=== PATIENT | male | born 1990 | race Caucasian/White ===

== ENCOUNTER 2018-02-19 10:08 | Emergency (ER) | payer MEDICAID, SELFPAY ==
[2018-02-19 10:09] VITALS: BP 112/75; PULSE 70; RESP 16; TEMP 36.6; O2SAT 97
--- NOTE | 2018-02-19 10:47 | W.ED.GENAD ---
Discharge Plan Discharge Details Chief Complaint: RespSymp Clinical Impression: Bronchitis, Wheezing Reason For Visit: cough Primary Care Provider: Felisa Howard ED Provider: Naseem Rosales Disposition Patient Disposition: HOME Condition: Stable Home Meds and New Rx's Prescriptions: New doxycycline hyclate 100 mg capsule 100 mg PO BID Qty: 14 RF: 0 prednisone 20 mg tablet 60 mg PO DAILY 4 Days Qty: 12 RF: 0 Discharge Instructions Instructions: Wheezing (ED) Additional Instructions: follow up with your primary care provider within a week you should discuss with your primary care provider having testing for asthma if you have worsening trouble breathing or severe weakness return to the emergency department Discharge Data Discharge Physician: Naseem Rosales Medical Decision Making MDM Narrative Medical decision making narrative: Patient here 2 days of cough and fevers at home, last 2 days ago per pt. He denies any recent travel, leg swelling or ivdu, does smoke and use marijuana. Has wheezing at the bases bilaterally and denies diagnosed asthma/copd but has used inhalers in the past. No murmurs or rashes on exam. I suspect the patient likely has RAD given his smoking hx and will treat with nebulizer and stzeroid and reassessz. Will likely start abx to cover for possible copd exacerbation given smoking hx. He has no fever here and appears well so dout pneumonia, do not feel chest imaing indicated pt feeling better after neb, remains stable. Will d/c and advised f/u with pcp, return precautions given. Differential Diagnosis copd, asthma, pneumonia, bronchitis HPI - General Adult General Mode of arrival: ambulatory. Date/Time Provider Initiated Documentation: 02/19/18 10:37. Limitations to Documentation: no limitations. Information obtained by: patient. History of Present Illness 28 year old M presents to the emergency department with the chief complaint of cough, described as moderate, with intensity rated at 3. Quality is described as aching, and is localized to the chest. Patient reports no radiation. Patient started experiencing this day(s) (3) and it has been constant. No relieving factors improve symptom(s), No exacerbating factors reported . Patient notes fever/chills. Patient did receive the following treatments prior to arrival, none Related Data Previous Rx's Medication Instructions Recorded doxycycline hyclate 100 mg PO BID #14 cap 02/19/18 prednisone 60 mg PO DAILY 4 Days #12 tab 02/19/18 Allergies Allergy/AdvReac Type Severity Reaction Status Date / Time amitriptyline Allergy rash/behavioral Unverified 02/19/18 10:13 changes clonazepam AdvReac Mild irritablity Unverified 02/19/18 10:14 /byrne General Stated Complaint: RespSymp DERRICK: 3 Review of Systems Review of Systems All systems reviewed & are unremarkable except as noted in HPI and below Constitutional Reports chills, Reports fever(s) and Denies weakness Eyes Patient Denies loss of vision ENT Denies change in voice Cardiovascular Denies chest pain Respiratory Reports cough Gastrointestinal Denies abdominal pain, Denies nausea and Denies vomiting Genitourinary Denies dysuria Musculoskeletal Denies joint swelling Integumentary/Breasts Denies rash Neurologic Denies loss of vision and Denies weakness Psychiatric Denies depression Endocrine Denies cold intolerance and Denies heat intolerance Allergic/Immunologic Reports urticaria PFSH Family History Other Essential hypertension Heart disease Medical History Alcohol abuse Erosive gastritis GERD (gastroesophageal reflux disease) History of drug use disorder History of melena Tobacco abuse Social History Smoking/Tobacco Use Status: Current every day Surgical History EGD - MAC (12/15/17) Exam Const General: no acute distress Orientation: alert HENMT Head: normal to inspection Ears: external ears normal General nose exam: external nose normal Mouth: moist mucous membranes Eyes General: appearance normal, both eyes and all related structures Neck Neck: normal visual inspection Resp Effort & Inspection: normal respiratory effort, able to speak in complete sentences and audible wheezes Cardio Rate: regular rate Skin General skin exam: no rashes or lesions noted Neuro General: alert and oriented x3 Extrem General: normal to inspection Psych Mental Status: mental status grossly normal Course Vital Signs Temperature 36.6 C 02/19/18 10:09 Pulse 70 02/19/18 10:09 Respiratory Rate 16 02/19/18 10:09 Blood Pressure 112/75 02/19/18 10:09 Pulse Oximetry 97 02/19/18 10:09 Temperature 36.6 C 02/19/18 10:09 Pulse 70 02/19/18 10:09 Respiratory Rate 16 02/19/18 10:09 Blood Pressure 112/75 02/19/18 10:09 Pulse Oximetry 97 02/19/18 10:09
--- NOTE | 2018-02-19 10:50 | ED.GENADUL_ITS ---
Discharge Plan Discharge Details Chief Complaint: RespSymp Clinical Impression: Bronchitis, Wheezing Reason For Visit: cough Primary Care Provider: Felisa Howard ED Provider: Naseem Rosales Disposition Patient Disposition: HOME Condition: Stable Home Meds and New Rx's Prescriptions: New doxycycline hyclate 100 mg capsule 100 mg PO BID Qty: 14 RF: 0 prednisone 20 mg tablet 60 mg PO DAILY 4 Days Qty: 12 RF: 0 Discharge Instructions Instructions: Wheezing (ED) Additional Instructions: follow up with your primary care provider within a week you should discuss with your primary care provider having testing for asthma if you have worsening trouble breathing or severe weakness return to the emergency department Discharge Data Discharge Physician: Naseem Rosales Medical Decision Making MDM Narrative Medical decision making narrative: Patient here 2 days of cough and fevers at home, last 2 days ago per pt. He denies any recent travel, leg swelling or ivdu , does smoke and use marijuana. Has wheezing at the bases bilaterally and denies diagnosed asthma/copd but has used inhalers in the past. No murmurs or rashes on exam. I suspect the patient likely has RAD given his smoking hx and will treat with nebulizer and stzeroid and reassessz. Will likely start abx to cover for possible copd exacerbation given smoking hx. He has no fever here and appears well so dout pneumonia, do not feel chest imaing indicated pt feeling better after neb, remains stable. Will d/c and advised f/u with pcp, return precautions given. Differential Diagnosis copd, asthma, pneumonia, bronchitis HPI - General Adult General Mode of arrival: ambulatory . Date/Time Provider Initiated Documentation: 02/19/18 10:37 . Limitations to Documentation: no limitations . Information obtained by: patient . History of Present Illness 28 year old M presents to the emergency department with the chief complaint of cough, described as moderate, with intensity rated at 3. Quality is described as aching, and is localized to the chest. Patient reports no radiation. Patient started experiencing this day(s) (3) and it has been constant. No relieving factors improve symptom(s), No exacerbating factors reported . Patient notes fever/chills. Patient did receive the following treatments prior to arrival, none Related Data Previous Rx's Medication Instructions Recorded doxycycline hyclate 100 mg PO BID #14 cap 02/19/18 prednisone 60 mg PO DAILY 4 Days #12 tab 02/19/18 Allergies Allergy/AdvReac Type Severity Reaction Status Date / Time amitriptyline Allergy rash/behavioral Unverified 02/19/18 10:13 changes clonazepam AdvReac Mild irritablity Unverified 02/19/18 10:14 /byrne General Stated Complaint: RespSymp DERRICK: 3 Review of Systems Review of Systems All systems reviewed & are unremarkable except as noted in HPI and below Constitutional Reports chills, Reports fever(s) and Denies weakness Eyes Patient Denies loss of vision ENT Denies change in voice Cardiovascular Denies chest pain Respiratory Reports cough Gastrointestinal Denies abdominal pain, Denies nausea and Denies vomiting Genitourinary Denies dysuria Musculoskeletal Denies joint swelling Integumentary/Breasts Denies rash Neurologic Denies loss of vision and Denies weakness Psychiatric Denies depression Endocrine Denies cold intolerance and Denies heat intolerance Allergic/Immunologic Reports urticaria PFSH Family History Other Essential hypertension Heart disease Medical History Alcohol abuse Erosive gastritis GERD (gastroesophageal reflux disease) History of drug use disorder History of melena Tobacco abuse Social History Smoking/Tobacco Use Status: Current every day Surgical History EGD - MAC (12/15/17) Exam Const General: no acute distress Orientation: alert HENMT Head: normal to inspection Ears: external ears normal General nose exam: external nose normal Mouth: moist mucous membranes Eyes General: appearance normal, both eyes and all related structures Neck Neck: normal visual inspection Resp Effort & Inspection: normal respiratory effort, able to speak in complete sentences and audible wheezes Cardio Rate: regular rate Skin General skin exam: no rashes or lesions noted Neuro General: alert and oriented x3 Extrem General: normal to inspection Psych Mental Status: mental status grossly normal Course Vital Signs Temperature 36.6 C 02/19/18 10:09 Pulse 70 02/19/18 10:09 Respiratory Rate 16 02/19/18 10:09 Blood Pressure 112/75 02/19/18 10:09 Pulse Oximetry 97 02/19/18 10:09 Temperature 36.6 C 02/19/18 10:09 Pulse 70 02/19/18 10:09 Respiratory Rate 16 02/19/18 10:09 Blood Pressure 112/75 02/19/18 10:09 Pulse Oximetry 97 02/19/18 10:09
[2018-02-19] MEDS: predniSONE 20 MG TAB 60 MG PO (11:08)
[2018-02-19] MEDS: Doxycycline Hyclate 100 MG CAP PO (11:09)
[2018-02-19 11:11] VITALS: PULSE 60; RESP 20; RESP 4; O2SAT 98
[2018-02-19] MEDS: Albuterol 2.5 MG/3 ML INH SOLN VIAL UPD (11:11)
[2018-02-19 11:41] VITALS: PULSE 65; RESP 1; RESP 20; O2SAT 96
[2018-02-19] MEDS: Albuterol HFA 8 GM 60 PUFF INH IH (12:01)
[2018-02-19] MEDS: Inhaler, Assist Device 1 EACH MC (12:05)
[2018-02-19 12:21] VITALS: BP 114/75; PULSE 65; RESP 20; TEMP 36.8; O2SAT 96
== END 2018-02-19 12:13 | disposition home or self-care (01) ==
PROVIDERS: Emergency Provider Emergency Medicine; PCP Nurse Practitioner Family
DX: J40 Bronchitis, not specified as acute or chronic (principal); R06.2 Wheezing
CPT/HCPCS: 94640; 99284; J7512; J7613

== ENCOUNTER 2018-04-11 06:45 | Emergency (ER) | payer MEDICAID, SELFPAY ==
[2018-04-11 06:49] VITALS: BP 122/77; PULSE 69; RESP 14; TEMP 36.6; O2SAT 98
--- NOTE | 2018-04-11 07:44 | DI.RAD_ITS ---
SYMPTOM/DIAGNOSIS: COUGH PA AND LATERAL CHEST: Comparison is made with 05/03/17. The heart is normal in size. The lungs are clear. The mediastinal structures and pleura appear intact. CONCLUSION: Normal chest.
--- NOTE | 2018-04-11 07:52 | ED.GENADUL_ITS ---
Discharge Plan Disposition Patient Disposition: HOME Condition: Good Discharge Details Chief Complaint: RespSymp Clinical Impression: Cough, Acid reflux Primary Care Provider: Felisa Howard ED Provider: Km Patten Home Meds and New Rx's Prescriptions: New azithromycin 250 mg tablet See Label Instructions .ROUTE .COMPLEX Qty: 6 RF: 0 dexamethasone [Decadron] 4 mg tablet 12 mg PO ONCE Qty: 3 RF: 0 Discharge Instructions Instructions: Gastroesophageal Reflux Disease (ED), Acute Cough (ED) Additional Instructions: Please avoid any spicy foods, please stop smoking, please take the medications as directed. Please take your home omeprazole as directed. If you notice any worsening of your symptoms, or any new symptoms such as vomiting, diarrhea, fever, chills, shortness of breath, chest pain, numbness, weakness, or fainting , please return immediately to the emergency department for reevaluation. Please follow up with your primary care provider as soon as possible for reassessment and reevaluation. As always, it was a pleasure participating in your medical care today. Referrals: Felisa Howard [Primary Care Provider] - Discharge Data Discharge Date/Time-TO BE ENTERED AT DEPARTURE: 04/11/18 09:45 <Km Patten DO - Last Filed: 04/11/18 09:34> The case is signed out to be my my colleague Dr. Herbie eD Leon. Initial presentation was concerning for mild bronchitis versus component of reflux. Physical exam upon discharge demonstrates nontender abdomen, benign appearing lung sounds. Vital signs are stable, no signs of toxemia, hypoxemia, or other significant abnormality. Laboratory workup is extremely benign with no significant abnormalities. Chest x-ray on my review shows no acute process however we are awaiting virtual radiology read. Patient states that he is unwilling to wait any longer for the formal radiology read. We did discuss risks and benefits of this. Patient would like to leave now. I do feel the patient would benefit from a dose of oral steroids, azithromycin, and omeprazole. He already has omeprazole at home but does not take this. I discussed with him the importance of continuing to take this regularly and as directed. We discussed the importance of avoidance of spicy foods which he states that he has not regular basis, as well as the importance of smoking cessation. I have extensively reviewed the treatment plan and discharge instructions with the patient and their family. I have addressed all patient concerns at this time. The patient and family was made aware of what symptoms to monitor for that would warrant a return to the emergency department. Discussed the plan with the patient and family, they demonstrate verbal understanding and agreement with our assessment and plan at this time. HPI <Herbie De Leon MD - Last Filed: 04/17/18 08:29> General Mode of arrival: ambulatory . Date/Time Provider Initiated Documentation: 04/11/18 07:44 . Limitations to Documentation: no limitations . Information obtained by: patient . HPI Narrative: 28-year-old male presents with chief complaint of general illness. Patient notes that for the past 1 month he has been sick. Symptoms moderate with no modifiers. He states he has had intermittent fever. Persistent cough. Nausea and intermittent vomiting. Some diffuse abdominal discomfort. Also with some aches. Related Data Home Medications Medication Instructions Recorded Confirmed azithromycin See Label Instructions .ROUTE 04/11/18 .COMPLEX #6 tab dexamethasone [Decadron] 12 mg PO ONCE #3 tab 04/11/18 Previous Rx's Medication Instructions Recorded azithromycin See Label Instructions .ROUTE 04/11/18 .COMPLEX #6 tab dexamethasone [Decadron] 12 mg PO ONCE #3 tab 04/11/18 Allergies Allergy/AdvReac Type Severity Reaction Status Date / Time amitriptyline Allergy rash/behavioral Unverified 04/11/18 06:53 changes clonazepam AdvReac Mild irritablity Unverified 04/11/18 06:53 /byrne General Stated Complaint: RespSymp DERRICK: 3 Review of Systems <Herbie De Leon MD - Last Filed: 04/17/18 08:29> Review of Systems All systems reviewed & are unremarkable except as noted in HPI and below Exam <Herbie De Leon MD - Last Filed: 04/17/18 08:29> Const General: cooperative and no acute distress HENMT Head: normocephalic and atraumatic Mouth: moist mucous membranes Eyes Conjunctivae: normal conjunctivae Sclera: normal sclerae EOM: EOM intact bilaterally Neck Neck: trachea midline and supple Resp Effort & Inspection: normal respiratory effort, able to speak in complete sentences and cough Auscultation: no rales, rhonchi and no wheezes Cardio Jugular venous pressure: no JVD Rate: regular rate and not tachycardic Rhythm: regular rhythm GI Palpation: soft, not firm, no guarding, no masses, not rigid and nontender Skin General skin exam: no rashes or lesions noted Neuro General: alert, awake, oriented x3 and tone normal Extrem General: no edema Psych Appearance: grossly normal Mental Status: mental status grossly normal Speech and Movement: speech and movement normal Course <Herbie De Leon MD - Last Filed: 04/17/18 08:29> Vital Signs Temperature 36.6 C 04/11/18 06:49 Pulse 69 04/11/18 06:49 Respiratory Rate 14 04/11/18 06:49 Blood Pressure 122/77 04/11/18 06:49 Pulse Oximetry 98 04/11/18 06:49 Temperature 36.6 C 04/11/18 06:49 Temperature Source Temporal Artery Scan 04/11/18 06:49 Pulse 69 04/11/18 06:49 Respiratory Rate 14 04/11/18 06:49 Respiratory Effort Non-Labored 04/11/18 06:54 Blood Pressure 122/77 04/11/18 06:49 Pulse Oximetry 98 04/11/18 06:49 Oxygen Delivery Method Room Air 04/11/18 06:49 Oxygen Flow Rate 0 04/11/18 06:49 Pain Level 6 04/11/18 06:49 Sign Out <Herbie De Leon MD - Last Filed: 04/17/18 08:29> Sign Out Data: Sign Out Comment: care signed out to Dr. Patten: please follow-up on cxr and labs. Reassess patient after zofran and IVF. Consider abx coverage vs bronchitis vs PNA. Last updated by Herbie De Leon MD at 04/11/18 08:27
[2018-04-11] MEDS: Lactated Ringers 1,000 ML 1000 ML IV (08:13)
[2018-04-11] MEDS: Ondansetron 4 MG/2 ML VIAL IVP (08:13)
[2018-04-11 08:21] LABS: Abs Immature Grans 0.01 k/cumm (0.0-0.09); Absolute Basophil Count 0.01 k/cumm (0.0-0.2); Absolute Eosinophil Count 0.07 k/cumm (0.0-0.7); Absolute Lymphocyte Count 2.49 k/cumm (1.2-3.4); Absolute Monocyte Count 0.59 k/cumm (0.11-0.7); Absolute Neutrophil Count 2.11 k/cumm (1.2-6.7); Basophils % 0.2; Eosinophils % 1.3; HGB 16.2 g/dL (13.5-17.5); Immature Grans % 0.2; Lymphocytes % 47.2; Mean Corp. HGB Concentration 35.2 g/dL (32.0-36.0); Mean Corpuscular Hemoglobin 31.2 pg (27.0-33.0); Mean Corpuscular Volume 88.5 fL (80-95); Mean Platelet Volume 9.8 fL (8.0-11.0); Monocytes % 11.2; Neutrophils % 39.9; Platelet Count 196 x1000/uL (130-400); RBC Distribution Width 13.3 % (11.8-14.1); White Blood Cell Count 5.28 k/cumm (4.4-10.8)
[2018-04-11 08:28] LABS: ALT 23 U/L (12-78); AST 19 U/L (15-37); Albumin 4.5 g/dL (3.4-5.0); Alkaline Phosphatase 86 U/L (46-116); BUN 20 mg/dL (7-18); Bilirubin, Total 0.6 mg/dL (0.2-1.0); Calcium 9.6 mg/dL (8.5-10.1); Chloride 102 mmol/L (98-107); Glucose 84 mg/dL (70-100); Potassium 4.3 mmol/L (3.5-5.1); Sodium 140 mmol/L (136-145); Total Protein 8.3 g/dL (6.4-8.2)
--- NOTE | 2018-04-11 09:37 | DI.VRAD_ITS ---
EXAM: XR Chest, 2 Views EXAM DATE/TIME: 04/11/2018 7:48 AM CLINICAL HISTORY: 28 years old, male; Signs and symptoms; Other: Cough 1 month TECHNIQUE: XR of the chest, 2 views. COMPARISON: CR CHEST 2 VIEWS PA,LAT 05/03/2017 9:01 AM FINDINGS: Lungs: Unremarkable. No consolidation. Pleural space: Unremarkable. No pleural effusion. No pneumothorax. Heart/Mediastinum: Unremarkable. No cardiomegaly. Bones/joints: Unremarkable. IMPRESSION: No acute findings. Dictated and Authenticated by: Etta Kennedy MD. Ordering:CAIO INMAN MD
== END 2018-04-11 09:45 | disposition home or self-care (01) ==
LOC: ER 09:39
PROVIDERS: Student in an Organized Health Care Education/Training Program; Emergency Provider Student in an Organized Health Care Education/Training Program; PCP Nurse Practitioner Family
DX: R05 Cough (principal); K21.9 Gastro-esophageal reflux disease without esophagitis; F17.210 Nicotine dependence, cigarettes, uncomplicated
CPT/HCPCS: 36415; 80053; 96361; 96374; 99284; 71046; 85025; 99285; J2405

== ENCOUNTER 2018-04-14 17:57 | Emergency (ER) | payer MEDICAID, SELFPAY ==
[2018-04-14 18:04] VITALS: BP 120/68; PULSE 77; RESP 16; TEMP 36.6; O2SAT 98
--- NOTE | 2018-04-14 18:44 | W.ED.GENAD ---
Discharge Plan Disposition Patient Disposition: HOME Condition: Stable Discharge Details Chief Complaint: Orthopedic Clinical Impression: Complication of intravenous catheter site Primary Care Provider: Felisa Howard ED Provider: Vinay Gannon Home Meds and New Rx's Prescriptions: No Action azithromycin 250 mg tablet See Label Instructions .ROUTE .COMPLEX Qty: 6 RF: 0 dexamethasone [Decadron] 4 mg tablet 12 mg PO ONCE Qty: 3 RF: 0 Discharge Instructions Instructions: Hematoma (ED) Additional Instructions: He may apply ice to help with swelling and bruising otherwise take [id number] pain medication as needed for discomfort. Watch for any signs of infection such as redness, warmth, fever or chills return immediately if these occur. Referrals: Felisa Howard [Primary Care Provider] - (As needed for reassessment ) Medical Decision Making Patient presenting to the emergency department for chief complaint of left arm pain from an IV that he received in the emergency department 3 days ago. Patient states bruising that is occurred. Patient denies any redness, fever chills, or other systemic symptoms. Physical exam was performed and does show bruising to the left antecubital fossa with some tenderness but otherwise is unremarkable. During examination patient and states that he is concerned because his father had a blood clot. I highly doubt any thrombosis formation in this area but bedside ultrasound was utilized to visualize the veins starting at the mid forearm all the way up through the upper arm and no abnormalities of compressibility were noted of any of the veins and good arterial pulses were noted. I feel the patient is suffering from simple ecchymosis and bruising after IV removal. Patient was encouraged to apply ice and take [id number] pain medication as needed otherwise to watch for signs of infection and return immediately if these occur but as of right now no signs of infection are present. After discussion of diagnosis and plan of care patient has no further needs, questions, or concerns and states clear understanding to return to the emergency department for any worsening symptoms. HPI General Mode of arrival: ambulatory. Date/Time Provider Initiated Documentation: 04/14/18 18:09. Limitations to Documentation: no limitations. Information obtained by: patient. History of Present Illness described as severe, with intensity rated at 10. Quality is described as dull and constant, and is localized to the left and lower extremity. Patient started experiencing this day(s) (3) and it has been constant. No relieving factors improve symptom(s), No exacerbating factors reported . Patient notes no other symptoms.. Patient did receive the following treatments prior to arrival, none Related Data Home Medications Medication Instructions Recorded Confirmed azithromycin See Label Instructions .ROUTE 04/11/18 .COMPLEX #6 tab dexamethasone [Decadron] 12 mg PO ONCE #3 tab 04/11/18 Previous Rx's Medication Instructions Recorded azithromycin See Label Instructions .ROUTE 04/11/18 .COMPLEX #6 tab dexamethasone [Decadron] 12 mg PO ONCE #3 tab 04/11/18 Allergies Allergy/AdvReac Type Severity Reaction Status Date / Time amitriptyline Allergy rash/behavioral Unverified 04/11/18 06:53 changes clonazepam AdvReac Mild irritablity Unverified 04/11/18 06:53 /byrne General Stated Complaint: Orthopedic DERRICK: 4 Review of Systems Constitutional Denies chills and Denies fever(s) Cardiovascular Denies chest pain and Denies dyspnea Respiratory Denies cough and Denies dyspnea Integumentary/Breasts Denies erythema, Denies rash and Reports unusual bruising (From IV catheter) Neurologic Denies confusion and Denies sensory deficit Psychiatric Denies confusion PFSH Family History Other Essential hypertension Heart disease Medical History Alcohol abuse Erosive gastritis GERD (gastroesophageal reflux disease) History of drug use disorder History of melena Tobacco abuse Social History Smoking/Tobacco Use Status: Current every day Surgical History EGD - MAC (12/15/17) Exam Const General: cooperative, healthy appearing, comfortable, no acute distress and anxious Nutritional Appearance: average body habitus Orientation: alert, awake and oriented x3 Resp Effort & Inspection: normal respiratory effort and able to speak in complete sentences Cardio Rate: regular rate Rhythm: regular rhythm Extrem General: normal exam except as noted Left upper extremity: elbow/forearm Details: tenderness Location: of the antercubital fossa, normal ROM and ecchymosis (To antecubital fossa) Course Vital Signs Temperature 36.6 C 04/14/18 18:04 Pulse 77 04/14/18 18:04 Respiratory Rate 16 04/14/18 18:04 Blood Pressure 120/68 04/14/18 18:04 Pulse Oximetry 98 04/14/18 18:04 Temperature 36.6 C 04/14/18 18:04 Temperature Source Skin 04/14/18 18:04 Pulse 77 04/14/18 18:04 Respiratory Rate 16 04/14/18 18:04 Respiratory Effort 04/14/18 18:14 Blood Pressure 120/68 04/14/18 18:04 Blood Pressure Position Sitting 04/14/18 18:04 Pulse Oximetry 98 04/14/18 18:04 Oxygen Delivery Method Room Air 04/14/18 18:04 Oxygen Flow Rate 0 04/14/18 18:04 Pain Level 10 04/14/18 18:04
[2018-04-14 18:48] VITALS: BP 120/68; PULSE 77; RESP 16; TEMP 36.6; O2SAT 98
--- NOTE | 2018-04-14 23:19 | ED.GENADUL_ITS ---
Discharge Plan Disposition Patient Disposition: HOME Condition: Stable Discharge Details Chief Complaint: Orthopedic Clinical Impression: Complication of intravenous catheter site Primary Care Provider: Felisa Howard ED Provider: Vinay Gannon Home Meds and New Rx's Prescriptions: No Action azithromycin 250 mg tablet See Label Instructions .ROUTE .COMPLEX Qty: 6 RF: 0 dexamethasone [Decadron] 4 mg tablet 12 mg PO ONCE Qty: 3 RF: 0 Discharge Instructions Instructions: Hematoma (ED) Additional Instructions: He may apply ice to help with swelling and bruising otherwise take over-the- counter pain medication as needed for discomfort. Watch for any signs of infection such as redness, warmth, fever or chills return immediately if these occur. Referrals: Felisa Howard [Primary Care Provider] - (As needed for reassessment ) Medical Decision Making Patient presenting to the emergency department for chief complaint of left arm pain from an IV that he received in the emergency department 3 days ago. Patient states bruising that is occurred. Patient denies any redness, fever chills, or other systemic symptoms. Physical exam was performed and does show bruising to the left antecubital fossa with some tenderness but otherwise is unremarkable. During examination patient and states that he is concerned because his father had a blood clot. I highly doubt any thrombosis formation in this area but bedside ultrasound was utilized to visualize the veins starting at the mid forearm all the way up through the upper arm and no abnormalities of compressibility were noted of any of the veins and good arterial pulses were noted. I feel the patient is suffering from simple ecchymosis and bruising after IV removal. Patient was encouraged to apply ice and take [id number] pain medication as needed otherwise to watch for signs of infection and return immediately if these occur but as of right now no signs of infection are present. After discussion of diagnosis and plan of care patient has no further needs, questions, or concerns and states clear understanding to return to the emergency department for any worsening symptoms. HPI General Mode of arrival: ambulatory . Date/Time Provider Initiated Documentation: 04/14/18 18:09 . Limitations to Documentation: no limitations . Information obtained by: patient . History of Present Illness described as severe, with intensity rated at 10. Quality is described as dull and constant, and is localized to the left and lower extremity. Patient started experiencing this day(s) (3) and it has been constant. No relieving factors improve symptom(s), No exacerbating factors reported . Patient notes no other symptoms.. Patient did receive the following treatments prior to arrival, none Related Data Home Medications Medication Instructions Recorded Confirmed azithromycin See Label Instructions .ROUTE 04/11/18 .COMPLEX #6 tab dexamethasone [Decadron] 12 mg PO ONCE #3 tab 04/11/18 Previous Rx's Medication Instructions Recorded azithromycin See Label Instructions .ROUTE 04/11/18 .COMPLEX #6 tab dexamethasone [Decadron] 12 mg PO ONCE #3 tab 04/11/18 Allergies Allergy/AdvReac Type Severity Reaction Status Date / Time amitriptyline Allergy rash/behavioral Unverified 04/11/18 06:53 changes clonazepam AdvReac Mild irritablity Unverified 04/11/18 06:53 /byrne General Stated Complaint: Orthopedic DERRICK: 4 Review of Systems Constitutional Denies chills and Denies fever(s) Cardiovascular Denies chest pain and Denies dyspnea Respiratory Denies cough and Denies dyspnea Integumentary/Breasts Denies erythema, Denies rash and Reports unusual bruising (From IV catheter) Neurologic Denies confusion and Denies sensory deficit Psychiatric Denies confusion PFSH Family History Other Essential hypertension Heart disease Medical History Alcohol abuse Erosive gastritis GERD (gastroesophageal reflux disease) History of drug use disorder History of melena Tobacco abuse Social History Smoking/Tobacco Use Status: Current every day Surgical History EGD - MAC (12/15/17) Exam Const General: cooperative, healthy appearing, comfortable, no acute distress and anxious Nutritional Appearance: average body habitus Orientation: alert, awake and oriented x3 Resp Effort & Inspection: normal respiratory effort and able to speak in complete sentences Cardio Rate: regular rate Rhythm: regular rhythm Extrem General: normal exam except as noted Left upper extremity: elbow/forearm Details: tenderness Location: of the antercubital fossa, normal ROM and ecchymosis (To antecubital fossa) Course Vital Signs Temperature 36.6 C 04/14/18 18:04 Pulse 77 04/14/18 18:04 Respiratory Rate 16 04/14/18 18:04 Blood Pressure 120/68 04/14/18 18:04 Pulse Oximetry 98 04/14/18 18:04 Temperature 36.6 C 04/14/18 18:04 Temperature Source Skin 04/14/18 18:04 Pulse 77 04/14/18 18:04 Respiratory Rate 16 04/14/18 18:04 Respiratory Effort 04/14/18 18:14 Blood Pressure 120/68 04/14/18 18:04 Blood Pressure Position Sitting 04/14/18 18:04 Pulse Oximetry 98 04/14/18 18:04 Oxygen Delivery Method Room Air 04/14/18 18:04 Oxygen Flow Rate 0 04/14/18 18:04 Pain Level 10 04/14/18 18:04
== END 2018-04-14 18:48 | disposition home or self-care (01) ==
PROVIDERS: Emergency Provider Nurse Practitioner Family; PCP Nurse Practitioner Family
DX: T82.848A Pain due to vascular prosthetic devices, implants and grafts, initial encounter (principal); Y84.8 Other medical procedures as the cause of abnormal reaction of the patient, or of later complication, without mention of misadventure at the time of the procedure
CPT/HCPCS: 99282

== ENCOUNTER 2018-04-21 12:45 | Outpatient (REF) | payer MEDICAID, SELFPAY ==
[2018-04-21 13:20] LABS: HCT 46.2 % (40.0-50.0); HGB 15.7 g/dL (13.5-17.5); Mean Corpuscular Hemoglobin 30.6 pg (27.0-33.0); Mean Corpuscular Volume 90.1 fL (80-95); Mean Platelet Volume 10.3 fL (8.0-11.0); Platelet Count 225 x1000/uL (130-400); RBC 5.13 m/cumm (4.50-6.00); White Blood Cell Count 6.63 k/cumm (4.4-10.8)
[2018-04-21 13:28] LABS: ALT 26 U/L (12-78); AST 16 U/L (15-37); Albumin 4.4 g/dL (3.4-5.0); Alkaline Phosphatase 86 U/L (46-116); Bilirubin, Direct 0.13 mg/dL (0.00-0.20); Bilirubin, Total 0.5 mg/dL (0.2-1.0); Total Protein 7.6 g/dL (6.4-8.2)
[2018-04-21 14:54] LABS: PTT Activated 26.5 sec (21.0-31.4)
== END 2018-04-21 13:05 ==
LOC: NCHCN 12:45
PROVIDERS: PCP Nurse Practitioner Family; Visit Provider Nurse Practitioner Family
DX: R05 Cough (principal); R51 Headache; F10.10 Alcohol abuse, uncomplicated; F19.10 Other psychoactive substance abuse, uncomplicated
CPT/HCPCS: 80076; 85027; 85610; 85730

== ENCOUNTER 2018-04-24 01:27 | Outpatient (CLI) | payer MEDICAID, SELFPAY ==
--- NOTE | 2018-04-24 13:47 | DI.CT_ITS ---
SYMPTOMS/DIAGNOSIS: HEADACHES, R51, COUGH, R05 CRANIAL CT (WITHOUT CONTRAST): A noncontrast cranial CT was performed. There are no priors for comparison. The ventricular system is normal in appearance. There is no evidence of an intracranial mass lesion. There is no evidence of a subdural or epidural hematoma. No focal areas of decreased attenuation are seen. CONCLUSION: Normal noncontrast Cranial CT.
== END 2018-04-24 01:47 ==
PROVIDERS: PCP Nurse Practitioner Family; Visit Provider Nurse Practitioner Family
DX: R51 Headache (principal); R05 Cough
CPT/HCPCS: 70450

== ENCOUNTER 2018-06-06 21:32 | Emergency (ER) | payer MEDICAID, SELFPAY ==
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
[2018-06-06 21:37] VITALS: BP 110/71; PULSE 69; RESP 20; TEMP 36.3; O2SAT 100
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
[2018-06-06] MEDS: Acetaminophen 500 MG TAB PO (21:49)
[2018-06-06] MEDS: Gabapentin 300 MG CAP PO (22:17)
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
[2018-06-06] MEDS: oxyCODONE 5 MG TAB 20 MG PO (22:19)
== END 2018-06-06 22:24 | disposition home or self-care (01) ==
PROVIDERS: Emergency Provider Emergency Medicine; PCP Nurse Practitioner Family
DX: S62.336A Displaced fracture of neck of fifth metacarpal bone, right hand, initial encounter for closed fracture (principal); W22.8XXA Striking against or struck by other objects, initial encounter
CPT/HCPCS: 26600; 73130; L3809

== ENCOUNTER 2018-06-10 09:07 | Emergency (ER) | payer MEDICAID, SELFPAY ==
[2018-06-10] VITALS (15 sets, daily range): BP systolic 111–129; BP diastolic 68–84; PULSE 68–91; RESP 14–22; TEMP 37.2; O2SAT 94–98
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
[2018-06-10] MEDS: Lactated Ringers 1,000 ML 150 ML IV (10:03)
[2018-06-10] MEDS: HYDROmorphone 2 MG/ML VIAL 1 MG IVP (10:03)
--- NOTE | 2018-06-10 10:10 | NUR.NOTE ---
Pt. is alert, talking to PD currently.
[2018-06-10 10:20] LABS: Abs Immature Grans 0.02 k/cumm (0.0-0.09); Absolute Basophil Count 0.01 k/cumm (0.0-0.2); Absolute Eosinophil Count 0.01 k/cumm (0.0-0.7); Absolute Lymphocyte Count 2.64 k/cumm (1.2-3.4); Absolute Neutrophil Count 7.63 k/cumm (1.2-6.7); Basophils % 0.1; Eosinophils % 0.1; HCT 41.9 % (40.0-50.0); Immature Grans % 0.2; Lymphocytes % 23.8; Mean Corp. HGB Concentration 35.8 g/dL (32.0-36.0); Mean Corpuscular Hemoglobin 31.4 pg (27.0-33.0); Mean Corpuscular Volume 87.8 fL (80-95); Mean Platelet Volume 9.9 fL (8.0-11.0); Monocytes % 6.9; Neutrophils % 68.9; Platelet Count 218 x1000/uL (130-400); RBC 4.77 m/cumm (4.50-6.00); RBC Distribution Width 12.9 % (11.8-14.1); White Blood Cell Count 11.08 k/cumm (4.4-10.8)
[2018-06-10 10:21] LABS: Absolute Monocyte Count 0.76 k/cumm (0.11-0.7)
[2018-06-10 10:36] LABS: ALT 26 U/L (12-78); AST 28 U/L (15-37); Albumin 4.4 g/dL (3.4-5.0); Alkaline Phosphatase 86 U/L (46-116); Anion Gap 11.5 mmol/L (3-11); BUN 16 mg/dL (7-18); Bilirubin, Total 0.4 mg/dL (0.2-1.0); CO2 27.5 mmol/L (21.0-32.0); CREATININE 0.89 mg/dL (0.70-1.30); Calcium 9.2 mg/dL (8.5-10.1); Chloride 103 mmol/L (98-107); Glucose 79 mg/dL (70-100); Potassium 4.4 mmol/L (3.5-5.1); Sodium 142 mmol/L (136-145); Total Protein 7.7 g/dL (6.4-8.2)
[2018-06-10] MEDS: Omnipaque 350 MG/ML 100 ML BTL IJ (11:13)
== END 2018-06-10 11:50 | disposition home or self-care (01) ==
PROVIDERS: Emergency Provider Emergency Medicine; PCP Nurse Practitioner Family
DX: S42.034A Nondisplaced fracture of lateral end of right clavicle, initial encounter for closed fracture (principal); S60.812A Abrasion of left wrist, initial encounter; M25.531 Pain in right wrist; M25.532 Pain in left wrist; Y04.8XXA Assault by other bodily force, initial encounter
CPT/HCPCS: 36415; 74177; 80053; 96361; 96374; 96375; 99284; 70450; 71260; 72125; 73100; 85025; 99283; J3490; L3650

== ENCOUNTER 2018-06-18 10:54 | Outpatient (CLI) | payer MEDICAID, SELFPAY ==
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
== END 2018-06-18 11:14 ==
PROVIDERS: PCP Nurse Practitioner Family; Visit Provider Physician Assistant Surgical
DX: S42.034D Nondisplaced fracture of lateral end of right clavicle, subsequent encounter for fracture with routine healing (principal)
CPT/HCPCS: 73000

== ENCOUNTER 2018-07-16 11:28 | Outpatient (CLI) | payer MEDICAID, SELFPAY ==
--- NOTE | 2018-07-16 11:23 | DI.RAD_ITS ---
SYMPTOM/DIAGNOSIS: F/U FX RIGHT CLAVICLE: Comparison is made with 06/18/18. There is again noted to be elevation of the distal clavicle and deformity of the distal clavicle consistent with a healing fracture. No new abnormalities are seen.
== END 2018-07-16 11:48 ==
PROVIDERS: PCP Nurse Practitioner Family; Visit Provider Orthopaedic Surgery
DX: S42.034D Nondisplaced fracture of lateral end of right clavicle, subsequent encounter for fracture with routine healing (principal)
CPT/HCPCS: 73000

== ENCOUNTER 2018-08-17 08:23 | Emergency (ER) | payer MEDICAID, SELFPAY ==
[2018-08-17 08:26] VITALS: BP 115/84; PULSE 83; RESP 15; TEMP 36.8; O2SAT 98
--- NOTE | 2018-08-17 08:38 | W.ED.GENAD ---
Discharge Plan Disposition Patient Disposition: HOME Condition: Improving Discharge Details Chief Complaint: Nausea/Vomit/Diar Clinical Impression: Gastroenteritis Primary Care Provider: Prabha Gordon ED Provider: Jb Navarro Home Meds and New Rx's Prescriptions: New ondansetron HCl [Zofran] 4 mg tablet 4 mg PO QID PRN (Reason: Nausea And Vomiting) Qty: 10 RF: 0 Continued celecoxib [Celebrex] 100 mg capsule 100 mg PO BID RF: 0 gabapentin 300 mg capsule 300 mg PO TID Qty: 90 RF: 2 omeprazole 40 mg Capsule,Delayed Release(Dr/Ec) 40 mg PO DAILY RF: 0 fluoxetine 20 mg capsule 40 mg PO DAILY RF: 0 Discharge Instructions Instructions: Gastroenteritis (ED) Additional Instructions: Home to rest today. Small, frequent fluids to maintain hydration. Return for any acute concerns. Stand Alone Forms: Work Release Medical Decision Making 28-year-old male with a history of GERD, gastritis, as well as mild mood disorder presents with 5-7 days of nausea, vomiting, diarrhea this been exacerbated by eating. He is well-appearing, afebrile with normal vital signs. He does have increased bowel sounds on exam. Differential diagnosis includes dehydration, gastroenteritis, electrolyte abnormality. IV was placed, labs obtained patient given fluid bolus, antiemetic, PPI. CBC and chemistries are unremarkable. Patient is improving. He will be offered antiemetic for home. Of note, he did have mild left ear congestion without evidence of otitis media. Will trial Benadryl at bedtime. He is stable and appropriate for discharge. Lab Data Laboratory Results - last 24 hr 08/17/18 08/17/18 08:50 08:50 WBC 7.09 RBC 5.12 Hgb 15.7 Hct 45.2 MCV 88.3 MCH 30.7 MCHC 34.7 RDW 12.8 Plt Count 219 MPV 9.3 Immature Gran % 0.3 Neutrophils % 77.8 Lymphocytes % 13.5 Monocytes % 7.6 Eosinophils % 0.7 Basophils % 0.1 Absolute Neutrophils 5.51 Absolute Lymphocytes 0.96 L Absolute Monocytes 0.54 Absolute Eosinophils 0.05 Absolute Basophils 0.01 Sodium 140 Potassium 3.9 Chloride 103 Carbon Dioxide 29.2 Anion Gap 7.8 BUN 18 Creatinine 0.90 Estimated GFR/1.73 m2 >= 60.00 Glucose 95 Calcium 9.3 Total Bilirubin 0.7 AST 20 ALT 21 Alkaline Phosphatase 98 Total Protein 7.8 Albumin 4.2 HPI General Mode of arrival: ambulatory. Date/Time Provider Initiated Documentation: 08/17/18 08:33. Limitations to Documentation: no limitations. Information obtained by: patient. History of Present Illness 28 year old M presents to the emergency department with the chief complaint of Nausea, vomiting, diarrhea 4 days time. No blood, described as moderate, Quality is described as dull, and is localized to the abdomen. Patient reports no radiation. Patient started experiencing this day(s) Eating improves symptom(s), Rest worsens symptoms . Patient notes loss of appetite; denies headaches. Patient did receive the following treatments prior to arrival, none Related Data Home Medications Medication Instructions Recorded Confirmed omeprazole 40 mg PO DAILY 06/06/18 08/17/18 celecoxib 100 mg capsule 100 mg PO BID 08/07/18 08/17/18 fluoxetine 20 mg capsule 40 mg PO DAILY cap 08/07/18 08/17/18 gabapentin 300 mg capsule 300 mg PO TID #90 cap 08/07/18 08/17/18 ondansetron HCl [Zofran] 4 mg PO QID PRN #10 tab 08/17/18 Previous Rx's Medication Instructions Recorded gabapentin 300 mg capsule 300 mg PO TID #90 cap 08/07/18 ondansetron HCl [Zofran] 4 mg PO QID PRN #10 tab 08/17/18 Allergies Allergy/AdvReac Type Severity Reaction Status Date / Time amitriptyline Allergy rash/behavioral Verified 08/17/18 08:33 changes codeine Allergy Hives Verified 08/17/18 08:33 clonazepam AdvReac Mild irritablity Verified 08/17/18 08:33 /byrne General Stated Complaint: Nausea/Vomit/Diar DERRICK: 3 Review of Systems Review of Systems 8 systems reviewed and otherwise - [facility] Medical History Alcohol abuse Erosive gastritis GERD (gastroesophageal reflux disease) History of drug use disorder History of melena Tobacco abuse Surgical History S/P hernia repair (Resolved) EGD - MAC (12/15/17) Social History Smoking and Tabacco status: Current every day Exam Narrative Exam Narrative: GEN: awake, alert, oriented 3. Pleasant, well groomed, interactive. HEAD: Normocephalic, atraumatic ENT: Mucous membranes dry, oropharynx unremarkable, External ear exam unremarkable. L TM with clear fluid behind, no erythema EYES: PERRL, EOMI NECK: Full ROM, no NELL, no menigismus CHEST/RESP: Nontender, clear to auscultation bilateral, no wheeze/rhonchi/rales CARDIOVASCULAR: RRR, no murmur, rub randell. 2+ Rad pulse bilateral ABDOMEN: Soft, nontender, no mass. + Increased bowel sounds EXT: Full ROM, no edema, no rash Neuro: Grossly normal neurologic exam, conversant, interactive. Psych: Speech fluent, thoughts congruent, affect anxious Course Vital Signs Temperature 36.8 C 08/17/18 08:26 Pulse 83 08/17/18 08:26 Respiratory Rate 15 08/17/18 08:26 Blood Pressure 115/84 08/17/18 08:26 Pulse Oximetry 98 08/17/18 08:26 Temperature 36.8 C 08/17/18 08:26 Temperature Source Oral 08/17/18 08:26 Pulse 83 08/17/18 08:26 Respiratory Rate 15 08/17/18 08:26 Respiratory Effort Non-Labored 08/17/18 08:32 Blood Pressure 115/84 08/17/18 08:26 Blood Pressure Position Sitting 08/17/18 08:26 Pulse Oximetry 98 08/17/18 08:26 Oxygen Delivery Method Room Air 08/17/18 08:26 Oxygen Flow Rate 0 08/17/18 08:26 Pain Level 7 08/17/18 08:26
--- NOTE | 2018-08-17 08:41 | ED.GENADUL_ITS ---
Discharge Plan Disposition Patient Disposition: HOME Condition: Improving Discharge Details Chief Complaint: Nausea/Vomit/Diar Clinical Impression: Gastroenteritis Primary Care Provider: Prabha Gordon ED Provider: Jb Navarro Home Meds and New Rx's Prescriptions: New ondansetron HCl [Zofran] 4 mg tablet 4 mg PO QID PRN (Reason: Nausea And Vomiting) Qty: 10 RF: 0 Continued celecoxib [Celebrex] 100 mg capsule 100 mg PO BID RF: 0 gabapentin 300 mg capsule 300 mg PO TID Qty: 90 RF: 2 omeprazole 40 mg Capsule,Delayed Release(Dr/Ec) 40 mg PO DAILY RF: 0 fluoxetine 20 mg capsule 40 mg PO DAILY RF: 0 Discharge Instructions Instructions: Gastroenteritis (ED) Additional Instructions: Home to rest today. Small, frequent fluids to maintain hydration. Return for any acute concerns. Stand Alone Forms: Work Release Medical Decision Making 28-year-old male with a history of GERD, gastritis, as well as mild mood disorder presents with 5-7 days of nausea, vomiting, diarrhea this been exacerbated by eating. He is well-appearing, afebrile with normal vital signs. He does have increased bowel sounds on exam. Differential diagnosis includes dehydration, gastroenteritis, electrolyte abnormality. IV was placed, labs obtained patient given fluid bolus, antiemetic, PPI. CBC and chemistries are unremarkable. Patient is improving. He will be offered antiemetic for home. Of note, he did have mild left ear congestion without evidence of otitis media. Will trial Benadryl at bedtime. He is stable and appropriate for discharge. Lab Data Laboratory Results - last 24 hr 08/17/18 08/17/18 08:50 08:50 WBC 7.09 RBC 5.12 Hgb 15.7 Hct 45.2 MCV 88.3 MCH 30.7 MCHC 34.7 RDW 12.8 Plt Count 219 MPV 9.3 Immature Gran % 0.3 Neutrophils % 77.8 Lymphocytes % 13.5 Monocytes % 7.6 Eosinophils % 0.7 Basophils % 0.1 Absolute Neutrophils 5.51 Absolute Lymphocytes 0.96 L Absolute Monocytes 0.54 Absolute Eosinophils 0.05 Absolute Basophils 0.01 Sodium 140 Potassium 3.9 Chloride 103 Carbon Dioxide 29.2 Anion Gap 7.8 BUN 18 Creatinine 0.90 Estimated GFR/1.73 m2 >= 60.00 Glucose 95 Calcium 9.3 Total Bilirubin 0.7 AST 20 ALT 21 Alkaline Phosphatase 98 Total Protein 7.8 Albumin 4.2 HPI General Mode of arrival: ambulatory . Date/Time Provider Initiated Documentation: 08/17/18 08:33 . Limitations to Documentation: no limitations . Information obtained by: patient . History of Present Illness 28 year old M presents to the emergency department with the chief complaint of Nausea, vomiting, diarrhea 4 days time. No blood, described as moderate, Quality is described as dull, and is localized to the abdomen. Patient reports no radiation. Patient started experiencing this day(s) Eating improves symptom(s), Rest worsens symptoms . Patient notes loss of appetite; denies headaches. Patient did receive the following treatments prior to arrival, none Related Data Home Medications Medication Instructions Recorded Confirmed omeprazole 40 mg PO DAILY 06/06/18 08/17/18 celecoxib 100 mg capsule 100 mg PO BID 08/07/18 08/17/18 fluoxetine 20 mg capsule 40 mg PO DAILY cap 08/07/18 08/17/18 gabapentin 300 mg capsule 300 mg PO TID #90 cap 08/07/18 08/17/18 ondansetron HCl [Zofran] 4 mg PO QID PRN #10 tab 08/17/18 Previous Rx's Medication Instructions Recorded gabapentin 300 mg capsule 300 mg PO TID #90 cap 08/07/18 ondansetron HCl [Zofran] 4 mg PO QID PRN #10 tab 08/17/18 Allergies Allergy/AdvReac Type Severity Reaction Status Date / Time amitriptyline Allergy rash/behavioral Verified 08/17/18 08:33 changes codeine Allergy Hives Verified 08/17/18 08:33 clonazepam AdvReac Mild irritablity Verified 08/17/18 08:33 /byrne General Stated Complaint: Nausea/Vomit/Diar DERRICK: 3 Review of Systems Review of Systems 8 systems reviewed and otherwise - [facility] Medical History Alcohol abuse Erosive gastritis GERD (gastroesophageal reflux disease) History of drug use disorder History of melena Tobacco abuse Surgical History S/P hernia repair (Resolved) EGD - MAC (12/15/17) Social History Smoking and Tabacco status: Current every day Exam Narrative Exam Narrative: GEN: awake, alert, oriented 3. Pleasant, well groomed, interactive. HEAD: Normocephalic, atraumatic ENT: Mucous membranes dry, oropharynx unremarkable, External ear exam unremarkable. L TM with clear fluid behind, no erythema EYES: PERRL, EOMI NECK: Full ROM, no NELL, no menigismus CHEST/RESP: Nontender, clear to auscultation bilateral, no wheeze/rhonchi/rales CARDIOVASCULAR: RRR, no murmur, rub randell. 2+ Rad pulse bilateral ABDOMEN: Soft, nontender, no mass. + Increased bowel sounds EXT: Full ROM, no edema, no rash Neuro: Grossly normal neurologic exam, conversant, interactive. Psych: Speech fluent, thoughts congruent, affect anxious Course Vital Signs Temperature 36.8 C 08/17/18 08:26 Pulse 83 08/17/18 08:26 Respiratory Rate 15 08/17/18 08:26 Blood Pressure 115/84 08/17/18 08:26 Pulse Oximetry 98 08/17/18 08:26 Temperature 36.8 C 08/17/18 08:26 Temperature Source Oral 08/17/18 08:26 Pulse 83 08/17/18 08:26 Respiratory Rate 15 08/17/18 08:26 Respiratory Effort Non-Labored 08/17/18 08:32 Blood Pressure 115/84 08/17/18 08:26 Blood Pressure Position Sitting 08/17/18 08:26 Pulse Oximetry 98 08/17/18 08:26 Oxygen Delivery Method Room Air 08/17/18 08:26 Oxygen Flow Rate 0 08/17/18 08:26 Pain Level 7 08/17/18 08:26
[2018-08-17] MEDS: Normal Saline 1,000 ML 1000 ML IV ×2 (08:50→09:19)
[2018-08-17] MEDS: Ondansetron 4 MG/2 ML VIAL IVP (08:53)
[2018-08-17] MEDS: Pantoprazole 40 MG VIAL IVP (08:55)
[2018-08-17 08:56] LABS: Abs Immature Grans 0.02 k/cumm (0.0-0.09); Absolute Basophil Count 0.01 k/cumm (0.0-0.2); Absolute Eosinophil Count 0.05 k/cumm (0.0-0.7); Absolute Lymphocyte Count 0.96 k/cumm (1.2-3.4); Absolute Monocyte Count 0.54 k/cumm (0.11-0.7); Absolute Neutrophil Count 5.51 k/cumm (1.2-6.7); Basophils % 0.1; Eosinophils % 0.7; HCT 45.2 % (40.0-50.0); HGB 15.7 g/dL (13.5-17.5); Immature Grans % 0.3; Lymphocytes % 13.5; Mean Corp. HGB Concentration 34.7 g/dL (32.0-36.0); Mean Corpuscular Hemoglobin 30.7 pg (27.0-33.0); Mean Corpuscular Volume 88.3 fL (80-95); Mean Platelet Volume 9.3 fL (8.0-11.0); Monocytes % 7.6; Neutrophils % 77.8; Platelet Count 219 x1000/uL (130-400); RBC 5.12 m/cumm (4.50-6.00); RBC Distribution Width 12.8 % (11.8-14.1); White Blood Cell Count 7.09 k/cumm (4.4-10.8)
[2018-08-17] MEDS: Normal Saline Flush 10 ML SYR IVP (08:56)
[2018-08-17 09:09] LABS: ALT 21 U/L (12-78); AST 20 U/L (15-37); Albumin 4.2 g/dL (3.4-5.0); Alkaline Phosphatase 98 U/L (46-116); Anion Gap 7.8 mmol/L (3-11); BUN 18 mg/dL (7-18); Bilirubin, Total 0.7 mg/dL (0.2-1.0); CO2 29.2 mmol/L (21.0-32.0); Calcium 9.3 mg/dL (8.5-10.1); Chloride 103 mmol/L (98-107); Glucose 95 mg/dL (70-100); Potassium 3.9 mmol/L (3.5-5.1); Sodium 140 mmol/L (136-145); Total Protein 7.8 g/dL (6.4-8.2)
[2018-08-17 10:25] VITALS: BP 109/67; PULSE 72; RESP 15; TEMP 36.9; O2SAT 99
[2018-08-17 10:30] VITALS: BP 109/67; PULSE 72; RESP 15; TEMP 36.9; O2SAT 99
== END 2018-08-17 10:34 | disposition home or self-care (01) ==
PROVIDERS: Emergency Provider Emergency Medicine; PCP Nurse Practitioner Family
DX: K52.9 Noninfective gastroenteritis and colitis, unspecified (principal)
CPT/HCPCS: 36415; 80053; 96361; 96374; 96375; 99284; 85025; J2405

== ENCOUNTER 2018-08-25 17:04 | Emergency (ER) | payer MEDICAID, SELFPAY ==
[2018-08-25 17:06] VITALS: BP 118/81; PULSE 61; RESP 16; TEMP 36.7; O2SAT 99
--- NOTE | 2018-08-25 17:14 | ED.GENADUL_ITS ---
Discharge Plan Disposition Patient Disposition: HOME Condition: Stable Discharge Details Chief Complaint: GenMedical Clinical Impression: Chronic vomiting, Chronic diarrhea, Chronic abdominal pain, Depression Primary Care Provider: Prabha Gordon ED Provider: Naseem Rosales Home Meds and New Rx's Prescriptions: New ondansetron HCl [Zofran] 4 mg tablet 4 mg PO TID PRN (Reason: nausea and vomiting) Qty: 6 RF: 0 famotidine [Pepcid] 20 mg tablet 20 mg PO BID 14 Days Qty: 28 RF: 0 Continued gabapentin 300 mg capsule 300 mg PO TID Qty: 90 RF: 2 ondansetron HCl [Zofran] 4 mg tablet 4 mg PO QID PRN (Reason: Nausea And Vomiting) Qty: 10 RF: 0 omeprazole 40 mg Capsule,Delayed Release(Dr/Ec) 40 mg PO DAILY RF: 0 fluoxetine 20 mg capsule 40 mg PO DAILY RF: 0 Discharge Instructions Instructions: Depression (ED), Acute Nausea and Vomiting (ED), Chronic Diarrhea (ED), Abdominal Pain (ED) Additional Instructions: Drink plenty of fluids and get plenty of rest. Take the zofran and pepcid as directed. Follow up with your primary care doctor and surgery in 1 week for re-evaluation and with surgery for evaluation for possible endoscopy. Return immediately to the emergency department with any worsening or new concerning symptoms. Follow up with [facility] as directed. Referrals: Joselin Almonte MD [ [facility] STAFF PHYSICIAN] - Discharge Data Discharge Physician: Nalini Rosa Medical Decision Making <Nalini Rosa DO - Last Filed: 08/25/18 20:06> 28-year-old male with a history of former alcohol abuse, drug abuse, GERD and gastritis who presents for vomiting and diarrhea for 2 months, and an episode of dizziness today upon standing. Mom also concerned about patient's depression and thoughts of suicide recently. She is also concerned with his excessive fatigue, decreased appetite, low energy, generalized body pain, unexplained bruising to legs, intermittent fevers, occasional delusions and hallucinations for the past couple months. Pt denies any suicidal ideation at present. Vitals within normal limits. Patient ambulated back to room but appears generally drowsy. He is tearful when talking about his problems. His young daughter has been living with his mom for the past 2 years. Normal ENT exam. Lungs clear to auscultation. Diffuse mild abdominal tenderness. No focal deficits. Discussed with mom in room that many of his symptoms could possibly be linked to depression, but in the emergency department, we will attempt to rule out an acute process with lab work, EKG, CT head and CT abdomen. Will give patient a bolus of fluids, Toradol and Zofran. Discussed that he has chronic vomiting which can also be due to cyclic vomiting due to his marijuana use. If and once medically cleared, will have mental health come to evaluate. 1930 --labs and imaging reviewed and unremarkable. Normal white blood cell count, coagulation studies, electrolytes, troponin and lipase. Urinalysis unremarkable. CT head and CT abdomen negative for acute findings. Patient was complaining of abdominal pain and given a GI cocktail with relief. Will plan for mental health to come and evaluate pt for depression. As he is not actively suicidal, I anticipate he can be discharged to home with plans for f/u with [facility] as outpatient for counseling and medication management for depression. D/w pt and mom that he also needs to f/u with surgery and pcp for re-evaluation of his chronic vomiting and diarrhea which could possibly be due to his chronic meds or marijuana or associated with his h/o ulcers and may need an endoscopy. Medical Records Medical records reviewed: Yes I reviewed the patient's medical records. Imaging Data Radiologic Study: Radiologist's impression: CT Head Without Contrast EXAM DATE/TIME: 08/25/2018 5:41 PM FINDINGS: Brain: Ventricles and the cortical sulci are within normal limits. There is no evidence of acute hemorrhage, mass or shift. There is no evidence of an acute cortical or major vascular territory infarct. No abnormal extra-axial collections are identified. Ventricles: No significant ventricular enlargement Bones/joints: No acute bony abnormality Sinuses: There is sinus mucoperiosteal disease greater on the left than the right. This involves the left maxillary antrum, left ethmoid air cells and sphenoid sinus on the left. There is no other significant sinus opacification or fluid level. Mastoid air cells: No significant mastoid opacification Soft tissues: Subcutaneous soft tissues are unremarkable IMPRESSION: Mild sinus mucoperiosteal disease. No acute intracranial findings. CT Abdomen and Pelvis With Contrast EXAM DATE/TIME: 08/25/2018 5:54 PM FINDINGS: Lower thorax: Lung bases are clear. Pleural effusion is not seen. ABDOMEN: Liver: The liver is mildly enlarged. Superior to inferior extent of the right lobe of the liver is over 19 cm. The left hepatic lobe is long and stretches into the left upper quadrant. There is a tiny punctate subcentimeter focus of low attenuation lateral segment left lobe of the liver best seen on coronal reformatted image 35. It is too small to characterize but likely represents an incidental benign finding. There is no suspicious intrahepatic mass identified. Gallbladder and bile ducts: The gallbladder is contracted. There are no calcified gallstones. There is no evidence of biliary ductal dilatation. Pancreas: Pancreas is unremarkable. No pancreatic duct dilatation. Spleen: The spleen is nonenlarged. Adrenals: Adrenals are unremarkable. Kidneys and ureters: Precontrast images were not obtained limiting evaluation for urinary tract calculi. Contrast is seen in the renal collecting systems bilaterally. No hydronephrosis is identified. There is no evidence of a discrete renal cortical mass. Stomach and bowel: Evaluation of the bowel is limited as it was obtained without oral contrast. There is however no evidence of obstruction, mass or pneumatosis. Enteritis is not excluded on the basis of this examination. Appendix: The appendix is not well visualized but there are no inflammatory changes within the right lower quadrant to suggest acute appendicitis. PELVIS: Bladder: Bladder is unremarkable Reproductive: Seminal vesicles, prostate bladder unremarkable ABDOMEN and PELVIS: Intraperitoneal space: No free fluid or focal collections or free intraperitoneal air is identified. Bones/joints: There is no acute bony abnormality. Soft tissues: Subcutaneous soft tissues are unremarkable Vasculature: Aorta is nonaneurysmal. Lymph nodes: No significant adenopathy is identified. IMPRESSION: 1. Evaluation of the bowel is limited in the absence of oral contrast. There is no evidence of obstruction, mass or pneumatosis. Enteritis is not excluded. 2. No free fluid or focal collections or free intraperitoneal air. 3. The liver is mildly enlarged. No discrete intrahepatic mass is identified. Lab Data Lab results reviewed: Yes I reviewed the patient's lab results. Laboratory Tests Range/Units 08/25/18 08/25/18 08/25/18 17:12 17:12 17:12 WBC (4.4-10.8) k/cumm 9.84 RBC (4.50-6.00) m/cumm 4.97 Hgb (13.5-17.5) g/dL 15.4 Hct (40.0-50.0) % 44.6 MCV (80-95) fL 89.7 MCH (27.0-33.0) pg 31.0 MCHC (32.0-36.0) g/dL 34.5 RDW (11.8-14.1) % 12.8 Plt Count (130-400) x1000/uL 291 MPV (8.0-11.0) fL 9.6 Immature Gran % 0.1 Neutrophils % 48.1 Lymphocytes % 42.8 Monocytes % 7.9 Eosinophils % 0.9 Basophils % 0.2 Absolute Neutrophils (1.2-6.7) k/cumm 4.73 Absolute Lymphocytes (1.2-3.4) k/cumm 4.21 H Absolute Monocytes (0.11-0.7) k/cumm 0.78 H Absolute Eosinophils (0.0-0.7) k/cumm 0.09 Absolute Basophils (0.0-0.2) k/cumm 0.02 PT (9.3-11.0) sec 10.1 INR (0.9-1.1) 1.0 APTT (21.0-31.4) sec 24.3 Sodium (136-145) mmol/L 142 Potassium (3.5-5.1) mmol/L 4.1 Chloride (98-107) mmol/L 103 Carbon Dioxide (21.0-32.0) mmol/L 29.2 Anion Gap (3-11) mmol/L 9.8 BUN (7-18) mg/dL 24 H Creatinine (0.70-1.30) mg/dL 0.93 Estimated GFR/1.73 m2 (mL/min/1.73m2) >= 60.00 Glucose (70-100) mg/dL 114 H Calcium (8.5-10.1) mg/dL 9.4 Magnesium (1.8-2.4) mg/dL 1.9 Total Bilirubin (0.2-1.0) mg/dL 0.3 AST (15-37) U/L 41 H ALT (12-78) U/L 44 Alkaline Phosphatase (46-116) U/L 93 Troponin I (0.00-0.06) ng/mL < 0.02 Total Protein (6.4-8.2) g/dL 7.8 Albumin (3.4-5.0) g/dL 4.0 Lipase (73-393) U/L 182 Urine Color (Yellow) Urine Clarity Urine pH (5-8) Ur Specific [place] (1.005-1.025) Urine Protein (Negative) mg/dL Urine Ketones (Negative) mg/dL Urine Blood (Negative) Urine Nitrite (Negative) Urine Bilirubin (Negative) Urine Urobilinogen (Up TO 0.2) EU/dL Ur Leukocyte Esterase (Negative) Urine Glucose (Negative) mg/dL Range/Units 08/25/18 18:28 WBC (4.4-10.8) k/cumm RBC (4.50-6.00) m/cumm Hgb (13.5-17.5) g/dL Hct (40.0-50.0) % MCV (80-95) fL MCH (27.0-33.0) pg MCHC (32.0-36.0) g/dL RDW (11.8-14.1) % Plt Count (130-400) x1000/uL MPV (8.0-11.0) fL Immature Gran % Neutrophils % Lymphocytes % Monocytes % Eosinophils % Basophils % Absolute Neutrophils (1.2-6.7) k/cumm Absolute Lymphocytes (1.2-3.4) k/cumm Absolute Monocytes (0.11-0.7) k/cumm Absolute Eosinophils (0.0-0.7) k/cumm Absolute Basophils (0.0-0.2) k/cumm PT (9.3-11.0) sec INR (0.9-1.1) APTT (21.0-31.4) sec Sodium (136-145) mmol/L Potassium (3.5-5.1) mmol/L Chloride (98-107) mmol/L Carbon Dioxide (21.0-32.0) mmol/L Anion Gap (3-11) mmol/L BUN (7-18) mg/dL Creatinine (0.70-1.30) mg/dL Estimated GFR/1.73 m2 (mL/min/1.73m2) Glucose (70-100) mg/dL Calcium (8.5-10.1) mg/dL Magnesium (1.8-2.4) mg/dL Total Bilirubin (0.2-1.0) mg/dL AST (15-37) U/L ALT (12-78) U/L Alkaline Phosphatase (46-116) U/L Troponin I (0.00-0.06) ng/mL Total Protein (6.4-8.2) g/dL Albumin (3.4-5.0) g/dL Lipase (73-393) U/L Urine Color (Yellow) Yellow Urine Clarity Clear Urine pH (5-8) 7.5 Ur Specific [place] (1.005-1.025) 1.015 Urine Protein (Negative) mg/dL Trace H Urine Ketones (Negative) mg/dL Negative Urine Blood (Negative) Negative Urine Nitrite (Negative) Negative Urine Bilirubin (Negative) Negative Urine Urobilinogen (Up TO 0.2) EU/dL 1.0 H Ur Leukocyte Esterase (Negative) Negative Urine Glucose (Negative) mg/dL Negative ECG Data Attestation: I personally reviewed and interpreted this ECG (s) as follows: Interpretation: rate of 50, sinus, t wave inversion in V2, QTc 401, QRS 88. HPI <Nalini Rosa DO - Last Filed: 08/25/18 20:06> General Mode of arrival: ambulatory . Date/Time Provider Initiated Documentation: 08/25/18 17:05 . Limitations to Documentation: no limitations . Information obtained by: patient . HPI Narrative: Pt is a 28yo M w/ a previous h/o alcohol abuse, drug abuse, GERD, gastritis and daily marijuana use who presents to the ED w/ a c/o chronic daily vomiting and diarrhea for several months, and generally feeling worse today with an episode of dizziness upon standing. He states he has been unable to keep much food and fluids down due to his chronic vomiting. Mom brought patient in because she is concerned about his symptoms and also his excessive fatigue, stating that he has been sleeping up to 16 hours a day. She states patient has an appointment with [facility] tomorrow for his depression. She states they made the appointment for concerns for his depression and occasional thoughts of suicidal ideation. He had been taking Prozac for several months and stopped taking it 1 week ago and restarted it today. She states he has also had occasional delusions, hallucinations and she noted that he is occasionally twitching when sleeping. She states he does have history of seizures when he becomes very tired but states he has not had a known seizure for a while and has never taken a seizure medication. Patient denies any suicidal ideation at present. He does admit to intermittent fevers for months. He admits to diffuse body pain as well as unexplained bruising to his legs recently. Related Data Home Medications Medication Instructions Recorded Confirmed omeprazole 40 mg PO DAILY 06/06/18 08/25/18 fluoxetine 20 mg capsule 40 mg PO DAILY cap 08/07/18 08/25/18 gabapentin 300 mg capsule 300 mg PO TID #90 cap 08/07/18 08/25/18 ondansetron HCl [Zofran] 4 mg PO QID PRN #10 tab 08/17/18 08/25/18 famotidine [Pepcid] 20 mg PO BID 14 Days #28 tab 08/25/18 ondansetron HCl [Zofran] 4 mg PO TID PRN #6 tab 08/25/18 Previous Rx's Medication Instructions Recorded gabapentin 300 mg capsule 300 mg PO TID #90 cap 08/07/18 ondansetron HCl [Zofran] 4 mg PO QID PRN #10 tab 08/17/18 famotidine [Pepcid] 20 mg PO BID 14 Days #28 tab 08/25/18 ondansetron HCl [Zofran] 4 mg PO TID PRN #6 tab 08/25/18 Allergies Allergy/AdvReac Type Severity Reaction Status Date / Time amitriptyline Allergy rash/behavioral Verified 08/25/18 17:10 changes codeine Allergy Hives Verified 08/25/18 17:10 clonazepam AdvReac Mild irritablity Verified 08/25/18 17:10 /byrne General Stated Complaint: GenMedical DERRICK: 3 Review of Systems <Nalini Rosa DO - Last Filed: 08/25/18 20:06> Review of Systems All systems reviewed & are unremarkable except as noted in HPI and below Constitutional Reports as per HPI, Denies chills, Reports fatigue, Denies fever(s), Reports headache(s) and Reports malaise Eyes Denies blurry vision ENT Denies dizziness, Reports headache(s), Denies sore throat and Denies throat swelling Cardiovascular Denies chest pain and Denies dyspnea Respiratory Denies cough and Denies dyspnea Gastrointestinal Denies abdominal pain, Denies diarrhea and Reports vomiting Genitourinary Denies hematuria and Denies dysuria Musculoskeletal Denies back pain and Denies numbness Integumentary/Breasts Denies lesions and Denies rash Neurologic Denies dizziness, Reports headache(s), Denies focal weakness and Denies numbness Endocrine Reports fatigue Allergic/Immunologic Denies throat swelling PFSH <Nalini Rosa DO - Last Filed: 08/25/18 20:06> Medical History Alcohol abuse Erosive gastritis GERD (gastroesophageal reflux disease) History of drug use disorder History of melena Tobacco abuse Surgical History S/P hernia repair (Resolved) EGD - MAC (12/15/17) Family History Other Essential hypertension Heart disease Social History Smoking and Tabacco status: Current every day alcohol intake: current alcohol intake frequency: a few times a month substance use type: marijuana Exam <Nalini Rosa DO - Last Filed: 08/25/18 20:06> Const General: cooperative, no acute distress and other (drowsy, tearful) Nutritional Appearance: thin HENMT Head: normal to inspection Face and sinus: normal facial exam Eyes General: appearance normal, both eyes and all related structures Pupils: PERRL EOM: EOM intact bilaterally Neck Neck: normal visual inspection and No submandibular swelling Lymphatic: no lymphadenopathy noted Chest Chest: normal inspection of the chest and no tenderness Resp Effort & Inspection: normal respiratory effort and able to speak in complete sentences Auscultation: clear to auscultation bilaterally Cardio Rate: regular rate Rhythm: regular rhythm GI Inspection: normal to inspection Palpation: soft, not firm, not rigid and tender (diffusely mildly tender) Auscultation: normal bowel sounds Male General Exam: Yes normal external exam Scrotum: scrotum normal Testes: normal, no testicular swelling and no testicular tenderness Back/Spine/Pelvis Back: No no CVA tenderness Thoracic/Lumbar Spine: thoracic and lumbar spine normal to inspection Skin Other: scattered bruises with yellow ecchymoses noted to L thigh and leg. No active bleeding. Neuro General: alert, awake and oriented x3 Cognition: normal cognition Speech: speech normal Motor: muscle tone normal throughout Sensory Exam: no sensory deficits noted Extrem General: normal to inspection, full ROM, normal capillary refill, no calf tenderness bilaterally and no edema Psych Appearance: grossly normal Mental Status: mental status grossly normal Speech and Movement: speech and movement normal Affect: normal affect Course <Nalini Rosa DO - Last Filed: 08/25/18 20:06> Vital Signs Temperature 98.1 F 08/25/18 17:06 Pulse 61 08/25/18 17:06 Respiratory Rate 16 08/25/18 17:06 Blood Pressure 118/81 08/25/18 17:06 Pulse Oximetry 99 08/25/18 17:06 Temperature 98.1 F 08/25/18 17:06 Temperature Source Temporal Artery Scan 08/25/18 17:06 Pulse 61 08/25/18 17:06 Respiratory Rate 16 08/25/18 17:06 Respiratory Effort Non-Labored 08/25/18 17:08 Blood Pressure 118/81 08/25/18 17:06 Blood Pressure Position Sitting 08/25/18 17:06 Pulse Oximetry 99 08/25/18 17:06 Oxygen Delivery Method Room Air 08/25/18 17:06 Oxygen Flow Rate 0 08/25/18 17:06 Pain Level 0 08/25/18 17:06 Sign Out <Nalini Rosa DO - Last Filed: 08/25/18 20:06> Sign Out Data: Sign Out Comment: f/u with mental health plan and final disposition Last updated by Nalini Rosa DO at 08/25/18 19:49 Post-Handoff Eval: pt seen by mental health and feel he is safe for d/c home and will f/u as outpatient. Pt is comfortable with this plan will contact nes if he worsens or return to the ED. He was addvised to f/u with pcp regarding possible endocscopy for further w/u of his abdominal complaints
[2018-08-25] MEDS: Normal Saline 1,000 ML 1000 ML IV (17:30)
--- NOTE | 2018-08-25 17:39 | DI.CT_ITS ---
SYMPTOM/DIAGNOSIS: HEADACHE, FEVER, DIZZINESS, DIFFUSE ABD PAIN, VOMITING, DIARRHEA NONCONTRAST HEAD CT: The exam was performed according to the usual protocol. There is no evidence of an intra/extra-axial hemorrhage, mass or fluid collection. There is no evidence of a territorial infarct. The ventricles are intact. The del real white matter differentiation is maintained throughout. There is no skull fracture. Mucoperiosteal thickening is noted in the left maxillary sinus with minimal changes in the right maxillary sinus. Also there is inflammatory change involving the ethmoid sinuses and left sphenoid air cell with relatively mild abnormalities involving the right ethmoid sinus. There is no evidence of a mastoid effusion. IMPRESSION: Findings consistent with sinus disease. There is no acute intracranial abnormality. ABDOMEN AND PELVIC CT: The study was carried out with an intravenous administration of 100 cc's of Omnipaque 350. The lung bases are unremarkable. The liver is mildly enlarged. There is a small tiny region of low attenuation in the lateral segment of the left lobe of the liver which is too small to fully characterize. The gallbladder is contracted. There are no gallstones. There is no evidence of ductal dilatation. The pancreas is normal. No splenic abnormality is seen. The adrenals are normal. The kidneys are intact on the contrast enhanced images. There is no evidence of hydronephrosis, a mass or cyst. There is no evidence of ureterectasis, ureterolithiasis or a bladder abnormality. There is no evidence of bowel obstruction. No localized bowel mass is identified. There is nothing to suggest an acute appendix. The reproductive organs as visualized are unremarkable. There is no evidence of free air or fluid in the intraperitoneal space. There is no acute bony abnormality. The soft tissues are unremarkable. There is no aortic aneurysm. There is no evidence of an intra-abdominal or pelvic mass or adenopathy. IMPRESSION: There is no evidence of bowel obstruction or localized bowel wall abnormality. There is no evidence of perforation or a localized fluid collection. Hepatomegaly is identified.
[2018-08-25 17:56] LABS: Abs Immature Grans 0.01 k/cumm (0.0-0.09); Absolute Basophil Count 0.02 k/cumm (0.0-0.2); Absolute Eosinophil Count 0.09 k/cumm (0.0-0.7); Absolute Lymphocyte Count 4.21 k/cumm (1.2-3.4); Absolute Monocyte Count 0.78 k/cumm (0.11-0.7); Absolute Neutrophil Count 4.73 k/cumm (1.2-6.7); Basophils % 0.2; Eosinophils % 0.9; HCT 44.6 % (40.0-50.0); HGB 15.4 g/dL (13.5-17.5); Immature Grans % 0.1; Lymphocytes % 42.8; Mean Corp. HGB Concentration 34.5 g/dL (32.0-36.0); Mean Corpuscular Volume 89.7 fL (80-95); Mean Platelet Volume 9.6 fL (8.0-11.0); Monocytes % 7.9; Neutrophils % 48.1; Platelet Count 291 x1000/uL (130-400); RBC 4.97 m/cumm (4.50-6.00); RBC Distribution Width 12.8 % (11.8-14.1); White Blood Cell Count 9.84 k/cumm (4.4-10.8)
[2018-08-25] MEDS: Ondansetron 4 MG/2 ML VIAL IVP (18:01)
[2018-08-25] MEDS: Ketorolac 30 MG/ML VIAL IVP (18:02)
[2018-08-25 18:04] LABS: PTT Activated 24.3 sec (21.0-31.4); Prothrombin Time 10.1 sec (9.3-11.0)
[2018-08-25 18:08] LABS: ALT 44 U/L (12-78); AST 41 U/L (15-37); Alkaline Phosphatase 93 U/L (46-116); Anion Gap 9.8 mmol/L (3-11); BUN 24 mg/dL (7-18); Bilirubin, Total 0.3 mg/dL (0.2-1.0); CO2 29.2 mmol/L (21.0-32.0); CREATININE 0.93 mg/dL (0.70-1.30); Calcium 9.4 mg/dL (8.5-10.1); Chloride 103 mmol/L (98-107); Glucose 114 mg/dL (70-100); Lipase 182 U/L (73-393); Magnesium 1.9 mg/dL (1.8-2.4); Potassium 4.1 mmol/L (3.5-5.1); Sodium 142 mmol/L (136-145); Total Protein 7.8 g/dL (6.4-8.2); Troponin I < 0.02 ng/mL (0.00-0.06)
[2018-08-25] MEDS: Omnipaque 350 MG/ML 100 ML BTL IV (18:09)
--- NOTE | 2018-08-25 18:16 | DI.VRAD_ITS ---
EXAM: CT Head Without Contrast EXAM DATE/TIME: 08/25/2018 5:41 PM CLINICAL HISTORY: 28 years old, male; Signs and symptoms; Other: Headache, fever, dizziness, R/O acute disease TECHNIQUE: Axial computed tomography images of the head/brain without contrast. All CT scans at this facility use at least one of these dose optimization techniques: automated exposure control; mA and/or kV adjustment per patient size (includes targeted exams where dose is matched to clinical indication); or iterative reconstruction. Coronal and sagittal reformatted images were created and reviewed. COMPARISON: CT Head^HEAD FACE CSPINE (Adult) 06/10/2018 10:54 AM FINDINGS: Brain: Ventricles and the cortical sulci are within normal limits. There is no evidence of acute hemorrhage, mass or shift. There is no evidence of an acute cortical or major vascular territory infarct. No abnormal extra-axial collections are identified. Ventricles: No significant ventricular enlargement Bones/joints: No acute bony abnormality Sinuses: There is sinus mucoperiosteal disease greater on the left than the right. This involves the left maxillary antrum, left ethmoid air cells and sphenoid sinus on the left. There is no other significant sinus opacification or fluid level. Mastoid air cells: No significant mastoid opacification Soft tissues: Subcutaneous soft tissues are unremarkable IMPRESSION: Mild sinus mucoperiosteal disease. No acute intracranial findings. Dictated and Authenticated by: Aneta Mason MD. Ordering:ROSA Gayle MD
[2018-08-25 18:33] LABS: Bilirubin Negative (Negative); Blood Negative (Negative); Clarity Clear; Glucose Negative (Negative); Ketones Negative (Negative); Leukocyte Esterase Negative (Negative); Nitrite Negative (Negative); Specific Gravity 1.015 (1.005-1.025); pH 7.5 (5-8)
[2018-08-25 18:36] VITALS: RESP 12
[2018-08-25 18:42] LABS: Bacteria Rare HPF (Negative); Epithelial Cells Rare HPF (Negative); RBC 0-2 (0-2); WBC 0-2 HPF (0-5)
[2018-08-25 18:43] LABS: C & S Indicated? No; Casts Negative LPF (Negative); Crystals Few Amorphous HPF (Negative); Mucus Trace (Negative)
--- NOTE | 2018-08-25 18:54 | DI.VRAD_ITS ---
EXAM: CT Abdomen and Pelvis With Contrast EXAM DATE/TIME: 08/25/2018 5:54 PM CLINICAL HISTORY: 28 years old, male; Signs and symptoms; Other: Diffuse abdominal pain, vomiting, diarrhea; Prior surgery; Surgery date: 6+ months; Surgery type: Hernia repair per PT; Additional info: Diffuse abdominal pain, vomiting, diarrhea , R/O acute process TECHNIQUE: Axial computed tomography images of the abdomen and pelvis with intravenous contrast. All CT scans at this facility use at least one of these dose optimization techniques: automated exposure control; mA and/or kV adjustment per patient size (includes targeted exams where dose is matched to clinical indication); or iterative reconstruction. Coronal and sagittal reformatted images were created and reviewed. CONTRAST: Contrast Material: 100 ml of omnipaque 350; Contrast Route: iv COMPARISON: CT Abdomen^CAP WITH (Adult) 06/10/2018 11:02 AM FINDINGS: Lower thorax: Lung bases are clear. Pleural effusion is not seen. ABDOMEN: Liver: The liver is mildly enlarged. Superior to inferior extent of the right lobe of the liver is over 19 cm. The left hepatic lobe is long and stretches into the left upper quadrant. There is a tiny punctate subcentimeter focus of low attenuation lateral segment left lobe of the liver best seen on coronal reformatted image 35. It is too small to characterize but likely represents an incidental benign finding. There is no suspicious intrahepatic mass identified. Gallbladder and bile ducts: The gallbladder is contracted. There are no calcified gallstones. There is no evidence of biliary ductal dilatation. Pancreas: Pancreas is unremarkable. No pancreatic duct dilatation. Spleen: The spleen is nonenlarged. Adrenals: Adrenals are unremarkable. Kidneys and ureters: Precontrast images were not obtained limiting evaluation for urinary tract calculi. Contrast is seen in the renal collecting systems bilaterally. No hydronephrosis is identified. There is no evidence of a discrete renal cortical mass. Stomach and bowel: Evaluation of the bowel is limited as it was obtained without oral contrast. There is however no evidence of obstruction, mass or pneumatosis. Enteritis is not excluded on the basis of this examination. Appendix: The appendix is not well visualized but there are no inflammatory changes within the right lower quadrant to suggest acute appendicitis. PELVIS: Bladder: Bladder is unremarkable Reproductive: Seminal vesicles, prostate bladder unremarkable ABDOMEN and PELVIS: Intraperitoneal space: No free fluid or focal collections or free intraperitoneal air is identified. Bones/joints: There is no acute bony abnormality. Soft tissues: Subcutaneous soft tissues are unremarkable Vasculature: Aorta is nonaneurysmal. Lymph nodes: No significant adenopathy is identified. IMPRESSION: 1. Evaluation of the bowel is limited in the absence of oral contrast. There is no evidence of obstruction, mass or pneumatosis. Enteritis is not excluded. 2. No free fluid or focal collections or free intraperitoneal air. 3. The liver is mildly enlarged. No discrete intrahepatic mass is identified. Dictated and Authenticated by: Aneta Mason MD. Ordering:ROSA Gayle MD
[2018-08-25] MEDS: Mylanta Suspension 30 ML CUP (19:13)
[2018-08-25] MEDS: Lidocaine 2% Viscous 15 ML CUP (19:13)
--- NOTE | 2018-08-25 21:22 | PDOC.MHCN ---
Date of service: 08/25/18 Time of Service: 21:23 Mental Health Crisis Note Presenting Issue How did you arrive at the ED and why did you come: José Miguel came to the emergency room with his mother due to concerns of severe depression and suicidal ideation. Precipitating Factors José Miguel reports he has felt increasingly depressed for the last two months. He had been addressing issues from his past and has felt depressed since he stopped those services. From this, he discussed service options and the benefits of counseling and medication management for depressive disorder. He did not identify a plan for suicide or past attempts. His intention seemed low at this time as he identified having good relationships with supports. Disposition BEHAVIOR: slightly digressive EYE CONTACT: fair MOOD: depressed AFFECT: flat APPETITE: poor SLEEP(trouble falling/staying asleep: sleeping a lot/all through night and frequent naps Plan José Miguel will return home with his fiance. He will follow up with his doctor to discuss whether or not current medication needs adjusting or changing. He signed paperwork to be an open client of [facility]. He will call emergency services if he has increased or on-going symptoms of depression. This commercial loan underwriter will also refer him to an BRANCH OFFICE ADMINISTRATOR and a clinician to help him access some other services for depression and recovery.
--- NOTE | 2018-08-25 21:28 | PDOC.MHCN_ITS ---
Date of service: 08/25/18 Time of Service: 21:23 Mental Health Crisis Note Presenting Issue How did you arrive at the ED and why did you come: José Miguel came to the emergency room with his mother due to concerns of severe depression and suicidal ideation. Precipitating Factors José Miguel reports he has felt increasingly depressed for the last two months. He had been addressing issues from his past and has felt depressed since he stopped those services. From this, he discussed service options and the benefits of counseling and medication management for depressive disorder. He did not identify a plan for suicide or past attempts. His intention seemed low at this time as he identified having good relationships with supports. Disposition BEHAVIOR: slightly digressive EYE CONTACT: fair MOOD: depressed AFFECT: flat APPETITE: poor SLEEP(trouble falling/staying asleep: sleeping a lot/all through night and frequent naps Plan José Miguel will return home with his fiance. He will follow up with his doctor to discuss whether or not current medication needs adjusting or changing. He signed paperwork to be an open client of [facility]. He will call emergency services if he has increased or on-going symptoms of depression. This investigative writer will also refer him to an ENVIRONMENTAL EPIDEMIOLOGIST and a clinician to help him access some other services for depression and recovery.
== END 2018-08-25 20:27 | disposition home or self-care (01) ==
PROVIDERS: Physician Assistant; Emergency Provider Emergency Medicine; PCP Nurse Practitioner Family
DX: R11.10 Vomiting, unspecified (principal); K52.9 Noninfective gastroenteritis and colitis, unspecified; G89.29 Other chronic pain; R10.9 Unspecified abdominal pain; F32.9 Major depressive disorder, single episode, unspecified
CPT/HCPCS: 36415; 80053; 83690; 93005; 96361; 96374; 96375; 99285; 70450; 74177; 81003; 81015; 83735; 84484; 85025; 85610; 85730; 93010; 99284; J1885; J2405; J3490

== ENCOUNTER 2018-11-02 08:00 | Outpatient (CLI) | payer MEDICAID, SELFPAY ==
[2018-11-02 08:43] LABS: HCT 38.4 % (40.0-50.0); Mean Corp. HGB Concentration 33.9 g/dL (32.0-36.0); Mean Corpuscular Volume 88.5 fL (80-95); Mean Platelet Volume 9.5 fL (8.0-11.0); Platelet Count 286 x1000/uL (130-400); RBC 4.34 m/cumm (4.50-6.00); RBC Distribution Width 12.5 % (11.8-14.1); White Blood Cell Count 7.97 k/cumm (4.4-10.8)
[2018-11-02 09:55] LABS: ALT 30 U/L (12-78); AST 15 U/L (15-37); Albumin 3.5 g/dL (3.4-5.0); Alkaline Phosphatase 78 U/L (46-116); Anion Gap 9.3 mmol/L (3-11); BUN 18 mg/dL (7-18); Bilirubin, Total 0.2 mg/dL (0.2-1.0); CO2 25.7 mmol/L (21.0-32.0); CREATININE 0.93 mg/dL (0.70-1.30); Calcium 8.7 mg/dL (8.5-10.1); Chloride 107 mmol/L (98-107); Glucose 109 mg/dL (70-100); Potassium 4.1 mmol/L (3.5-5.1); Sodium 142 mmol/L (136-145); Total Protein 6.4 g/dL (6.4-8.2)
[2018-11-03 10:21] LABS: FSH 28.2 mIU/ml (1.4-18.1); LH 12.4 mIU/ml (2-9)
[2018-11-04 14:49] LABS: Testosterone, Free 2.78 ng/dL (5.05-19.8); Testosterone, Total 214 ng/dL (240-950)
== END 2018-11-02 08:20 ==
PROVIDERS: Visit Provider Internal Medicine
DX: E29.1 Testicular hypofunction (principal)
CPT/HCPCS: 36415; 80053; 84402; 84403; 85027; 83001; 83002

== ENCOUNTER 2019-04-20 23:22 | Emergency (ER) | payer MEDICAID, SELFPAY ==
[2019-04-20 23:31] VITALS: BP 117/81; PULSE 96; RESP 18; TEMP 36.7; O2SAT 98
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
[2019-04-21 00:27] LABS: Bilirubin Negative (Negative); Blood Negative (Negative); Clarity Clear (Clear); Glucose Negative (Negative); Ketones Negative (Negative); Leukocyte Esterase Negative (Negative); Nitrite Negative (Negative); Urobilinogen 0.2 EU/dL (Up TO 0.2)
[2019-04-21 00:42] VITALS: BP 118/78; PULSE 93; RESP 18; TEMP 37.2; O2SAT 97
== END 2019-04-21 00:40 | disposition home or self-care (01) ==
PROVIDERS: Emergency Provider Student in an Organized Health Care Education/Training Program
DX: R60.0 Localized edema (principal); I86.1 Scrotal varices; N50.811 Right testicular pain
CPT/HCPCS: 99282; 81003

== ENCOUNTER 2019-06-08 00:03 | Emergency (ER) | payer MEDICAID, SELFPAY ==
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
== END 2019-06-08 00:04 | disposition left before discharge ==
LOC: ER 11:42
DX: Z53.21 Procedure and treatment not carried out due to patient leaving prior to being seen by health care provider (principal)

== ENCOUNTER 2019-06-08 01:48 | Emergency (ER) | payer MEDICAID, SELFPAY ==
[2019-06-08 02:02] VITALS: BP 158/97; PULSE 94; RESP 20; TEMP 36.6; O2SAT 97
[2019-06-08 02:15] VITALS: RESP 14
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
[2019-06-08 03:23] VITALS: PULSE 86; RESP 14; TEMP 36.6; O2SAT 97
== END 2019-06-08 03:20 | disposition home or self-care (01) ==
PROVIDERS: Emergency Provider Emergency Medicine
DX: T40.1X1A Poisoning by heroin, accidental (unintentional), initial encounter (principal); F11.10 Opioid abuse, uncomplicated; F32.9 Major depressive disorder, single episode, unspecified
CPT/HCPCS: 99283

== ENCOUNTER 2019-07-20 22:32 | Emergency (ER) | payer MEDICAID, SELFPAY ==
[2019-07-20 22:38] VITALS: BP 113/70; PULSE 71; RESP 15; TEMP 37.1; O2SAT 98
--- NOTE | 2019-07-20 22:46 | ED.GENADUL_ITS ---
Discharge Plan Disposition Patient Disposition: HOME Condition: Stable Discharge Details Chief Complaint: Orthopedic Clinical Impression: Puncture wound of foot, right Primary Care Provider: None,None ED Provider: Jb Navarro Home Meds and New Rx's Prescriptions: New cephalexin 500 mg capsule 500 mg PO TID 3 Days Qty: 9 RF: 0 Continued omeprazole 40 mg capsule,delayed release(DR/EC) 40 mg PO DAILY RF: 0 acetaminophen 650 mg tablet extended release 650 mg PO Q4H PRN PRNRF: 0 gabapentin 600 mg tablet 600 mg PO TID 30 Days Qty: 90 RF: 11 Testone CIK 200 mg/mL Kit 200 mg IM Q2W RF: 0 Discharge Instructions Instructions: Puncture Wound (ED) Additional Instructions: Please take antibiotics as prescribed. Change dressing in 36 hours time. Return to develop a fever, redness that streaks up the leg, or any other acute concerns. Medical Decision Making 21-year-old male who stepped on a toy at home, suffering a puncture wound to the plantar surface of his right foot. States that his tetanus status is up-to-date. Wound was irrigated, examined in a bloodless field without evidence of foreign body. No deep structures involved. Referred for x-ray which is without acute findings. Wound dressed and patient instructed on home care. We will place him on few days of Keflex to prevent infection. He is stable for discharge to home. HPI General Mode of arrival: ambulatory . Date/Time Provider Initiated Documentation: 07/20/19 22:32 . Limitations to Documentation: no limitations . Information obtained by: patient . History of Present Illness 29 year old M presents to the emergency department with the chief complaint of Right foot injury after stepping on toy at home, described as moderate, Quality is described as dull, and is localized to the right and lower extremity. Patient reports no radiation. Patient started experiencing this minute(s) and it has been constant. Rest improves symptom(s), Movement worsens symptoms . Patient notes no other symptoms. and other (No other injury. States that his tetanus status is up-to-date.). Patient did receive the following treatments prior to arrival, none Related Data Home Medications Medication Instructions Recorded Confirmed acetaminophen 650 mg 650 mg PO Q4H PRN PRN tab 10/14/18 06/08/19 tablet,extended release omeprazole 40 mg capsule,delayed 40 mg PO DAILY 10/14/18 06/08/19 release gabapentin 600 mg tablet 600 mg PO TID 30 Days #90 tab 01/20/19 06/08/19 Testone CIK 200 mg IM Q2W 04/20/19 06/08/19 cephalexin 500 mg PO TID 3 Days #9 cap 07/20/19 Previous Rx's Medication Instructions Recorded gabapentin 600 mg tablet 600 mg PO TID 30 Days #90 tab 01/20/19 cephalexin 500 mg PO TID 3 Days #9 cap 07/20/19 Allergies Allergy/AdvReac Type Severity Reaction Status Date / Time amitriptyline Allergy rash/behavioral Verified 06/08/19 02:05 changes codeine Allergy Hives Verified 06/08/19 02:05 clonazepam AdvReac Mild irritablity Verified 06/08/19 02:05 /byrne General Stated Complaint: Orthopedic DERRICK: 4 Review of Systems Narrative: Tetanus up-to-date. No other injury. States that he has otherwise been well. [facility] Medical History ADHD (Chronic) Anger (Acute) Anxiety with depression (Chronic) Bilateral varicoceles (Chronic 07/16/16) Development disorder, language (Chronic) Erosive gastritis Esophagitis (Acute) Frequent headaches (Acute) Genetic disorder (Chronic) GERD (gastroesophageal reflux disease) History of drug use disorder history of opiate dependence Insomnia (Acute) Low back pain (Acute) Polysubstance abuse (Acute) Testicular atrophy (Chronic) Surgical History EGD - MAC (12/15/17) S/P hernia repair (Resolved) Social History Smoking/Tobacco Use Status: Current every day Alcohol Intake: former Year quit: 2017 Details: pt stopped due to ulcers in February. Substance use type: marijuana, crack/cocaine and heroin Details: I'm trying to get on the [facility] clinic but it's taking a long time Household members: significant other Housing: apartment Number of Children: 1 current occupation: Disabled What is your relationship status?: living with partner Panel score (0-1 are the most socially isolated patients): 1 What type of physical activity do you participate in: walking Frequency: 3-4 times per week Do you feel safe at home: Yes Do you feel safe in your relationship?: Yes Exam Narrative Exam Narrative: GEN: awake, alert, oriented 3. Pleasant, well groomed, interactive. HEAD: Normocephalic, atraumatic ENT: Mucous membranes moist, external ear exam unremarkable. EXT: Full ROM, no edema, no rash. Right foot with plantar surface puncture wound with pain on palpation. Range of motion is intact. Sensation is within normal limits. Neuro: Grossly normal neurologic exam, conversant, interactive. Psych: Speech fluent, thoughts congruent, affect normal Course Vital Signs Vital signs: Vital Signs Temperature 37.1 C 07/20/19 22:38 Pulse 71 07/20/19 22:38 Respiratory Rate 15 07/20/19 22:38 Blood Pressure 113/70 07/20/19 22:38 Pulse Oximetry 98 07/20/19 22:38 Temperature 37.1 C 07/20/19 22:38 Temperature Source Tympanic 07/20/19 22:38 Pulse 71 07/20/19 22:38 Respiratory Rate 15 07/20/19 22:38 Respiratory Effort Non-Labored 07/20/19 22:41 Blood Pressure 113/70 07/20/19 22:38 Blood Pressure Position Supine 07/20/19 22:38 Pulse Oximetry 98 07/20/19 22:38 Oxygen Delivery Method Room Air 07/20/19 22:38 Oxygen Flow Rate 0 07/20/19 22:38 Pain Level 6 07/20/19 22:41
--- NOTE | 2019-07-20 22:55 | DI.RAD_ITS ---
EXAM: XR FOOT RT COMPLETE CLINICAL HISTORY: plantar pain, puncture wound. TECHNIQUE: 2D digital imaging was performed. COMPARISON: No exams were available for comparison FINDINGS: BONES: No acute fracture is present. No bony destructive lesion is seen. JOINTS: No dislocation present. SOFT TISSUE: Normal. No radiopaque foreign body. IMPRESSION: Unremarkable radiographs of the right foot.
--- NOTE | 2019-07-20 23:10 | DI.VRAD_ITS ---
PROCEDURE INFORMATION: Exam: XR Right Foot Complete Exam date and time: 07/20/2019 10:55 PM Age: 29 years old Clinical indication: Injury or trauma; Initial encounter; Puncture; Foot; Right; Foreign body involvement not specified; Injury date: 07/20/19 TECHNIQUE: Imaging protocol: XR Right foot. Views: 3 or more views. COMPARISON: CR RIGHT ANKLE COMPLETE 02/08/2016 9:13 PM FINDINGS: Bones/joints: Normal. Soft tissues: Normal. IMPRESSION: No acute findings. Dictated and Authenticated by: Lawrence Sainz MD. Ordering:ASHKAN Muhammad MD
[2019-07-20] MEDS: Acetaminophen 500 MG TAB 1000 MG PO (23:16)
== END 2019-07-20 23:15 | disposition home or self-care (01) ==
PROVIDERS: Emergency Provider Emergency Medicine
DX: S91.331A Puncture wound without foreign body, right foot, initial encounter (principal); W26.8XXA Contact with other sharp object(s), not elsewhere classified, initial encounter
CPT/HCPCS: 99283; 73630

== ENCOUNTER 2019-08-07 16:44 | Emergency (ER) | payer MEDICAID, SELFPAY ==
[2019-08-07 16:47] VITALS: BP 115/61; PULSE 59; RESP 15; TEMP 36.7; O2SAT 99
[2019-08-07 17:25] LABS: Absolute Basophil Count 0.02 k/cumm (0.0-0.2); Absolute Eosinophil Count 0.11 k/cumm (0.0-0.7); Absolute Lymphocyte Count 3.83 k/cumm (1.2-3.4); Absolute Monocyte Count 0.58 k/cumm (0.11-0.7); Absolute Neutrophil Count 1.74 k/cumm (1.2-6.7); Basophils % 0.3; Eosinophils % 1.8; HCT 36.7 % (40.0-50.0); Mean Corp. HGB Concentration 35.4 g/dL (32.0-36.0); Mean Corpuscular Hemoglobin 30.5 pg (27.0-33.0); Mean Corpuscular Volume 86.2 fL (80-95); Mean Platelet Volume 9.8 fL (8.0-11.0); Monocytes % 9.2; Neutrophils % 27.7; Platelet Count 225 x1000/uL (130-400); RBC 4.26 m/cumm (4.50-6.00); RBC Distribution Width 12.8 % (11.8-14.1); White Blood Cell Count 6.28 k/cumm (4.4-10.8)
[2019-08-07 17:40] LABS: ALT 20 U/L (16-63); AST 20 U/L (15-37); Alkaline Phosphatase 82 U/L (46-116); Anion Gap 8.1 mmol/L (3-11); BUN 20 mg/dL (7-18); Bilirubin, Total 0.4 mg/dL (0.2-1.0); CO2 28.9 mmol/L (21.0-32.0); CREATININE 0.96 mg/dL (0.70-1.30); Calcium 9.2 mg/dL (8.5-10.1); Chloride 105 mmol/L (98-107); Glucose 84 mg/dL (74-106); Potassium 4.1 mmol/L (3.5-5.1); Sodium 142 mmol/L (136-145)
--- NOTE | 2019-08-07 17:55 | W.ED.GENAD ---
Discharge Plan Disposition Patient Disposition: HOME Condition: Stable Discharge Details Chief Complaint: Nausea/Vomit/Diar Clinical Impression: Acute viral syndrome, Diarrhea Primary Care Provider: None,None ED Provider: Carroll Arguelles Home Meds and New Rx's Prescriptions: Continued acetaminophen 650 mg tablet extended release 650 mg PO Q4H PRN PRNRF: 0 gabapentin 600 mg tablet 600 mg PO TID 30 Days Qty: 90 RF: 11 buprenorphine-naloxone [Suboxone] 8-2 mg Film 2 film BUCCAL DAILY RF: 0 testosterone 5.5 mg/0.122 gram/actuation Gel In Metered-Dose Pump 1 pump INTRANASAL TID RF: 0 Discharge Instructions Instructions: Acute Diarrhea (ED), Viral Syndrome (ED) Additional Instructions: Laboratory values here in the ER today were unremarkable. Rest, plenty of fluids to avoid dehydration. [id number] medications such as Pepto-Bismol, Imodium, etc. as directed for symptomatic control. Please watch for new or worsening symptoms and return to the ER for any concerns. As we discussed, the ANETA diet may be beneficial, bananas, rice, applesauce, tea, toast. I do recommend reaching out to your primary care provider on Friday for prompt outpatient reevaluation Medical Decision Making 29-year-old gentleman who reports 1 week history of feeling hot and cold, nausea but no vomiting and intermittent diarrhea. Intermittent abdominal pain which is chronic, no worse or different over the past week. Denies recent sick contacts or travel. Patient appears well, nontoxic. Patient is afebrile. Abdomen is soft, nontender, certainly nonsurgical. Discussed options with patient and family. Will obtain routine laboratory values and give IV fluid. Patient denies any nausea at this time, no indication for antiemetics. Upon reevaluation patient is resting comfortably. No change from initial presentation. Discussed benign laboratory values. Discussed the aneta diet, [id number] Imodium, fluids to avoid dehydration. Patient and family comfortable with discharge at this time and have no additional questions or concerns. Medical Records Medical records reviewed: Yes I reviewed the patient's medical records. Lab Data Lab results reviewed: Yes I reviewed the patient's lab results. Lab results narrative: Laboratory Tests Range/Units 08/07/19 08/07/19 16:56 16:56 WBC (4.4-10.8) k/cumm 6.28 RBC (4.50-6.00) m/cumm 4.26 L Hgb (13.5-17.5) g/dL 13.0 L Hct (40.0-50.0) % 36.7 L MCV (80-95) fL 86.2 MCH (27.0-33.0) pg 30.5 MCHC (32.0-36.0) g/dL 35.4 RDW (11.8-14.1) % 12.8 Plt Count (130-400) x1000/uL 225 MPV (8.0-11.0) fL 9.8 Immature Gran % % 0.0 Neutrophils % 27.7 Lymphocytes % 61.0 Monocytes % 9.2 Eosinophils % 1.8 Basophils % 0.3 Absolute Neutrophils (1.2-6.7) k/cumm 1.74 Absolute Lymphocytes (1.2-3.4) k/cumm 3.83 H Absolute Monocytes (0.11-0.7) k/cumm 0.58 Absolute Eosinophils (0.0-0.7) k/cumm 0.11 Absolute Basophils (0.0-0.2) k/cumm 0.02 Sodium (136-145) mmol/L 142 Potassium (3.5-5.1) mmol/L 4.1 Chloride (98-107) mmol/L 105 Carbon Dioxide (21.0-32.0) mmol/L 28.9 Anion Gap (3-11) mmol/L 8.1 BUN (7-18) mg/dL 20 H Creatinine (0.70-1.30) mg/dL 0.96 Estimated GFR/1.73 m2 (mL/min/1.73m2) >= 60.00 Glucose (74-106) mg/dL 84 Calcium (8.5-10.1) mg/dL 9.2 Total Bilirubin (0.2-1.0) mg/dL 0.4 AST (15-37) U/L 20 ALT (16-63) U/L 20 Alkaline Phosphatase (46-116) U/L 82 Total Protein (6.4-8.2) g/dL 7.0 Albumin (3.4-5.0) g/dL 4.0 HPI General Mode of arrival: ambulatory. Date/Time Provider Initiated Documentation: 08/07/19 17:02. Limitations to Documentation: no limitations. Information obtained by: patient. HPI Narrative: 29-year-old gentleman with extensive past medical history including anxiety and depression, ADHD, erosive gastritis, esophagitis, frequent headaches, history of drug disorder, low back pain, developmental disorder, presents to the ER today with family complaining of a one-week history of subjectively feeling hot and cold but never having a documented fever, nausea, intermittent diarrhea. Patient was seen at his clinic yesterday and they recommended [id number] Pepto-Bismol and using probiotics. Mother reports that he is more tired than usual. No blood work was done yesterday and they are coming to the ER now for further evaluation as he is not doing any better since yesterday. Denies headache, sore throat, ear pain, cough, constipation, dysuria, urinary frequency, numbness, tingling, weakness. Related Data Home Medications Medication Instructions Recorded Confirmed acetaminophen 650 mg 650 mg PO Q4H PRN PRN tab 10/14/18 08/07/19 tablet,extended release gabapentin 600 mg tablet 600 mg PO TID 30 Days #90 tab 01/20/19 08/07/19 buprenorphine-naloxone [Suboxone] 2 film BUCCAL DAILY 08/07/19 08/07/19 testosterone 1 pump INTRANASAL TID 08/07/19 08/07/19 Previous Rx's Medication Instructions Recorded gabapentin 600 mg tablet 600 mg PO TID 30 Days #90 tab 01/20/19 Allergies Allergy/AdvReac Type Severity Reaction Status Date / Time amitriptyline Allergy rash/behavioral Verified 08/07/19 16:52 changes codeine Allergy Hives Verified 08/07/19 16:52 clonazepam AdvReac Mild irritablity Verified 08/07/19 16:52 /byrne General Stated Complaint: Nausea/Vomit/Diar DERRICK: 3 Review of Systems Constitutional Constitutional: Reports chills, Reports fatigue, Denies fever(s) and Denies headache(s) Eyes Eyes: Denies eye discharge ENT Ears, Nose, Mouth, and Throat: Denies otalgia, Denies headache(s) and Denies sore throat Cardiovascular Cardiovascular: Denies chest pain and Denies dyspnea Respiratory Respiratory: Denies cough and Denies dyspnea Gastrointestinal Gastrointestinal: Reports abdominal pain (Intermittent, chronic), Reports nausea and Denies vomiting Genitourinary Genitourinary: Denies dysuria Musculoskeletal Musculoskeletal: Denies myalgias Integumentary/Breasts Skin/Breast: Denies rash Neurologic Neurologic: Denies headache(s) Endocrine Endocrine: Reports fatigue [facility] Medical History ADHD (Chronic) Anger (Acute) Anxiety with depression (Chronic) Bilateral varicoceles (Chronic 07/16/16) Development disorder, language (Chronic) Erosive gastritis Esophagitis (Acute) Frequent headaches (Acute) Genetic disorder (Chronic) GERD (gastroesophageal reflux disease) History of drug use disorder history of opiate dependence Insomnia (Acute) Low back pain (Acute) Polysubstance abuse (Acute) Testicular atrophy (Chronic) Surgical History EGD - MAC (12/15/17) S/P hernia repair (Resolved) Family History Other Essential hypertension Heart disease Social History Smoking/Tobacco Use Status: Current every day Alcohol Intake: current Alcohol Intake frequency: holidays/special occasions only Details: pt stopped due to ulcers in February. Substance use type: marijuana, crack/cocaine and heroin Details: On Suboxone Household members: significant other Housing: apartment Number of Children: 1 current occupation: Disabled What is your relationship status?: living with partner Panel score (0-1 are the most socially isolated patients): 1 What type of physical activity do you participate in: walking Frequency: 3-4 times per week Do you feel safe at home: Yes Do you feel safe in your relationship?: Yes Exam Const General: cooperative, healthy appearing, comfortable and no acute distress Orientation: alert and awake HENMT Head: normal to inspection, normocephalic and atraumatic Ears: external ears normal, TM's normal bilaterally and EAC's normal Mouth: moist mucous membranes Throat: posterior oropharynx normal Eyes Eyelids: eyelids normal Conjunctivae: conjunctivae normal Sclera: sclerae normal Neck Neck: normal visual inspection, full ROM, no lymphadenopathy, no meningeal signs, trachea midline and supple Resp Effort & Inspection: normal respiratory effort and able to speak in complete sentences Auscultation: clear to auscultation bilaterally Cardio Rate: regular rate Rhythm: regular rhythm GI Palpation: soft, not firm, no guarding, not rigid and nontender Auscultation: normal bowel sounds Back/Spine/Pelvis Back: No back tenderness Skin General skin exam: no rashes or lesions noted Neuro General: alert, awake, moves all extremities and no focal motor deficits Sensory Exam: no sensory deficits noted Extrem General: normal to inspection Psych Appearance: grossly normal Mental Status: mental status grossly normal Course Vital Signs Vital signs: Vital Signs Temperature 36.7 C 08/07/19 16:47 Pulse 59 L 08/07/19 16:47 Respiratory Rate 15 08/07/19 16:47 Blood Pressure 115/61 08/07/19 16:47 Pulse Oximetry 99 08/07/19 16:47 Temperature 36.7 C 08/07/19 16:47 Temperature Source Temporal Artery Scan 08/07/19 16:47 Pulse 59 L 08/07/19 16:47 Respiratory Rate 15 08/07/19 16:47 Respiratory Effort Non-Labored 08/07/19 16:49 Blood Pressure 115/61 08/07/19 16:47 Blood Pressure Position Sitting 08/07/19 16:47 Pulse Oximetry 99 08/07/19 16:47 Oxygen Delivery Method Room Air 08/07/19 16:47 Oxygen Flow Rate 0 08/07/19 16:47 Pain Level 4 08/07/19 16:47 Lab/Test Results Lab/Test Results: Laboratory Tests Range/Units 08/07/19 08/07/19 16:56 16:56 WBC (4.4-10.8) k/cumm 6.28 RBC (4.50-6.00) m/cumm 4.26 L Hgb (13.5-17.5) g/dL 13.0 L Hct (40.0-50.0) % 36.7 L MCV (80-95) fL 86.2 MCH (27.0-33.0) pg 30.5 MCHC (32.0-36.0) g/dL 35.4 RDW (11.8-14.1) % 12.8 Plt Count (130-400) x1000/uL 225 MPV (8.0-11.0) fL 9.8 Immature Gran % % 0.0 Neutrophils % 27.7 Lymphocytes % 61.0 Monocytes % 9.2 Eosinophils % 1.8 Basophils % 0.3 Absolute Neutrophils (1.2-6.7) k/cumm 1.74 Absolute Lymphocytes (1.2-3.4) k/cumm 3.83 H Absolute Monocytes (0.11-0.7) k/cumm 0.58 Absolute Eosinophils (0.0-0.7) k/cumm 0.11 Absolute Basophils (0.0-0.2) k/cumm 0.02 Sodium (136-145) mmol/L 142 Potassium (3.5-5.1) mmol/L 4.1 Chloride (98-107) mmol/L 105 Carbon Dioxide (21.0-32.0) mmol/L 28.9 Anion Gap (3-11) mmol/L 8.1 BUN (7-18) mg/dL 20 H Creatinine (0.70-1.30) mg/dL 0.96 Estimated GFR/1.73 m2 (mL/min/1.73m2) >= 60.00 Glucose (74-106) mg/dL 84 Calcium (8.5-10.1) mg/dL 9.2 Total Bilirubin (0.2-1.0) mg/dL 0.4 AST (15-37) U/L 20 ALT (16-63) U/L 20 Alkaline Phosphatase (46-116) U/L 82 Total Protein (6.4-8.2) g/dL 7.0 Albumin (3.4-5.0) g/dL 4.0
[2019-08-07 18:05] VITALS: BP 106/65; PULSE 52; RESP 16; TEMP 36.7; O2SAT 99
[2019-08-07] MEDS: Normal Saline 1,000 ML 1000 ML IV (18:15)
== END 2019-08-07 18:15 | disposition home or self-care (01) ==
PROVIDERS: Emergency Provider Physician Assistant
DX: R19.7 Diarrhea, unspecified (principal); R50.9 Fever, unspecified; R53.83 Other fatigue; R11.0 Nausea; B34.9 Viral infection, unspecified
CPT/HCPCS: 36415; 80053; 96360; 96361; 99284; 85025

== ENCOUNTER 2019-11-29 00:32 | Emergency (ER) | payer MEDICAID, SELFPAY ==
[2019-11-29 00:39] VITALS: BP 119/93; PULSE 87; RESP 12; TEMP 36.3; O2SAT 97
--- NOTE | 2019-11-29 00:43 | ED.GENADUL_ITS ---
Discharge Plan Disposition Patient Disposition: HOME Condition: Stable Discharge Details Chief Complaint: OD/Poison Clinical Impression: Heroin overdose Primary Care Provider: None,None ED Provider: Km Patten Home Meds and New Rx's Prescriptions: Continued acetaminophen 650 mg tablet extended release 650 mg PO Q4H PRN PRNRF: 0 gabapentin 600 mg tablet 600 mg PO TID 30 Days Qty: 90 RF: 11 buprenorphine-naloxone [Suboxone] 8-2 mg Film 2 film BUCCAL DAILY RF: 0 testosterone 5.5 mg/0.122 gram/actuation Gel In Metered-Dose Pump 1 pump INTRANASAL TID RF: 0 Discharge Instructions Additional Instructions: As we both know illicit drugs are a threat to your health life and wellbeing. It is our recommendation that you stop this behavior as it will cause grave consequences. Please use the resources of your recovery coaches. Is not her recommendation to leave without further evaluation however it is within your rights to refuse this understanding the potential consequences. If you notice any worsening of your symptoms, or any new symptoms such as vomiting, diarrhea, fever, chills, shortness of breath, chest pain, numbness, weakness, or fainting , please return immediately to the emergency department for reevaluation. Please follow up with your primary care provider as soon as possible for reassessment and reevaluation. As always, it was a pleasure participating in your medical care today. Medical Decision Making 29-year-old male with a past medical history of multiple drug overdoses in the past. He presents today for evaluation of drug overdose. Per EMS and bystanders he has used the new batch of black power/fist we overdosed unintentionally, did require bystander CPR as he was not breathing. When EMS arrived his oxygenation and heart rate was both in the 20s to 30s. Milligrams of intranasal Narcan were given to no effect, 6 mg of intramuscular Narcan were given, shortly after which the patient had a notably violent return of spontaneous breathing and mentation, which point there was notable confrontation between police EMS and the patient. He was eventually brought via [facility] to the ER for assessment. Patient denies any suicidal or homicidal ideations. He denies any intention to end his life with overdose. He does admit to taking a small amount of alcohol as well. No other complaints at this time. Physical exam demonstrates no neurologic deficits, patient is ANO x4, shows no signs of confusion or altered mental status or residual symptoms of overdose. Patient is notably dissatisfied with his current situation/placement here in the emergency department. He has no homicidal or suicidal ideations currently. Patient is notably clinically sober. The patient is able to speak clearly. There is no demonstration of any slurring of speech. There is evidence of clear decision making capacity. Patient is able to ambulate well without any difficulty. There are no signs of ataxia or stumbling motions. Patient was given the option and recommendation for further observation here in the ED and notably chose to leave as an alternative against our recommendations. Patient is of a appropriate age to make decisions. The patient is of sound mind, appears clinically sober, and has capacity to make decisions by my clinical exam. We have provided options for treatment and discussed the risks and benefits of these options and refusing these options, including and disability specific to the patient's pathology. Patient is able to discuss the risks and benefits and alternatives of treatment and refusing treatment. We have tried to involve the patient's family or support group that was present here or by contacting them on the phone. The patient chooses to leave before evaluation and treatment is complete AGAINST MEDICAL ADVICE. HPI General Date/Time Provider Initiated Documentation: 11/29/19 00:42 . HPI Narrative: 29-year-old male with a past medical history of multiple drug overdoses in the past. He presents today for evaluation of drug overdose. Per EMS and bystanders he has used the new batch of black power/fist we overdosed unintentionally, did require bystander CPR as he was not breathing. When EMS arrived his oxygenation and heart rate was both in the 20s to 30s. Milligrams of intranasal Narcan were given to no effect, 6 mg of intramuscular Narcan were given, shortly after which the patient had a notably violent return of spontaneous breathing and mentation, which point there was notable confrontation between police EMS and the patient. He was eventually brought via [facility] to the ER for assessment. Patient denies any suicidal or homicidal ideations. He denies any intention to end his life with overdose. He does admit to taking a small amount of alcohol as well. No other complaints at this time. Related Data Home Medications Medication Instructions Recorded Confirmed acetaminophen 650 mg 650 mg PO Q4H PRN PRN tab 10/14/18 08/07/19 tablet,extended release gabapentin 600 mg tablet 600 mg PO TID 30 Days #90 tab 01/20/19 08/07/19 buprenorphine-naloxone [Suboxone] 2 film BUCCAL DAILY 08/07/19 08/07/19 testosterone 1 pump INTRANASAL TID 08/07/19 08/07/19 Previous Rx's Medication Instructions Recorded gabapentin 600 mg tablet 600 mg PO TID 30 Days #90 tab 01/20/19 Allergies Allergy/AdvReac Type Severity Reaction Status Date / Time amitriptyline Allergy rash/behavioral Verified 08/07/19 16:52 changes codeine Allergy Hives Verified 08/07/19 16:52 clonazepam AdvReac Mild irritablity Verified 08/07/19 16:52 /byrne General DERRICK: 3 Review of Systems All systems reviewed & are unremarkable except as noted in HPI and below PFSH Medical History ADHD (Chronic) Anger (Acute) Anxiety with depression (Chronic) Bilateral varicoceles (Chronic 07/16/16) Development disorder, language (Chronic) Erosive gastritis Esophagitis (Acute) Frequent headaches (Acute) Genetic disorder (Chronic) GERD (gastroesophageal reflux disease) History of drug use disorder history of opiate dependence Insomnia (Acute) Low back pain (Acute) Polysubstance abuse (Acute) Testicular atrophy (Chronic) Surgical History EGD - MAC (12/15/17) S/P hernia repair (Resolved) Family History Other Essential hypertension Heart disease Social History Smoking/Tobacco Use Status: Current every day Alcohol Intake: current Alcohol Intake frequency: holidays/special occasions only Details: pt stopped due to ulcers in February. Substance use type: marijuana, crack/cocaine and heroin Details: On Suboxone- states it got stolen this week, using street drugs until can refill rx. Reports drinking 30 beers today as well. Household members: significant other Housing: apartment Number of Children: 1 current occupation: Disabled What is your relationship status?: living with partner Panel score (0-1 are the most socially isolated patients): 1 What type of physical activity do you participate in: walking Frequency: 3-4 times per week Do you feel safe at home: Yes Do you feel safe in your relationship?: Yes Exam Narrative Exam Narrative: 1.Const: Well-nourished, Well-developed, appearing stated age 2.Eyes: PERRL, no conjunctival injection, and symmetrical lids. 3.ENT: Atraumatic external nose and ears. Moist MM. Neck: Symmetric, trachea midline, No thyromegaly. 4.CVS: +S1/S2, No murmurs or gallops. Peripheral pulses 2+ and equal in all extremities. Brisk capillary refill in all extremities. 5.RESP: Unlabored respiratory effort. Clear to auscultation bilaterally. No wheezes rales or rhonchi 6.GI: Soft, Nontender/Nondistended, No hepatosplenomegaly. No guarding or rebound. 7.MSK: Normocephalic/Atraumatic, Extremities w/o deformity or ttp No cyanosis or clubbing, Normal movement of all extremities 8.Skin: Warm, Dry. No rashes or lesions. 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 Sensation grossly intact, no focal neurologic deficits. 10.Psych: (AAO) x3. Appropriate mood and affect
[2019-11-29 00:53] VITALS: BP 119/93; PULSE 87; RESP 12; TEMP 36.3; O2SAT 97
== END 2019-11-29 00:55 | disposition home or self-care (01) ==
LOC: ER 00:56
PROVIDERS: Emergency Provider Student in an Organized Health Care Education/Training Program
DX: T40.1X1A Poisoning by heroin, accidental (unintentional), initial encounter (principal); T42.71XA Poisoning by unspecified antiepileptic and sedative-hypnotic drugs, accidental (unintentional), initial encounter
CPT/HCPCS: 96372; 99284

== ENCOUNTER 2020-01-21 09:29 | Outpatient (REF) | payer MEDICAID, SELFPAY | END 2020-01-21 09:49 | LOC: LBN 09:29 | PROVIDERS: Visit Provider Urology | DX: N50.819 Testicular pain, unspecified (principal) | CPT/HCPCS: 87086 ==

== ENCOUNTER 2021-03-17 17:05 | Emergency (ER) | payer MEDICAID, SELFPAY ==
[2021-03-17 17:15] VITALS: BP 109/71; PULSE 74; RESP 16; TEMP 36.5; O2SAT 90
--- NOTE | 2021-03-17 17:15 | DI.CT_ITS ---
Exam(s) CT CHEST PE CTA EXAM: CT CHEST PE CTA CLINICAL HISTORY: shortness of breath. TECHNIQUE: Imaging Protocol: Axial CT angiography was performed with multi-slice acquisition and mu lti-planar and/or 3D reconstructions. CONTRAST MATERIAL: Intravenous: Omnipaque 350 Contrast volume:[address] ABDOMEN PELVIS W from 08/25/2018 FINDINGS: Tracheobronchial tree: Patent where visualized. Pulmonary parenchyma: There are micro nodular clusters in the lower lobes, left greater than right wi th a tree-in-bud appearance. There are some paraseptal blebs in the lung apices. Pulmonary Arteries: No evidence of filling defect to suggest pulmonary emboli. Mediastinum and Alla: No dominant adenopathy or fluid collection. Visualized thyroid gland: Unremarkable. Pleura: No effusion or pneumothorax. Heart: The heart is not dilated. No coronary artery calcifications are seen. No pericardial effusion. Aorta: Thoracic aorta non-dilated. No evidence of dissection. Upper abdomen: Unremarkable. Soft tissues: Bilateral gynecomastia. Bones: Within normal limits for the patient's age. IMPRESSION: 1. No evidence of pulmonary embolism, thoracic aortic dissection or aneurysm. 2. Micro nodules in the lower lobes, left greater than right with a tree-in-bud configuration. An at ypical infectious process should be considered. Follow-up is recommended to document resolution. RADIATION DOSE DELIVERED: 323.46mGy.cm Total DLP DATA REPOSITORY: All CT scans at this facility are submitted to the National Radiology Data Registry (NRDR) Dose Index Registry (DIR) with the [employer] (ACR). RADIATION OPTIMIZATION: All CT scans at this facility use at least one of these dose optimization te chniques: automated exposure control; mA and/or kV adjustment per patient size (includes targeted exa ms where dose is matched to clinical indication); or iterative reconstruction.
[2021-03-17] MEDS: Normal Saline 1,000 ML 1000 ML IV (17:25)
--- NOTE | 2021-03-17 17:27 | ED.GENADUL_ITS ---
Discharge Plan Disposition Patient Disposition: HOME Condition: Stable Discharge Details Clinical Impression: Shortness of breath, Pneumonia Primary Care Provider: None,None ED Provider: Naseem Rosales Home Meds and New Rx's Prescriptions: New amoxicillin-pot clavulanate [Augmentin] 875-125 mg tablet 1 tab PO BID Qty: 14 RF: 0 prednisone 20 mg tablet 60 mg PO DAILY 4 Days Qty: 12 RF: 0 azithromycin 250 mg tablet 250 mg PO DAILY 4 Days Qty: 4 RF: 0 Continued acetaminophen 650 mg tablet extended release 650 mg PO Q4H PRN PRNRF: 0 Discharge Instructions Instructions: Pneumonia (ED) Additional Instructions: your cat scan showed a small pneumonia and your blood work was unremarkable use the albuterol inhaler every 4 hours as needed if you feel more ill, have worsening symptoms or difficulty breathing return to the emergency department follow up with your primary care provider within 1 week especially if symptoms continue Medical Decision Making 31 yo male with hx of prior opiate abuse who hasn't used in about a year per patient, who comes in with chief complaint of 1 week of dry cough, subjective fevers, chills, headache and n/v. He states he has not had any known sick contacts. He states he gets frequent headaches and this feels similar to prior headaches he has had and is not the worst of his life and was not severe suddenly, descrbies it as an ache at the front of his head. He has no meningismus, no abdominal tenderness, no murmurs or rashes/lesions. He has diffuse wheezing in both lungs on exam though is speaking in full sentences, he is noted to be 92% on room air on arrival. Concern for viral illness vs covid vs pneumonia vs PE, will obtain labs and ct for pe. Will treat with duoneb and solumedrol. His exam is not consistent with meningitis and pain is mild so do not feel he requires head ct. No murmurs or skin findings to suggest endocarditis and denies IVDU. patient's labs unremarkable, covid test pending and ct shows findings on the left consistent with atypical infection and will treat with antibiotics. He remains stable and feels better after neb and o2 is now 95% on room air only has mild apical wheezing bilaterally now speaking in full sentences. Will start prednisone and oral antibiotics and advised to f/u with pcp, return precautions given Differential Diagnosis Differential Diagnosis: viral illness, covid, pe, pneumonia Medical Records Medical records reviewed: Yes I reviewed the patient's medical records. 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 If there is a discrepancy between the preliminary and final interpretation, please notify [facility] via [email or web address]. If you do not have access to our QA portal, call our QA team at [phone] CONFIDENTIALITY STATEMENT This report is intended only for the use of the referring physician, and only in accordance with law, If you received this in error, call [phone] Page 2 of 2 1. Innumerable micro nodules in the left lower lobe including a moderate-sized cluster with tree-in-bud configuration. This may represent an atypical infection. Recommend follow-up. 2. No evidence for pulmonary embolism. Lab Data Lab results reviewed: Yes I reviewed the patient's lab results. HPI General Mode of arrival: ambulatory . Date/Time Provider Initiated Documentation: 03/17/21 17:06 . Limitations to Documentation: no limitations . Information obtained by: patient . History of Present Illness 31 year old M presents to the emergency department with the chief complaint of cough, described as moderate, Patient started experiencing this week(s) (1) and it has been constant. No relieving factors improve symptom(s), No exacerbating factors reported . Patient notes fever/chills, headaches and nausea/vomiting. Patient did receive the following treatments prior to arrival, none Related Data Home Medications Medication Instructions Recorded Confirmed acetaminophen 650 mg 650 mg PO Q4H PRN PRN tab 10/14/18 03/17/21 tablet,extended release amoxicillin-pot clavulanate 1 tab PO BID #14 tab 03/17/21 [Augmentin] azithromycin 250 mg PO DAILY 4 Days #4 tab 03/17/21 prednisone 60 mg PO DAILY 4 Days #12 tab 03/17/21 Previous Rx's Medication Instructions Recorded amoxicillin-pot clavulanate 1 tab PO BID #14 tab 03/17/21 [Augmentin] azithromycin 250 mg PO DAILY 4 Days #4 tab 03/17/21 prednisone 60 mg PO DAILY 4 Days #12 tab 03/17/21 Allergies Allergy/AdvReac Type Severity Reaction Status Date / Time amitriptyline Allergy rash/behavioral Verified 03/17/21 17:18 changes codeine Allergy Hives Verified 03/17/21 17:18 clonazepam AdvReac Mild irritablity Verified 03/17/21 17:18 /byrne General Stated Complaint: Fever DERRICK: 3 Review of Systems All systems reviewed & are unremarkable except as noted in HPI and below Constitutional Constitutional: Denies weakness Cardiovascular Cardiovascular: Denies chest pain Gastrointestinal Gastrointestinal: Denies abdominal pain and Denies vomiting Musculoskeletal Musculoskeletal: Denies joint swelling Neurologic Neurologic: Denies weakness Psychiatric Psychiatric: Denies depression [facility] Medical History (Updated 03/17/21 @ 18:45 by Naseem Rosales MD) ADHD Anger Anxiety with depression Bilateral varicoceles (07/16/16) Development disorder, language Erosive gastritis Esophagitis Frequent headaches Genetic disorder GERD (gastroesophageal reflux disease) History of drug use disorder history of opiate dependence Insomnia Low back pain Polysubstance abuse Testicular atrophy Surgical History EGD - MAC (12/15/17) S/P hernia repair Family History Other Essential hypertension Heart disease Social History Smoking/Tobacco Use Status: Current every day Smoking risk assessment performed?: Yes Alcohol Intake: current Alcohol Intake frequency: holidays/special occasions only Details: pt stopped due to ulcers in February. Substance use type: marijuana, crack/cocaine and heroin Details: Denied IV drug use. Household members: significant other Housing: apartment Number of Children: 1 current occupation: Disabled What is your relationship status?: living with partner Panel score (0-1 are the most socially isolated patients): 1 What type of physical activity do you participate in: walking Frequency: 3-4 times per week Do you feel safe at home: Yes Do you feel safe in your relationship?: Yes Exam Const General: no acute distress Orientation: alert HENMT Head: normal to inspection Ears: external ears normal General nose exam: external nose normal Mouth: moist mucous membranes Eyes General: appearance normal, both eyes and all related structures Neck Neck: normal visual inspection Resp Effort & Inspection: normal respiratory effort and able to speak in complete sentences Cardio Rate: regular rate GI Palpation: soft and nontender Skin General skin exam: no rashes or lesions noted Neuro General: patient alert and patient oriented x3 Extrem General: normal to inspection Psych Mental Status: mental status grossly normal Course Vital Signs Vital signs: Vital Signs Temperature 36.5 C 03/17/21 17:15 Pulse 74 03/17/21 17:15 Respiratory Rate 16 03/17/21 17:15 Blood Pressure 109/71 03/17/21 17:15 Pulse Oximetry 90 L 03/17/21 17:15 Temperature 36.5 C 03/17/21 17:15 Temperature Source Tympanic 03/17/21 17:15 Pulse 74 03/17/21 17:15 Respiratory Rate 16 03/17/21 17:15 Respiratory Effort Non-Labored 03/17/21 17:21 Blood Pressure 109/71 03/17/21 17:15 Blood Pressure Position Sitting 03/17/21 17:15 Pulse Oximetry 90 L 03/17/21 17:15 Oxygen Delivery Method Room Air 03/17/21 17:15 Oxygen Flow Rate 0 03/17/21 17:15 Pain Level 0 03/17/21 17:15 Lab/Test Results Lab/Test Results: 03/17/21 17:19 Blood Blood Culture - Pending 03/17/21 17:19 Blood Blood Culture - Pending PAWSS Have you Been Recently Intoxicated or Drunk Within the Last 30 days?: No Have you Ever Experienced Previous Episodes of Alcohol Withdrawal?: No Have you ever Experienced Withdrawal Seizures?: No Have you ever Experienced Delirium Tremens(DT)s?: No Have you ever undergone Alcohol Rehabilitation Treatment (i.e, inpt ot outpatient treatment programs)?: No Have you ever Experienced Blackouts?: No Have you ever Combined Alcohol with other Downers within the last 90 days?: No Have you ever Combined Alcohol with any other Substance of Abuse during the last 90 days?: No Positive Blood Alcohol level on Presentation? [PCS.BAL]: No Evidence of Increased Autonomic Activity (i.e. HR>120, tremor, sweating, agitation, nausea)?: No Result: 0
[2021-03-17 17:48] LABS: Source Nasal/Nares
[2021-03-17 17:53] LABS: Abs Immature Grans 0.03 10^3/uL (0.0-0.06); Absolute Basophil Count 0.03 10^3/uL (0.0-0.2); Absolute Eosinophil Count 0.13 10^3/uL (0.0-0.7); Absolute Lymphocyte Count 2.05 10^3/uL (1.2-3.4); BE (Venous) 5 mmol/L (-2-3); Basophils % 0.3; Eosinophils % 1.1; HCO3 (Venous) 29 mmol/L (23-28); HCT 39.1 % (40.0-50.0); HGB 13.2 g/dL (13.5-17.5); Immature Grans % 0.3; MCHC 33.8 % (32.0-36.0); MCV 85.9 fL (80-95); MPV 9.6 fL (8.0-11.0); Monocytes % 8.8; Neutrophils % 71.5; Nucleated RBC 0 %; O2 Sat (Venous) 92 %; Platelet Count 250 10^3/uL (130-400); RBC 4.55 10^6/uL (4.36-5.78); RDW 12.9 % (11.8-14.1); RDW-SD 40.1 fL; TCO2 (Venous) 27 mmol/L (24-29); WBC 11.41 10^3/uL (4.4-10.8); pCO2 (Venous) 48 mmHg (41-51); pO2 (Venous) 58 mmHg
[2021-03-17 17:54] LABS: Absolute Neutrophil Count 8.16 10^3/uL (1.2-6.7)
[2021-03-17] MEDS: methylPREDNISolone SUCC 125 MG VIAL IVP (18:01)
[2021-03-17] MEDS: Ketorolac 15 MG/ML VIAL IVP (18:04)
[2021-03-17] MEDS: Normal Saline - Diluent 50 ML VIAL IV (18:12)
[2021-03-17] MEDS: Normal Saline Flush 10 ML SYR IVP (18:12)
[2021-03-17] MEDS: Omnipaque 350 MG/ML 100 ML BTL IJ (18:17)
[2021-03-17 18:18] LABS: ALT 20 U/L (16-63); AST 14 U/L (15-37); Albumin 3.6 g/dL (3.4-5.0); Alkaline Phosphatase 72 U/L (46-116); Anion Gap 4.7 mmol/L (3-11); BUN 14 mg/dL (7-18); Bilirubin, Total 0.5 mg/dL (0.2-1.0); CO2 31.3 mmol/L (21.0-32.0); CREATININE 1.1 mg/dL (0.70-1.30); Calcium 9.1 mg/dL (8.5-10.1); Chloride 104 mmol/L (98-107); Glucose 114 mg/dL (74-106); Magnesium 1.9 mg/dL (1.8-2.4); Potassium 3.8 mmol/L (3.5-5.1); Sodium 140 mmol/L (136-145); TSH (W/Ref FT4) 1.02 uIU/mL (0.36-3.74)
[2021-03-17 18:31] LABS: Procalcitonin < 0.1 ng/mL
--- NOTE | 2021-03-17 18:39 | DI.VRAD_ITS ---
PROCEDURE INFORMATION: Exam: CTA Chest With Contrast Exam date and time: 03/17/2021 5:21 PM Age: 31 years old Clinical indication: Shortness of breath TECHNIQUE: Imaging protocol: Computed tomographic angiography of the chest with contrast. 3D rendering (Not supervised by radiologist): MIP and/or 3D reconstructed images were created by the technologist. Radiation optimization: All CT scans at this facility use at least one of these dose optimization techniques: automated exposure control; mA and/or kV adjustment per patient size (includes targeted exams where dose is matched to clinical indication); or iterative reconstruction. Contrast material: [id number]; Contrast volume: 70 ml; Contrast route: INTRAVENOUS (IV); COMPARISON: CT Abdomen^CAP WITH (Adult) 06/10/2018 11:02 AM FINDINGS: Pulmonary arteries: Unremarkable. No pulmonary emboli. Aorta: Unremarkable. No aortic aneurysm. No aortic dissection. Lungs: There are innumerable micro nodules in the left lower lobe including a moderate-sized cluster with tree-in-bud configuration. There are emphysematous changes of paraseptal bullae. Pleural spaces: Unremarkable. No pneumothorax. No pleural effusion. Heart: Unremarkable. No cardiomegaly. No pericardial effusion. Lymph nodes: Unremarkable. No enlarged lymph nodes. Bones/joints: Unremarkable. No acute fracture. Soft tissues: Unremarkable. IMPRESSION: 1. Innumerable micro nodules in the left lower lobe including a moderate-sized cluster with tree-in-bud configuration. This may represent an atypical infection. Recommend follow-up. 2. No evidence for pulmonary embolism. Dictated and Authenticated by: Baltazar Prasad MD. Ordering:SERENITY Gusman MD
[2021-03-17] MEDS: Azithromycin 250 MG TAB 500 MG PO (18:42)
[2021-03-17] MEDS: Amoxicillin 875/Clav. 125 TAB PO (18:42)
[2021-03-17 18:45] VITALS: RESP 16; RESP 4; O2SAT 94
[2021-03-17] MEDS: Albuterol/Ipratropium 3 ML UPD VIAL UPD (18:45)
[2021-03-17 18:50] LABS: COVID-19 PCR Negative (Negative)
[2021-03-17 19:00] VITALS: PULSE 90; RESP 1; RESP 15
[2021-03-17] MEDS: Albuterol HFA 8 GM 60 PUFF INH IH (19:00)
[2021-03-17 19:16] VITALS: BP 117/74; PULSE 91; RESP 15; TEMP 36.2; O2SAT 98
== END 2021-03-17 19:25 | disposition home or self-care (01) ==
PROVIDERS: Emergency Provider Emergency Medicine
DX: R06.02 Shortness of breath (principal); J18.9 Pneumonia, unspecified organism
CPT/HCPCS: 36415; 71275; 80053; 82805; 84145; 87040; 87635; 94640; 96361; 96374; 96375; 99285; 83605; 83735; 84443; 85025; 99284; J1885; J2930; J3490; J7620

== ENCOUNTER 2021-05-08 01:44 | Outpatient (CLI) | payer MEDICAID, SELFPAY ==
--- NOTE | 2021-05-08 08:30 | RT.EKG_ITS ---
APPROVED REPORT Exam: Resting ECG Reason for Exam: high risk med Patient Location: O HR:83 bpm ECG Measurements Heart Rate 83 AXIS [place] 155 P 50 QRSd 91 QRS 85 QT 365 T 30 QTc 429 Conclusion Sinus rhythm...normal P axis, V-rate 60- 99 LVH voltage
== END 2021-05-08 01:45 | disposition home or self-care (01) ==
LOC: RT 01:45
PROVIDERS: Visit Provider Family Medicine
DX: Z79.899 Other long term (current) drug therapy (principal)
CPT/HCPCS: 93005; 93010

== ENCOUNTER 2021-08-13 12:34 | Observation (INO) | payer MEDICAID, SELFPAY ==
[2021-08-13 12:47] VITALS: BP 119/91; PULSE 68; RESP 15; TEMP 36.9; O2SAT 100
--- NOTE | 2021-08-13 13:00 | DI.CT_ITS ---
Exam(s) CT ABDOMEN PELVIS W EXAM: CT ABDOMEN PELVIS W CLINICAL HISTORY: Jaundiced, Abdominal pain, N/V. TECHNIQUE: Imaging Protocol: Axial computed tomography images with coronal and sagittal reformatted images were created and reviewed CONTRAST MATERIAL: Intravenous: Omnipaque 350 Contrast volume:100 ml Oral: no COMPARISON: CT CT ABDOMEN PELVIS W from 08/25/[address] CHEST PE CTA from 03/17/2021 FINDINGS: ABDOMEN: Lung Bases: Normal where visualized. Liver: Normal density. No measurable mass. Elongated left lobe which partially wraps anterior to th e spleen. Gallbladder and biliary tract: The gallbladder is not abnormally distended. No radiodense calculus. Enhancing gallbladder wall and pericholecystic fluid. Small amount of fluid in the gallbladder tyler a. Common duct mildly dilated with when compared with the previous exam. Pancreas: Normal density, no abnormal calcifications or inflammatory process. Spleen: Normal. Kidneys: Normal size, contour and axis. No radiodense stones or obstructive uropathy. No masses seen. Adrenal glands: No masses seen. Abdominal Aorta: Abdominal portion non-dilated. PELVIS: Bladder: No gross wall thickening. No calculi.No focal mass. Bowel: No obstruction or bowel wall thickening. Appendix normal.Large quantity of stool greatest in r ectum and sigmoid. Peritoneal cavity: No ascites, collection or mesenteric inflammatory response. Bones: Within normal limits for age. Reproductive organs: Within normal limits. Lymph nodes: Unremarkable. Impression: Enhancing gallbladder wall and mild and mild amount of pericholecystic fluid. Mild dilatation of the common bile duct. No evidence of obstructing stone. RADIATION DOSE DELIVERED: 697.45mGy.cm Total DLP DATA REPOSITORY: All CT scans at this facility are submitted to the National Radiology Data Registry (NRDR) Dose Index Registry (DIR) with the [employer] (ACR). RADIATION OPTIMIZATION: All CT scans at this facility use at least one of these dose optimization te chniques: automated exposure control; mA and/or kV adjustment per patient size (includes targeted exa ms where dose is matched to clinical indication); or iterative reconstruction.
--- NOTE | 2021-08-13 13:05 | ED.GENADUL_ITS ---
Discharge Plan Disposition Condition: Stable Discharge Details Chief Complaint: GenMedical Clinical Impression: Intractable vomiting, Jaundice, Abnormal transaminases Admit Date/Time: 08/13/21 18:18 Admit Provider: Neil Krueger Attending Provider: Neil Krueger Primary Care Provider: None,None ED Provider: Nancy Bui Discharge Instructions Activity:: Activity as Tolerated Equipment/Supplies:: No Equipment Needed Diet:: As Tolerated Discharge Orders Discharge Orders: Discharge Order (Routine); Ordered 08/14/21 Ordered By: Radha Wynn Discharge Data Discharge Date/Time-TO BE ENTERED AT DEPARTURE: 08/13/21 19:36 Medical Decision Making <Nichole Frazier - Last Filed: 08/14/21 17:14> 31-year-old male with a past medical history of IV drug use presents to the ER with nausea vomiting and abdominal pain for the last week. His mother reports that she noticed his eyes becoming yellow yesterday. He does appear jaundiced upon initial exam his torso also appears jaundiced. He does have generalized tenderness all quadrants to the abdomen on palpation. He reports blood in his urine denies any blood in his stool. He does endorse [employer] 6 pack of beer a month but no frequent use of alcohol. His last IV drug use was 2 weeks ago. He also takes methadone on a daily basis. Past medical history includes ADHD, anxiety, erosive gastritis, esophagitis, GERD and polysubstance abuse disorder. He is a current daily smoker. CBC shows no leukocytosis, CMP shows glucose 126, bilirubin 4.5, AST 1283, ALT 1471, alk phos 306 total protein 8.8, lipase is low at 51. Urinalysis is still pending at this time. Urine drug screen is pending. Hepatitis panel is also pending. CT CT CHEST PE CTA from 03/17/2021 FINDINGS: ABDOMEN: Lung Bases: Normal where visualized. Liver: Normal density. No measurable mass. Elongated left lobe which partially wraps anterior to the spleen. Gallbladder and biliary tract: The gallbladder is not abnormally distended. No radiodense calculus. Enhancing gallbladder wall and pericholecystic fluid. Small amount of fluid in the gallbladder fossa. Common duct mildly dilated with when compared with the previous exam. Pancreas: Normal density, no abnormal calcifications or inflammatory process. Spleen: Normal. Kidneys: Normal size, contour and axis. No radiodense stones or obstructive uropathy. No masses seen. Adrenal glands: No masses seen. Abdominal Aorta: Abdominal portion non-dilated. PELVIS: Bladder: No gross wall thickening. No calculi.No focal mass. Bowel: No obstruction or bowel wall thickening. Appendix normal.Large quantity of stool greatest in rectum and sigmoid. Peritoneal cavity: No ascites, collection or mesenteric inflammatory response. Bones: Within normal limits for age. Reproductive organs: Within normal limits. Lymph nodes: Unremarkable. Impression: Enhancing gallbladder wall and mild and mild amount of pericholecystic fluid. Mild dilatation of the common bile duct. No evidence of obstructing stone. Discussed CT results with radiologist. 1413: Hospitalist daniel. Differential diagnosis includes but not limited to hepatitis, liver failure, cirrhosis, cholecystitis, choledocholithiasis. 1414: Spoke with Dr. Degroot he does recommend MRCP and surgical consultation. Will page General surgery Dr. Almonte. 1435: Spoke with Dr. Almonte who recommends an MRCP or a dedicated gallbladder ultrasound to further differentiate, she does not feel that this patient surgical at this time and is leaning more towards hepatitis. They also do recommend consultation with [facility]. Discussed update with CT results and labs with patient and family verbalized understanding. I did recommend admission and possible transfer which they are in agreement with 1506: Spoke with [facility] [place] [facility] they report that they do not have any [facility] or [facility] beds at this time and reports that they will get me a GI consult however transfer is not available for today. 1538: Spoke with Dr. Kruger with [facility] who recommends MRCP, supportive care, and trending PT/INR, Bilirubin, considering Antibiotics, he recommends follow up with GI unless acute deterioration. Patient is in MRI, will discuss with hospitalist after MRI. Care transition to myself from eTnisha Saldana NP. Please see her initial note regarding history, presentation and exam. In brief, patient is a pleasant 31-year-old male. History of IVDU. He is presenting today with chief complaint of jaundice. Have significant transaminitis. Ms. Frazier had been in touch with [facility] who is primarily concerned for likely hepatitis. However, MR Brian was being obtained primary to presumed admission here as there is no beds available at [facility]. At the time I assumed care, MRCP pending as well as ultimate disposition of the patient. Care is to be handed off to oncoming provider MEENA Hawkins pending MRI results and most likely admission. Discussed patient case with her in details. MRCP reviewed by radiologist: FINDINGS: Exam is mildly limited by patient motion. Liver: Unremarkable. Homogeneous signal. Pancreas: Unremarkable. Gallbladder and Bile Ducts: Small amount of fluid around the gallbladder.? No abnormal gallbladder distention no evidence of common duct stone.? Common bile duct within normal limits.? Adrenals: Unremarkable. Kidneys: Unremarkable. Spleen: Unremarkable.? Aorta: Unremarkable. Soft Tissues: Unremarkable. Bone: Unremarkable. Lymph Nodes: Unremarkable. Lung bases: Clear. IMPRESSION: Small amount of fluid surrounding the gallbladder.? No gallstones or common duct stone.? No biliary dilatation..? Will consult with hospitalist regarding admission for presumed hepatitis, hepatitis panel is pending. Consulted with hospitalist who agrees to admission, coming down to evaluate the patient.. Patient in stable condition, eating. Admitted to med surg floor. <MEENA Rayo - Last Filed: 08/13/21 19:04> 31-year-old male with a past medical history of IV drug use presents to the ER with nausea vomiting and abdominal pain for the last week. His mother reports that she noticed his eyes becoming yellow yesterday. He does appear jaundiced upon initial exam his torso also appears jaundiced. He does have generalized tenderness all quadrants to the abdomen on palpation. He reports blood in his urine denies any blood in his stool. He does endorse [employer] 6 pack of beer a month but no frequent use of alcohol. His last IV drug use was 2 weeks ago. He also takes methadone on a daily basis. Past medical history includes ADHD, anxiety, erosive gastritis, esophagitis, GERD and polysubstance abuse disorder. He is a current daily smoker. CBC shows no leukocytosis, CMP shows glucose 126, bilirubin 4.5, AST 1283, ALT 1471, alk phos 306 total protein 8.8, lipase is low at 51. Urinalysis is still pending at this time. Urine drug screen is pending. Hepatitis panel is also pending. CT CT CHEST PE CTA from 03/17/2021 FINDINGS: ABDOMEN: Lung Bases: Normal where visualized. Liver: Normal density. No measurable mass. Elongated left lobe which partially wraps anterior to the spleen. Gallbladder and biliary tract: The gallbladder is not abnormally distended. No radiodense calculus. Enhancing gallbladder wall and pericholecystic fluid. Small amount of fluid in the gallbladder fossa. Common duct mildly dilated with when compared with the previous exam. Pancreas: Normal density, no abnormal calcifications or inflammatory process. Spleen: Normal. Kidneys: Normal size, contour and axis. No radiodense stones or obstructive uropathy. No masses seen. Adrenal glands: No masses seen. Abdominal Aorta: Abdominal portion non-dilated. PELVIS: Bladder: No gross wall thickening. No calculi.No focal mass. Bowel: No obstruction or bowel wall thickening. Appendix normal.Large quantity of stool greatest in rectum and sigmoid. Peritoneal cavity: No ascites, collection or mesenteric inflammatory response. Bones: Within normal limits for age. Reproductive organs: Within normal limits. Lymph nodes: Unremarkable. Impression: Enhancing gallbladder wall and mild and mild amount of pericholecystic fluid. Mild dilatation of the common bile duct. No evidence of obstructing stone. Discussed CT results with radiologist. 1413: Hospitalist pagebrandi. Differential diagnosis includes but not limited to hepatitis, liver failure, cirrhosis, cholecystitis, choledocholithiasis. 1414: Spoke with Dr. Degroot he does recommend MRCP and surgical consultation. Will page General surgery Dr. Almonte. 1435: Spoke with Dr. Almonte who recommends an MRCP or a dedicated gallbladder ultrasound to further differentiate, she does not feel that this patient surgical at this time and is leaning more towards hepatitis. They also do recommend consultation with [facility]. Discussed update with CT results and labs with patient and family verbalized understanding. I did recommend admission and possible transfer which they are in agreement with 1506: Spoke with [facility] [place] they report that they do not have any stepdown or MedSurg beds at this time and reports that they will get me a GI consult however transfer is not available for today. 1538: Spoke with Dr. Kruger with [facility] who recommends MRCP, supportive care, and trending PT/INR, Bilirubin, considering Antibiotics, he recommends follow up with GI unless acute deterioration. Patient is in MRI, will discuss with hospitalist after MRI. Care transition to myself from Tenisha Saldana NP. Please see her initial note regarding history, presentation and exam. In brief, patient is a pleasant 31-year-old male. History of IVDU. He is presenting today with chief complaint of jaundice. Have significant transaminitis. Ms. Frazier had been in touch with [facility] who is primarily concerned for likely hepatitis. However, MR Torres was being obtained primary to presumed admission here as there is no beds available at [facility]. At the time I assumed care, MRCP pending as well as ultimate disposition of the patient. MRCP reviewed by radiologist: FINDINGS: Exam is mildly limited by patient motion. Liver: Unremarkable. Homogeneous signal. Pancreas: Unremarkable. Gallbladder and Bile Ducts: Small amount of fluid around the gallbladder.? No abnormal gallbladder distention no evidence of common duct stone.? Common bile duct within normal limits.? Adrenals: Unremarkable. Kidneys: Unremarkable. Spleen: Unremarkable.? Aorta: Unremarkable. Soft Tissues: Unremarkable. Bone: Unremarkable. Lymph Nodes: Unremarkable. Lung bases: Clear. IMPRESSION: Small amount of fluid surrounding the gallbladder.? No gallstones or common duct stone.? No biliary dilatation..? Will consult with hospitalist regarding admission for presumed hepatitis, hepatitis panel is pending. Consulted with hospitalist who agrees to admission, coming down to evaluate the patient.. Patient in stable condition, eating. Admitted to med surg floor. HPI <Nichole Frazier - Last Filed: 08/14/21 17:14> General Mode of arrival: ambulatory . Date/Time Provider Initiated Documentation: 08/13/21 12:37 . Limitations to Documentation: no limitations . Information obtained by: patient, family, RN notes reviewed and old records reviewed . HPI Narrative: 31-year-old male with a past medical history of IV drug use presents to the ER with nausea vomiting and abdominal pain for the last week. His mother reports that she noticed his eyes becoming yellow yesterday. He does appear jaundiced upon initial exam his torso also appears jaundiced. He does have generalized tenderness all quadrants to the abdomen on palpation. He reports blood in his urine denies any blood in his stool. He does endorse [employer] 6 pack of beer a month but no frequent use of alcohol. His last IV drug use was 2 weeks ago. He also takes methadone on a daily basis. Past medical history includes ADHD, anxiety, erosive gastritis, esophagitis, GERD and polysubstance abuse disorder. He is a current daily smoker. Related Data Home Medications Medication Instructions Recorded Confirmed methadone 10 mg/mL oral concentrate 115 mg PO DAILY 08/13/21 08/13/21 Allergies Allergy/AdvReac Type Severity Reaction Status Date / Time amitriptyline Allergy rash/behavioral Verified 08/13/21 12:56 changes codeine Allergy Hives Verified 08/13/21 12:56 clonazepam AdvReac Mild irritablity Verified 08/13/21 12:56 /byrne General Stated Complaint: GenMedical DERRICK: 2 Review of Systems <Nicholeluc Sueton - Last Filed: 08/14/21 17:14> All systems reviewed & are unremarkable except as noted in HPI and below Constitutional Constitutional: Reports fever(s) (Per Mother after vomiting) Gastrointestinal Gastrointestinal: Reports abdominal pain, Reports diarrhea, Reports nausea and Reports vomiting Genitourinary Genitourinary: Reports hematuria Integumentary/Breasts Skin/Breast: Reports change in pigmentation PFS <Nicholeluc Sueton - Last Filed: 08/14/21 17:14> All Active Problems (Updated 08/13/21 @ 18:49 by Neil Krueger MD) Hepatitis (Acute) Puncture wound of foot, right (Acute) Acute viral syndrome (Acute) Diarrhea (Acute) Shortness of breath (Acute) Pneumonia (Acute) Intractable vomiting (Acute) Jaundice (Acute) Abnormal transaminases (Acute) Testicular atrophy (Chronic) Bilateral varicoceles (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 With respect to his distal clavicle fracture he will use a sling for pain control and to warn others of his injury and discontinue its use over the next several weeks as his pain level improves he will be left with a bump but will have a well-functioning shoulder and will follow back to the office in 1 month's time. Right testicular pain (Acute 07/16/16) Medical History (Updated 08/13/21 @ 18:49 by Neil Krueger MD) ADHD Anger Anxiety with depression Development disorder, language Erosive gastritis Esophagitis Frequent headaches Genetic disorder GERD (gastroesophageal reflux disease) History of drug use disorder history of opiate dependence Insomnia Low back pain Polysubstance abuse Surgical History EGD - MAC (12/15/17) S/P hernia repair Family History Other Essential hypertension Heart disease Social History Smoking/Tobacco Use Status: Current every day Tobacco Type: cigarettes Smoking packs per day: 1 Smoking cigarettes per day: 20.0 Smoking risk assessment performed?: Yes Alcohol Intake: current Alcohol Intake frequency: holidays/special occasions only Details: pt stopped due to ulcers in February. Drug use: Daily Substance use type: marijuana Details: fentanyl---last use 2 weeks ago Household members: significant other Housing: apartment Number of Children: 1 current occupation: Disabled What is your relationship status?: living with partner Panel score (0-1 are the most socially isolated patients): 1 What type of physical activity do you participate in: walking Frequency: 3-4 times per week Do you feel safe at home: Yes Do you feel safe in your relationship?: Yes Exam <Nichole Frazier - Last Filed: 08/14/21 17:14> Narrative Exam Narrative: Constitutional: Alert and oriented x3. Appears stated age. Normal body habitus. Head: Normocephalic, no trauma. Eyes: Scleral icterus and jaundice Claritin noted, pupils PERRL, Red reflex noted, EOM's intact. Eyelids symmetrical without lesions, discharge, or swelling. ENT: Bilateral TM's WNL, External ear normal to inspection, no mastoid TTP, swelling, or erythema, Nasal turbinates WNL, no nasal discharge. Normal dentition, Posterior pharynx WNL, no exudate. Chest: RRR, Normal S1, S2, distal pulses intact. Torso and abdomen. Jaundice. Resp: Lungs clear to auscultation bilaterally, no wheezes, rales, or rhonchi. Abdomen: Soft, non-distended, Normoactive bowel sounds all 4 quads. Generalized tenderness all 4 quadrants with palpation. Right CVA tenderness. Musculoskeletal: Normal gait, 5/5 strength to all four extremities. Skin: No suspicious rashes or lesions. Capillary refill less than 2 sec. Jaundiced. Neurologic: Cranial nerves II-XII intact. Alert and oriented x 3. Motor: No deficits noted. Sensory: Intact bilaterally all 4 extremities. Reflexes: DTR's intact bilaterally.. Hematologic/Lymphatic: No ecchymosis, no lymphadenopathy. Course <Nichole Frazier - Last Filed: 08/14/21 17:14> Vital Signs Vital signs: Vital Signs Temperature 36.9 C 08/13/21 12:47 Pulse 68 08/13/21 12:47 Respiratory Rate 15 08/13/21 12:47 Blood Pressure 119/91 H 08/13/21 12:47 Pulse Oximetry 100 08/13/21 12:47 Temperature 36.9 C 08/13/21 12:47 Temperature Source Temporal Artery Scan 08/13/21 12:47 Pulse 68 08/13/21 12:47 Respiratory Rate 15 08/13/21 12:47 Respiratory Effort Non-Labored 08/13/21 12:54 Blood Pressure 119/91 H 08/13/21 12:47 Blood Pressure Position Sitting 08/13/21 12:47 Pulse Oximetry 100 08/13/21 12:47 Oxygen Delivery Method Room Air 08/13/21 12:47 Oxygen Flow Rate 0 08/13/21 12:47 Pain Level 6 08/13/21 12:47 Sign Out <Nichole Frazier - Last Filed: 08/14/21 17:14> Sign Out Data: Sign Out Comment: Needs admission, Jaundiced, N/V/D x 1 week, Awaiting MRI result to rule out cholangitis, Consulted [place] [facility] [place] available at this time. Last updated by Nichole Frazier at 08/13/21 15:56
[2021-08-13 13:07] LABS: Abs Immature Grans 0.03 10^3/uL (0.0-0.06); Absolute Basophil Count 0.02 10^3/uL (0.0-0.2); Absolute Eosinophil Count 0.13 10^3/uL (0.0-0.7); Absolute Lymphocyte Count 2.11 10^3/uL (1.2-3.4); Absolute Monocyte Count 0.55 10^3/uL (0.1-0.8); Absolute Neutrophil Count 4.59 10^3/uL (1.2-6.7); Basophils % 0.3; Eosinophils % 1.7; HCT 46.9 % (40.0-50.0); HGB 15.2 g/dL (13.5-17.5); Immature Grans % 0.4; Lymphocytes % 28.4; MCH 27.9 pg (27.0-33.0); MCHC 32.4 % (32.0-36.0); MCV 86.2 fL (80-95); MPV 9.8 fL (8.0-11.0); Monocytes % 7.4; Neutrophils % 61.8; Nucleated RBC 0 %; Platelet Count 318 10^3/uL (130-400); RBC 5.44 10^6/uL (4.36-5.78); WBC 7.43 10^3/uL (4.4-10.8)
[2021-08-13 13:33] LABS: Albumin 3.9 g/dL (3.4-5.0); Alkaline Phosphatase 306 U/L (46-116); Anion Gap 8.6 mmol/L (3-11); BUN 14 mg/dL (7-18); Bilirubin, Total 4.5 mg/dL (0.2-1.0); CO2 28.4 mmol/L (21.0-32.0); CREATININE 0.9 mg/dL (0.70-1.30); Calcium 9.7 mg/dL (8.5-10.1); Chloride 104 mmol/L (98-107); Glucose 126 mg/dL (74-106); Lipase 51 U/L (73-393); Potassium 3.8 mmol/L (3.5-5.1); Sodium 141 mmol/L (136-145); Total Protein 8.8 g/dL (6.4-8.2)
[2021-08-13] MEDS: Omnipaque 350 MG/ML 100 ML BTL IJ (13:47)
[2021-08-13 13:58] LABS: ALT 1471 U/L (16-63); AST 1783 U/L (15-37)
[2021-08-13 14:03] VITALS: BP 121/70; PULSE 61; RESP 16; O2SAT 98
[2021-08-13 14:21] LABS: Bilirubin Moderate (Negative); Blood Negative (Negative); Clarity Clear (Clear); Glucose Negative (Negative); Ketones Negative (Negative); Leukocyte Esterase Negative (Negative); Nitrite Negative (Negative); Specific Gravity 1.025 (1.005-1.025)
--- NOTE | 2021-08-13 14:30 | DI.MRI_ITS ---
Exam(s) MR ABDOMEN WO EXAM: MR ABDOMEN WO CLINICAL HISTORY: Trish-cholecystic fluid, R/O Obstructed CBD TECHNIQUE: Multiplanar multisequence MRI of the Abdomen was performed. MRCP sequences also perform ed. COMPARISON: CT CT ABDOMEN PELVIS W from 08/13/2021 FINDINGS: Exam is mildly limited by patient motion. Liver: Unremarkable. Homogeneous signal. Pancreas: Unremarkable. Gallbladder and Bile Ducts: Small amount of fluid around the gallbladder. No abnormal gallbladder di stention no evidence of common duct stone. Common bile duct within normal limits. Adrenals: Unremarkable. Kidneys: Unremarkable. Spleen: Unremarkable. Aorta: Unremarkable. Soft Tissues: Unremarkable. Bone: Unremarkable. Lymph Nodes: Unremarkable. Lung bases: Clear. IMPRESSION: Small amount of fluid surrounding the gallbladder. No gallstones or common duct stone. No biliary d ilatation.. DATA REPOSITORY:
[2021-08-13 14:31] LABS: *AMPHETAMINES SCREEN URINE Negative (Negative); *BARBITURATES SCREEN URINE Negative (Negative); *BENZODIAZEPINES SCREEN URINE Negative (Negative); Cannabinoids THC Positive (Negative); Cocaine Screen,Urine Negative (Negative); METHADONE URINE SCREEN Positive (Negative); OPIATES URINE SCREEN Negative (Negative)
[2021-08-13 14:32] LABS: Tricyclic Antidepressants Negative (Negative)
[2021-08-13] MEDS: Normal Saline 1,000 ML 1000 ML IV (15:20)
[2021-08-13 15:21] LABS: Source Nasal/Nares
[2021-08-13 15:30] LABS: Bilirubin, Direct 3.1 mg/dL (0.0-0.2)
[2021-08-13 17:16] LABS: Ammonia 32 umol/L (11-32)
[2021-08-13 17:21] LABS: INR 1.2 (0.9-1.1); PTT Activated 29.9 sec (21.0-27.5); Prothrombin Time 11.9 sec (9.3-11.0)
[2021-08-13 17:54] LABS: Acetaminophen < 2 ug/mL (10-30); Salicylate < 2.8 mg/dL (<2.8)
--- NOTE | 2021-08-13 18:33 | HPE_ITS ---
Assessment and Plan Assessment and plan (1) Hepatitis: Status: Acute Assessment and plan: Viral hepatitis studies are pending. I have added a mono spot onto his labs as well as iron studies. We will treated with supportive care at the present time while we await further lab results to come back. We will recheck labs tomorrow. I did advise him that he should get the Covid vaccination as it is shown to be very safe and reduces the risk of serious illness and and those who received it. He said he will consider this. (2) Polysubstance abuse: Assessment and plan: He says that he is now in recovery for his drug abuse. He did not admit to using methadone although there is methadone in the urine. History of Present Illness History of Present Illness Chief Complaint: Nausea vomiting abdominal pain.Jaundiced eyes Narrative: This 31-year-old male is here with his mother. He has been sick for about a week with fever up to 103 ?F, nausea vomiting abdominal pain and most recently yellow eyes were noticed yesterday. He has noted some dark urine and thought there was blood in his urine. He has not noted any change to his bowel movements. He has been using intravenous drugs and most recently used fentanyl either 1 week ago which is the last time the ED staff told me that he had used but he told me 3 weeks ago. He has had a history of sharing intravenous drug use needles and did share needles with someone who later came down with hepatit is about a month ago. He does not know the type of hepatitis. He has been quite fatigued. The nausea and vomiting and then worse in the mornings. He lives at home with his mother, father and siblings and none of them have been sick. He has not received the coronavirus vaccine or flu shot. He says he was not convinced that Covid shot worked. He does use marijuana and smokes about 1 pack of cigarettes per day. He says he completed the 11th grade as the highest level of schooling. He does not use alcohol. He has used other drugs in the past such as cocaine. 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 His mother says that he has had a history of depression, attention deficit, learning disability and Klinefelter's syndrome. He came to the emergency department today and had a evaluation that showed what appears to be acute hepatitis. Abdominal CT showed hepatomegaly and some fluid around the gallbladder however MRCP did not show any evidence of gallbladder disease. [facility] was consulted by phone and recommended admission for supportive therapy and evaluation into the cause of his hepatitis. He was stated that no beds to take him in transfer. His mother is not certain he received hepatitis B vaccine at however he is in the proper age prescription to have received these vaccines as an infant and toddler. Review of Systems Constitutional Constitutional: Reports chills, Reports daytime sleepiness, Reports fatigue, Reports fever(s), Reports lethargy and Reports malaise Eyes Eyes: Reports other (yellow eyes since yesterday) Cardiovascular Cardiovascular: Denies chest pain, Denies rapid heart rate, Denies palpitations and Denies dyspnea Respiratory Respiratory: Denies cough, Denies dyspnea and Denies wheezing Gastrointestinal Gastrointestinal: Reports cramping, Denies diarrhea, Reports nausea, Reports vomiting and Denies hematemesis Genitourinary Genitourinary: Reports hematuria, Denies difficulty urinating and Denies dysuria Musculoskeletal Musculoskeletal: Reports back pain and Reports other (chronic shoulder pain, chronic back pain) Endocrine Endocrine: Reports fatigue and Denies palpitations Allergic/Immunologic Allergic/Immunologic: Denies wheezing PFSH All Active Problems (Updated 08/13/21 @ 18:49 by Neil Krueger MD) Hepatitis (Acute) Puncture wound of foot, right (Acute) Acute viral syndrome (Acute) Diarrhea (Acute) Shortness of breath (Acute) Pneumonia (Acute) Intractable vomiting (Acute) Jaundice (Acute) Abnormal transaminases (Acute) Testicular atrophy (Chronic) Bilateral varicoceles (Chronic 07/16/16) Clavicle fracture (Acute) The patient is instructed that he can discontinue his Troutman splint at this time as he is 12 days out from injury with no chance of this displacing unless he was to injure it again. With respect to his distal clavicle fracture he will use a sling for pain control and to warn others of his injury and discontinue its use over the next several weeks as his pain level improves he will be left with a bump but will have a well-functioning should er and will follow back to the office in 1 month's time. Right testicular pain (Acute 07/16/16) Medical History (Updated 08/13/21 @ 18:49 by Neil Krueger MD) ADHD Anger Anxiety with depression Development disorder, language Erosive gastritis Esophagitis Frequent headaches Genetic disorder GERD (gastroesophageal reflux disease) History of drug use disorder history of opiate dependence Insomnia Low back pain Polysubstance abuse Surgical History EGD - MAC (12/15/17) S/P hernia repair Family History Other Essential hypertension Heart disease Social History Smoking/Tobacco Use Status: Current every day Tobacco Type: cigarettes Smoking packs per day: 1 Smoking cigarettes per day: 20.0 Smoking risk assessment performed?: Yes Alcohol Intake: current Alcohol Intake frequency: holidays/special occasions only Details: pt stopped due to ulcers in February. Drug use: Daily Substance use type: marijuana Details: fentanyl---last use 2 weeks ago Household members: significant other Housing: apartment Number of Children: 1 current occupation: Disabled What is your relationship status?: living with partner Panel score (0-1 are the most socially isolated patients): 1 What type of physical activity do you participate in: walking Frequency: 3-4 times per week Do you feel safe at home: Yes Do you feel safe in your relationship?: Yes Meds Allergies and Home Medications Allergies Allergy/AdvReac Type Severity Reaction Status Date / Time amitriptyline Allergy rash/behavioral Verified 08/13/21 12:56 changes codeine Allergy Hives Verified 08/13/21 12:56 clonazepam AdvReac Mild irritablity Verified 08/13/21 12:56 /byrne Home Medications Medication Instructions Recorded Confirmed Type methadone 10 mg/mL oral concentrate 115 mg PO DAILY 08/13/21 08/13/21 History Exam Const General: cooperative, comfortable, ill appearing, not lethargic and well hydrated Nutritional Appearance: thin Orientation: alert and awake HENMT Head: normal to inspection and normocephalic Mouth: oral mucosae normal and tongue normal Eyes Sclera: scleral abnormality (mild jaundice) EOM: EOM intact bilaterally Neck Neck: normal visual inspection and no lymphadenopathy Thyroid: thyroid normal Resp Auscultation: clear to auscultation bilaterally, no rales and no wheezes Cardio Rate: regular rate Rhythm: regular rhythm Heart Sounds: S1 normal, S2 normal, no gallops and no murmurs GI Inspection: normal to inspection and non-distended Palpation: soft, not firm, hepatomegaly, no masses, no splenomegaly and tender Other: slight RUQ tenderness. liver edge is 2 FB below right costal margin Skin General skin exam: no rashes or lesions noted Neuro General: patient alert, patient awake and patient oriented x3 Speech: speech normal Results Labs Result diagrams: 08/13/21 12:55 08/13/21 12:55 Labs: Laboratory Results - last 24 hr 08/13/21 08/13/21 08/13/21 12:55 12:55 13:25 WBC 7.43 RBC 5.44 Hgb 15.2 Hct 46.9 MCV 86.2 MCH 27.9 MCHC 32.4 RDW 16.0 H Plt Count 318 MPV 9.8 Immature Gran % 0.4 Neutrophils % 61.8 Lymphocytes % 28.4 Monocytes % 7.4 Eosinophils % 1.7 Basophils % 0.3 Nucleated RBC % 0 Absolute Neutrophils 4.59 Absolute Lymphocytes 2.11 Absolute Monocytes 0.55 Absolute Eosinophils 0.13 Absolute Basophils 0.02 PT INR APTT Sodium 141 Potassium 3.8 Chloride 104 Carbon Dioxide 28.4 Anion Gap 8.6 BUN 14 Creatinine 0.9 Estimated GFR/1.73 m2 >= 60.00 Glucose 126 H Calcium 9.7 Magnesium 2.0 Total Bilirubin 4.5 H Conjugated Bilirubin 3.1 H AST 1783 H ALT 1471 H Alkaline Phosphatase 306 H Ammonia Total Protein 8.8 H Albumin 3.9 Lipase 51 Urine Color Urine Clarity Urine pH Ur Specific [place] Urine Protein Urine Ketones Urine Blood Urine Nitrite Urine Bilirubin Urine Urobilinogen Ur Leukocyte Esterase Urine Glucose Salicylates Urine Opiates Screen Urine Methadone Screen Acetaminophen Ur Barbiturates Screen Ur Tricyclics Screen Ur Amphetamines Screen U Benzodiazepines Scrn Urine Cocaine Screen Ur THC Screen COVID-19 Source 08/13/21 08/13/21 08/13/21 13:55 13:55 15:15 WBC RBC Hgb Hct MCV MCH MCHC RDW Plt Count MPV Immature Gran % Neutrophils % Lymphocytes % Monocytes % Eosinophils % Basophils % Nucleated RBC % Absolute Neutrophils Absolute Lymphocytes Absolute Monocytes Absolute Eosinophils Absolute Basophils PT INR APTT Sodium Potassium Chloride Carbon Dioxide Anion Gap BUN Creatinine Estimated GFR/1.73 m2 Glucose Calcium Magnesium Total Bilirubin Conjugated Bilirubin AST ALT Alkaline Phosphatase Ammonia Total Protein Albumin Lipase Urine Color Dark Yellow Urine Clarity Clear Urine pH 6.0 Ur Specific [place] 1.025 Urine Protein Negative Urine Ketones Negative Urine Blood Negative Urine Nitrite Negative Urine Bilirubin Moderate H Urine Urobilinogen 4.0 H Ur Leukocyte Esterase Negative Urine Glucose Negative Salicylates Urine Opiates Screen Negative Urine Methadone Screen Positive A Acetaminophen Ur Barbiturates Screen Negative Ur Tricyclics Screen Negative Ur Amphetamines Screen Negative U Benzodiazepines Scrn Negative Urine Cocaine Screen Negative Ur THC Screen Positive A COVID-19 Source Nasal/Nares 08/13/21 08/13/21 08/13/21 16:57 16:57 16:57 WBC RBC Hgb Hct MCV MCH MCHC RDW Plt Count MPV Immature Gran % Neutrophils % Lymphocytes % Monocytes % Eosinophils % Basophils % Nucleated RBC % Absolute Neutrophils Absolute Lymphocytes Absolute Monocytes Absolute Eosinophils Absolute Basophils PT 11.9 H INR 1.2 H APTT 29.9 H Sodium Potassium Chloride Carbon Dioxide Anion Gap BUN Creatinine Estimated GFR/1.73 m2 Glucose Calcium Magnesium Total Bilirubin Conjugated Bilirubin AST ALT Alkaline Phosphatase Ammonia 32 Total Protein Albumin Lipase Urine Color Urine Clarity Urine pH Ur Specific [place] Urine Protein Urine Ketones Urine Blood Urine Nitrite Urine Bilirubin Urine Urobilinogen Ur Leukocyte Esterase Urine Glucose Salicylates < 2.8 Urine Opiates Screen Urine Methadone Screen Acetaminophen < 2 Ur Barbiturates Screen Ur Tricyclics Screen Ur Amphetamines Screen U Benzodiazepines Scrn Urine Cocaine Screen Ur THC Screen COVID-19 Source Last Vital Signs Temp 36.9 C 08/13/21 12:47 Pulse 61 08/13/21 14:03 Resp 16 08/13/21 14:03 BP 121/70 08/13/21 14:03 Pulse Ox 98 08/13/21 14:03
[2021-08-13 19:18] LABS: COVID-19 PCR Negative (Negative)
[2021-08-13 19:48] VITALS: BP 133/89; PULSE 60; RESP 16; TEMP 36.6; O2SAT 100
[2021-08-13 19:50] VITALS: BP 133/89; PULSE 60; RESP 16; TEMP 36.6; O2SAT 100
[2021-08-13 20:10] LABS: Iron 121 ug/dL (65-175); Total Iron Binding Capacity 371 ug/dL (250-450); Transferrin Sat 33 % (20-55)
[2021-08-13] MEDS: Lactated Ringers 1,000 ML 100 ML IV (20:12)
[2021-08-14 00:30] VITALS: BP 123/76; PULSE 58; RESP 16; TEMP 36.6; O2SAT 98
[2021-08-14] MEDS: Lactated Ringers 1,000 ML 100 ML IV (05:52)
[2021-08-14] MEDS: Ketorolac 15 MG/ML VIAL IVP (06:19)
[2021-08-14 06:43] VITALS: BP 125/77; PULSE 52; RESP 16; TEMP 36.1; O2SAT 97
[2021-08-14 07:00] LABS: Abs Immature Grans 0.02 10^3/uL (0.0-0.06); Absolute Basophil Count 0.04 10^3/uL (0.0-0.2); Absolute Eosinophil Count 0.26 10^3/uL (0.0-0.7); Absolute Lymphocyte Count 2.62 10^3/uL (1.2-3.4); Absolute Neutrophil Count 2.42 10^3/uL (1.2-6.7); Basophils % 0.7; Eosinophils % 4.3; HCT 40.3 % (40.0-50.0); Immature Grans % 0.3; Lymphocytes % 43.2; MCH 27.6 pg (27.0-33.0); MCHC 32.3 % (32.0-36.0); MCV 85.6 fL (80-95); MPV 9.8 fL (8.0-11.0); Monocytes % 11.6; Neutrophils % 39.9; Nucleated RBC 0 %; Platelet Count 241 10^3/uL (130-400); RBC 4.71 10^6/uL (4.36-5.78); RDW 16.3 % (11.8-14.1); RDW-SD 51.4 fL; WBC 6.06 10^3/uL (4.4-10.8)
[2021-08-14 07:23] LABS: Alkaline Phosphatase 235 U/L (46-116); Anion Gap 8.3 mmol/L (3-11); BUN 10 mg/dL (7-18); Bilirubin, Total 4.4 mg/dL (0.2-1.0); CO2 25.7 mmol/L (21.0-32.0); CREATININE 0.8 mg/dL (0.70-1.30); Calcium 8.9 mg/dL (8.5-10.1); Chloride 107 mmol/L (98-107); Glucose 108 mg/dL (74-106); Potassium 3.6 mmol/L (3.5-5.1); Sodium 141 mmol/L (136-145); Total Protein 6.7 g/dL (6.4-8.2)
[2021-08-14 07:32] LABS: AST 1303 U/L (15-37)
[2021-08-14 07:47] LABS: ALT 1121 U/L (16-63)
--- NOTE | 2021-08-14 11:22 | DSE_ITS ---
Date of service: 08/14/21 Time of Service: :22 DS: Diagnosis Discharge Diagnosis (1) Hepatitis: Status: Acute (2) Polysubstance abuse: Discharge Plan Disposition Patient Disposition: HOME Condition: Stable Discharge Details Reason For Visit: Hepatitis Admit Date/Time: 08/13/21 18:18 Admit Provider: Neil Krueger Attending Provider: Neil Krueger Primary Care Provider: None,None Hospital Course Hospital Course: This is a 31 year patient with substance abuse history who presented to the ED with c/o nausea vomiting and jaundice. He has never had a similar history. He admits to IV drug use with a known person with hepatitis B or C. He was given IV fluids and antiemetics and referred to observation. He improved with resolution of nausea and was tolerating a regular diet. His liver function was trending downward. He is stable for discharge to home. Hepatitis panel pending at time of discharge. He will follow up outpatient with pcp and GI for [facility] for further evaluation and management. His dose of methadone was confirmed and he was provided his dose for today. He was given a last dose letter at discharge. discharge discussed with DR Degroot. Home Meds and New Rx's Prescriptions: Continued methadone 10 mg/mL Concentrate 115 mg PO DAILY 0RF Discharge Instructions Instructions: Acute Liver Failure (DC) Stand Alone Forms: Nursing Discharge Form Referrals: GASTROENTEROLOGY,[facility] [OTHER] - ([facility] will call you with an appointment date and time. ) Lawrence Wood DO [OSTEOPATHIC DOCTOR] - 08/21/21 9:45 am Activity:: Activity as Tolerated Equipment/Supplies:: No Equipment Needed Diet:: As Tolerated Discharge Orders Discharge Orders: Discharge Order (Routine); Ordered 08/14/21 Ordered By: Radha Wynn Discharge Data Discharge Date/Time-TO BE ENTERED AT DEPARTURE: 08/14/21 13:32 DS: Summary Time Spent with Patient providing and/or coordinating discharge services: Less than 30 minutes Status at Discharge Functional status at discharge: independent ambulation Overall status at discharge: patient is back to baseline Mental Status: mental status grossly normal Speech and Movement: speech and movement normal Mood: congruent mood Affect: normal affect Exam Const General: cooperative, comfortable, ill appearing, not lethargic and well hydrated Nutritional Appearance: thin Orientation: alert and awake HENAR Head: normal to inspection and normocephalic Mouth: oral mucosae normal and tongue normal Eyes Sclera: scleral abnormality (mild jaundice) EOM: EOM intact bilaterally Neck Neck: normal visual inspection Resp Auscultation: clear to auscultation bilaterally Cardio Rate: regular rate Rhythm: regular rhythm GI Inspection: normal to inspection and non-distended Palpation: soft, hepatomegaly, no masses and tender Skin General skin exam: no rashes or lesions noted Neuro General: patient alert, patient awake and patient oriented x3 Speech: speech normal Psych Mental Status: mental status grossly normal Speech and Movement: speech and movement normal Mood: congruent mood Affect: normal affect DS: Data Vitals/I&O Vitals and I&O: Vital Signs Temperature 36.1 C L 08/14/21 06:43 Temperature Source Tympanic 08/14/21 06:43 Pulse 52 L 08/14/21 06:43 Pulse Rhythm Regular 08/14/21 04:51 Respiratory Rate 16 08/14/21 06:43 Respiratory Effort Non-Labored 08/14/21 04:51 Respiratory Depth Normal 08/14/21 04:51 Respiratory Pattern Normal 08/14/21 04:51 Blood Pressure 125/77 08/14/21 06:43 Blood Pressure Position Sitting 08/13/21 12:47 Pulse Oximetry 97 08/14/21 06:43 Oxygen Delivery Method Room Air 08/14/21 06:43 Oxygen Flow Rate 0 08/14/21 06:43 Pain Level 7 08/14/21 06:19 Intake & Output 08/13/21 08/13/21 08/14/21 11:59 23:59 11:59 Intake Total 1000 / 1000 1506.667 / 1506.667 Output Total 750 / 750 Balance 1000 / 1000 756.667 / 756.667 Weight 62.596 kg Intake: IV 1000 / 1000 966.667 / 966.667 Oral 540 / 540 Output: Urine 750 / 750 Other: Urine Color [place] Urine Appearance Clear Clear Voiding Methods Toilet Data Completed and Pending Labs on day of discharge: Labs from last 24 hours 08/14/21 08/14/21 08/13/21 06:43 06:43 19:11 WBC 6.06 RBC 4.71 Hgb 13.0 L D Hct 40.3 MCV 85.6 MCH 27.6 MCHC 32.3 RDW 16.3 H Plt Count 241 MPV 9.8 Immature Gran % 0.3 Neutrophils % 39.9 Lymphocytes % 43.2 Monocytes % 11.6 Eosinophils % 4.3 Basophils % 0.7 Nucleated RBC % 0 Absolute Neutrophils 2.42 Absolute Lymphocytes 2.62 Absolute Monocytes 0.70 Absolute Eosinophils 0.26 Absolute Basophils 0.04 PT INR APTT Sodium 141 Potassium 3.6 Chloride 107 Carbon Dioxide 25.7 Anion Gap 8.3 BUN 10 Creatinine 0.8 Estimated GFR/1.73 m2 >= 60.00 Glucose 108 H Calcium 8.9 Magnesium Iron TIBC Transferrin % Sat Ferritin Pending Total Bilirubin 4.4 H Conjugated Bilirubin AST 1303 H ALT 1121 H Alkaline Phosphatase 235 H Ammonia Total Protein 6.7 Total Protein (PEP) Albumin 3.0 L Albumin % (PEP) Numqn-3-Kdtpmlaht (%) Czbuh-3-Mcjzxcuma (%) Beta Globulins (%) Gamma Globulins (%) M-Chris % PEP Comment Lipase Urine Color Urine Clarity Urine pH Ur Specific [place] Urine Protein Urine Ketones Urine Blood Urine Nitrite Urine Bilirubin Urine Urobilinogen Ur Leukocyte Esterase Urine Glucose Salicylates Urine Opiates Screen Urine Methadone Screen Acetaminophen Ur Barbiturates Screen Ur Tricyclics Screen Ur Amphetamines Screen U Benzodiazepines Scrn Urine Cocaine Screen Ur THC Screen COVID-19 Source SARS-CoV-2 (PCR) Hepatitis A IgM Ab Hep Bs Antigen Hep B Core Total Ab Hepatitis C Antibody Monotest HIV 1&2 Ag/Ab, 4th Gen 08/13/21 08/13/21 08/13/21 19:11 19:11 19:11 WBC RBC Hgb Hct MCV MCH MCHC RDW Plt Count MPV Immature Gran % Neutrophils % Lymphocytes % Monocytes % Eosinophils % Basophils % Nucleated RBC % Absolute Neutrophils Absolute Lymphocytes Absolute Monocytes Absolute Eosinophils Absolute Basophils PT INR APTT Sodium Potassium Chloride Carbon Dioxide Anion Gap BUN Creatinine Estimated GFR/1.73 m2 Glucose Calcium Magnesium Iron TIBC Transferrin % Sat Ferritin Total Bilirubin Conjugated Bilirubin AST ALT Alkaline Phosphatase Ammonia Total Protein Total Protein (PEP) Albumin Albumin % (PEP) Lmdss-5-Trzxsjucr (%) Nbpiz-9-Jzymuvdlo (%) Beta Globulins (%) Gamma Globulins (%) M-Chris % PEP Comment Lipase Urine Color Urine Clarity Urine pH Ur Specific [place] Urine Protein Urine Ketones Urine Blood Urine Nitrite Urine Bilirubin Urine Urobilinogen Ur Leukocyte Esterase Urine Glucose Salicylates Urine Opiates Screen Urine Methadone Screen Acetaminophen Ur Barbiturates Screen Ur Tricyclics Screen Ur Amphetamines Screen U Benzodiazepines Scrn Urine Cocaine Screen Ur THC Screen COVID-19 Source SARS-CoV-2 (PCR) Hepatitis A IgM Ab Hep Bs Antigen Hep B Core Total Ab Hepatitis C Antibody Pending Monotest Pending HIV 1&2 Ag/Ab, 4th Gen Pending 08/13/21 08/13/21 08/13/21 19:11 18:25 16:57 WBC RBC Hgb Hct MCV MCH MCHC RDW Plt Count MPV Immature Gran % Neutrophils % Lymphocytes % Monocytes % Eosinophils % Basophils % Nucleated RBC % Absolute Neutrophils Absolute Lymphocytes Absolute Monocytes Absolute Eosinophils Absolute Basophils PT INR APTT Sodium Potassium Chloride Carbon Dioxide Anion Gap BUN Creatinine Estimated GFR/1.73 m2 Glucose Calcium Magnesium Iron 121 TIBC 371 Transferrin % Sat 33 Ferritin Cancelled Total Bilirubin Conjugated Bilirubin AST ALT Alkaline Phosphatase Ammonia 32 Total Protein Total Protein (PEP) Albumin Albumin % (PEP) Cduwl-3-Yfvnpnqmg (%) Upwyp-4-Klreypofj (%) Beta Globulins (%) Gamma Globulins (%) M-Chris % PEP Comment Lipase Urine Color Urine Clarity Urine pH Ur Specific [place] Urine Protein Urine Ketones Urine Blood Urine Nitrite Urine Bilirubin Urine Urobilinogen Ur Leukocyte Esterase Urine Glucose Salicylates Urine Opiates Screen Urine Methadone Screen Acetaminophen Ur Barbiturates Screen Ur Tricyclics Screen Ur Amphetamines Screen U Benzodiazepines Scrn Urine Cocaine Screen Ur THC Screen COVID-19 Source SARS-CoV-2 (PCR) Hepatitis A IgM Ab Hep Bs Antigen Hep B Core Total Ab Hepatitis C Antibody Monotest HIV 1&2 Ag/Ab, 4th Gen 08/13/21 08/13/21 08/13/21 16:57 16:57 15:15 WBC RBC Hgb Hct MCV MCH MCHC RDW Plt Count MPV Immature Gran % Neutrophils % Lymphocytes % Monocytes % Eosinophils % Basophils % Nucleated RBC % Absolute Neutrophils Absolute Lymphocytes Absolute Monocytes Absolute Eosinophils Absolute Basophils PT 11.9 H INR 1.2 H APTT 29.9 H Sodium Potassium Chloride Carbon Dioxide Anion Gap BUN Creatinine Estimated GFR/1.73 m2 Glucose Calcium Magnesium Iron TIBC Transferrin % Sat Ferritin Total Bilirubin Conjugated Bilirubin AST ALT Alkaline Phosphatase Ammonia Total Protein Total Protein (PEP) Albumin Albumin % (PEP) Mkhiq-5-Xsbvttyoq (%) Ibbed-3-Yqbjuoxwf (%) Beta Globulins (%) Gamma Globulins (%) M-Chris % PEP Comment Lipase Urine Color Urine Clarity Urine pH Ur Specific [place] Urine Protein Urine Ketones Urine Blood Urine Nitrite Urine Bilirubin Urine Urobilinogen Ur Leukocyte Esterase Urine Glucose Salicylates < 2.8 Urine Opiates Screen Urine Methadone Screen Acetaminophen < 2 Ur Barbiturates Screen Ur Tricyclics Screen Ur Amphetamines Screen U Benzodiazepines Scrn Urine Cocaine Screen Ur THC Screen COVID-19 Source Nasal/Nares SARS-CoV-2 (PCR) Negative Hepatitis A IgM Ab Hep Bs Antigen Hep B Core Total Ab Hepatitis C Antibody Monotest HIV 1&2 Ag/Ab, 4th Gen 08/13/21 08/13/21 08/13/21 13:55 13:55 13:25 WBC RBC Hgb Hct MCV MCH MCHC RDW Plt Count MPV Immature Gran % Neutrophils % Lymphocytes % Monocytes % Eosinophils % Basophils % Nucleated RBC % Absolute Neutrophils Absolute Lymphocytes Absolute Monocytes Absolute Eosinophils Absolute Basophils PT INR APTT Sodium Potassium Chloride Carbon Dioxide Anion Gap BUN Creatinine Estimated GFR/1.73 m2 Glucose Calcium Magnesium Iron TIBC Transferrin % Sat Ferritin Total Bilirubin Conjugated Bilirubin 3.1 H AST ALT Alkaline Phosphatase Ammonia Total Protein Total Protein (PEP) Albumin Albumin % (PEP) Gitaf-2-Xnbwlwcnf (%) Temhg-7-Nhrwncxsl (%) Beta Globulins (%) Gamma Globulins (%) M-Chris % PEP Comment Lipase Urine Color Dark Yellow Urine Clarity Clear Urine pH 6.0 Ur Specific [place] 1.025 Urine Protein Negative Urine Ketones Negative Urine Blood Negative Urine Nitrite Negative Urine Bilirubin Moderate H Urine Urobilinogen 4.0 H Ur Leukocyte Esterase Negative Urine Glucose Negative Salicylates Urine Opiates Screen Negative Urine Methadone Screen Positive A Acetaminophen Ur Barbiturates Screen Negative Ur Tricyclics Screen Negative Ur Amphetamines Screen Negative U Benzodiazepines Scrn Negative Urine Cocaine Screen Negative Ur THC Screen Positive A COVID-19 Source SARS-CoV-2 (PCR) Hepatitis A IgM Ab Hep Bs Antigen Hep B Core Total Ab Hepatitis C Antibody Monotest HIV 1&2 Ag/Ab, 4th Gen 08/13/21 08/13/21 08/13/21 13:25 12:55 12:55 WBC 7.43 RBC 5.44 Hgb 15.2 Hct 46.9 MCV 86.2 MCH 27.9 MCHC 32.4 RDW 16.0 H Plt Count 318 MPV 9.8 Immature Gran % 0.4 Neutrophils % 61.8 Lymphocytes % 28.4 Monocytes % 7.4 Eosinophils % 1.7 Basophils % 0.3 Nucleated RBC % 0 Absolute Neutrophils 4.59 Absolute Lymphocytes 2.11 Absolute Monocytes 0.55 Absolute Eosinophils 0.13 Absolute Basophils 0.02 PT INR APTT Sodium 141 Potassium 3.8 Chloride 104 Carbon Dioxide 28.4 Anion Gap 8.6 BUN 14 Creatinine 0.9 Estimated GFR/1.73 m2 >= 60.00 Glucose 126 H Calcium 9.7 Magnesium 2.0 Iron TIBC Transferrin % Sat Ferritin Total Bilirubin 4.5 H Conjugated Bilirubin AST 1783 H ALT 1471 H Alkaline Phosphatase 306 H Ammonia Total Protein 8.8 H Total Protein (PEP) Albumin 3.9 Albumin % (PEP) Ggvso-9-Abwgjzfwv (%) Rgwmv-1-Penvpqwnk (%) Beta Globulins (%) Gamma Globulins (%) M-Chris % PEP Comment Lipase 51 Urine Color Urine Clarity Urine pH Ur Specific [place] Urine Protein Urine Ketones Urine Blood Urine Nitrite Urine Bilirubin Urine Urobilinogen Ur Leukocyte Esterase Urine Glucose Salicylates Urine Opiates Screen Urine Methadone Screen Acetaminophen Ur Barbiturates Screen Ur Tricyclics Screen Ur Amphetamines Screen U Benzodiazepines Scrn Urine Cocaine Screen Ur THC Screen COVID-19 Source SARS-CoV-2 (PCR) Hepatitis A IgM Ab Pending Hep Bs Antigen Pending Hep B Core Total Ab Pending Hepatitis C Antibody Pending Monotest HIV 1&2 Ag/Ab, 4th Gen 08/13/21 06:43 WBC RBC Hgb Hct MCV MCH MCHC RDW Plt Count MPV Immature Gran % Neutrophils % Lymphocytes % Monocytes % Eosinophils % Basophils % Nucleated RBC % Absolute Neutrophils Absolute Lymphocytes Absolute Monocytes Absolute Eosinophils Absolute Basophils PT INR APTT Sodium Potassium Chloride Carbon Dioxide Anion Gap BUN Creatinine Estimated GFR/1.73 m2 Glucose Calcium Magnesium Iron TIBC Transferrin % Sat Ferritin Total Bilirubin Conjugated Bilirubin AST ALT Alkaline Phosphatase Ammonia Total Protein Total Protein (PEP) Pending Albumin Albumin % (PEP) Pending [place]-9-Lzlslqhnp (%) Pending Fwtdu-5-Avlllnrad (%) Pending Beta Globulins (%) Pending Gamma Globulins (%) Pending M-Chris % Pending PEP Comment Pending Lipase Urine Color Urine Clarity Urine pH Ur Specific [place] Urine Protein Urine Ketones Urine Blood Urine Nitrite Urine Bilirubin Urine Urobilinogen Ur Leukocyte Esterase Urine Glucose Salicylates Urine Opiates Screen Urine Methadone Screen Acetaminophen Ur Barbiturates Screen Ur Tricyclics Screen Ur Amphetamines Screen U Benzodiazepines Scrn Urine Cocaine Screen Ur THC Screen COVID-19 Source SARS-CoV-2 (PCR) Hepatitis A IgM Ab Hep Bs Antigen Hep B Core Total Ab Hepatitis C Antibody Monotest HIV 1&2 Ag/Ab, 4th Gen PFSH All Active Problems (Updated 08/13/21 @ 18:49 by Neil Krueger MD) Hepatitis (Acute) Puncture wound of foot, right (Acute) Acute viral syndrome (Acute) Diarrhea (Acute) Shortness of breath (Acute) Pneumonia (Acute) Intractable vomiting (Acute) Jaundice (Acute) Abnormal transaminases (Acute) Testicular atrophy (Chronic) Bilateral varicoceles (Chronic 07/16/16) Clavicle fracture (Acute) The patient is instructed that he can discontinue his [place] splint at this time as he is 12 days out from injury with no chance of this displacing unless he was to injure it again. With respect to his distal clavicle fracture he will use a sling for pain control and to warn others of his injury and discontinue its use over the next several weeks as his pain level improves he will be left with a bump but will have a well-functioning shoulder and will follow back to the office in 1 month's time. Right testicular pain (Acute 07/16/16) Medical History (Updated 08/13/21 @ 18:49 by Neil Krueger MD) ADHD Anger Anxiety with depression Development disorder, language Erosive gastritis Esophagitis Frequent headaches Genetic disorder GERD (gastroesophageal reflux disease) History of drug use disorder history of opiate dependence Insomnia Low back pain Polysubstance abuse Surgical History EGD - MAC (12/15/17) S/P hernia repair Family History Other Essential hypertension Heart disease Social History Smoking/Tobacco Use Status: Current every day Tobacco Type: cigarettes Smoking packs per day: 1 Smoking cigarettes per day: 20.0 Smoking risk assessment performed?: Yes Alcohol Intake: current Alcohol Intake frequency: holidays/special occasions only Details: pt stopped due to ulcers in February. Drug use: Daily Substance use type: marijuana Details: fentanyl---last use 2 weeks ago Household members: significant other Housing: apartment Number of Children: 1 current occupation: Disabled What is your relationship status?: living with partner Panel score (0-1 are the most socially isolated patients): 1 What type of physical activity do you participate in: walking Frequency: 3-4 times per week Do you feel safe at home: Yes Do you feel safe in your relationship?: Yes
[2021-08-14] MEDS: Methadone Liquid 10 MG/ML 115 MG PO (11:26)
[2021-08-14 12:38] LABS: Hepatitis A Antibody IgM Negative (Negative); Hepatitis B Core Antibody Negative (Negative); Hepatitis B surface Ag Negative (Negative); Hepatitis C Ab w Rflx HCV PCR Reactive (Negative)
--- NOTE | 2021-08-14 16:07 | PDOC.CMDIS ---
- If Service Date Differs Date of service: 08/14/21 Time of Service: 16:07 LACE Index Scoring Tool - Questions: Length of Stay (in days): 1 Acuity (Admit via E.D.?): Yes Comorbidities: Liver or Renal Disease E.D. Visits: 2 - Answers: Total Score: 11 Risk of Readmission: High Risk Care Management Discharge Reason for Hospitalization: Acute Hepatitis, Polysubstance Abuse Discharge Plan: Discharge home with no new [facility] services via private vehicle with family. Patient will follow discharge plan of care as prescribed and resume activity and diet as tolerated. José Miguel will follow up with [facility] and Dr. Wood. José Miguel was also encouraged to establish care with a PCP of choice using the contact infomation provided to patient. Patient was provided with last dose letter to give to YAO. Patient/Family Education Needs: Review discharge instructions, limitations and plan to follow up with community providers. ask me three.
[2021-08-14 18:00] LABS: Ferritin 517 ng/mL (22-322)
[2021-08-15 10:46] LABS: HIV-1/2 Ag & Ab Screen Negative (Negative)
[2021-08-15 11:22] LABS: Hepatitis C Ab w Rflx HCV PCR Reactive (Negative)
[2021-08-15 11:42] LABS: HCV RNA Detection Quantitative 3350000 IU/mL (Undetected); HCV RNA Qualitative Detected (Undetected)
[2021-08-15 12:57] LABS: Albumin 53.4 % (55.8-66.1); Total Protein 6.4 g/dL (6.3-8.2)
== END 2021-08-14 13:32 | disposition home or self-care (01) ==
LOC: ER 18:25 → MS 19:41
PROVIDERS: Family Medicine; Registered Nurse Emergency; Admitting Provider Family Medicine; Emergency Provider Physician Assistant; Visit Provider Family Medicine
DX: B17.10 Acute hepatitis C without hepatic coma (principal); R11.2 Nausea with vomiting, unspecified; Z20.822 Contact with and (suspected) exposure to COVID-19; F11.20 Opioid dependence, uncomplicated; F19.10 Other psychoactive substance abuse, uncomplicated; F12.90 Cannabis use, unspecified, uncomplicated; F17.210 Nicotine dependence, cigarettes, uncomplicated; F98.8 Other specified behavioral and emotional disorders with onset usually occurring in childhood and adolescence; F81.9 Developmental disorder of scholastic skills, unspecified; Q98.1 Klinefelter syndrome, male with more than two X chromosomes; F32.9 Major depressive disorder, single episode, unspecified
CPT/HCPCS: 80053; 80307; 83690; 86704; 86709; 86803; 87340; 87389; 87522; 87635; 96360; 99285; 74177; 74181; 80329; 81003; 82140; 82248; 82728; 83540; 83550; 83735; 84165; 85025; 85610; 85730; 99217; 99220; G0378; J1885; J3490

== ENCOUNTER 2022-01-16 08:03 | Emergency (ER) | payer MEDICAID, SELFPAY ==
[2022-01-16 08:06] VITALS: BP 102/66; PULSE 89; RESP 16; TEMP 37.8; O2SAT 95
--- NOTE | 2022-01-16 08:15 | DI.MRI_ITS ---
Exam(s) MR LUMBAR SPINE WO/W EXAM: MR LUMBAR SPINE WO/W CLINICAL HISTORY: back pain, hx of polysubstance abuse, fever TECHNIQUE: Multiplanar multisequence MRI of the Lumbar Spine was performed. CONTRAST MATERIAL: IV Contrast: 15 mL of Dotarem contrast administered. COMPARISON: CR,XR XR FOOT RT COMPLETE from 07/20/2019 FINDINGS: Exam is somewhat limited by patient motion. The vertebral bodies are well maintained in height. There is normal marrow signal. There are mild d egenerative disc changes at L5-S1. Remaining discs show normal height and hydration. The conus medu llaris appears normal. There are no abnormal enhancing lesions in the spine, discs or surrounding so ft tissues. No evidence of epidural abscess. The visualized portions of the abdominal contents are unremarkable. IMPRESSION: No acute abnormality.. Mild degenerative disc changes at L5-S1.. DATA REPOSITORY:
--- NOTE | 2022-01-16 08:15 | DI.MRI_ITS ---
Exam(s) MR THORACIC SPINE WO/W EXAM: MR THORACIC SPINE WO/W CLINICAL HISTORY: back pain, hx of polysubstance abuse, fever. TECHNIQUE: Multiplanar multisequence MRI of the Thoracic spine was performed. CONTRAST MATERIAL: IV Contrast: 15 mL of Dotarem contrast administered. COMPARISON: No exams were available for comparison FINDINGS: The exam is somewhat limited by patient motion Bones: The vertebral body heights are well maintained. Alignment is satisfactory. The signal characte ristics are unremarkable. Cord: The thoracic cord is normal size and signal intensity. No intrinsic cord lesion is present. Discs: No disc herniation or bulge is present. Soft tissues: Normal. There is no evidence of suspicious enhancement. IMPRESSION: Normal MRI examination of the thoracic spine. DATA REPOSITORY:
--- OUTSIDE RECORDS SUMMARY | 2022-01-16 08:22 | XMS_ITS | Encounter Summary ---
:1990 Author Organization [facility] Address [address] [place] [address] Care Team Providers Name Role Phone Unknown, Provider Primary Care Provider Encounter Details Date Type Department Care Team Description 08/14/2021 Lab Requisition [facility] Outr Resulting Lab, Pathology & Laboratory Provider [facility] [address], [place] [id number] Social History Tobacco Use Types Packs/Day Years Used Date Current Every Day Smoker Cigarettes 1 Alcohol Use Standard Drinks/Week Comments No 0 (1 standard drink = 0.6 oz pure alcoho l) Sex Assigned at Date Recorded Not on file documented as of this encounter Plan of Treatment Not on filedocumented as of this encounter Procedures Procedure Name Priority Date/Time Associated Comments Diagnosis SPEP, INCLUDES Today 08/13/2021 6:43 Results fo r this QUANTITATION OF EST procedure ar e in MONOCLONAL SPIKE the results PERFORMABLE section. SPEP, INCLUDES Routine 08/13/2021 6:43 Results fo r this QUANTITATION OF EST procedure ar e in MONOCLONAL SPIKE the results section. PROTEIN, TOTAL Today 08/13/2021 6:43 EST documented in this encounter Results (ABNORMAL) SPEP, INCLUDES QUANTITATION OF MONOCLONAL SPIKE PERFORMABLE (08/13/2021 6:43 EST) Albumin % 53.4 (L) 55.8 - 66.1 % [facility] Alpha-1 % 4.7 2.9 - 4.9 % [facility] Alpha-2 % 8.3 7.1 - 11.8 % [facility] Beta % 11.0 8.4 - 13.1 % [facility] Gamma % 22.6 (H) 11.1 - 18.8 % [facility] SPEP Comment No apparent [facility] monoclonal protein [facility] seen on serum electrophoresisComm ent: See scanned/supplementa ry report. Total Protein 6.4 6.3 - 8.2 g/dL [facility] Specimen Blood - Venous blood (substance) Narrative This result has an attachment that is no t available. Performing Organization Address City/State/ZIP Code Phon e Number [facility] [address] [place] [address] SERVICES PROTEIN, TOTAL (08/13/2021 6:43 EST) Specimen Blood - Venous blood (substance) Performing Organization Address City/State/ZIP Code Phon e Number [facility] [address] [place] [address] SERVICES documented in this encounter Visit Diagnoses Not on filedocumented in this encounter Care Teams [employer] Relationship Specialty Start Date End Date Unknown, Provider, PCP - General 06/29/21 documented as of this encounter
--- OUTSIDE RECORDS SUMMARY | 2022-01-16 08:22 | XMS_ITS | Encounter Summary ---
:1990 Author Organization [facility] Address [address] [place] [address] Care Team Providers Name Role Phone Unknown, Provider Primary Care Provider Encounter Details Date Type Department Care Team Description 08/14/2021 Lab Requisition [facility] Outr Resulting Lab, Pathology & Laboratory Provider [facility] [address] [place] [address] Social History Tobacco Use Types Packs/Day Years Used Date Current Every Day Smoker Cigarettes 1 Alcohol Use Standard Drinks/Week Comments No 0 (1 standard drink = 0.6 oz pure alcoho l) Sex Assigned at Date Recorded Not on file documented as of this encounter Plan of Treatment Not on filedocumented as of this encounter Procedures Procedure Name Priority Date/Time Associated Diagnosis Comme nts FERRITIN Routine 08/13/2021 19:11 EST Results for this procedure are i n the results section . documented in this encounter Results (ABNORMAL) FERRITIN (08/13/2021 19:11 EST) Pathologist Sig nature Ferritin 517 (H) 22 - 322 ng/mL [facility] Specimen Blood - Venous blood (substance) Performing Organization Address City/State/ZIP Code Phon e Number [facility] [address] [place] [address] SERVICES documented in this encounter Visit Diagnoses Not on filedocumented in this encounter Care Teams [employer] Super[employer] Relationship Specialty Start Date End Date Unknown, Provider, PCP - General 06/29/21 documented as of this encounter
--- OUTSIDE RECORDS SUMMARY | 2022-01-16 08:22 | XMS_ITS | Encounter Summary ---
:1990 Author Organization [facility] Address [address] [place] [address] Care Team Providers Name Role Phone Unknown, Provider Primary Care Provider Encounter Details Date Type Department Care Team Description 08/14/[address] [facility] Outr Resulting Lab, Pathology & Laboratory Provider [facility] [address] [place] [address] Social History Tobacco Use Types Packs/Day Years Used Date Current Every Day Smoker Cigarettes 1 Alcohol Use Standard Drinks/Week Comments No 0 (1 standard drink = 0.6 oz pure alcoho l) Sex Assigned at Date Recorded Not on file documented as of this encounter Plan of Treatment Not on filedocumented as of this encounter Procedures Procedure Name Priority Date/Time Associated Comments Diagnosis HIV 1/2 ANTIGEN AND Routine 08/13/2021 19:11 Resu lts for this ANTIBODY, 4TH EST procedure are in GENERATION the results section. documented in this encounter Results HIV 1/2 ANTIGEN AND ANTIBODY, 4TH GENERATION (08/13/2021 19:11 EST) HIV 1 and 2 NegativeComment: If Negative [facility] Antibody/p24 acute HIV-1 LABORATORY Antigen, 4th infection is SERVICES Generation suspected in a high risk patient, submit plasma specimen for HIV-1 RNA quantitation test. Specimen Blood - Venous blood (substance) Narrative [facility] LABORATORY SERVICES - 08/15/2021 10:41 EST Fourth Generation assay performed on the Siemens Centaur XPT. 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
--- OUTSIDE RECORDS SUMMARY | 2022-01-16 08:22 | XMS_ITS | Encounter Summary ---
:1990 Author Organization [facility] Address [address] [place] [address] Care Team Providers Name Role Phone Unknown, Provider Primary Care Provider Encounter Details Date Type Department Care Team Description 08/13/[address] [facility] Outr Resulting Lab, Pathology & Laboratory Provider [facility] [address] [place] [address] Social History Tobacco Use Types [...] Name Priority Date/Time Associated Diagnosis Comme nts HCV RNA DETECT Today 08/13/2021 13:25 Results f or this QUANT EST procedure are i n the results section. ACUTE HEPATITIS Routine 08/13/2021 13:25 Results for this PROFILE EST procedure are i n the results section. documented in this encounter Results (ABNORMAL) HCV RNA DETECT QUANT (08/13/2021 13:25 EST) HCV RNA Qualitative Detected (A) Undetected [facility] LABORATORY SERVICES HCV RNA 3,350,000 (H) Undetected IU/mL [facility] LABORATORY SERVICES Specimen Blood - Venous blood (substance) Narrative [facility]OR[facility] SERVICES - 08/15/2021 11:38 EST New platform in use 01/08/2021 The quantification range of this assay i s 15 IU/mL to 100,000,000 IU/mL. Testing was performed using the Oj HCV test ([employer] with the oj 6800 System. Performing Organization Address City/State/ZIP Code Phon e Number [facility] [address] [place] [address] SERVICES (ABNORMAL) ACUTE HEPATITIS PROFILE (08/13/2021 13:25 EST) Hep B Surface Ag Negative Negative [facility] LABOR[facility]ORY SERVICES Hep C Antibody Reactive (A) Negative [facility] Comment: LABORATORY Supplemental testing for HCV RNA is ordered to r ule out active HCV infection. SERVICES Hepatitis A NegativeComment: The Negative [facility] Antibody, IgM results of this LABORATORY assay can be falsely SERVICES lowered due to the consumption of Biotin. Hepatitis B Core Negative Negative [facility] Ab, Total LABORATORY SERVICES Specimen Blood - Venous blood (substance) Performing Organization Address City/[facility] Code Phon e Number [facility] [address] [place] [address] SERVICES documented in this encounter Visit Diagnoses Not on filedocumented in this encounter Care Teams Guard Sergeant Relationship Specialty Start Date End Date Unknown, Provider, PCP - General 06/29/21 documented as of this encounter
--- OUTSIDE RECORDS SUMMARY | 2022-01-16 08:22 | XMS_ITS | Encounter Summary ---
:[address] [facility] Address [address] [place] [address] Care Team Providers Name Role Phone Unknown, Provider Primary Care Provider Encounter Details Date Type Department Care Team Description 06/29/2021 Emergency [facility] Nik Desouza PA-C Polysubstance abuse Emergency Department [address] [place] [address] ([facility] ([facility]) - [facility] (Primary Dx) [address] [place] [address] [address] [place] [id number] (Wo rk) Social History Tobacco Use Types Packs/Day Years Used Date Current Every Day Smoker Cigarettes 1 Alcohol Use Standard Drinks/Week Comments No 0 (1 standard drink = 0.6 oz pure alcoho l) Sex Assigned at Date Recorded Not on file documented as of this encounter Discharge Instructions InstructionsDeNik alcantara PA-C - 06/29/2021 Medically cleared for act 1 documented in this encounter Medications at Time of Discharge Medication Sig Dispensed Refills Start Date End Date oxyCODONE-acetaminophen Take 1-2 Tabs by 15 Tab 0 2015 (PERCOCET) 5-325 mg per mouth every 4 hours tablet as needed for Pain. Daily Max: 12 Tabs documented as of this encounter Discharge Disposition Disposition Code Departure Means Destination Comments Home or Self [place] [facility]helps with Nik Desouza documented in this encounter ED Notes Nik Desouza PA-C - 06/29/2021 1218 EST This patient received an evaluation and medical screening exam for emergent medical conditions via Telemedicine by the [facility] on 06/29/2021 Today's visit was provided through telemedicine video conferencing: The location of the patient : [facility] The location of the provider:emergency department The following staff and their role did participate in today's encounter visit: Nik Desouza PA-C The concept of ???Telemedicine?? has been described to the patient. Patient has been informed of the anticipated benefits and possible risks. Patient understands the information provided regarding telemedicine, has had the opportunity to ask questions about this information, and all questions have been answered to patient???s satisfaction. Patient consents for the use of telemedicine in his/her medical care and authorizes the transmission of any relevant medical information to providers and their staff involved in patient???s medical or mental health care. Patients name and date of confirmed at beginning of visit. Chief Complaint Alcohol Abuse HPI José Miguel Bae is a 31 y.o. male with PMH including who presents to the ED for medical clearance [facility]. Allergies confirmed: Current substance use (which substances, amount) : History of polysubstance abuse with fentanyl crack Percocet Vicodin morphine states uses all of IV Last use: 10 days prior Last period of sobriety: Any current withdrawal symptoms: None History of alcohol withdrawal seizures or other complications: None Tolerating PO: yes Any other physical complaints: ROS A 10 point review of systems has been performed and is otherwise negative except as noted in the HPI. Physical Exam vital signs were reviewed. HR: 77 BP113/64 Temp:97.4 Constitutional: Well appearing in no acute distress Mouth: Moist oral mucosa Neck: Full ROM Lungs: Normal work of breathing, No Respiratory distress, able to speak in full sentences Skin: No overt rashes on exposed skin Extremities: Moving spontaneously Neuro: Grossly neurologically intact with normal speech, alert Psych: No agitation or overt thought disorder ED Course/Medical Decision Making A medical screening was performed. Patient has been 10 days without using opiates is currently on morphine which she obtains through clinic in [facility]. Patient states that he should be at 160 mg and is currently taking 105. Discussing case with act 1 clinician is felt that the patient should not be receiving any other medications through the emergency department and that any adjustment doseswill be made through the [facility] Chief complaint for this visit was: Alcohol Abuse This patient was evaluated using telemedicine and the Patient verbally consented to evaluation via telemedicine. Live, Interactive audiovisual equipment was used with Zoom. The patient was located at the [facility] and the ED provider was located at the Emergency Department. The [facility] staff member was present for portions of the visit. The visitlasted approximately 15 minutes. I reviewed the patients allergies, vital signs, and past medical history. testing for females of child bearing age was reviewed. Clinical Impression Final diagnoses: None Disposition The patient's pain was managed to an adequate level weighing risk vs. benefit of further medications. Any further pain treatment will be at the discretion of the provider following up with the patient based on their clinical assessment. documented in this encounter Plan of Treatment Not on filedocumented as of this encounter Visit Diagnoses Diagnosis Polysubstance abuse ([facility]) ([facility]) - Pr imary Other, mixed, or unspecified nondependen t drug abuse, unspecified documented in this encounter Care Teams Finance Manager Relationship Specialty Start Date End Date Unknown, Provider, PCP - General 06/29/21 documented as of this encounter
--- OUTSIDE RECORDS SUMMARY | 2022-01-16 08:22 | XMS_ITS | Encounter Summary ---
:1990 Author Organization [facility] Address [address] [place] [address] Care Team Providers Name Role Phone Unknown, Provider Primary Care Provider Encounter Details Date Type Department Care Team Description 08/14/2021 Lab Requisition [facility] Outr Resulting Lab, Pathology & Laboratory Provider [facility] [address] [place] [address] Social History Tobacco Use Types [...] Comme nts HCV RNA DETECT Today 08/13/2021 19:11 Results f or this QUANT EST procedure are i n the results section. HEPATITIS C AB W Routine 08/13/2021 19:11 Results for this REFLEX TO HCV RNA EST procedure are in BY PCR the results section. documented in this encounter Results (ABNORMAL) HCV RNA DETECT QUANT (08/13/2021 19:11 EST) HCV RNA Qualitative Detected (A) Undetected [facility]ORY SERVICES HCV RNA 2,730,000 (H) Undetected IU/mL [facility] LABORATORY SERVICES Specimen Blood - Venous blood (substance) Narrative [facility]OR[facility] SERVICES - 08/16/2021 11:49 EST New platform in use 01/08/2021 The quantification range of this assay i s 15 IU/mL to 100,000,000 IU/mL. Testing was performed using the Oj HCV test ([employer] with the oj 6800 System. Performing Organization Address City/State/ZIP Code Phon e Number [facility] [address] [place] [address] SERVICES (ABNORMAL) HEPATITIS C AB W REFLEX TO HCV RNA BY PCR (08/13/2021 19:11 EST) Hep C Antibody Reactive (A) Negative [facility] Comment: LABORATORY SERVICES Supplemental testing for HCV RNA is ordered to r ule out active HCV infection. Specimen Blood - Venous blood (substance) Performing Organization Address City/State/ZIP Code Phon e Number [facility] [address] [place] [address] SERVICES documented in this encounter Visit Diagnoses Not on filedocumented in this encounter Care Teams Doctor Of Medicine Relationship Specialty Start Date End Date Unknown, Provider, PCP - General 06/29/21 documented as of this encounter
--- OUTSIDE RECORDS SUMMARY | 2022-01-16 08:22 | XMS_ITS | Clinical Summary ---
:[address] [facility] Address [address] [place] [address] Care Team Providers Name Role Phone Unknown, Provider Primary Care Provider Allergies No known active allergies Medications Medication Sig Dispensed Refills Start Date End Date Status oxyCODONE-acetaminophe Take 1-2 Tabs by 15 Tab 0 06/10/2016 Active n (PERCOCET) 5-325 mg mouth every 4 per tablet hours as needed for Pain. Daily Max: 12 Tabs Social History Tobacco Use Types Packs/Day Years Used Date Current Every Day Smoker Cigarettes 1 Alcohol Use Standard Drinks/Week Comments No 0 (1 standard drink = 0.6 oz pure alcoho l) Sex Assigned at Date Recorded Not on file Last Filed Vital Signs Vital Sign Reading Time Taken Comments Blood Pressure 137/88 06/10/2016 1606 EST Pulse 91 06/10/2016 1329 EST Temperature 38.1 ??C (100.6 ??F) 06/10/2016 1329 EST Respiratory Rate 14 06/10/2016 1606 EST Oxygen Saturation 99% 06/10/2016 1606 EST Inhaled Oxygen Concentration - - Weight - - Height - - Body Mass Index - - Plan of Treatment Health Maintenance Due Date Last Done Comments COVID-19 Vaccine (1) 01/26/1996 Hepatitis C Screen Completed 08/13/2021, 08/13/2021, 08/13 Insurance Payer Benefit Plan / Subscriber ID Effective Phone Address T ype Group Dates [id number] 2021-Pres [address] [place] [id number] José Miguel Bae Personal/Family Self 1990 [address] [place] [address] José Miguel Bae Personal/Family Self 1990 [address]) [place] [address] Care Teams Processing Inspector Relationship Specialty Start Date End Date Unknown, Provider, PCP - General 06/29/21
--- OUTSIDE RECORDS SUMMARY | 2022-01-16 08:23 | XMS_ITS | Encounter Summary ---
:1990 Author Organization [facility] [place] [address] Care Team Providers Name Role Phone Unavailable Primary Care Provider Unavailable Reason for Visit Consultation (Routine) - Specialty Diagnoses / Procedures Referred By Contact Refer red To Contact Endocrinology Diagnoses Atrophy of testis Wei Diallo MD [facility] [place] [facility] 3b Procedures CONSULT AND TREAT [address] [place] [id number] Referral ID Status Reason Start Date Expiration Date Visits V isits Requested Authorized [id number] 08/07/2018 08/07/2019 1 1 Encounter Details Date Type Department Care Team Description 10/30/2018 Office Visit Endocrinology at [facility] Noe Schuster Hypogonadism in male; [facility] MD Tramaine Bilateral [place] [address] [phone] [place], [place] [address] Social History Tobacco Use Types Packs/Day Years Used Date Current Every Day Smoker 1 Smokeless Tobacco: Never Used Chew Sex Assigned at Date Recorded Not on file documented as of this encounter Last Filed Vital Signs Vital Sign Reading Time Taken Comments Blood Pressure 112/82 10/30/2018 9:10 AM EDT Pulse 76 10/30/2018 9:10 AM EDT Temperature - - Respiratory Rate - - Oxygen Saturation - - Inhaled Oxygen Concentration - - Weight 64.5 kg (142 lb 3.2 oz) 10/30/2018 9:10 AM EDT Height 190.5 cm (6' 3) 10/30/2018 9:10 AM EDT Body Mass Index 17.77 10/30/2018 9:10 AM EDT documented in this encounter Progress Notes Noe Asif MD - 10/30/2018 9:00 AM EDT Images from the original note were not included. Mr. José Miguel Bae is an 28 y.o. 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 He presents at the request of his urologist to assess for hypogonadism. For the past 2 years patienthas had significant bilateral testicular pain and has been following with Dr Diallo for this. Prior to this, he tells me that as a child he had bilateral undescended testicles. He required 7 inguinal surgeries on right side to keep the testicle in the scrotum per the patient, including mesh placement. His testicles have always been small but then starting around 2 years ago he began to experience intense pain. Ultrasound revealed bilateral significant testicular atrophy and bilateral hydroceles. CT A/P showed no obvious abnormality to explain testicular findings. There was a right testicular cyst, that per patient ruptured spontaneously recently and filled with blood. There was also two nonspecific abnormalities of the left testicle. He was a full term baby and developmentally reached all milestones normally, however he has sufferedfrom some reading and writing disabilities throughout his life. When younger, he did not go through puberty normally. He has a difficult time growing a mustache, it takes him about two months. He has limited pubic hair and no chest hair. He has mild bilateral breast pain/tenderness but no enlargement.His voice is the same as when he was a child per his mother. He has been trying to conceive with his partner for 4 years. Workup for infertility showed low spermcount (Dr Diallo performed this workup). They were able to conceive and his partner is 6 months currently. His libido is intact and he is able to easily maintain erections, but has significant scrotal pain that limits his ability to have intercourse. His sense of smell is reportedly normal. He is much taller than other family members. Father 5'7 Mother 5'6 Personally not history of blood clot PMH: DJD of back, testicular atrophy Family history: Grandfather had prostate cancer No history of breast cancer Mother: underactive thyroid Review of Systems: +chronic skin peeling on hands Remainder as per HPI, otherwise it is negative No current outpatient medications on file. No known allergies Social history: 1ppd smoker, longtime smoker. 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 No EtOH Former cocaine but not currently HIV/hepatitis screening normal per patient Physical Exam: Patient Vitals for the past 24 hrs: Pulse BP 10/30/18 0910 76 112/82 General: no acute distress, appears younger than stated age Face: not round or red Eyes: no lid lag; normal eye movements Nose/mouth: Nose not enlarged, mucous membranes moist Neck: no supraclavicular fat pads; no thyroid enlargement Lymphatic: no palpable cervical lymph nodes Respiratory: symmetrical chest expansion, clear to auscultation bilaterally Cardiovascular: normal S1, S2, no murmur, regular rhythm Musculoskeletal: normal gait; normal male musculature Skin: normal temperature/texture, absent body hair on chest and fine hairs on upper lip Chest: no visible breast enlargement, no pectus excavatum, +palpable 1cm tender breast tissue beneath nipple bilaterally : 2-5cc volume testes bilaterally that are very tender, palpable variocele on right side, ely Stage V penis, nearly absent pubic hair Neurological: no tremors, normal gait Psychological: alert/oriented to person, place, time; normal affect; memory intact; normal judgement/insight Radiology Studies: 06/10/18 CT A/P 07/11/16 Testicular US Laboratory Data: Assessment/plan 1) Testicular atrophy/hypogonadal features - has has numerous clinical features of hypogonadism including lack of secondary sex characteristics, breast pain/tenderness - 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 It is a possibility that he has cryptorchidism and primary hypogonadism unrelated to Kleinfelters. I think secondary (central) hypogonadism is less likely - check FSH/LH and 8am testosterone now. Check HCT in case testosterone therapy initiation is necessary. Assess for kidney/liver disease with CMP - consider additional workup based upon result of initial labs I reminded patient that because he has a history of undescended testes, he should be closely followed by his urologist to periodically assess for testicular cancer A note will be sent to the referring provider Return to clinic in 3-4 months Orders Placed This Encounter Procedures ??? Follicle Stimulating Hormone Standing Status: Future Standing Expiration Date: 05/08/2019 ??? Luteinizing Hormone Standing Status: Future Standing Expiration Date: 05/08/2019 ??? Testosterone, total and free Standing Status: Future Standing Expiration Date: 05/08/2019 ??? Hemogram Standing Status: Future Standing Expiration Date: 05/08/2019 ??? Comprehensive metabolic panel (non-fasting) Standing Status: Future Standing Expiration Date: 05/01/2019 It was a pleasure to be involved in the care of José Miguel Bae. If you have any questions about the management and treatment plan as outlined above, or if I can be of further assistance, please do not hesitate to contact me. Sincerely, Noe Asif MD Jeep Mechanicphysician practice market manager Endocrinology Section [facility] documented in this encounter Plan of Treatment Not on filedocumented as of this encounter Results Comprehensive metabolic panel (non-fasting) (12/24/2018 8:03 AM EDT) P athologist Signature Glucose Lvl 94 65 - 199 [facility] mg/dL [facility] Comment: Diabetes: >=200 mg/dL plus symp toms BUN 15 10 - 20 mg/dL [facility] Creatinine 0.85 0.80 - 1.50 mg/dL [facility] Sodium 142 135 - 145 mmol/L [facility] Potassium 4.3 3.5 - 5.0 mmol/L [facility] Comment: Please note: ??Patients with WBC >100,00 0 may have falsely elevated Potassium levels. ??For accurate Potassium quantif ication in these patients send serum separator tube (gold top) for subsequent determinations. ??Contact the Clinical Chemistry Laboratory if there are any qu estions. Chloride 103 98 - 107 mmol/L [facility] CO2 28 22 - 31 mmol/L [facility] Anion Gap 11 5 - 15 mmol/L [facility] Calcium 10.0 8.5 - 10.5 mg/dL [facility] Total Protein 7.3 6.1 - 8.0 gm/dL [facility] Albumin 4.7 3.2 - 5.2 gm/dL [facility] AST 31 0 - 39 unit/L [facility] ALT 30 0 - 55 unit/L [facility] Alk Phos 79 40 - 120 unit/L [facility] Total Bilirubin 0.4 0.2 - 1.3 mg/dL [facility] Estimated GFR 119 >=60 mL/min/1.73 m?? [facility] Comment: The eGFR was calculated using the CKD-EP I equation. As with all creatinine based estimates of kidney function, eGFR values calculated with the CKD-EPI equation are not accurate in patients wi th acute kidney failure, extremes of body mass or the acutely ill. http://DosYogures/[facility]QU[facility]nkf eGFR 138 >=60 mL/min/1.73 m?? [facility] Comment: The eGFR was calculated using the CKD-EP I equation. As with all creatinine based estimates of kidney function, eGFR values calculated with the CKD-EPI equation are not accurate in patients wi th acute kidney failure, extremes of body mass or the acutely ill. http://DosYogures/DHnkf Specimen Anatomical Collection Method Collection Time Receive d Time (Source) Location / / Volume Laterality Blood specimen 12/24/2018 8:03 AM 019 8:10 (specimen) EDT AM EDT Resulting Agency Comment Spec In Lab Noe Asif MD CHEMISTRY ORDERABLES Performing Organization Address City/State/ZIP Code Phon e Number [facility] [place] [place] [address] Hemogram (12/24/2018 8:03 AM EDT) athologist Signature WBC 5.9 4.0 - 9.5 [facility] x10(3)/[facility] LABORATORY RBC 4.60 4.58 - [facility] 5.54 [facility] x10(6)/[facility] LABORATORY Hemoglobin 13.9 13.7 - [facility] 16.5 gm/dL [facility] Hematocrit 41.1 40.5 - [facility] 48.5 % [facility] MCV 89.3 82.9 - [facility] 93.1 [facility]ORATORY MCH 30.2 27.5 - [facility] [place] 32.1 pg [facility] MCHC 33.8 32.0 - [facility] 35.7 gm/dL [facility] Platelets 242 145 - 357 [facility] x10(3)/[facility] LABORATORY RDWSD 41.7 36.0 - [facility] 45.0 [facility] LABORATORY RDWCV 12.7 11.4 - [facility] [place] 13.8 % [facility] MPV 9.2 7.6 - 12.9 [facility] nRBC % Auto 0.0 % [facility] nRBC Abs Auto 0.000 0.000 - [facility] JOANN 0.000 [facility] x10(3)/[facility] LABORATORY Specimen Anatomical Collection Method Collection Time Receive d Time (Source) Location / / Volume Laterality Blood specimen 12/24/2018 8:03 AM 019 8:10 (specimen) EDT AM EDT Resulting Agency Comment Spec In Lab Noe Asif MD HEMATOLOGY ORDERABLES Performing Organization Address City/State/[place] [address] (ABNORMAL) Testosterone, total and free (12/24/2018 8:03 AM EDT) athologist Signature Testo Total 170 (L) 250 - 1100 [facility] ng/dL [facility] Comment: For additional information, please refer to http://education.NewsPin.com/fa q/ [email or web address] (This link is being provided for informa tional/ educational purposes only.) This test was developed and its analytic al performance characteristics have been determined by [employer] [place], [place]. It has not been cleared or approved by the U.S. Food and Drug Administration. This assay has been elisabet dated pursuant to the CLIA regulations and is used for clinical purposes. Testo Free 12.8 (L) 35.0 - 155.0 pg/mL [facility] Comment: This test was developed and its analytic al performance characteristics have been determined by [employer] [place], [place]. It has not been cleared or approved by the U.S. Food and Drug Administration. This assay has been elisabet dated pursuant to the CLIA regulations and is used for clinical purposes. Test Performed by [facility], [employer] [facility], [address] [place] [address] 2014 06 Michel Simpson M.D., Ph.D., Director [facility] [employer] , CLIA [id number] Specimen Anatomical Collection Method Collection Time Receive d Time (Source) Location / / Volume Laterality Blood specimen 12/24/2018 8:03 AM 019 3:36 (specimen) EDT PM EDT Resulting Agency Comment Spec In Lab Noe Asif MD CHEMISTRY ORDERABLES Performing Organization Address City/State/ZIP Code Phon e Number [place] [id number] (ABNORMAL) Luteinizing Hormone (12/24/2018 8:03 AM EDT) P athologist Signature LH 20.9 (H) 1.7 - 8.6 [facility] mlU/ML [facility] Comment: Reference ranges: ?? Females ?? Follicular: ? 2.4-12.6 mIU /mL ?? Ovulation: ?14.0-95.6 m IU/mL ?? Luteal: ? 1.0-11.4 m IU/mL ?? Postmenopausal: ? 7.7-58.5 mIU/m L Specimen Anatomical Collection Method Collection Time Receive d Time (Source) Location / / Volume Laterality Blood specimen 12/24/2018 8:03 AM 019 8:10 (specimen) EDT AM EDT Resulting Agency Comment Spec In Lab Noe Asif MD CHEMISTRY ORDERABLES Performing Organization Address City/[facility] [place] [address] (ABNORMAL) Follicle Stimulating Hormone (12/24/2018 8:03 AM EDT) P athologist Signature FSH 32.4 (H) 1.5 - 12.4 [facility] ml[facility]/ML [facility] Comment: Reference Ranges: Females: Follicular: ? 3.5-12.5 mIU/mL Ovulation: ?4.7-21.5 mIU/mL Luteal: ? 1.7-7.7 mIU/mL Postmenopausal: 25.8-134.8 mIU/mL Specimen Anatomical Collection Method Collection Time Receive d Time (Source) Location / / Volume Laterality Blood specimen 12/24/2018 8:03 AM 019 8:10 (specimen) EDT AM EDT Resulting Agency Comment Spec In Lab Noe Asif MD CHEMISTRY ORDERABLES Performing Organization Address City/[facility] [place] [address] documented in this encounter Visit Diagnoses Diagnosis Hypogonadism in male Bilateral testicular atrophy Atrophy of testis documented in this encounter
--- OUTSIDE RECORDS SUMMARY | 2022-01-16 08:23 | XMS_ITS | Encounter Summary ---
:1990 Author Organization [facility] [place] [address] Care Team Providers Name Role Phone None Primary Care Provider Unavailable Reason for Referral Consultation (Routine) - Closed Specialty Diagnoses / Procedures Referred By Contact Refer red To Contact Urology Diagnoses Testicular pain Noe Asif MD [facility] [place] [address] [place] [address] Fax: Referral ID Status Reason Start Date Expiration Date Visits V isits Requested Authorized [id number] Closed Consult, 12/23/2018 12/23/2019 1 1 Test & Treat Encounter Details Date Type Department Care Team Description 12/23/2018 Telephone Endocrinology at [facility] [place] [phone] Social History Tobacco Use Types Packs/Day Years Used Date Current Every Day Smoker 1 Smokeless Tobacco: Never Used Chew Sex Assigned at Date Recorded Not on file documented as of this encounter Miscellaneous Notes Telephone Encounter - Noe Asif MD - 12/23/2018 12:01 PM EDT Called patient back to discuss. He is having ongoing severe testicular pain. We discussed that he should not take excessive amounts of acetaminophen. He was seen recently in ER for bright red vomiting, found to be an upper GI ulcer. Being managed conservatively with PPI He has been in contact with Dr Diallo (local urologist) but is frustrated in that there is no clear plan to help alleviate his pain. I told him that I think it best a urologist help evaluate and treat his testicular pain, and I offered to refer him to [facility] for second opinion and he requested this He is due to have blood drawn soon for karyotype to confirm Klinefelter's syndrome, we will be in touch with result and consider starting testosterone replacement. Telephone Encounter - Valerie Quiroz, RN - 12/23/2018 9:59 AM EDT Pt calling in through the secretaries, reports my nuts keep disappearing and every time they disappear I go into this agonizing pain and can barely walk. I think I'm overdosing myself on Tylenol trying to manage the pain. I can barely even function most of the days now because it hurts so much. I'm not able to go to work it hurts so much. Pt reports he is taking 1800 mg APAP at a time, two to three times/day. Advised pt to take no more than two times/day. Pt requesting call back from Dr Asif. Can be reached at [phone]. documented in this encounter Plan of Treatment Scheduled Referrals Name Type Priority Associated Diagnoses Order S kylah Referral to Outpatient Referral Routine Testicular pain Order ed: Urology 12/23/2018 documented as of this encounter Visit Diagnoses Diagnosis Testicular pain Unspecified disorder of male genital org ans documented in this encounter Care Teams Textile Designer Relationship Specialty Start Date End Date None PCP - General 11/17/18 10/10/21 None documented as of this encounter
--- OUTSIDE RECORDS SUMMARY | 2022-01-16 08:23 | XMS_ITS | Encounter Summary ---
:1990 Author Organization [facility] Address [facility] [place] [address] Care Team Providers Name Role Phone None Primary Care Provider Unavailable Encounter Details Date Type Department Care Team Description 01/11/2019 Clinical Support Endocrinology at [facility] C Nurse, Hypogonadism in male [facility] [place] [address] Social History Tobacco Use Types Packs/Day Years Used Date Current Every Day Smoker 1 Smokeless Tobacco: Never Used Chew Sex Assigned at Date Recorded Not on file documented as of this encounter Progress Notes Hope Yi LPN - 01/11/2019 8:15 AM EDT Depotestosterone 200 mg administered IM in left outer gluteal per order. Site negative before, and after injection. , and patient taught proper storage, preparation, and administration of Depo-T. Good knowledge demonstrated upon return - states she will be assisting with injections. Patient provided medication for appointment. documented in this encounter Plan of Treatment Not on filedocumented as of this encounter Visit Diagnoses Diagnosis Hypogonadism in male documented in this encounter Administered Medications Inactive Administered Medications - up to 3 most recent administrations Medication Order MAR Action Action Date Dose Rate Site testosterone cypionate Given 01/11/2019 8:30 AM 200 mg Left Gluteal (DepoTESTOSTERONE CYPIONATE) EDT injection 200 mg 200 mg, Intramuscular, ONCE, 1 dose, On Fri01/11/19 at 0830, Routine documented in this encounter Care Teams Communications Professor Relationship Specialty Start Date End Date None PCP - General 11/17/18 10/10/21 None documented as of this encounter
--- OUTSIDE RECORDS SUMMARY | 2022-01-16 08:23 | XMS_ITS | Encounter Summary ---
:1990 [place] [address] Care Team Providers Name Role Phone None Primary Care Provider Unavailable Encounter Details Date Type Department Care Team Description 06/02/2019 Hospital Encounter Ultrasound at [facility] Aguilar Bustos Epididymal cyst [facility], [place] [address] [place] [address] [phone] Social History Tobacco Use Types Packs/Day Years Used Date Current Every Day Smoker 1 Smokeless Tobacco: Never Used Chew Sex Assigned at Date Recorded Not on file documented as of this encounter Medications at Time of Discharge Medication Sig Dispensed Refills Start Date End Date oxyCODONE-acetaminophe Take 1-2 tablets by 0 05/17 n (Percocet) 5-325 mg mouth Every 4 hours as Tablet needed. gabapentin (NEURONTIN) TAKE ONE CAPSULE BY 2 07/1810/24/2021 300 mg Capsule MOUTH TWICE A DAY FOR 1 WEEK THEN TAKE THREE TIMES A DAY BD LUER-KAREN SYRINGE 1 USE SYRINGE EVERY FOR 3 10/24/2021 mL 20 gauge x 1 14 DAYS TO ADMINISTER Syringe TESTOSTERONE testosterone cypionate Inject 2 mLs into the 10 mL 1 08/06/2019 (DEPO-TESTOSTERONE) muscle every 14 days. 100 mg/mL Oil Syringe, Disposable, 1 Use one syringe every 12 Syringe 3 10/24/2021 mL Syringe 14 days to administer testosterone. Must be Luer-Karen. Needle, Disp, 21 G 21 Use 1 needle every 14 13 each 1 08/06/2019 gauge x 1 Needle days to DRAW UP testosterone. Needle, Disp, 25 G 25 Use one needle every 13 each 12/1408/06/2019 gauge x 5/8 Needle 14 days to INJECT testosterone as instructed. venlafaxine TAKE ONE CAPSULE BY 1 10/15/2018 08/0 12/2019 (EFFEXOR-XR) 75 mg MOUTH EVERY DAY Capsule, Sust. Release 24 hr traMADol (ULTRAM) 50 Take 50 mg by mouth 0 01/21/2020 mg Tablet every 6 hours as needed for Pain. mirtazapine (REMERON) Take 15 mg by mouth 0 10/24/2021 15 mg Tablet nightly. documented as of this encounter Plan of Treatment Not on filedocumented as of this encounter Procedures Procedure Name Priority Date/Time Associated Diagnosis Comme nts US SCROTUM Routine 06/02/2019 2:50 PM Epididymal cyst Result s for this EST procedure are i n the results section . documented in this encounter Results US Scrotum (06/02/2019 2:50 PM EST) Anatomical Region Laterality Modality Pelvis Ultrasound Specimen (Source) Anatomical Collection Method Collection Time Re ceived Time Location / / Volume Laterality 06/02/2019 2:50 PM EST Impressions 06/02/2019 3:31 PM EST 1. ??The bilateral testicles are small and contain multiple punctate calcifications throughout, similar to a ppearance on ultrasound 07/11/2016. No intratesticular lesions identified. Spe cifically the previously seen sub-5 mm hypoechoic areas in the left testicle a re not present on today's exam. 2. ??Avascular 1.3 cm epididymal head c omplex cyst containing echogenic debris. 3. ??Bilateral varicoceles, similar to comparison. I have personally reviewed the image(s) and the resident's interpretation and agree with the findings, Laron Reyez at 06/02/2019 3:24 PM Thank you for letting us participate in the care of this patient. For questions regarding this report, please contact t he number below. Electronically signed by: Laron chand [facility] ([phone]), at 3:24 PM ?Laron Reyez, Staff Physician Electronically Signed Final Report ?? 03:31 pm Narrative 06/02/2019 3:31 PM EST Scrotal ? (Signed Final 06/02/2019 03:31 pm) PATIENT INFO: ID #: ? [id number] ?: ??[birth year] (29 yrs) Name: ? DAJUAN BAE ? Visit Date: 06/02/2019 02:50 pm PERFORMED BY: Performed By: ? Seema Almanza RDMS Attending: ?Dereje ROMAN, Hyun Peterson Resident: ? Evelina ROMAN, William Carpio Referred By: ?AGUILAR BUSTOS III Location: ? [place] SERVICE(S) PROVIDED: ??[facility] - Scrotum and Contents [place] ? [id number], [id number] ??Vascular evaluation - [id number] INDICATIONS: ??epididymal cyst COMPARISON: US scrotum, 07/11/2016 RIGHT TESTICLE: Measurement(cm ?L: ??2.3 ? AP: ??1.0 ? TV: ??1.7 ) Vol (ml): ?2.1 Vascularity: ?Normal color Doppler vascularity Comment ? Heterogeneous. ??Multiple microcalcifications. : RIGHT EPIDIDYMIS: Head: ?Normal Body: ?Normal Tail: ?Normal Vascularity: ?? Normal Comment ? Epi Head complex cyst darby suring 1.2 x .86 x 1.0 : ? cm. RIGHT OTHER: Hydrocele: ? No hydrocele seen Varicocele: ?Mild LEFT TESTICLE: Measurement(cm ?L: ??2.7 ? AP: ??1.3 ? TV: ??1.3 ) Vol (ml): ?2.4 Vascularity: ?Normal color Doppler vascularity Comment ? Heterogeneous. ??Multple microcalcifications. : LEFT EPIDIDYMIS: Head: ?Normal Body: ?Normal Tail: ?Normal Vascularity: ?? Normal LEFT OTHER: Hydrocele: ? No hydrocele seen Varicocele: ?Mild Procedure Note Laron Reyez MD - 06/02/2019Format ting of this note might be different from the original. Scrotal (Signed Final 06/02/2019 03:31 pm) PATIENT INFO: ID #: [id number] : [birth year] (29 y rs) Name: DAJUAN BAE Visit Date: 2018 02:50 pm PERFORMED BY: Performed By: Seema Almanza RDMS Attending: Laron Reyez MD Resident: Laron Hoyt MD Referred By: AGUILAR BUSTOS III Location: [facility] SERVICE(S) PROVIDED: [facility] - Scrotum and Contents with Limited [id number], [id number] Vascular evaluation - [id number] INDICATIONS: epididymal cyst COMPARISON: US scrotum, 07/11/2016 RIGHT TESTICLE: Measurement(cm L: 2.3 AP: 1.0 TV: 1.7 ) Vol (ml): 2.1 Vascularity: Normal color Doppler vascu larity Comment Heterogeneous. Multiple microca lcifications. : RIGHT EPIDIDYMIS: Head: Normal Body: Normal Tail: Normal Vascularity: Normal Comment Epi Head complex cyst measuring 1.2 x .86 x 1.0 : cm. RIGHT OTHER: Hydrocele: No hydrocele seen Varicocele: Mild LEFT TESTICLE: Measurement(cm L: 2.7 AP: 1.3 TV: 1.3 ) Vol (ml): 2.4 Vascularity: Normal color Doppler vascu larity Comment Heterogeneous. Multple microcal cifications. : LEFT EPIDIDYMIS: Head: Normal Body: Normal Tail: Normal Vascularity: Normal LEFT OTHER: Hydrocele: No hydrocele seen Varicocele: Mild IMPRESSION 1. The bilateral testicles are small an d contain multiple punctate calcifications throughout, similar to a ppearance on ultrasound 07/11/2016. No intratesticular lesions identified. Spe cifically the previously seen sub-5 mm hypoechoic areas in the left testicle a re not present on today's exam. 2. Avascular 1.3 cm epididymal head com plex cyst containing echogenic debris. 3. Bilateral varicoceles, similar to co mparison. I have personally reviewed the image(s) and the resident's interpretation and agree with the findings, Laron Reyez at 06/02/2019 3:24 PM Thank you for letting us participate in the care of this patient. For questions regarding this report, please contact t he number below. Electronically signed by: Laron chand [facility] ([phone]), at 3:24 PM Laron Reyez, Staff Physician Electronically Signed Final Report 06/02 03:31 pm MD ERICA Griffin III GEN ORDERABLES documented in this encounter Visit Diagnoses Diagnosis Epididymal cyst Other specified disorder of male genital organs documented in this encounter Care Teams Digital Marketing Consultant Relationship Specialty Start Date End Date None PCP - General 11/17/18 10/10/21 None documented as of this encounter
--- OUTSIDE RECORDS SUMMARY | 2022-01-16 08:23 | XMS_ITS | Encounter Summary ---
:1990 Author Organization [facility] [place] [address] Care Team Providers Name Role Phone Lawrence Wood Primary Care Provider Encounter Details Date Type Department Care Team Description 12/05/2021 TH Visit Endocrinology at [facility] Noe Schuster Hypogonadism in male (TeleHealth) [facility] [place] [address] [place] [address] [place] [address] Social History Tobacco Use Types Packs/Day Years Used Date Current Every Day Smoker 1 Smokeless Tobacco: Never Used Chew Sex Assigned at Date Recorded Not on file documented as of this encounter Last Filed Vital Signs Vital Sign Reading Time Taken Comments Blood Pressure 118/81 12/05/2021 9:30 AM EDT Pulse 98 12/05/2021 9:30 AM EDT Temperature 36.3 ??C (97.3 ??F) 12/05/2021 9:30 AM EDT Respiratory Rate - - Oxygen Saturation - - Inhaled Oxygen Concentration - - Weight 60.1 kg (132 lb 9.6 oz) 12/05/2021 9:30 AM EDT Height 190.5 cm (6' 3) 12/05/2021 9:30 AM EDT Body Mass Index 16.57 12/05/2021 9:30 AM EDT documented in this encounter Patient Instructions Patient InstructionsCrNoe jean MD - 12/05/2021 9:24 AM EDT Start transdermal testosterone gel: 2 pump actuations daily Get labs drawn at [facility] about 8-10 weeks later documented in this encounter Progress Notes Noe Asif MD - 12/05/2021 9:00 AM EDT Mr. José Miguel Bae is an 31 y.o. 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 Hematuria ??? Testicular pain ??? Klinefelter's syndrome Overview Note: Confirmed XXY based on karyotype analysis in December 2018, started on testosterone cypionate at that time given primary hypogonadism ??? Bilateral testicular atrophy Unfortunately, he has been intolerant to multiple attempts at IM testosterone given severe swelling. He has a young child at home and so he wishes to avoid Androgel. I prescribed him intranasal testosterone at last visit, but copay would have been $900+ and this wastoo expensive After last visit I prescribed transdermal androderm patch Interval history: In October he saw Dr Moss in hepatology for evaluation/treatment of hepatitis C. His fibroscan showed nosignificant fibrosis. He was told that he did not require active treatment for Hep C Virus given that his viral titer was not high and was declining Stuck by a nail in the right knee recently and has had a pustule on the skin in that area that has been draining. He notably has had surgery and has hardware in the right knee. He is up to date on his tetanus shot and is seeing his PCP later today for evaluation He has been under greater general stress recently because his partner left him, and he is caring fortheir 2 year old son. He has a 7 year old daughter as well. He tells me he was not able to obtain the transdermal testosterone patch after the visit because hispharmacy did not carry it and he could not find it at any area pharmacies. He is interested in trying the pump bottle/gel Current Outpatient Medications: ??? methadone (Dolophine) 10 mg/mL Concentrate, Takes 135 mg daily, Disp: , Rfl: ??? oxyCODONE-acetaminophen (Percocet) 5-325 mg Tablet, Take 1-2 tablets by mouth Every 4 hours as needed., Disp: , Rfl: ??? omeprazole (PriLOSEC) 20 mg Capsule, Delayed Release(E.C.), Take 20 mg by mouth daily., Disp: , Rfl: ??? ondansetron (Zofran) 4 mg Tablet, TAKE ONE TABLET BY MOUTH EVERY 8 HOURS NEEDED FOR NAUSEA AND VOMITING, Disp: , Rfl: ??? testosterone (AndroGeL) 20.25 mg/1.25 gram (1.62 %) Gel in Metered-dose Pump, Apply two pump actuations (40.5 mg) transdermal daily, Disp: 225 g, Rfl: 1 has a past medical history of Bilateral testicular atrophy, DJD (degenerative joint disease), and Klinefelter syndrome. Physical Exam: Patient Vitals for the past 24 hrs: Temp Pulse BP 12/05/21 0930 36.3 ??C (97.3 ??F) 98 118/81 Wt & BMI By Encounter Date Flowsheet Row Office Visit from 10/24/2021 in [place] [place] [facility] Ad[place] (Discharged) from 01/24/2020 in Same Day Program at [facility] Weight 65.3 kg (144 lb) 1 10/24/2021 1344 63.5 kg (140 lb) 1 01/24/2020 0900 BMI -- 17.5 1 01/24/2020 0900 General: pleasant, sitting comfortably, no distress Eyes: EOMI, no proptosis, no periorbital edema Head/mouth: normocephalic/atraumatic, wearing mask Neck: no supraclavicular fat pads, trachea midline Resp: breathing comfortably on room air, no audible stridor, normal respiratory effort MSK: no visible kyphosis Neuro: no tremor Skin: no visible acanthosis, no jaundice or pallor, +red pustule covered with scab on right knee with erythema surrounding, the knee joint itself is not warm/painful Psych: normal affect, alert and oriented to person/place/time Extremities: moving all 4 normally, no clubbing/cyanosis Radiology Studies: Laboratory Data: Component Latest Ref Rng & Units 10/24/2021 Glucose Lvl 65 - 199 mg/dL 109 BUN 10 - 20 mg/dL 16 Creatinine 0.80 - 1.50 mg/dL 1.01 Sodium 135 - 145 mmol/L 137 Potassium 3.5 - 5.0 mmol/L 4.5 Chloride 98 - 107 mmol/L 101 CO2 22 - 31 mmol/L 26 Anion Gap 5 - 15 mmol/L 10 Calcium 8.5 - 10.5 mg/dL 9.6 Total Protein 6.1 - 8.0 g/dL 7.5 Albumin 3.2 - 5.2 g/dL 4.5 AST 0 - 39 unit/L 30 ALT 0 - 55 unit/L 24 Alk Phos 40 - 130 unit/L 88 Total Bilirubin 0.2 - 1.3 mg/dL 0.3 Estimated GFR >=60 mL/min/1.73 m?? 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 He prefers to try to gel formulation. Discussed importance of washing his hands well and avoiding having any treated skin contact with his children. Reviewed risks of VTE/VT and prostate enlargement/cancer Discussed that he may also have recurrent edema with this formulation, we will have to monitor this closely Recheck testosterone, HCT locally 8-10 weeks after starting the medication. Time statement: I spent 35 total minutes on this visit today. The time was spent face to face with the patient, on chart review and documentation, ordering labs/studies and coordination of care Orders Placed This Encounter Procedures ??? Testosterone, total ??? Hemoglobin and Hematocrit, blood Noe Asif MD Regulatory Specialistdrafter geophysical Endocrinology Section [facility] documented in this encounter Plan of Treatment Scheduled Orders Name Type Priority Associated Diagnoses Order S chedule Testosterone, total Lab Routine Hypogonadism in male Expected: 02/04/2022 (Approximate), Expires: 08/06/2022 Hemoglobin and Hematocrit, Lab Routine Hypogonadism i n male Expected: 02/04/2022 blood (Approximate), Expires: 08/06/2022 documented as of this encounter Visit Diagnoses Diagnosis Hypogonadism in male documented in this encounter Care Teams Paper Baling Machine Operator Relationship Specialty Start Date End Date Lawrence Wood DO PCP - General Family Medicine 10/11/[address] [place] [address] documented as of this encounter
--- OUTSIDE RECORDS SUMMARY | 2022-01-16 08:23 | XMS_ITS | Encounter Summary ---
:1990 Author Organization [facility] [place] [address] Care Team Providers Name Role Phone Lawrence Wood DO Primary Care Provider Reason for Visit Consultation (Routine) - Authorized Specialty Diagnoses / Procedures Referred By Contact Refer red To Contact Gastroenterology Diagnoses Hepatitis C virus infection without hepatic coma, unspecified chronicity Lawrence Wood DO [facility] [address] [id number] [place] [phone] Phone: Fax: Referral ID Status Reason Start Expiration Visits Visits Date Date Requested Authorized [id number] Authorized Consult, 10/11/2021 10/11/2022 6 6 Test & Treat PCP Updated and/or Approved Encounter Details Date Type Department Care Team Description 10/24/2021 Office Visit Gastroenterology at [facility] Barbara Moss MD Chronic hepatitis C [facility] Melania leyva [facility] [place] [address] CENTER [phone] [place] [address] Social History Tobacco Use Types Packs/Day Years Used Date Current Every Day Smoker 1 Smokeless Tobacco: Never Used Chew Sex Assigned at Date Recorded Not on file documented as of this encounter Last Filed Vital Signs Vital Sign Reading Time Taken Comments Blood Pressure 129/82 10/24/2021 1:44 PM EDT Pulse 79 10/24/2021 1:44 PM EDT Temperature - - Respiratory Rate - - Oxygen Saturation - - Inhaled Oxygen Concentration - - Weight 65.3 kg (144 lb) 10/24/2021 1:44 PM EDT Height - - Body Mass Index 18 01/24/2020 9:00 AM EDT documented in this encounter Progress Notes Barbara Moss MD - 10/24/2021 1:30 PM EDT HEPATOLOGY CONSULTATION José Miguel Bae 1990 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 year old male being seen at the request of Dr. Wood for evaluation andtreatment of hepatitis C. 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 He has shared needles on occasion but over the last several years was not sharing them. In July of this year he presented with jaundice and liver tests in the . Total bilirubin was 4. At that time hepatitis C antibody was positive and hepatitis C viral RNA was over 2 million. I do not have follow-up liver tests after that. Soon after that illness he entered a detox program in [facility]. He has not used intravenous drugs since then. 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 He feels his current living situation is keeping him from relapsing into drugs. He is living with his 2 children ages 2 and 6. His mother is helping to care for them. His father runs a pig farm business and is also part of the team. ROS: Constitutional: no weight loss- gained weight HEENT: no visual changes, no URI symptoms Cardio: no chest pain Resp: no cough, no SOB, no RANGEL or orthopnea Hem/Lymph: no new lumps or bumps on body GI: see HPI : no dysuria Integumentary: no new rashes Musculoskeletal: no new joint pains Neuro: no new numbness, weakness in extremities PAST MEDICAL/SURGICAL HISTORY Chronic back pain MEDICATIONS Outpatient Medications Marked as Taking for the 10/24/21 encounter (Office Visit) with Barbara Moss MD Medication Sig Dispense Refill ??? BD LUER-LUIS SYRINGE 1 mL 20 gauge x 1 Syringe USE SYRINGE EVERY FOR 14 DAYS TO ADMINISTER TESTOSTERONE 3 Methadone ALLERGIES Allergies Allergen Reactions ??? Amitriptyline Pt states he snaps. ??? Clonazepam Pt states he snaps. ??? Testosterone Cypionate Severe lower extremity pain/swelling SOCIAL HISTORY Went thru 11th grade Smokes 1 ppd, started age 11 Marijuana starting age 14 Started using IV drugs cocaine, crack, meth around age 17 Methadone started age 29 Stopped IV drugs early August 2021 after detox program No alcohol currently, never very heavy Living with his two children and parents FAMILY HISTORY Grandfather had liver issues Grandmother lung cancer Mother COPD Father- generally healthy, chronic back issues Vitals: 10/24/21 1344 BP: 129/82 Pulse: 79 Weight: 65.3 kg (144 lb) PHYSICAL EXAM HEENT: Sclerae anicteric, pupils equal, round, react to light. Pharynx unremarkable. Neck is supple,no adenopathy, no thyromegaly. Chest is clear. Heart: Regular rate and rhythm. Normal S1, S2, no murmurs. Abdomen: Normal bowel sounds; soft. No obvious hepatosplenomegaly. Extremities: No edema. Fibroscan Results: Median kPa: 6.0 Mean IQR: 13% (goal is <30 %) Number of valid measurements: 10 (at least 10 required) Number of invalid measurements: 0 Predicted fibrosis stage: F0 CAP (dB/m): 221 Estimated steatosis grade:0 /3 ASSESSMENT/PLAN 31-year-old male with hepatitis C. He has potential exposure to hepatitis C over the last 10 to 15 years but only recently was found to be positive. It is unclear if he had acute hepatitis C in July or this hepatitis was something else and he has had hepatitis C chronically. FibroScan is reassuring for no significant fibrosis. I recommend treatment for hepatitis C to prevent progression to liver fibrosis and to prevent transmission of hepatitis C. Plan: -Labs today: HCV viral load, genotype, CBC, CMP, HIV screen, HAV Ab total, HBsAg, HBsAb, HBcAb total -When results return, we will submit prior authorization for direct acting antiviral therapy. Given that he is na??ve to treatment and low fibrosis we will likely use an 8-week course of Mavyret. -We will use a proposed simplified treatment algorithm by joint IDSA/AASLD recommendations. Plan to check blood work (CMP, HCV RNA) 3 months post treatment. -Hepatology follow-up TBD based on treatment course. He likely will not need additional hepatology follow-up if sustained virologic response (SVR) is achieved 12 weeks posttreatment For Prior Authorization: ??? HCV viral load (please make sure this lab is within 6 months of PA submission) 2.7 million IU/ml07/2021 ??? Treatment Na??ve ??? Genotype pending ??? Fibrosis Score F0 ??? HIV screen pending ??? HBV serologies pending Time spent with patient: 45 min Time spent reviewing records, documentin min Barbara Moss MD Hepatology and Gastroenterology [facility] GRACIELA Phan V: [phone] Copy: Lawrence Wood DO [address] / [facility] [id number] documented in this encounter Procedure Notes Barbara Moss MD - 10/24/2021 1:30 PM EDTAssociated Order(s): FIBROSCAN Procedure(s): FIBROSCAN Pre-Procedure Diagnose(s): Chronic hepatitis C without hepatic coma [facility] Liver Fibrosis Assessment Report Indication: Chronic hep C Performed by: Barbara Moss MD Procedure: Vibration Controlled Transient Elastography (VCTE) or Fibroscan Richardson Protocol: Patient's identity, procedure and site were verified, confirmatory pause performed. Discussed procedure including risks and potential complications. Questions answered. Patient verbalizes understanding and wishes to proceed with Fibroscan assessment. Patient was placed in the supine position with right arm in maximum abduction to allow optimal exposure of right lateral abdomen. Patient was briefly assessed. Testing was performed in the mid-axillarylocation. 50Hz Shear Wave pulses were applied and the resulting Shear Wave and Propagation Speed wasdetected with a 3.5MHz ultrasonic signal, using the Fibroscan probe. Skin to liver capsule distance and liver parenchyma were accessed during the entire examination with the Fibroscan probe. Patient was instructed to breathe normally and abstain from sudden movements during the procedure. At least tenSheer Waves were produced; individual measurements of each Shear Wave were calculated. Patient tolerated the procedure well with no complications. Fibroscan Results: Median kPa: 6.0 Mean IQR: 13% (goal is <30 %) Number of valid measurements: 10 (at least 10 required) Number of invalid measurements: 0 Predicted fibrosis stage: F0 CAP (dB/m): 221 Estimated steatosis grade:0 /3 CAP (dB/m): Estimated steatosis grade: /3 % hepatocytes affected: > % Interpretation: Based on this Fibroscan result, history, clinical examination and review of laboratory and radiological data, this patient likely has stage 0 liver fibrosis. documented in this encounter Miscellaneous Notes Addendum Note - Naseem Lee - 10/24/2021 1:30 PM EDT Addended by: NASEEM LEE on: 10/24/2021 02:50 PM Modules accepted: Orders documented in this encounter Plan of Treatment Not on filedocumented as of this encounter Procedures Procedure Name Priority Date/Time Associated Comments Diagnosis HEMOGRAM Routine 10/24/2021 3:01 PM Chronic hepatitis Resu lts for this EDT C without hepatic procedure are in coma the results section. DIFFERENTIAL, AUTOMATED Routine 10/24/2021 3:01 PM Chronic hep atitis Results for this EDT C without hepatic procedure are in coma the results section. HC HEPATITIS A, TOTAL Routine 10/24/2021 3:01 PM Chronic hepat itis Results for this EDT C without hepatic procedure are in coma the results section. HC HEPATITIS B CORE AB Routine 10/24/2021 3:01 PM Chronic hepa titis Results for this EDT C without hepatic procedure are in coma the results section. HC HCV QUANTIFICATION Routine 10/24/2021 3:01 PM Chronic hepat itis Results for this EDT C without hepatic procedure are in coma the results section. HC HIV SCREEN, 4TH Routine 10/24/2021 3:01 PM Chronic hepatiti s Results for this GENERATION EDT C without hepatic procedure are in coma the results section. HC HEPATITIS B SURFACE Routine 10/24/2021 3:01 PM Chronic hepa titis Results for this AB EDT C without hepatic procedure are in coma the results section. HC HEPATITIS B SURFACE Routine 10/24/2021 3:01 PM Chronic hepa titis Results for this AG EDT C without hepatic procedure are in coma the results section. HC CBC,PLT & AUTO DIFF Routine 10/24/2021 3:01 PM Chronic hepa titis EDT C without hepatic coma COMPREHENSIVE METABOLIC Routine 10/24/2021 3:01 PM Chronic hep atitis Results for this PANEL (NON-FASTING) EDT C without hepatic pro cedure are in coma the results section. [id number] Routine 10/24/2021 1:30 PM Chronic hepatitis Resu lts for this EDT C without hepatic procedure are in coma the results section. documented in this encounter Results (ABNORMAL) Differential, Automated (10/24/2021 3:01 PM EDT) [facility] Method Time Signature Neutrophils % 35.9 % [facility] LAB[facility] Neutr Abs (ANC) 2.60 1.70 - [facility] 6.10 [facility] x10(3)/[facility] LABORATORY Lymphocytes % 54.5 % [facility] Lymphocytes Abs 3.9 (H) 0.9 - 3.2 [facility] x10(3)/[facility] LABORATORY Monocytes % 7.5 % [facility] Monocyte Abs 0.5 0.3 - 0.9 [facility] x10(3)/[facility] LABORATORY Eosinophils % 1.4 % [facility] Eosinophils Abs 0.1 0.0 - 0.4 [facility] x10(3)/[facility] LABORATORY Basophils % 0.4 % [facility] Basophils Abs 0.0 0.0 - 0.1 [facility] x10(3)/[facility] LABORATORY Immature Gran % 0.30 % [facility] Comment: Immature granulocytes(IG's)percentage an d absolute count will include metamyelocytes, myelocytes, and promyelo cytes. Blood smears from CBCs yielding IG's will be scanned manually for concor dance. If this scan disagrees with the automated IG or if promyelocytes are not ed, a manual differential will be performed. Ambar Gran Abs 0.02 0.00 - 0.04 x10(3)/[facility] LABORATORY Specimen Anatomical Collection Method Collection Time Receive d Time (Source) Location / / Volume Laterality Blood 10/24/2021 3:01 PM 2 3:10 EDT PM EDT Resulting Agency Comment Spec In Lab Barbara Moss MD HEMATOLOGY ORDERABLES Performing Organization Address City/State/[place] [address] (ABNORMAL) Hemogram (10/24/2021 3:01 PM EDT) Analysis Performed At Patho logist Time Signature WBC 7.2 4.0 - 9.5 [facility] x10(3)/[facility] LABORATORY RBC 4.90 4.58 - [facility] 5.54 [facility] x10(6)/[facility] LABORATORY Hemoglobin 14.1 13.7 - [facility] 16.5 g/dL [facility] LABORATORY Hematocrit 41.6 40.5 - [facility] 48.5 % [facility] LABORATORY MCV 84.9 82.9 - [facility] 93.1 [facility] LABORATORY MCH 28.8 27.5 - [facility] 32.1 pg [facility] LABORATORY MCHC 33.9 32.0 - [facility] 35.7 g/dL [facility] Platelets 236 145 - 357 [facility] LABORATORY RDWSD 43.8 36.0 - [facility] 45.0 [facility] LABORATORY RDWCV 14.0 (H) 11.4 - [facility] 13.8 % [facility] LABORATORY MPV 9.1 7.6 - 12.9 [facility] nRBC % Auto 0.0 % [facility] LABORATORY nRBC Abs Auto 0.000 0.000 - [facility] 0.000 [facility] x10(3)/[facility] LABORATORY Specimen Anatomical Collection Method Collection Time Receive d Time (Source) Location / / Volume Laterality Blood 10/24/2021 3:01 PM 2 3:10 EDT PM EDT Resulting Agency Comment Spec In Lab Barbara Moss MD HEMATOLOGY ORDERABLES Performing Organization Address City/State/[place] [address] (ABNORMAL) Hepatitis A Antibody, Total (10/24/2021 3:01 PM EDT) Patholo gist Method Time Signature Hepatitis A Positive (A) Negative [facility] Total [facility] LABORATORY Specimen Anatomical Collection Method Collection Time Receive d Time (Source) Location / / Volume Laterality Blood 10/24/2021 3:01 PM 2 3:10 EDT PM EDT Resulting Agency Comment Spec In Lab Barbara Moss MD IMMUNOLOGY ORDERABLES Performing Organization Address City/[facility]/[place] [address] Hepatitis B Surface Antibody (10/24/2021 3:01 PM EDT) P athologist Signature HepB Surface 153.0 IU/L [facility] Quant [facility] Comment: HepB Surface Ab Quant: Unvaccinated: < 8.5 IU/L Vaccinated: > 11.5 IU/L HepB Surface Ab Positive [facility] LAB[facility] Comment: Patient is considered to be immune to HB V infection. Expected Results: Vaccinated: Positive Unvaccinated: Negative Specimen Anatomical Collection Method Collection Time Receive d Time (Source) Location / / Volume Laterality Blood 10/24/2021 3:01 PM 2 3:10 EDT PM EDT Resulting Agency Comment Spec In Lab Barbara Moss MD IMMUNOLOGY ORDERABLES Performing Organization Address City/[facility]/ZIP Code Phon e Number [address] HIV Screen, 4th Generation ([facility]/CGP/APD/NLH) (10/24/2021 3:01 PM EDT) Analysis Performed At Patho logist Time Signature HIV-1/2 Ab and Negative Negative [facility] LABORATORY Comment: This 4th Generation HIV test screens for the presence of the HIV-1 p24 antigen as well as antibodies reactive against H IV-1 and HIV-2. A negative screen does not rule out an acute HIV infection. If acute HIV infection is suspected, testing should be repeated in 2 - 3 week s or HIV nucleic acid testing performed. HIV Comment Low Risk of HIV Infection [facility] LABORATORY Specimen Anatomical Collection Method Collection Time Receive d Time (Source) Location / / Volume Laterality Blood 10/24/2021 3:01 PM 2 3:10 EDT PM EDT Resulting Agency Comment Spec In Lab Barbara Moss MD IMMUNOLOGY ORDERABLES Performing Organization Address City/[facility]/ZIP Code Phon e Number [address] Hepatitis B Core Antibody, Total (10/24/2021 3:01 PM EDT) Analysis Performed At Patho logist Time Signature Hep B Core Ab Negative Negative [facility] LABOR[facility]ORY Specimen Anatomical Collection Method Collection Time Receive d Time (Source) Location / / Volume Laterality Blood 10/24/2021 3:01 PM 2 3:10 EDT PM EDT Resulting Agency Comment Spec In Lab Barbara Moss MD CHEMISTRY ORDERABLES Performing Organization Address City/[facility]/ZIP [place] [address] Hepatitis B Surface Antigen (10/24/2021 3:01 PM EDT) Analysis Performed At Patho logist Time Signature HepB Surface Negative Negative [facility] LABORATORY Specimen Anatomical Collection Method Collection Time Receive d Time (Source) Location / / Volume Laterality Blood 10/24/2021 3:01 PM 2 3:10 EDT PM EDT Resulting Agency Comment Spec In Lab Barbara Moss MD CHEMISTRY ORDERABLES Performing Organization Address City/[facility] [address] Comprehensive metabolic panel (non-fasting) (10/24/2021 3:01 PM EDT) P athologist Signature Glucose Lvl 109 65 - 199 [facility] mg/dL [facility] LABORATORY Comment: Diabetes: >=200 mg/dL plus symp toms BUN 16 10 - 20 mg/dL [facility] LABOR[facility]ORY Creatinine 1.01 0.80 - 1.50 mg/dL [facility] LABORATORY Sodium 137 135 - 145 mmol/L [facility] LABOR[facility]ORY Potassium 4.5 3.5 - 5.0 mmol/L [facility] Comment: Please note: ??Patients with WBC >100,00 0 may have falsely elevated Potassium levels. ??For accurate Potassium quantif ication in these patients send serum separator tube (gold top) for subsequent determinations. ??Contact the Clinical Chemistry Laboratory if there are any qu estions. Chloride 101 98 - 107 mmol/L [facility] CO2 26 22 - 31 mmol/L [facility] Anion Gap 10 5 - 15 mmol/L [facility] Calcium 9.6 8.5 - 10.5 mg/dL [facility] Total Protein 7.5 6.1 - 8.0 g/dL [facility] Albumin 4.5 3.2 - 5.2 g/dL [facility] AST 30 0 - 39 unit/L [facility] ALT 24 0 - 55 unit/L [facility] Alk Phos 88 40 - 130 unit/L [facility] Total Bilirubin 0.3 0.2 - 1.3 mg/dL [facility] LAB[facility] Estimated GFR 99 >=60 mL/min/1.73 m?? [facility] Comment: This patient? s estimated glomerular filtration rate (eGFR) is between 99 mL/min/1.73 m2 (patients with less muscl e mass per kg body weight) and 115 mL/min/1.73 m2 (patients with more muscl e mass per kg body weight) as determined by the CKD-EPI equation. Asse ssment of eGFR is not appropriate when creatinine concentrations are rapidly ch anging. For clinical decisions where creatinine clearance will affect therapy , a 24-hour urine creatinine clearance may be advised. Assignment of CKD stage 1 - 5 for patien ts with an eGFR near the transition point between stages may be based on cli nical assessment of muscle mass and symptoms in addition to eGFR. Specimen Anatomical Collection Method Collection Time Receive d Time (Source) Location / / Volume Laterality Blood 10/24/2021 3:01 PM 2 3:10 EDT PM EDT Resulting Agency Comment Spec In Lab Barbara Moss MD CHEMISTRY ORDERABLES Performing Organization Address City/State/ZIP Code Phon e Number [address] Hepatitis C RNA, quantitative, PCR (10/24/2021 3:01 PM EDT) Component Value Ref Test Analysis Performed At [facility] Range Method Time Signature HCV Viral <12 IU/mL [facility] LABORATORY HCV Viral Result: <12 IU/mL (But Detected) [facility] Indication for Study: Hepatitis C Infection [facility] Analysis: The [employer] m HCV assay is an i n vitro reverse transcriptase LABORATORY polymerase chain reaction (RT-PCR)for the quanti fication of hepatitis C viral (HCV) RNA in human serum or plasma (EDTA) from HCV-infected indivi duals. Sample: plasma/serum Method: [employer] m HCV Assay Linear Range: 12 IU/mL - 100,000,000IU/mL Note: The [employer] HCV Assay has b een approved by the U.S. Food and Drug Administration. Comment: [VERIFIED DATE]10.26.21 Verified By:Belle [place]ix (Electronic Signature) Specimen Anatomical Collection Method Collection Time Receive d Time (Source) Location / / Volume Laterality Blood 10/24/2021 3:01 PM 9:13 EDT AM EDT Resulting Agency Comment Spec In Lab Barbara Moss MD IMMUNOLOGY ORDERABLES Performing Organization Address City/[facility]/Z[place] [address] [id number] (10/24/2021 1:30 PM EDT) Narrative Barbara Moss MD - 10/24/2021 1:30 PM EDT Barbara Moss MD ? 10/24/2021 ??2:42 PM [facility] Liver Fibrosis Asses sment Report Indication: ??Chronic hep C Performed by: ??Barbara Moss MD Procedure: Vibration Controlled Transien t Elastography (VCTE) or Fibroscan Richardson Protocol: Patient's identity, procedure and site were verified, confirmatory pause performed. Discussed procedure including risks and potential complicati ons. Questions answered. Patient verbalizes understanding and wis hes to proceed with Fibroscan assessment. Patient was placed in the supine positio n with right arm in maximum abduction to allow optimal expos ure of right lateral abdomen. Patient was briefly assessed. T esting was performed in the mid-axillary location. 50Hz Shear Wa ve pulses were applied and the resulting Shear Wave and Propaga tion Speed was detected with a 3.5MHz ultrasonic signal, using t he Fibroscan probe. Skin to liver capsule distance and liver pare nchyma were accessed during the entire examination with the F ibroscan probe. Patient was instructed to breathe normally and a bstain from sudden movements during the procedure. At least ten Sheer Waves were produced; individual measurements of eac h Shear Wave were calculated. Patient tolerated the proced ure well with no complications. Fibroscan Results: Median kPa: 6.0 Mean IQR: 13% (goal is <30 %) Number of valid measurements: 10 ??(at l east 10 required) Number of invalid measurements: 0 Predicted fibrosis stage: F0 CAP (dB/m): 221 Estimated steatosis grade:0 /3 CAP (dB/m): Estimated steatosis grade: /3 % hepatocytes affected: > ??% Interpretation: Based on this Fibroscan result, history, clinical examination and review of laboratory and radiological da ta, this patient likely has stage 0 liver fibrosis. Barbara Moss MD PROCEDURE/MINOR SURGICAL ORD ERABLES documented in this encounter Visit Diagnoses Diagnosis Chronic hepatitis C without hepatic coma documented in this encounter Care Teams Mill Washer Relationship Specialty Start Date End Date Lawrence Wood DO PCP - General Family Medicine 10/11/[address] [place] [address] documented as of this encounter
--- OUTSIDE RECORDS SUMMARY | 2022-01-16 08:23 | XMS_ITS | Encounter Summary ---
:1990 Author Organization [facility] Address [address] [place] [address] Care Team Providers Name Role Phone Indu Stacy MD Primary Care Provider Unavailable Encounter Details Date Type Department Care Team Description 12/15/2017 Hospital Encounter [facility] Unknown, Provider, [facility] [address] [phone] [place] [address] (Work) [phone] Social History Tobacco Use Types Packs/Day Years [...] Discharge Disposition Disposition Code Departure Means Destination Home or Self Custodial documented in this encounter Plan of Treatment Not on filedocumented as of this encounter Visit Diagnoses Not on filedocumented in this encounter Care Teams Critical Care Cns Relationship Specialty Start Date End Date Indu Stacy MD PCP - General 04/20/15 06/28/21 [id number] [place] [address] documented as of this encounter
--- OUTSIDE RECORDS SUMMARY | 2022-01-16 08:23 | XMS_ITS | Encounter Summary ---
:1990 Author Organization [facility] [place] [address] Care Team Providers Name Role Phone None Primary Care Provider Unavailable Encounter Details Date Type Department Care Team Description 10/29/2019 TH Visit Endocrinology at [facility] Noe Schuster Hypogonadism in male (TeleHealth) [facility] [place] [address] [address] [phone] [place] [address] Social History Tobacco Use Types Packs/Day Years Used Date Current Every Day Smoker 1 Smokeless Tobacco: Never Used Chew Sex Assigned at Date Recorded Not on file documented as of this encounter Progress Notes Noe Asif MD - 10/29/2019 2:30 PM EDT Mr. José Miguel Bae is an 29 y.o. male who presents for ongoing care [...] given primary hypogonadism ??? Bilateral testicular atrophy Interval history: I last saw the patient in Jul 2019. Unfortunately, he has been intolerant to multiple attempts at IMtestosterone given severe swelling. He has a young baby at home and so he wishes to avoid Androgel. I prescribed him intranasal testosterone at last visit, but copay would have been $900+ and this wastoo expensive He is interested in the transdermal patch which should not pose a hazard to his child. 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 testosterone (Androderm) 4 mg/24 hr Patch 24 hr, Change 1 patch on the skin daily., Disp: 90 patch, Rfl: 1 ??? gabapentin (NEURONTIN) 300 mg Capsule, TAKE ONE CAPSULE BY MOUTH TWICE A DAY FOR 1 WEEK THEN TAKE THREE TIMES A DAY, Disp: , Rfl: 2 ??? BD LUER-KAREN SYRINGE 1 mL 20 gauge x 1 Syringe, USE SYRINGE EVERY FOR 14 DAYS TO ADMINISTER TESTOSTERONE, Disp: , Rfl: 3 ??? Syringe, Disposable, 1 mL Syringe, Use one syringe every 14 days to administer testosterone. Must be Luer-Karen., Disp: 12 Syringe, Rfl: 3 ??? venlafaxine (EFFEXOR-XR) 75 mg Capsule, Sust. Release 24 hr, TAKE ONE CAPSULE BY MOUTH EVERY DAY, Disp: , Rfl: 1 ??? traMADol (ULTRAM) 50 mg Tablet, Take 50 mg by mouth every 6 hours as needed for Pain., Disp: , Rfl: ??? mirtazapine (REMERON) 15 mg Tablet, Take 15 mg by mouth nightly., Disp: , Rfl: has a past medical history of Bilateral testicular atrophy, DJD (degenerative joint disease), and Klinefelter syndrome. Physical Exam: No data found. 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 Advised him to review website for specific info about where to place it. Plan will be to get testosterone and Hct level checked 8 weeks after starting. I faxed labs to [facility] lab Time statement: I spent 11 minutes on the phone with the patient discussing the issues above plus anadditional 5 minutes on chart review and documentation for a total of 16 minutes associated with this visit Followup 6 months. Patient prefers in person visit Noe Asif MD Dealer Relationship Managertobacco feeder catcher Endocrinology Section [facility] documented in this encounter Plan of Treatment Not on filedocumented as of this encounter Visit Diagnoses Diagnosis Hypogonadism in male documented in this encounter Care Teams Stroke Belt Sander Operator Relationship Specialty Start Date End Date None PCP - General 11/17/18 10/10/21 None documented as of this encounter
--- OUTSIDE RECORDS SUMMARY | 2022-01-16 08:23 | XMS_ITS | Encounter Summary ---
:1990 Author Organization [facility] Address [address] [place] [address] Care Team Providers Name Role Phone None Primary Care Provider Unavailable Encounter Details Date Type Department Care Team Description 01/10/2020 Orders Only Urology at [facility] Veena Logan Pain in testicle, [facility], [place] [address] Social History Tobacco Use Types Packs/Day Years Used Date Current Every Day Smoker 1 Smokeless Tobacco: Never Used Chew Sex Assigned at Date Recorded Not on file documented as of this encounter Plan of Treatment Not on filedocumented as of this encounter Visit Diagnoses Diagnosis Pain in testicle, unspecified laterality documented in this encounter Care Teams Controller Operations And Hr Manager Relationship Specialty Start Date End Date None PCP - General 11/17/18 10/10/21 None documented as of this encounter
--- OUTSIDE RECORDS SUMMARY | 2022-01-16 08:23 | XMS_ITS | Encounter Summary ---
:1990 Author Organization [facility] [place] [address] Care Team Providers Name Role Phone None Primary Care Provider Unavailable Encounter Details Date Type Department Care Team Description 11/17/2018 Laboratory Appointment Lab [facility] [place] [id number] Social History Tobacco Use Types Packs/Day Years Used Date Current Every Day Smoker 1 Smokeless Tobacco: Never Used Chew Sex Assigned at Date Recorded Not on file documented as of this encounter Plan of Treatment Not on filedocumented as of this encounter Procedures Procedure Name Priority Date/Time Associated Diagnosis Comme nts TESTOSTERONE, TOTAL Routine 11/17/2018 8:04 AM Klinefeer syn drome Results for this EDT procedure are i n the results section. documented in this encounter Results (ABNORMAL) Testosterone, total (11/17/2018 8:04 AM EDT) athologist Signature Testo Total 1.82 (L) 2.49 - CUCO CASH 8.36 ng/mL [facility] Comment: Pediatric Reference Ranges: ? Males (7 - 18 years) ?Females (8 - 18 years) Cesar Stage ?ng/m l ? ng/ml ? 1 ? <0.0 3 ? <0.03 to 0.06 ? 2 ? <0.0 3 to 4.32 ? <0.03 to 0.10 ? 3 ?0. 65 to 7.78 ? <0.03 to 0.24 ? 4 ?1. 80 to 7.63 ? <0.03 to 0.27 ? 5 ?1. 88 to 8.82 ?0.05 to 0.38 Stated reference ranges derived from rev iew of Scott Pollo Testosterone II 02/2016, v6.0 Specimen Anatomical Collection Method Collection Time Receive d Time (Source) Location / / Volume Laterality Blood specimen 11/17/2018 8:04 AM 019 8:16 (specimen) EDT AM EDT Resulting Agency Comment Spec In Lab Noe Asif MD CHEMISTRY ORDERABLES Performing Organization Address City/State/[place] [address] documented in this encounter Visit Diagnoses Diagnosis Klinefelter syndrome Klinefelter's syndrome documented in this encounter Care Teams Tubing Oiler Relationship Specialty Start Date End Date None PCP - General 11/17/18 10/10/21 None documented as of this encounter
--- OUTSIDE RECORDS SUMMARY | 2022-01-16 08:23 | XMS_ITS | Encounter Summary ---
:1990 [place] [address] Care Team Providers Name Role Phone None Primary Care Provider Unavailable Reason for Visit Auth/Cert Specialty Diagnoses / Procedures Referred By Contact Refer red To Contact Diagnoses Orchalgia Procedures PRO REMOVAL TESTIS, SIMPLE ORCHIECTOMY, SIMPLE, W\WO PROSTHESIS; SIMPLE (WRVU 5.3) Referral ID Status Reason Start Date Expiration Date Visits Requ ested Visits Authorized [id number] 1 1 Encounter Details Date Type Department Care Team Description 01/24/2020 Surgery Main Operating Room Aguilar Bustos III, ORCHIECTOMY, SIMPLE, Kathy Lin MD W\WO PROSTHESIS; [facility] [place] [address] [place] [address] [phone] Social History Tobacco Use Types Packs/Day Years Used Date Current Every Day Smoker 1 Smokeless Tobacco: Never Used Chew Sex Assigned at Date Recorded Not on file documented as of this encounter Last Filed Vital Signs Vital Sign Reading Time Taken Comments Blood Pressure 115/80 01/24/2020 11:45 AM EDT Pulse 70 01/24/2020 10:44 AM EDT Temperature 36 ??C (96.8 ??F) 01/24/2020 10:44 AM EDT Respiratory Rate 18 01/24/2020 11:45 AM EDT Oxygen Saturation 99% 01/24/2020 11:45 AM EDT Inhaled Oxygen Concentration - - Weight 63.5 kg (140 lb) 01/24/2020 9:00 AM EDT Height 190.5 cm (6' 3) 01/24/2020 9:00 AM EDT Body Mass Index 17.5 01/24/2020 9:00 AM EDT documented in this encounter Discharge Instructions Discharge InstructionsTim Lucas RN - 01/24/2020 12:15 PM EDT POST ANESTHESIA INSTRUCTIONS Go home, rest, use caution on stairs. Change positions slowly. Do not smoke if you are alone. Diet light to regular as tolerated today. If nausea occurs start with clear liquids and progress slowly. No driving, operating machinery, alcoholic beverages and no important decisions for 24 hours. Monitor IV site for signs and symptoms of infection: increasing redness, swelling, foul drainage, ifoccurs contact M.D. Patients who have had endotrachial tubes (this tube, used by anesthesia department, is passed down your throat after you are asleep, to ensure safe air passage during your operation). A sore throat is normal due to the tube. Cold liquids or soothing lozenges will help ease the discomfort. The generalized muscle aches are due to the medication given to you just before the tube is inserted. As the medication wears off, you may develop muscle soreness, which usually goes away in 12-24 hours. Patient InstructionsHung Marcelo MD - 01/24/2020 10:52 AM EDT DISCHARGE INSTRUCTIONS CALL YOUR PHYSICIAN IF: ?? You have a fever greater than 101 degrees F within one month of your surgery. ?? You have diarrhea or vomiting for more than 24 hours, or stop having bowel movements or passing gas. ?? You have worsening pain, not controlled with your pain medication. ?? You develop redness, swelling, or new drainage from your wound. ?? You have difficulty passing your urine or starting a stream. ?? You have any other acute change in your health status. MEDICATIONS Please use tylenol 1000mg every 6 hr and ibuprofen (Advil) 600mg every 6 hr for pain control. DRIVING RESTRICTIONS Do not operate a vehicle if you are too sore from surgery to enter or exit your vehicle comfortably,or if you are too sore to easily check your blind spot. No driving while using prescription pain medications. ACTIVITIES No heavy lifting. You may lift what is comfortable to lift with one arm. Nothing greater than 10 pounds (e.g., a full gallon jug) until re-evaluated by your physician. Discuss return to work or school with your physician. Take several slow, short walks each day for the first two weeks, and gradually increase your distance. Exercise will assist in your recovery. DIET Eat a well-balanced diet. Fresh fruits, vegetables and fiber-containing foods are recommended. This will assist in wound healing. WOUND CARE You may cover the wounds with sterile gauze as needed to prevent drainage or contact with the incision. Wear tight-fitting underwear for at least two weeks. You may apply cold compresses (ice pack or sac of frozen vegetables) to your scrotum for 48 hours to reduce the swelling. You should expect that your scrotum will swell initially and then get smaller over the next 2-4 weeks. This is normal. You can shower as usual and wash the incision area gently. Pat the incision dry with a clean, dry towel. Do not soak the wound (avoid spas, pools, and bathtubs) until it is fully healed. Do not use creams, oils, or ointments on the wound. Keep the wound open to air if it is not draining. Do not removesutures. These will dissolve. COMFORT Some incision soreness can be expected. Take your pain medication as needed and prescribed. Slowly decrease your use of pain medication as pain lessens. If your scrotum is swollen, you may wear a scrotal support. When resting, you may elevate your scrotum on a towel roll. CONTACT INFORMATION To contact your provider or change your appointment, please call the Urology clinic at during business hours or during off-hours. FOLLOW-UP APPOINTMENT You will have a follow-up appointment in approximately 4 weeks; the date and time will be confirmed with you. If you do not receive this confirmation in 5-7 days, please call the clinic to confirm. documented in this encounter Medications at Time of Discharge Medication Sig Dispensed Refills Start Date End Date oxyCODONE-acetaminophe Take 1-2 tablets by 0 05/17 n (Percocet) 5-325 mg mouth Every 4 hours as Tablet needed. testosterone Change 1 patch on the 90 patch 1 10/26/2019 0 10/24/2021 (Androderm) 4 mg/24 hr skin daily. Patch 24 hr gabapentin (NEURONTIN) TAKE ONE CAPSULE BY 2 07/1810/24/2021 300 mg Capsule MOUTH TWICE A DAY FOR 1 WEEK THEN TAKE THREE TIMES A DAY BD LUER-KAREN SYRINGE 1 USE SYRINGE EVERY FOR 3 10/24/2021 mL 20 gauge x 1 14 DAYS TO ADMINISTER Syringe TESTOSTERONE Syringe, Disposable, 1 Use one syringe every 12 Syringe 3 10/24/2021 mL Syringe 14 days to administer testosterone. Must be Luer-Karen. mirtazapine (REMERON) Take 15 mg by mouth 0 10/24/2021 15 mg Tablet nightly. documented as of this encounter H&P Notes Hung Marcelo MD - 01/24/2020 9:24 AM EDT Urology H&P ID: José Miguel Bae is a 29 y.o. male with a history of klinefelter syndrome, bilateral testis atrophy, chronic right testicular pain who is here for RIGHT orchiectomy. No changes in health since his last clinic visit. Today no recent fever, chills, nausea, vomit, chest pain, SOB, dysuria Anticoagulation:none Past Medical History: Diagnosis Date ??? Bilateral testicular atrophy ??? DJD (degenerative joint disease) ??? Klinefelter syndrome Past Surgical History: Procedure Laterality Date ??? INGUINAL HERNIA REPAIR Patient Vitals for the past 24 hrs: BP Temp Temp src Pulse Resp SpO2 Height Weight 01/24/20 0900 104/64 36.9 ??C (98.4 ??F) Temporal 62 16 100 % 190.5 cm (6' 3) 63.5 kg (140 lb) NAD, A&O Regular rate, normal S1, S2, no murmurs, rubs, gallops Unlabored, clear to auscultation bilateral Soft, NTND Well perfused extremities A/P: José Miguel Bae is a 29 y.o. male who presents for the reasons listed above. Procedure and risks have been explained to the patient and all questions were answered. Informed consent has been obtained. Pt is ready for the OR. Ancef building consultant to OR Hung Marcelo MD documented in this encounter Miscellaneous Notes Op Note - Aguilar Bustos III, MD - 01/24/2020 11:20 AM EDT Operative Note Patient Name: José Miguel Bae : [id number] MR#: [id number] Case Date: 01/24/2020 Surgeon: Surgeon(s) and Role: * Aguilar Bustos III, MD - Primary * Hung Marcelo MD - Resident Preoperative diagnosis: Orchalgia Postoperative diagnosis: Orchalgia Procedure(s): ORCHIECTOMY, SIMPLE, W\WO PROSTHESIS; SIMPLE (WRVU 5.3) Anesthesia: General Findings: Right testis atrophic with associated epididymal cyst. Right simple orchiectomy completed through scrotal incision completed with high ligation of cord structures at right external ring. Complications: None Estimated Blood Loss: 1ml Specimens removed during surgery: Order Name Source Comment Collection Info Order Time SPECIMEN TO PATHOLOGY right testicle Orchalgia right testicle biopsy No 01/24/2020 10:13 AM Time specimen removed from patient: 10:12 AM Number of tissue samples (in container) 1 Biospecimen to store? No Fluids: Intraprocedure Crystalloid Total Intake lactated ringers infusion 1000.00 mL Total Intake 1000 mL Fluids: ANES IntraOp Crystalloid (Filter: (AN Fluids) Medications Shown) Medication Calculated Total No medications were administered. Blood: none Urine Output: (no urine output recorded) Drains: none Disposition: awakened from anesthesia, extubated and taken to the recovery room in a stable condition, having suffered no apparent untoward event. Condition: doing well without problems (Please see the Surgical Encounter Summary for any Implant and Specimen details pertinent to this patient.) Infection Bundle used? No Indication: history of klinefelter syndrome, bilateral testis atrophy, chronic right testicular painwho is here for RIGHT orchiectomy Procedure: The patient was identified in the pre-operative holding area. Consent was verified. The patient was taken to the operating room and placed supine on the operating table. Anesthesia was induced. The patient was prepped and draped in the usual sterile fashion. A timeout was performed involving all members of the OR team confirming the patient's identity and planned procedure. Preoperative antibiotics were administered. A solution of bupivacaine 0.50% was injected subcutaneously along the midline raphe of the scrotum. A midline incision was made using the scalpel. The incision was continued through the Dartos fascia and tunica vaginalis over the right testicle using the Bovie. The testicle was introduced into the wound. The testis appeared to be atrophic with associated right epididymal cysts. Cremasteric attachments were taken down to mobilize the cord toward the external inguinal ring. Two right-angle clamps wereplaced across the cord that had been into 2 packets, and the cord was amputated. Each cordstump packet was ligated with a 2-0 silk suture was wrapped and tied at the proximal cord, and an additional 2-0 silk tie was placed. The testis and attached cord were passed off as a specimen. Attention was then turned to the contralateral side. The procedure was repeated as above. The cord was identified, isolated, and mobilized. The cord was clamped and divided with scissors. The cord stumps were ligated using 2-0 silk suture, and a second transfixion suture was placed. The atrophic testis was passed off as a specimen. The scrotal wound was inspected for bleeding. A few spot areas were fulgurated with the bovie to achieve hemostasis. The wound was then irrigated copiously with normal saline. The Dartos fascia was reapproximated with a 3-0 vicryl suture in a running fashion. The skin was then closed with a 4-0 Monocryl running, vertical mattress suture. Dermabond glue was used on the skin and allowed to dry. Fluff gauze and mesh underwear was applied. The patient tolerated the procedure well and was awakened from anesthesia with no adverse events. A sponge and instrument count was performed and the counts were correct. The patient was taken to the recovery area in stable condition. Dr. Bustos, the attending surgeon, was present for the entire procedure. ANES IntraOp Crystalloid (Filter: (AN Fluids) Medications Shown) Medication Calculated Total No medications were administered. I was the attending physician supervising the resident in the above care and was present and scrubbed for the entire surgical procedure. Brief Op Note - Aguilar Bustos III, MD - 01/24/2020 10:48 AM EDT Brief Operative Note Patient Name: José Miguel Bae : [id number] MR#: [id number] Case Date: 01/24/2020 Surgeon: Surgeon(s) and Role: * Aguilar Bustos III, MD - Primary * Hung Marcelo MD - Resident Preoperative diagnosis: Orchalgia Postoperative diagnosis: Orchalgia Procedure(s): ORCHIECTOMY, SIMPLE, W\WO PROSTHESIS; SIMPLE (WRVU 5.3) Anesthesia: General Findings: Right testis atrophic with associated epididymal cyst. Right simple orchiectomy completed through scrotal incision completed with high ligation of cord structures at right external ring. Complications: None Estimated Blood Loss: 1ml Specimens removed during surgery: Order Name Source Comment Collection Info Order Time SPECIMEN TO PATHOLOGY right testicle Orchalgia right testicle biopsy No 01/24/2020 10:13 AM Time specimen removed from patient: 10:12 AM Number of tissue samples (in container) 1 Biospecimen to store? No Fluids: Intraprocedure Crystalloid Total None Fluids: ANES IntraOp Crystalloid (Filter: (AN Fluids) Medications Shown) Medication Calculated Total No medications were administered. Blood: none Urine Output: (no urine output recorded) Drains: none Disposition: awakened from anesthesia, extubated and taken to the recovery room in a stable condition, having suffered no apparent untoward event. Condition: doing well without problems (Please see the Surgical Encounter Summary for any Implant and Specimen details pertinent to this patient.) Infection Bundle used? No ANES IntraOp Crystalloid (Filter: (AN Fluids) Medications Shown) Medication Calculated Total No medications were administered. I was present and scrubbed for the entire surgical procedure. documented in this encounter Plan of Treatment Not on filedocumented as of this encounter Procedures Procedure Name Priority Date/Time Associated Diagnosis Comme nts SPECIMEN TO Routine 01/24/2020 10:13 AM Results for this PATHOLOGY EDT procedure are i n the results section. SURGICAL PATHOLOGY Routine 01/24/2020 10:12 AM Re sults for this REPORT EDT procedure are i n the results section. ORCHIECTOMY, Yes 01/24/2020 9:30 AM Pain in right SIMPLE, W\WO EDT testicle PROSTHESIS; SIMPLE (WRVU 5.3) documented in this encounter Results Specimen to Pathology (01/24/2020 10:13 AM EDT) Specimen Anatomical Collection Method Collection Time Receive d Time (Source) Location / / Volume Laterality AP Specimen 01/24/2020 10:13 01/24/2020 AM EDT 10:13 AM EDT Narrative [facility] - 01/24/2020 10:13 AM EDT Specimen requisition ordered. ??Separate Pathology report to follow Aguilar Bustos III, MD PATHOLOGY/CYTOLOGY ORDERABLE S Performing Organization Address City/State/[place] [address] [facility] [address] Surgical Pathology Report (01/24/2020 10:12 AM EDT) Component Value Ref Test Analysis Performed At [facility] gist Range Method Time Signature Surgical [id number] ? Location: [facility]; [facility]; A [facility] Report The signing pathologist has (i) examined the relevant preparation(s) for the [facility] specimen(s) and (ii) rendered or confirmed the diagnosis(es) . HOSPITAL LABOR[facility]ORY . 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 Spermatocele cyst. Unremarkable spermatic cord margin. Electronically signed by: ??Belle Sandoval MD Verified: ??01/30/2020 ?Pathologist Performed at: ??-[facility] Dept. of Pathology, [place], [place] SPECIMEN(S) SUBMITTED A - right testicle, resection(1) CLINICAL INFORMATION Orchalgia SPECIMEN PROCESSING A - Labeled/Fixative: Right testicle, fresh. Quantity/Size/Weight: Single, 7.5 right 4.6 x 1 cm, 13 g. Tissue Description: Intact right, simple orchiectomy. Cord: 7 x 0.6 x 0.4 cm. Tunica Albuginea: Intact, smooth. Tunica Vaginalis: Intact. Epididymis: One assessment wall cyst measuring 1 x 0.7 x 0.4 cm, translucent. Parenchyma: Unremarkable. OTHER Sections/Processing: Contracts Paralegal sections in 4 cassettes as follows: ?A1: ??Contracts Paralegal of the spermatic cord margin ?A2: ??Entire epididymis cyst wall ?A3: ??Contracts Paralegal of the epididymis ?A4: ??Contracts Paralegal of the testis ??AJ Specimen (Source) Anatomical Collection Method Collection Time Re ceived Time Location / / Volume Laterality 01/24/2020 10:12 AM EDT Aguilar Bustos III, MD PATHOLOGY/CYTOLOGY ORDERABLE S Performing Organization Address City/State/[place] [address] documented in this encounter Visit Diagnoses Diagnosis Pain in right testicle Unspecified disorder of male genital org ans documented in this encounter Administered Medications Inactive Administered Medications - up to 3 most recent administrations Medication Order MAR Action Action Date Dose Rate Site acetaminophen (Tylenol) tablet Given 01/24/2020 9:10 AM EDT 1,00 0 mg 1,000 mg 1,000 mg, Oral, ONCE, 1 dose, On Fri01/24/20 at 0930, Administer with SIP of H2O only., Day of Surgery (Day of Procedure), Routine BUpivacaine (PF) (MARCAINE) Given 01/24/2020 10:02 AM 3.5 mLs 19- Surgical Site 0.5 % (5 mg/mL) injection EDT ONCE PRN, Starting on Fri01/24/20 at 1002, Until Fri01/24/20 at 1444, Intra-Operative (Intra-Procedure), Routine fentaNYL 50 mcg/mL multi-dose injection 25-50 mcg, Intravenous, EVERY 5 MIN PRN, Starting on Fri01/24/20 at 1009, Until Fri01/24/20 at 1444, Pain, Give 25 mcg every 5 minutes PRN for mild to moderate pain (1-5) Give 50 mcg every 5 minutes PRN fo r moderate to severe pain (6-10). Hold for respiratory rate less than 10 per minute . Maximum dose 250 mcg over one hour. If ordered with hydromorphone or morphine, give hydromorphone or morphine first and use fentanyl for breakthrough pain., Routine HYDROmorphone (DILAUDID) injection 0.2-0.4 Given 01/24/2020 11:17 AM EDT 0.4 mg mg 0.2-0.4 mg, Intravenous, EVERY 5 MIN PRN, Starting on Fri01/24/20 at 1045, Until Fri01/24/20 at 1214, Pain, Give 0.2 mg every 5 minutes PRN for mild to moderate pain (1-5) Give 0.4 mg every 5 minutes PRN for moderate to severe pain (6-10). Hold for respiratory rate less than 10 per minute. Maximum dose 4 mg over one hour. If multiple pain medications are ordered, start with hydromorphone or morphine and use fentanyl for breakthrough pain., PACU Recovery, Routine lactated ringers infusion New Bag 01/24/2020 9:31 AM EDT 1,000 mL, at 100 mL/hr, Intravenous, CONTINUOUS, Starting on Fri01/24/20 at 0930, Until Fri01/24/20 at 1214, Day of Surgery (Day of Procedure) New Bag 01/24/2020 9:20 AM EDT 1,000 mLs 100 mL/hr lidocaine (XYLOCAINE) 10 Given 01/24/2020 10:02 AM EDT 3.5 mLs 19- Surgical Site mg/mL (1 %) injection 3 mg 3 mg (0.3 mL), Subcutaneous, ONCE PRN, 1 dose, Starting on Fri01/24/20 at 0905, Until Fri01/24/20 at 1002, for discomfort with PIV insertion, Day of Surgery (Day of Procedure), Routine documented in this encounter Active and Recently Administered Medications Times are shown in EDT. Scheduled Medication Order 01/22/2020 01/23/2020 01/24/2020 acetaminophen (Tylenol) tablet 1,000 mg (COMPLETED) 909 (Given - Provider: Josefa Ingram RN) 1,000 mg, Oral, ONCE, 1 dose, Mon 0 at 0930, Administer with SIP of H2O only., Day of Surgery (Day of Procedure), Routine ceFAZolin (Ancef) 2 g in dextrose 5% 100 mL infusion (COMPLETED) 09 (Given - Provider: Michel Saldana CRNA) 2 g, Intravenous, GLASS ROLLING MACHINE OPERATOR TO O.R., 1 dos e, Fri01/24/20 at 0930, Administer over 30 Minutes, Indication for (Active or Suspected): Prophylaxis Continuous Medication Order 01/22/2020 01/23/2020 01/24/2020 lactated ringers infusion (CANCELED) 09 (New Bag - Provider: Josefa Ingram RN)0931 (New Bag - Provider: Michel Saldana CRNA)1032 (Stopped - Provider: Michel Saldana CRNA) 1,000 mL, at 100 mL/hr, Intravenous, CON TINUOUS, Starting Fri01/24/20 at 0930, Until Fri01/24/20 at 1214, Day of Surgery (Day of Procedure) PRN Medication Order 01/22/2020 01/23/2020 01/24/2020 BUpivacaine (PF) (MARCAINE) 0.5 % (5 mg/mL) injection (CANCELED) 1002 (Given - Provider: Hung Marcelo MD) ONCE PRN, Starting Fri01/24/20 at 1002, Until Fri01/24/20 at 1444, Intra- Operative (Intra-Procedure), Routine fentaNYL 50 mcg/mL multi-dose injection 25-50 mcg, Intravenous, EVERY 5 MIN PRN, Starting Fri01/24/20 at 1009, Until Fri01/24/20 at 1444, Pain, Give 25 mcg every 5 minutes PRN for mild to moderate pain (1-5) Give 50 mcg every 5 minutes PRN fo r moderate to severe pain (6-10). Hold f or respiratory rate less than 10 per minute. Maximum dose 250 mcg over one hour. If ordered with hydromorphone or morphine, give hydromorphone or morphine first and use fentanyl for breakthrough pain., Routine HYDROmorphone (DILAUDID) injection 0.2-0.4 mg (CANCELED) 1117 (Given - Provider: Tim Lucas RN) 0.2-0.4 mg, Intravenous, EVERY 5 MIN PRN , Starting Fri01/24/20 at 1045, Until Fri01/24/20 at 1214, Pain, Give 0.2 mg every 5 minutes PRN for mild to moderate pain (1-5) Give 0.4 mg every 5 minutes PRN f or moderate to severe pain (6-10). Hold for respiratory rate less than 10 per minute. Maximum dose 4 mg over one hour. If multiple pain medications are ordered, start with hydromorphone or morphine and use fentanyl for breakthrough pain., PACU Recovery, Routine lidocaine (XYLOCAINE) 10 mg/mL (1 %) injection 3 mg (COMPLETED) 1002 (Given - Provider: Hung Marcelo MD) 3 mg (0.3 mL), Subcutaneous, ONCE PRN, 1 dose, Starting Fri01/24/20 at 0905, Until Discontinued, for discomfort with PIV insertion, Day of Surgery (Day of Procedure), Routine documented in this encounter Care Teams Rolled Ham Lacer Relationship Specialty Start Date End Date None PCP - General 11/17/18 10/10/21 None documented as of this encounter
--- OUTSIDE RECORDS SUMMARY | 2022-01-16 08:23 | XMS_ITS | Encounter Summary ---
:1990 Author Organization [place] [address] Care Team Providers Name Role Phone None Primary Care Provider Unavailable Encounter Details Date Type Department Care Team Description 01/26/2020 Telephone Urology Hung Marcelo, [facility] [place] [address] [facility] [phone] UROLOGY DEPT [place], [place] [address] (Wo rk) Social History Tobacco Use Types Packs/Day Years Used Date Current Every Day Smoker 1 Smokeless Tobacco: Never Used Chew Sex Assigned at Date Recorded Not on file documented as of this encounter Miscellaneous Notes Telephone Encounter - Hung Marcelo MD - 01/26/2020 8:38 AM EDT Spoke to patient. He is having difficult pain control. Temp 100.0. on home thermometer. no concerns for wound infection or discharge, nausea, vomit, CP, SOB. Using advil tylenol scrotal support nd ice as directed. Will send RX for short course of oxycodone 5mg. Risks of medication reviewed. Indications for urgent evaluation reviewed. Hung Marcelo MD Urology pgy-3 documented in this encounter Plan of Treatment Not on filedocumented as of this encounter Visit Diagnoses Not on filedocumented in this encounter Care Teams Animal Skinner Relationship Specialty Start Date End Date None PCP - General 11/17/18 10/10/21 None documented as of this encounter
--- OUTSIDE RECORDS SUMMARY | 2022-01-16 08:23 | XMS_ITS | Encounter Summary ---
:1990 Author Organization [facility] [place] [address] Care Team Providers Name Role Phone None Primary Care Provider Unavailable Reason for Visit Reason Onset Date Comments Follow-up 03/27/2021 Encounter Details Date Type Department Care Team Description 03/27/2021 Telephone Endocrinology at [facility] C Raymond Connors, [place] [address] Social History Tobacco Use Types Packs/Day Years Used Date Current Every Day Smoker 1 Smokeless Tobacco: Never Used Chew Sex Assigned at Date Recorded Not on file documented as of this encounter Miscellaneous Notes Telephone Encounter - Aguilar Bustos III, MD - 03/28/2021 10:47 AM EDT I spoke with Mr. Bae. He states that he has been experiencing L scrotal swelling, redness and pain for a few days. He thinks he has had a fever. He has not been seen by his PCP or any medical provider. I have strongly recommended he get seen by his PCP or in an urgent care facility soon . He may havean epididymitis which will require antibiotic treatment. He understands and agrees to proceed. Telephone Encounter - Raymond Connors RN - 03/27/2021 3:45 PM EDT Returned call to patient to let him know Dr Asif's note. He verbalized understanding and will call urology as well as our office to schedule follow up. I did provide the phone number for urology which the patient wrote down. Telephone Encounter - Noe Asif MD - 03/27/2021 3:10 PM EDT Please ask him to contact urology, who performed the surgery Also, he is overdue for a followup visit, please ask him to schedule one with me, thanks Telephone Encounter - Raymond Connors RN - 03/27/2021 2:23 PM EDT Patient left voicemail: I am calling because I recently had surgery done from Dr Asif, removal of my right testicle. I'm actually calling so I can get in touch with him because I'm starting to have pains again and feel like it is starting to swell up on my left side. I know that there's 9 cysts on that one side. I just need to be able to come in and be seen, to get it reevaluated and to see if there's more happening inthere. I am starting to come in to agonizing pain again. My left testicle is actually starting to hurt a lot more. I have swelling in my sack and it is extremely red to the touch and extremely painful.If there is a way you can give me a call back at [phone] that would be very appreciated. I havebeen trying to take Tylenol for the pain because I have ulcers but, everything has been really hurting on me and getting to that point that I don't know what I am going to be able to do for the pain anymore. Its really starting to kill me very badly. Can you please give me a call back? That would be very appreciated, thank you. documented in this encounter Plan of Treatment Not on filedocumented as of this encounter Visit Diagnoses Not on filedocumented in this encounter Care Teams Operation Research Analyst Relationship Specialty Start Date End Date None PCP - General 11/17/18 10/10/21 None documented as of this encounter
--- OUTSIDE RECORDS SUMMARY | 2022-01-16 08:23 | XMS_ITS | Encounter Summary ---
:1990 Author Organization [facility] [place] [address] Care Team Providers Name Role Phone None Primary Care Provider Unavailable Encounter Details Date Type Department Care Team Description 12/22/2019 Office Visit Urology [place] [facility] Aguilar Bustos Pain in right testicle [facility] MD CANDACE (Primary Dx) [place] [address] [place] [address] [phone] Social History Tobacco Use Types Packs/Day Years Used Date Current Every Day Smoker 1 Smokeless Tobacco: Never Used Chew Sex Assigned at Date Recorded Not on file documented as of this encounter Last Filed Vital Signs Vital Sign Reading Time Taken Comments Blood Pressure 108/70 12/22/2019 8:58 AM EDT Pulse 59 12/22/2019 8:58 AM EDT Temperature 36.7 ??C (98 ??F) 12/22/2019 8:58 AM EDT Respiratory Rate 20 12/22/2019 8:58 AM EDT Oxygen Saturation 98% 12/22/2019 8:58 AM EDT Inhaled Oxygen Concentration - - Weight 63.5 kg (140 lb) 12/22/2019 8:58 AM EDT Height 190.5 cm (6' 3) 12/22/2019 8:58 AM EDT Body Mass Index 17.5 12/22/2019 8:58 AM EDT documented in this encounter Progress Notes Artur Bradford MD - 12/22/2019 8:40 AM EDT Mr. 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 It was noted on the right side. Since last seen there has been no change in his symptoms since his last visit. He is taking gabapentin TID. Undergoing T replacement, currently using 24hr patches, managed by Dr. Asif his ski lift operator. Has known right complex epididymal cyst seen on a prior US. Physical examination: Scrotum: Small bilateral testes, the right side is very sensitive to palpationat the location of the cyst. We have discussed options for management including microscopic denervation versus orchiectomy. He would rather proceed with orchiectomy which he has been considering for some time now and has also discussed with Dr. Asif. We discussed the fact that orchiectomy may not resolve his pain and there exists potential for phantom pains following this procedure. Discussed perioperative activity restrictions, bruising/swelling as well. Reviewed the fact that testosterone replacement will need to continueindefinitely regardless and that the testicles are likely contributing very little to his overall T level at present. He is in agreement with proceeding with Right side orchiectomy. Aguilar Bustos III, MD - 12/22/2019 8:40 AM EDT I have seen and examined pt and concur with the assessment and recommendations for care. PLAN: R simple orchiectomy-[id number] Date: . Time: 1.5 hrs Anes; general Labs: none F/u 4 wks documented in this encounter Miscellaneous Notes Addendum Note - Artur Bradford MD - 12/22/2019 8:40 AM EDT Addended by: ARTUR BRADFORD on: 12/23/2019 07:48 AM Modules accepted: Orders documented in this encounter Plan of Treatment Not on filedocumented as of this encounter Procedures Procedure Name Priority Date/Time Associated Diagnosis Comme nts ORCHIECTOMY,SIMPLE,W\W Routine 12/23/2019 7:48 AM EDT Pain in right testicle O PROSTHESIS; SIMPLE documented in this encounter Visit Diagnoses Diagnosis Pain in right testicle - Primary Unspecified disorder of male genital org ans documented in this encounter Care Teams Hot Mill Tin Roller Relationship Specialty Start Date End Date None PCP - General 11/17/18 10/10/21 None documented as of this encounter
--- OUTSIDE RECORDS SUMMARY | 2022-01-16 08:23 | XMS_ITS | Encounter Summary ---
:1990 [place] [address] Care Team Providers Name Role Phone Unavailable Primary Care Provider Unavailable Encounter Details Date Type Department Care Team Description 07/11/2016 Ancillary Procedure Radiology Library at [facility] am [facility] [place] CAND[place] [facility] [place] [address] [place] [address] [phone] (Wo rk) Social History Tobacco Use Types Packs/Day Years Used Date Never Assessed Sex Assigned at Date Recorded Not on file documented as of this encounter Plan of Treatment Not on filedocumented as of this encounter Procedures Procedure Name Priority Date/Time Associated Comments Diagnosis FILM LIBRARY STORAGE Routine 07/11/2016 12:00 AM Results for this ONLY ULTRASOUND EST procedure ar e in STUDY the results section. documented in this encounter Results Film Library- Storage Only Ultrasound Study (07/11/2016 12:00 AM EST) Specimen (Source) Anatomical Location Collection Method / Collectio n Time Received Time / Laterality Volume Narrative STEVEN HORTON - 2019 1:43 PM EDT This exam is auto-finalizing. It's purpo se is for storage only. Aguilar Bustos III, MD IMG FILM LIBRARY ORDERABLES Performing Organization Address City/State/ZIP Code Phon e Number RAD SOL [place], [place] documented in this encounter Visit Diagnoses Not on filedocumented in this encounter
--- OUTSIDE RECORDS SUMMARY | 2022-01-16 08:23 | XMS_ITS | Encounter Summary ---
:1990 Author Organization [facility] [place] [address] Care Team Providers Name Role Phone None Primary Care Provider Unavailable Reason for Visit Reason Comments Follow-up Encounter Details Date Type Department Care Team Description 08/06/2019 Office Visit Endocrinology at [facility] Noe Schuster Hypogonadism in male [facility] [place] [address] [place] [address] [place] [id number] Social History Tobacco Use Types Packs/Day Years Used Date Current Every Day Smoker 1 Smokeless Tobacco: Never Used Chew Sex Assigned at Date Recorded Not on file documented as of this encounter Last Filed Vital Signs Vital Sign Reading Time Taken Comments Blood Pressure 119/71 08/06/2019 10:40 AM EST Pulse 68 08/06/2019 10:40 AM EST Temperature - - Respiratory Rate 20 08/06/2019 10:40 AM EST Oxygen Saturation 100% 08/06/2019 10:40 AM EST Inhaled Oxygen - - Concentration Weight 66.8 kg (147 lb 3.2 08/06/2019 10:40 pt weighed with shoes oz) AM EST on Height 190.5 cm (6' 3) 08/06/2019 10:40 AM EST Body Mass Index 18.4 08/06/2019 10:40 AM EST documented in this encounter Patient Instructions Patient InstructionsNoe Asif MD - 08/06/2019 10:30 AM EST Start Natesto: 1 spray each nostril three times daily website to review: [email or web address]/patient/about-[email or web address]/kuz-gw-ovznl/#lnw-ia-izm-natesto Get blood drawn for testotsterone and hemglobin/hematocrit 8 weeks later documented in this encounter Progress Notes Noe Asif MD - 08/06/2019 10:30 AM EST Mr. José Miguel Bae is an 29 y.o. 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 Hematuria ??? Testicular pain ??? Klinefelter's syndrome Overview Note: Confirmed XXY based on karyotype analysis in December 2018, started on testosterone cypionate at that time given primary hypogonadism ??? Bilateral testicular atrophy Interval history: He is accompanied by his son (4 months old) and his . Since last visit, he did retry taking testosterone cypionate but again had lower extremity swelling soon after the injection that was severe, this was the second time this has happened. He has not taken testosterone in a few months. Symptoms resolved completely over time. He continues to be bothered by ongoing often severe scrotal pain. He was evaluated by Dr Barnes in urology for this, who advised him to obtain a more reliable form of testosterone prior to surgery. Patient would like to discuss alternative formulations of testosterone Current Outpatient Medications: ??? gabapentin (NEURONTIN) 300 mg Capsule, TAKE ONE CAPSULE BY MOUTH TWICE A DAY FOR 1 WEEK THEN TAKE THREE TIMES A DAY, Disp: , Rfl: 2 ??? BD LUER-KAREN SYRINGE 1 mL 20 gauge x 1 Syringe, USE SYRINGE EVERY FOR 14 DAYS TO ADMINISTER TESTOSTERONE, Disp: , Rfl: 3 ??? testosterone cypionate (DEPO-TESTOSTERONE) 100 mg/mL Oil, Inject 2 mLs into the muscle every 14 days., Disp: 10 mL, Rfl: 1 ??? Syringe, Disposable, 1 mL Syringe, Use one syringe every 14 days to administer testosterone. Must be Luer-Karen., Disp: 12 Syringe, Rfl: 3 ??? Needle, Disp, 21 G 21 gauge x 1 Needle, Use 1 needle every 14 days to DRAW UP testosterone., Disp: 13 each, Rfl: 1 ??? Needle, Disp, 25 G 25 gauge x 5/8 Needle, Use one needle every 14 days to INJECT testosterone as instructed., Disp: 13 each, Rfl: 1 ??? venlafaxine (EFFEXOR-XR) 75 mg Capsule, Sust. [...] Vitals for the past 24 hrs: Pulse Resp BP SpO2 08/06/19 1040 68 20 119/71 100 % Wt & BMI By Encounter Date Office Visit from 08/06/2019 in Endocrinology at [facility] Office Visit from 04/30/2019 in Endocrinology at [facility] Weight 66.8 kg (147 lb 3.2 oz) [pt weighed with shoes on] 1 08/06/2019 1040 64.9 kg (143 lb) 1 04/30/2019 0949 BMI 18.4 1 08/06/2019 1040 17.87 1 04/30/2019 0949 General: no acute distress, pleasant, sitting comfortably Face: not round or red Eyes: no lid lag; normal eye movements Nose: not enlarged Mouth: Mucous membranes moist Neck: no supraclavicular fat pads; trachea midline Respiratory: symmetrical chest expansion, breathing comfortably on room air Musculoskeletal: Moving all 4 extremities normally Neurological: no tremors; normal gait Psychological: alert/oriented to person, place, time; normal affect; memory intact; normal judgement/insight Radiology Studies: Laboratory Data: Assessment / Plan: 1) 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 We discussed alternative delivery options for testosterone. Likely the safest and most effective would be intranasal testosterone, Natesto. Topical gel would not be a good option because of the potential spread to his child accidentally Proceed with prescribing Natesto: 1 pump each nostril TID. Check Hgb/Hct and testosterone level about 8 weeks later. We have already described the potential risks vs benefits of testosterone at great lengths at prior visits I think for termite treater control of his scrotal pain he will probably need a orchiectomy (he is not interested in local nerve blocks), and hopefully once he begins taking Natesto it will allow him to achieve normal testosterone even without [place] testicular tissue. I queried [facility] database, and in my review I saw that over the past 1 year I am the only prescriber of testosterone for this patient Orders Placed This Encounter Procedures ??? Testosterone, total ??? Hemoglobin and Hematocrit, blood RTC 3 months I spent 25 minutes face to face with the patient, 20 of which was spent counseling about the issues described above Noe Asif MD Placement Coordinatortesting and regulating chief Endocrinology Section [facility] documented in this encounter Plan of Treatment Not on filedocumented as of this encounter Visit Diagnoses Diagnosis Hypogonadism in male documented in this encounter Care Teams Solar Energy System Installer Relationship Specialty Start Date End Date None PCP - General 11/17/18 10/10/21 None documented as of this encounter
--- OUTSIDE RECORDS SUMMARY | 2022-01-16 08:23 | XMS_ITS | Encounter Summary ---
:1990 Author Organization [place] [address] Care Team Providers Name Role Phone None Primary Care Provider Unavailable Encounter Details Date Type Department Care Team Description 04/19/2019 Telephone Endocrinology at [facility] Raymond Fairchild, [place] [address] Social History Tobacco Use Types Packs/Day Years Used Date Current Every Day Smoker 1 Smokeless Tobacco: Never Used Chew Sex Assigned at Date Recorded Not on file documented as of this encounter Miscellaneous Notes Telephone Encounter - Raymond Connors RN - 04/19/2019 4:43 PM EST Called pt and discussed recommendations from Dr Asif. He verbalized understanding and will do so. Asked if he was able to make it to the ED or urgent care and he said he would be able to call his mom for transportation. Pt will call us later in the week with updates on the situation. Telephone Encounter - Noe Asif MD - 04/19/2019 4:35 PM EST Raymond, It sounds like he may have a soft tissue infection/cellulitis rather than a drug reaction. I recommend that he stop further injections for now. I recommend that he be evaluated in an ER or urgent care [facility], because he will very likely need antibiotics. He should let us know later on this week what is going on so we can develop a followup plan. Please let him know, thanks Telephone Encounter - Raymond Connors RN - 04/19/2019 3:17 PM EST Date edited: 04/19/19 [id number] José Miguel Bae 29 y.o. Preferred Most recent note assessment/plan: Assessment / Plan: ?? 1) Klinefelter syndrome: We spent a long time discussing the genetic nature of this disease, namely that it is a abnormality in which there is an extra X chromosome copy in the body that is likely beenpresent since the early stages of his development. The most important abnormality at this time is his hypogonadism which we have initiated treatment for recently. We did discuss that to allow for more stable levels and potentially improve the irritability that he experiences early on after the injections we could switch to a once weekly injection regimen however he prefers to continue the every otherweek injection regimen. ?? He is not interested in fertility at this time. We did discuss that 1 of the abnormalities of Klinefelter syndrome is infertility, and though while not impossible to conceive it is significantly more difficult, as evidenced by the very long period of time it took him to his partner to conceive. We diddiscuss that exogenous testosterone therapy does suppress spermatogenesis and that if he changes mind and wish to conceive you would have to stop the therapy for at least 6 months. We again discussed the black box warning on testosterone for venous thromboembolism, PR and stroke. ?? I provided him with a slip for testosterone and hematocrit to have drawn on day 7 after his fourth injection to ensure that his testosterone level is at goal and that his hematocrit level is not significantly elevated. He is about out of his testosterone supply and because of a backorder on the 200 mg/mL concentration I will prescribe him the 100 mg/mL formulation. [facility] and I saw that he was not prescribed testosterone at any facility in the database outside of our office. ?? 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 I will do this, but will defer management of his testicular pain to this pain clinic as well as his urologist. ?? He is at elevated risk of testicular cancer given the history of Klinefelter syndrome and cryptorchidism, and while I did not appreciate any masses that were concerning on his testicles on my last exama few months ago it would be reasonable to reassess the testicles should any new mass arise on exam. Reason for call: Patient called the back line with concern of a possible allergic reaction to testosterone injections. His primary concerns is that his feet and leg, all the way up to his groin and hips, are swollen. He reports his feet are so swollen that his toes aren't touching the floor. He says he started to notice the swelling yesterday and then today it has gotten significantly worse. He injects his testosterone into his buttock. Reports the site itself swelled up and was hot for a couple days after injecting. It also had bruising and swelling for about 3 days. He reports pain related to his lower body swelling rated as 8- 9/10. He says the pain makes it difficult for him to sleep. He also reports a fever for the past 3 days of 102.1. For the pain and fever he has taken Tylenol and a fever bobbin winder tender which is liquid. Advised him that sometimes these medicines have Tylenol in them, so be careful that he is not taking Tylenol from multiple sources without knowing it. He did report that he had a little swelling but not bad after his previous injection 2 weeks ago. But not like this. José Miguel also reports having quite a few migraines and headaches a lot lately. He has had them in thepast a little bit. But seems like with the testosterone it has picked up more. Pain is normally 7-9/10. He says they get worse on the day he is due for his injection, but did not seem to feel they happened after injecting. Instead said they are just worse that day. What action is needed: Please advise Raymond Connors RN documented in this encounter Plan of Treatment Not on filedocumented as of this encounter Visit Diagnoses Not on filedocumented in this encounter Care Teams Rhit Relationship Specialty Start Date End Date None PCP - General 11/17/18 10/10/21 None documented as of this encounter
--- OUTSIDE RECORDS SUMMARY | 2022-01-16 08:23 | XMS_ITS | Encounter Summary ---
:1990 Author Organization [facility] [place] [address] Care Team Providers Name Role Phone None Primary Care Provider Unavailable Reason for Visit Reason Comments Testicular Pain Encounter Details Date Type Department Care Team Description 06/02/2019 Office Visit Urology at [facility] Aguilar Bustos III, Testicular pain [facility] [place] [address] [facility] [phone] [place] [phone] (Wo rk) Social History Tobacco Use Types Packs/Day Years Used Date Current Every Day Smoker 1 Smokeless Tobacco: Never Used Chew Sex Assigned at Date Recorded Not on file documented as of this encounter Last Filed Vital Signs Vital Sign Reading Time Taken Comments Blood Pressure 106/68 06/02/2019 3:18 PM EST Pulse 75 06/02/2019 3:18 PM EST Temperature - - Respiratory Rate - - Oxygen Saturation - - Inhaled Oxygen Concentration - - Weight - - Height - - Body Mass Index - - documented in this encounter Progress Notes Aguilar Bustos III, MD - 06/02/2019 3:00 PM EST Mr. 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 There is been no change in his symptoms since his last visit. He had discontinued intramuscular testosterone injections a secondary to leg swelling. He is due to see Dr. Asif his net mvc developer in the near future. I reviewed the scrotal ultrasound which shows a no change in the size or heterogeneity of the testicles. There is a complex epididymal cyst. Physical examination: Scrotum: Small bilateral testes which are very sensitive to palpation. We have discussed the indications for orchiectomy. I am concerned about to performing a orchiectomy as a as a treatment for a pain. I would like him to determine the best testosterone replacement therapy prior to consideration of any surgical maneuvers on his testicles. I have asked Mr. Bae to be in touch with me once he has met with his net mvc developer. documented in this encounter Plan of Treatment Not on filedocumented as of this encounter Visit Diagnoses Diagnosis Testicular pain Unspecified disorder of male genital org ans documented in this encounter Care Teams Millwright Instructor Relationship Specialty Start Date End Date None PCP - General 11/17/18 10/10/21 None documented as of this encounter
--- OUTSIDE RECORDS SUMMARY | 2022-01-16 08:23 | XMS_ITS | Encounter Summary ---
:1990 Author Organization [facility] Address [address] [place] [address] Care Team Providers Name Role Phone Unavailable Primary Care Provider Unavailable Encounter Details Date Type Department Care Team Description 03/06/1999 Hospital Encounter [facility] [place] [facility] [address] [place] [phone] Social History Tobacco Use Types Packs/Day Years Used Date Never Assessed Sex Assigned at Date Recorded Not on file documented as of this encounter Discharge Disposition Disposition Code Departure Means Destination Home or Self Care documented in this encounter Plan of Treatment Not on filedocumented as of this encounter Visit Diagnoses Not on filedocumented in this encounter
--- OUTSIDE RECORDS SUMMARY | 2022-01-16 08:23 | XMS_ITS | Clinical Summary ---
:1990 Author Organization [facility] [place] [address] Care Team Providers Name Role Phone Lawrence Wood DO Primary Care Provider Allergies Active Allergy Reactions Severity Noted Date Comments Amitriptyline 2019 Pt states he snaps. Clonazepam 2019 Pt states he s naps. Testosterone Cypionate 08/06/2019 Sever e lower extremity pain/swelling Medications Medication Sig Dispensed Refills Start Date End Date Status methadone (Dolophine) Takes 135 mg daily 0 2 Active 10 mg/mL Concentrate omeprazole (PriLOSEC) Take 20 mg by mouth 0 08/22/19 22 Active 20 mg Capsule, daily. Delayed Release(E.C.) ondansetron (Zofran) TAKE ONE TABLET BY 0 08/21/2021 Active 4 mg Tablet MOUTH EVERY 8 HOURS NEEDED FOR NAUSEA AND VOMITING oxyCODONE-acetaminoph Take 1-2 tablets by 0 06/10/20 16 Active en (Percocet) 5-325 mouth Every 4 hours mg Tablet as needed. testosterone Apply two pump 225 g 1 12/05/2021 A ctive (AndroGeL) 20.25 actuations (40.5 mg/1.25 gram (1.62 %) mg) transdermal Gel in Metered-dose daily Pump Active Problems Problem Noted Date Hematuria 2019 Testicular pain 2019 Klinefelter's syndrome 01/11/2019 Overview: Confirmed XXY based on karyotype analysi s in December 2018, started on testosterone cypionate at that time given primary hypogonadism Bilateral testicular atrophy 10/30/2018 Encounters Date Type Specialty Care Team Description 12/05/2021 TH Visit Endocrinology Noe Asif in male (TeleHealth) MD Tramaine 10/24/2021 Office Visit Gastroenterology Barbara Moss MD Chronic hepatitis C without hepatic coma from Last 3 Months Social History Tobacco Use Types Packs/Day Years Used Date Current Every Day Smoker 1 Smokeless Tobacco: Never Used Chew Sex Assigned at Date Recorded Not on file Last Filed Vital Signs Vital Sign Reading Time Taken Comments Blood Pressure 118/81 12/05/2021 9:30 AM EDT Pulse 98 12/05/2021 9:30 AM EDT Temperature 36.3 ??C (97.3 ??F) 12/05/2021 9:30 AM EDT Respiratory Rate 18 01/24/2020 12:00 PM EDT Oxygen Saturation 99% 01/24/2020 12:00 PM EDT Inhaled Oxygen Concentration - - Weight 60.1 kg (132 lb 9.6 oz) 12/05/2021 9:30 AM EDT Height 190.5 cm (6' 3) 12/05/2021 9:30 AM EDT Body Mass Index 16.57 12/05/2021 9:30 AM EDT Plan of Treatment Health Maintenance Due Date Last Done Comments Covid-19 Vaccine (#1) 01/26/1996 Pneumococcal Vaccine: At-Risk 5-64yrs (1 - PCV) 1997 Lipid Screening 2009 Tdap adult 2010 Tetanus vaccine 2010 Influenza (Flu) vaccine (1 of 1 - Influenza standard 02/14/2022 series) HIV screen Completed 10/24/2021 Hepatitis C Screening Completed 10/24/2021 Procedures Procedure Name Priority Date/Time Associated Comments Diagnosis DIFFERENTIAL, AUTOMATED Routine 10/24/2021 3:01 PM Chronic hep atitis Results for this EDT C without hepatic procedure are in coma the results section. HEMOGRAM Routine 10/24/2021 3:01 PM Chronic hepatitis Resu lts for this EDT C without hepatic procedure are in coma the results section. HC HCV QUANTIFICATION Routine 10/24/2021 3:01 PM Chronic hepat itis Results for this EDT C without hepatic procedure are in coma the results section. COMPREHENSIVE METABOLIC Routine 10/24/2021 3:01 PM Chronic hep atitis Results for this PANEL (NON-FASTING) EDT C without hepatic pro cedure are in coma the results section. HC CBC,PLT & AUTO DIFF Routine 10/24/2021 3:01 PM Chronic hepa titis EDT C without hepatic coma HC HEPATITIS B SURFACE Routine 10/24/2021 3:01 [...] procedure are in coma the results section. [id number] Routine 10/24/2021 1:30 PM Chronic hepatitis Resu lts for this EDT C without hepatic procedure are in coma the results section. from Last 3 Months Results (ABNORMAL) Hemogram (10/24/2021 3:01 PM EDT) Analysis Performed At Patho logist Time Signature WBC 7.2 4.0 - 9.5 [facility] x10(3)/[facility] LABORATORY RBC 4.90 4.58 - [facility] 5.54 [facility] x10(6)/[facility] LABORATORY Hemoglobin 14.1 13.7 - [facility] 16.5 g/dL [facility] LABORATORY Hematocrit 41.6 40.5 - [facility] 48.5 % [facility] LABORATORY MCV 84.9 82.9 - [facility] 93.1 fL [facility] LABORATORY MCH 28.8 27.5 - [facility] 32.1 pg [facility] LABORATORY MCHC 33.9 32.0 - [facility] 35.7 g/dL [facility] LABORATORY Platelets 236 145 - 357 [facility] x10(3)/[facility] LABORATORY RDWSD 43.8 36.0 - [facility] 45.0 [facility] LABORATORY RDWCV 14.0 (H) 11.4 - [facility] 13.8 [facility] LABORATORY MPV 9.1 7.6 - 12.9 [facility] LABORATORY nRBC % Auto 0.0 % [facility] LABORATORY nRBC Abs Auto 0.000 0.000 - [facility] 0.000 [facility] x10(3)/[facility] LABORATORY Specimen Anatomical Collection Method Collection Time Receive d Time (Source) Location / / Volume Laterality Blood 10/24/2021 3:01 PM 3:10 EDT PM EDT Resulting Agency Comment Spec In Lab Barbara Moss MD HEMATOLOGY ORDERABLES Performing Organization Address City/State/ZIP [place] [address] (ABNORMAL) Differential, Automated (10/24/2021 3:01 PM EDT) [facility] gist Method Time Signature Neutrophils % 35.9 % [facility] LABORATORY Neutr Abs (ANC) 2.60 1.70 - [facility] 6.10 [facility] x10(3)[facility] LABORATORY Lymphocytes % 54.5 % [facility] LABORATORY Lymphocytes Abs 3.9 (H) 0.9 - 3.2 [facility] x10(3)/[facility] LABORATORY Monocytes % 7.5 % [facility] LABORATORY Monocyte Abs 0.5 0.3 - 0.9 [facility] x10(3)/[facility] LABORATORY Eosinophils % 1.4 % [facility] LABORATORY Eosinophils Abs 0.1 0.0 - 0.4 [facility] x10(3)/[facility] LABORATORY Basophils % 0.4 % [facility] LABORATORY Basophils Abs 0.0 0.0 - 0.1 [facility] x10(3)/[facility] LABORATORY Immature Gran % 0.30 % [facility] LABORATORY Comment: Immature granulocytes(IG's)percentage an d absolute count will include metamyelocytes, myelocytes, and promyelo cytes. Blood smears from CBCs yielding IG's will be scanned manually for concor dance. If this scan disagrees with the automated IG or if promyelocytes are not ed, a manual differential will be performed. Ambar Gran Abs 0.02 0.00 - 0.04 x10(3)/mcL [facility] LABORATORY Specimen Anatomical Collection Method Collection Time Receive d Time (Source) Location / / Volume Laterality Blood 10/24/2021 3:01 PM 2 3:10 EDT PM EDT Resulting Agency Comment Spec In Lab Barbara Moss MD HEMATOLOGY ORDERABLES Performing Organization Address City/[facility]/ZIP Code Phon e Number [address] (ABNORMAL) Hepatitis A Antibody, Total (10/24/2021 3:01 PM EDT) [facility] Xfluential Method Time Signature Hepatitis A Positive (A) Negative [facility] LABORATORY Specimen Anatomical Collection Method Collection Time Receive d Time (Source) Location / / Volume Laterality Blood 10/24/2021 3:01 PM 2 3:10 EDT PM EDT Resulting Agency Comment Spec In Lab Barbara Moss MD IMMUNOLOGY ORDERABLES Performing Organization Address City/[facility]/ZIP Code Phon e Number [address] Hepatitis B Core Antibody, Total (10/24/2021 3:01 PM EDT) Analysis Performed At [facility] logist Time Signature Hep B Core Ab Negative Negative [facility] LABORATORY Specimen Anatomical Collection Method Collection Time Receive d Time (Source) Location / / Volume Laterality Blood 10/24/2021 3:01 PM 2 3:10 EDT PM EDT Resulting Agency Comment Spec In Lab Barbara Moss MD CHEMISTRY ORDERABLES Performing Organization Address City/[facility]/ZIP Code Phon e Number [address] Hepatitis C RNA, quantitative, PCR (10/24/2021 3:01 PM EDT) Component Value Ref Test Analysis Performed At [facility] Xfluential Range Method Time Signature HCV Viral <12 IU/mL [facility] LABORATORY HCV Viral Result: <12 IU/mL (But Detected) [facility] Indication for Study: Hepatitis C Infection [facility] Analysis: The [place] Al[employer] m HCV assay [...] Volume Laterality Blood 10/24/2021 3:01 PM 2 9:13 EDT AM EDT Resulting Agency Comment Spec In Lab Barbara Moss MD IMMUNOLOGY ORDERABLES Performing Organization Address City/[facility] [place] [address] HIV Screen, 4th Generation ([facility]/CGP/APD/NLH) (10/24/2021 3:01 PM EDT) Analysis Performed At [facility] Time Signature HIV-1/2 Ab and Negative Negative [facility] LABORATORY Comment: This 4th Generation HIV test [...] Comment Low Risk of HIV Infection [facility] LABORATORY Specimen Anatomical Collection Method Collection Time Receive d Time (Source) Location / / Volume Laterality Blood 10/24/2021 3:01 PM 2 3:10 EDT PM EDT Resulting Agency Comment Spec In Lab Barbara Moss MD IMMUNOLOGY ORDERABLES Performing Organization Address City/[facility]/ZIP [facility] [address] Hepatitis B Surface Antibody (10/24/2021 3:01 PM EDT) athologist Signature HepB Surface 153.0 IU/L [facility] Ab Quant [facility] LABORATORY Comment: HepB Surface Ab Quant: Unvaccinated: < 8.5 IU/L Vaccinated: > 11.5 IU/L HepB Surface Ab Positive [facility] LABORATORY Comment: Patient is considered to be immune to HB V infection. Expected Results: Vaccinated: Positive Unvaccinated: Negative Specimen Anatomical Collection Method Collection Time Receive d Time (Source) Location / / Volume Laterality Blood 10/24/2021 3:01 PM 2 3:10 EDT PM EDT Resulting Agency Comment Spec In Lab Barbara Moss MD IMMUNOLOGY ORDERABLES Performing Organization Address [facility] Phon e Number [address] Hepatitis B Surface Antigen (10/24/2021 3:01 PM EDT) Analysis Performed At Patho logist Time Signature HepB Surface Negative Negative [facility] LABORATORY Specimen Anatomical Collection Method Collection Time Receive d Time (Source) Location / / Volume Laterality Blood 10/24/2021 3:01 PM 2 3:10 EDT PM EDT Resulting Agency Comment Spec In Lab Barbara Moss MD CHEMISTRY ORDERABLES Performing Organization Address [facility] Phon e Number [address] Comprehensive metabolic panel (non-fasting) (10/24/2021 3:01 PM EDT) athologist Signature Glucose Lvl 109 65 - 199 [facility] mg/dL [facility] LABORATORY Comment: Diabetes: >=200 mg/dL plus symp toms BUN 16 10 - 20 mg/dL [facility] LABORATORY Creatinine 1.01 0.80 - 1.50 mg/dL [facility] LABORATORY Sodium 137 135 - 145 mmol/L [facility] LABORATORY Potassium 4.5 3.5 - 5.0 mmol/L [facility] LABORATORY Comment: Please note: ??Patients with WBC >100,00 0 may have falsely elevated Potassium levels. ??For accurate Potassium quantif ication in these patients send serum separator tube (gold top) for subsequent determinations. ??Contact the Clinical Chemistry Laboratory if there are any qu estions. Chloride 101 98 - 107 mmol/L [facility] LABORATORY CO2 26 22 - 31 mmol/L [facility] LABORATORY Anion Gap 10 5 - 15 mmol/L [facility] LABORATORY Calcium 9.6 8.5 - 10.5 mg/dL [facility] LABORATORY Total Protein 7.5 6.1 - 8.0 g/dL [facility] LABORATORY Albumin 4.5 3.2 - 5.2 g/dL [facility] LABORATORY AST 30 0 - 39 unit/L [facility] LABORATORY ALT 24 0 - 55 unit/L [facility] LABORATORY Alk Phos 88 40 - 130 unit/L [facility] LABORATORY Total Bilirubin 0.3 0.2 - 1.3 mg/dL [facility] LABORATORY Estimated GFR 99 >=60 mL/min/1.73 m?? [facility] LABORATORY Comment: This patient? s estimated glomerular [...] Organization Address City/State/ZIP [place] [address] [id number] (10/24/2021 1:30 PM EDT) Narrative Barbara Moss MD - 10/24/2021 1:30 PM EDT Barbara Moss MD ? 10/24/2021 ??2:42 PM [facility] Liver Fibrosis Asses sment Report Indication: ??Chronic hep C Performed by: ??Barbara Moss MD Procedure: Vibration Controlled Transien t Elastography (VCTE) or Fibroscan [place] Protocol: Patient's identity, procedure and site were [...] Barbara Moss MD PROCEDURE/MINOR SURGICAL ORD ERABLES from Last 3 Months Insurance Payer Benefit Plan / Subscriber ID Effective Dates Phone Addre ss Type Group [place] [id number] 2018-Prese [phone] [address] [facility] [address] [place], [place] [address] Advance Directives Documents on File Type Date Recorded Patient Logistics Program Manager Explanati on Personal Logistics Program Manager 10/24/2021 2:41 PM melida lee Latest Code Status on File Code Status Date Activated Date Inactivated Comments Attempt Cardiopulmonary Resuscitation - 01/24/2020 9:05 AM 020 2:44 PM Inpatient Code Status decision made by: Patient Care Teams Student Worker Relationship Specialty Start Date End Date Lawrence Wood DO PCP - General Family Medicine 10/11/21 [address] [place] [address]
--- OUTSIDE RECORDS SUMMARY | 2022-01-16 08:23 | XMS_ITS | Encounter Summary ---
:1990 [place] [address] Care Team Providers Name Role Phone None Primary Care Provider Unavailable Encounter Details Date Type Department Care Team Description 03/27/2021 Telephone Urology Shyla De Santiago MD [facility] [place] [address] UROLOGY DEPT [phone] [place], [place] [address] (Wo rk) Social History Tobacco Use Types Packs/Day Years Used Date Current Every Day Smoker 1 Smokeless Tobacco: Never Used Chew Sex Assigned at Date Recorded Not on file documented as of this encounter Miscellaneous Notes Telephone Encounter - Shyla De Santiago MD - 03/27/2021 4:52 PM EDT Returned patient phone call. Pt calls to discuss jase Jacobsen Pt reports having surgery with Dr. Bustos in 2020 however the last surgery on file was from 01/24/2020 for a simple orchiectomy. The patient states it was definitely 2020. Given that we have not seen him since the fall of 2019 and he is describing new symptoms concerning for cellulitis versus abscess or another acute etiology I recommended presentation to a local emergency department for further evaluation. When I attempted to obtain further information regarding his sxhe became belligerent and ultimately hung up. If he calls back should be encouraged to present to the ED for evaluation. Shyla De Santiago MD documented in this encounter Plan of Treatment Not on filedocumented as of this encounter Visit Diagnoses Not on filedocumented in this encounter Care Teams Eggs Inspector Relationship Specialty Start Date End Date None PCP - General 11/17/18 10/10/21 None documented as of this encounter
--- OUTSIDE RECORDS SUMMARY | 2022-01-16 08:23 | XMS_ITS | Encounter Summary ---
:1990 Author Organization [place] [address] Care Team Providers Name Role Phone None Primary Care Provider Unavailable Encounter Details Date Type Department Care Team Description 2019 Office Visit Endocrinology at [facility] Noe Schuster Hypogonadism in male; [facility] MD Tramaine [place] [address] [place] [address] [place] [address] Social History Tobacco Use Types Packs/Day Years Used Date Current Every Day Smoker 1 Smokeless Tobacco: Never Used Chew Sex Assigned at Date Recorded Not on file documented as of this encounter Last Filed Vital Signs Vital Sign Reading Time Taken Comments Blood Pressure 111/66 2019 2:48 PM EDT Pulse 86 2019 2:48 PM EDT Temperature - - Respiratory Rate - - Oxygen Saturation 100% 2019 2:48 PM EDT Inhaled Oxygen Concentration - - Weight 68.5 kg (151 lb) 2019 2:48 PM EDT Height 190.5 cm (6' 3) 2019 2:48 PM EDT Body Mass Index 18.87 2019 2:48 PM EDT documented in this encounter Patient Instructions Patient InstructionsCrNoe jean MD - 2019 3:00 PM EDT Day 7 after injection #4 get blood drawn at [facility] documented in this encounter Progress Notes Noe Asif MD - 2019 3:00 PM EDT Mr. José Miguel Bae is an 28 y.o. male who presents for ongoing care of Klinefelter's syndrome He presents today with his mother and his fianc??e. Since his last visit with me, Klinefelter syndrome was confirmed by karyotype analysis. He began testosterone replacement therapy at a dose of 200 mg testosterone cypionate every 2 weeks. Today was injection #2. He is tolerating the shots well aside from some pain at the injection site. He plans to continue injecting himself at home. He has not yet noticed appreciable differences from the testosterone therapy aside from a mild boost in his energy however his mother and fianc?? do noticed that he is moodier in the 1 to 2 days after the injection and conversely around day 13 and 14 he has reduced energy. He still has mild breast tenderness that is not appreciably improved since his last visit with me. He did see urology today at this hospital for ongoing bilateral testicular pain. He does have occasional blood in his urine. He told me that there is a plan for that provider to obtain previous abdominal CT and testicular ultrasound reports and there will potentially be further imaging to assess for anatomical irregularities such as testicular cancer. There is also plan for a cystoscopy in the near future for his ongoing periodic hematuria. He also discussed with that provider surgical excision of the right testicle to help remove some of his pain. He has been visiting a outside pain clinic but has been frustrated by the fact that the providers there request written confirmation of his diagnosis of Klinefelter syndrome prior to prescribing him medication. Notably his fianc??e is 28 weeks and is due to deliver at the end of March or April. They are having a baby boy. They do not have plans for further children at this time. Patient Active Problem List Diagnosis ??? Klinefelter's syndrome Overview Note: Confirmed XXY based on karyotype analysis in December 2018 ??? Bilateral testicular atrophy Current Outpatient Medications: ??? testosterone cypionate (DEPO-TESTOSTERONE) 200 mg/mL Oil, Inject 1 mL into the muscle every 14 days., Disp: 2 mL, Rfl: 3 ??? Syringe, Disposable, 1 mL [...] a past medical history of Bilateral testicular atrophy and DJD (degenerative joint disease). Physical Exam: Patient Vitals for the past 24 hrs: Pulse BP SpO2 01/25/19 1448 86 111/66 100 % Wt & BMI By Encounter Date Office Visit from 2019 in Endocrinology at [place] Office Visit from 10/30/2018 in Endocrinology at [place] Weight 68.5 kg (151 lb) 1 2019 1448 64.5 kg (142 lb 3.2 oz) 1 10/30/2018 0910 BMI 18.87 1 2019 1448 17.77 1 10/30/2018 0910 General: No acute distress, pleasant, sitting comfortably Face: not round or red Eyes: no lid lag; normal eye movements Nose: not enlarged Mouth: Mucous membranes moist Neck: no supraclavicular fat pads; trachea midline Lymphatic: no palpable cervical lymph nodes Respiratory: symmetrical chest expansion, breathing comfortably on room air Musculoskeletal: normal gait; normal male musculature Skin: normal temperature/texture Neurological: no tremors; normal reflexes Psychological: alert/oriented to person, place, time; normal affect; memory intact; normal judgement/insight Radiology Studies: Laboratory Data: 12/24/18 karyotype: Interpretation ? SEE COMMENTS ? The result is abnormal. Each metaphase was XXY, consistent ? with Klinefelter syndrome (Frida et al., [facility] Med ? 3:187-191, 2001; Levi et al., [facility] Med 5:460-468, ? 2002). A genetic consultation may be of benefit. ?? Result ? 47,XXY ?? Reason for Referral ?Klinefelter syndrome ?? Specimen ? Blood ?? Method ? 72 hour culture w/mitogens ?? Banding Method ? SEE COMMENTS ? Band Resolution: ? [id number] ?Stain Name ?Cells Analyzed ?? Cells ? Karyograms ? Counted? Prepared ?GTL ? 5 ?15 ?2 ?Total ? 5 ?15 ?2 ? Component Latest Ref Rng & Units 12/24/2018 WBC 4.0 - 9.5 x10(3)/mcL 5.9 RBC 4.58 - 5.54 x10(6)/mcL 4.60 Hemoglobin 13.7 - 16.5 gm/dL 13.9 Hematocrit 40.5 - 48.5 % 41.1 MCV 82.9 - 93.1 fL 89.3 MCH 27.5 - 32.1 pg 30.2 MCHC 32.0 - 35.7 gm/dL 33.8 Platelets 145 - 357 x10(3)/mcL 242 RDWSD 36.0 - 45.0 fL 41.7 RDWCV 11.4 - 13.8 % 12.7 MPV 7.6 - 12.9 fL 9.2 nRBC % Auto % 0.0 nRBC Abs Auto 0.000 - 0.000 x10(3)/mcL 0.000 Testo Total 250 - 1100 ng/dL 170 (L) Testo Free 35.0 - 155.0 pg/mL 12.8 (L) LH 1.7 - 8.6 mlU/ML 20.9 (H) Assessment / Plan: 1) Klinefelter syndrome: We spent a long [...] to continue the every otherweek injection regimen. He is not interested in fertility at [...] box warning on testosterone for venous thromboembolism, NE and stroke. I provided him with a slip for [...] the 100 mg/mL formulation. [facility] and I saw that he was not prescribed testosterone at any facility in the database outside of our office. 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 I will do this, but will defer management of his testicular pain to this pain clinic as well as his urologist. He is at elevated risk of testicular cancer given the history of Klinefelter syndrome and cryptorchidism, and while I did not appreciate any masses that were concerning on his testicles on my last exama few months ago it would be reasonable to reassess the testicles should any new mass arise on exam. I have previously discussed with him referral to a genetics counselor to more broadly discussed the implications of having genetic disorder including the biopsychosocial aspects of it, but he declined it at that time He continues to have some breast tenderness, but did not have any breast masses at the time of the last visit with me. I do expect the tenderness to improve over time with treatment with testosterone. He is overall at an elevated risk for breast cancer, however to my knowledge there is no recommendation for breast cancer screening outside of the context of a palpated breast mass. I spent 30 minutes face to face with the patient, 20 of which was spent counseling about the issues described above RTC in 4 months Noe Asif MD Web Operations Managermedical technologist clinical Endocrinology Section [facility] documented in this encounter Plan of Treatment Not on filedocumented as of this encounter Visit Diagnoses Diagnosis Hypogonadism in male Klinefelter syndrome Klinefelter's syndrome documented in this encounter Care Teams Surgical Technologist Relationship Specialty Start Date End Date None PCP - General 11/17/18 10/10/21 None documented as of this encounter
--- OUTSIDE RECORDS SUMMARY | 2022-01-16 08:23 | XMS_ITS | Encounter Summary ---
:1990 [place] [address] Care Team Providers Name Role Phone None Primary Care Provider Unavailable Encounter Details Date Type Department Care Team Description 01/01/2019 Telephone Endocrinology at [facility] Noe Schuster MD [facility] [place] [address] [place] [address] [phone] (Wo rk) Social History Tobacco Use Types Packs/Day Years Used Date Current Every Day Smoker 1 Smokeless Tobacco: Never Used Chew Sex Assigned at Date Recorded Not on file documented as of this encounter Miscellaneous Notes Telephone Encounter - Noe Asif MD - 01/01/2019 12:28 PM EDT Discussed with patient the results of the genetic testing which confirmed Klinefelter syndrome. Other biochemical testing showed low testosterone. We discussed that I recommend treatment with testosterone to correct his hypogonadism. Given that his is 24 weeks with his first child I recommend intramuscular therapy rather than transdermal. We discussed the potential risks of blood clot and myocardial infarction which are blackbox war nings on these medications. He is aware that with Klinefelter syndrome his fertility is already reduced and it would be reduced further on testosterone replacement. It would take up to 6 months off of testosterone before he could conceive. I recommend that he started a dose of 200 mg testosterone cypionate every 2 weeks intramuscular. He will need to get a repeat blood draw for testosterone as well as hematocrit 6- weeks after starting this therapy. He prefers to have injections done in our clinic rather than to do them at home I queried PDMP and I saw that the patient was not receiving Rx for any other testosterone medication. Endo secretaries, please arrange nursing visit for patient to get testosterone injection Thursday 01/11would be optimal. He will need injection every 2 weeks. Also, please move up January 25 appt to see me during my admin time on 01/25 at 3pm. He would also need RN visit that day for testosterone. Endocrine RNs, FYI documented in this encounter Plan of Treatment Not on filedocumented as of this encounter Visit Diagnoses Diagnosis Klinefelter syndrome Klinefelter's syndrome documented in this encounter Care Teams Soil Sampler Relationship Specialty Start Date End Date None PCP - General 11/17/18 10/10/21 None documented as of this encounter
--- OUTSIDE RECORDS SUMMARY | 2022-01-16 08:23 | XMS_ITS | Encounter Summary ---
:1990 Author Organization [facility] Address [address] [place] [address] Care Team Providers Name Role Phone Indu Stacy MD Primary Care Provider Unavailable Reason for Visit Reason Comments Dental Pain pt states that he was seen b y his dentist earlier today and was told he needs iv abx for a dental in fection Encounter Details Date Type Department Care Team Description 06/10/2016 Emergency [facility] Emre Garcia MD [address] [place] [address] Dental abscess (Primary Emergency Department - Emergency, MD Magdalena Dx) Main [address] [address] Social History Tobacco Use Types Packs/Day [...] Index - - documented in this encounter Discharge Diagnoses Diagnosis K04.7 Periapical abscess without sinus-K 04.7[ICD-10-CM] F17.210 Nicotine dependence, cigarettes, uncomplicated-F17.210[ICD-10-CM] documented in this encounter Discharge Instructions InstructionsHulsey, Emre M, MD - 06/10/2016 Take the next dose of antibiotic before bed tonight and then 4 times daily Use the oxycodone for pain if needed, may also use advil for fever and pain See the [facility] tomorrow and call in the am for the time Return to ER if worsening or concerning symptoms Lots liquids documented in this encounter Medications at Time of Discharge Medication Sig Dispensed Refills Start Date End Date oxyCODONE-acetaminophen Take 1-2 Tabs by 15 Tab 0 2015 (PERCOCET) 5-325 mg per mouth every 4 hours tablet as needed for Pain. Daily Max: 12 Tabs clindamycin (CLEOCIN) 300 Take 1 Cap by mouth 28 Cap 0 1 08/11/2015 06/17/2016 mg capsule every 6 hours for 7 days. documented as of this encounter Ordered Prescriptions Prescription Sig Dispensed Refills Start Date End Date oxyCODONE-acetaminophen Take 1-2 Tabs by 15 Tab 0 2015 (PERCOCET) 5-325 mg per mouth every 4 hours tablet as needed for Pain. Daily Max: 12 Tabs clindamycin (CLEOCIN) 300 Take 1 Cap by mouth 28 Cap 0 1 08/11/2015 06/17/2016 mg capsule every 6 hours for 7 days. documented in this encounter Discharge Disposition Disposition Code Departure Means Destination Home or Self Care documented in this encounter Consult Notes Rain Moore DMD - 06/10/2016 1434 EST Dental Surgery Consult Note Date of Service: 06/10/2016 Requesting Provider: Dr. Garcia Specialty Completing Consult: Dental Reason for Consult: Facial Swelling HPI: Pt complaining of left sided facial swelling. Has been going on for 1 day. He was told he had a few teeth that require extraction and has a follow up at the [facility] later this week. Associated with fever / chills and trismus. No difficulty swallowing. ROS Hx of trauma: No Past Med Hx PMH PSH No past medical history on file. No past surgical history on file. Relevant Medications reviewed Social History Family History Social History Substance Use Topics ??? Smoking status: Current Every Day Smoker Packs/day: 1.00 Types: Cigarettes ??? Smokeless tobacco: Not on file ??? Alcohol use No No family history on file. Medications Current Facility-Administered Medications Medication Route Frequency ??? clindamycin (CLEOCIN) IVPB 900 mg intravenous Now ??? HYDROmorphone (DILAUDID) injection 0.5 mg intravenous Now ??? ketOROLAC (TORADOL) injection 15 mg intravenous Now ??? sodium chloride 0.9 % BOLUS 1,000 mL intravenous Now No current outpatient prescriptions on file. Allergies No Known Allergies Review of Systems: Pertinent items are noted in Subjective/HPI Objective/Physical Exam: VS: Patient Vitals for the past 8 hrs: BP Pulse Resp Temp SpO2 06/10/16 1329 127/79 91 16 38.1 ??C (100.6 ??F) 100 % Exam: Extraoral and Intraoral examinations completed. Findings: Extraoral: + swelling,+ palpate inferior border of mandible. Swelling of the left side face above the inferior border of the mandible. + facial asymmetry noted. + tender to palpation. + trismus with guarding. Intraoral: partially dentate. + fluctuant swelling, - erythematous. Vestibular swelling buccal to tooth #19. Tooth #17 and 19 root tips. Multiple grossly decayed teeth. - swelling on the lingual portion of tooth #17, 19. Red ulceration point of early drainage found to the buccal gingiva of #19. - elevation of the tongue. Difficult to evaluate posterior teeth due to trismus. Data Review: NA Labs: NA Other Studies: N/A Assessment: 26 year old patient evaluated in ED for left sided facial swelling Diagnosis: Left sided vestibular abscess associated with tooth #19. Procedure Note: Simple Incision and Drainage performed. Explained the risks and benefits and received patient consent. Time out performed. Patient positioned appropriately. Administered 1 carpule of 2% Lidocaine with 1:100K epi and 1 carpule of 0.5% Bupivacaine with 1:200K epi via vestibular injection. Unable to do KARI block due to severe trismus and inability of patient to comply. #15 blade scalpel used for a single incision followed by some blunt dissecting. Patient was unable to tolerate full blunt dissection. Serosanguinous fluid was expressed and site was irrigated with copious amounts of 0.9% NaCl followed by suctioning. EBL was minimal. Post-op instructions were given. Recommendations: ?? Follow-up with primary dentist in 1-3 days ?? Antibiotics - Clindamycin ?? Pain management - Ibuprofen and Tylenol ?? Warm saline rinse 4-6 times a day ?? Apply warm compress to face 20 minutes on and 20 minutes off Alison Moore DMD 06/10/2016 14:34 Resident Division of Dental Surgery documented in this encounter ED Notes Satinder Palma RN - 06/10/2016 1453 EST Dental resident @ the bedside-pt tolerating Injections fairly well- tearful Emre Larry MD - 06/10/2016 1347 EST DOS: 06/10/2016 Chief Complaint Patient presents with ??? Dental Pain pt states that he was seen by his dentist earlier today and was told he needs iv abx for a dental infection HPI Comments: I, Colin Gan, am scribing for Emre Garcia MD while he/she is personally performing the service. Colin Gan 06/10/2016 13:48 José Miguel Bae is a 26 y.o. male with no significant past medical history who presents to the ED from his dentists office for further evaluation of a possible dental infection. The patient explains that he noticed pain around his left lower gumline begin yesterday, and since that time he has had worsening pain and swelling. The patient states he has multiple teeth that need to be removed from his lower left side, upper left side as well as a few on the right side. However the pain and swelling currently is localized to his left lower jaw. Today, the patient developed fevers/chills with associated nausea. The patient denies vomiting. He states that he has been able to tolerate some liquid PO, but he has not urinated at all today. Patient reports taking advil at 0830 this morning, but denies using tylenol. In triage, the patient is febrile at 100.6F. The history is provided by the patient and medical records. Review of Systems Review of Systems Constitutional: Positive for appetite change, chills and fever. HENT: Positive for dental problem and facial swelling. Eyes: Negative for visual disturbance. Respiratory: Negative for shortness of breath. Cardiovascular: Negative for chest pain. Gastrointestinal: Positive for nausea. Negative for abdominal pain and vomiting. Genitourinary: Negative for dysuria. Musculoskeletal: Negative for back pain and neck stiffness. Skin: Negative for rash. Neurological: Negative for headaches. Psychiatric/Behavioral: Negative for confusion. All other systems reviewed and are negative. No Known Allergies Vital Signs Temp: 38.1 ??C (100.6 ??F) Temp src: Temporal Pulse: 91 Heart Rate: 84 BPM Resp: 14 SpO2: 99 % BP: 137/88 BP Device: BP Machine Patient Position: Sitting BP Cuff Location: Right arm O2 Device: None (Room air) Physical Exam Constitutional: He is oriented to person, place, and time. He appears well- developed and well-nourished. Awake and alert. HENT: Head: Normocephalic and atraumatic. Right Ear: External ear normal. Left Ear: External ear normal. Nose: Nose normal. Mouth/Throat: Oropharynx is clear and moist. Left jaw line swelling moderate. There is a badly decayed tooth on the left first molar, posterior pharynx is normal. Eyes: Pupils are equal, round, and reactive to light. Right eye exhibits no discharge. Left eye exhibits no discharge. Neck: Normal range of motion. Neck supple. No tracheal deviation present. Cardiovascular: Normal rate, regular rhythm and normal heart sounds. No murmur heard. Pulmonary/Chest: Effort normal and breath sounds normal. No respiratory distress. He has no wheezes.He has no rales. Lungs are clear and equal. Abdominal: Soft. There is no tenderness. Musculoskeletal: Normal range of motion. Neurological: He is alert and oriented to person, place, and time. He has normal strength. He is notdisoriented. No sensory deficit. Skin: Skin is warm and dry. No rash noted. Hot and moist. Psychiatric: He has a normal mood and affect. Nursing note and vitals reviewed. RESULTS EKG orders: None Radiology orders: None ED Lab Results Labs Reviewed - No data to display Relevant Data Procedures ED COURSE A medical screening exam was performed. I feel the patient needs acute drainage by dental, they were contacted at 1355, and will see the patient in the ER. Patient will be given IV fluids, toradol, dilaudid and clindaymcin. Patient seen by dental resident in the ED who drained the swollen area, she did not get much significant puss but some blood. And agreed with plan for clindamycin. Patient will be seen tomorrow by [facility] for possible removal of offending tooth. Given IV fluids in the ED, pain medication and feels improved prior to discharge. ASSESSMENT AND PLAN Final diagnoses: Dental abscess DISPOSITION: Discharged The patient's pain was managed to an adequate level weighing risk vs. benefit of further medications. Upon departure from the Emergency Department, the patient's pain was 4 on a zero to ten scale. Condition at departure from the Emergency Department: Improved PCP: Indu Stacy MDM Number of Diagnoses or Management Options Dental abscess: Diagnosis management comments: 4 This documentation is recorded by Colin Gan acting as Scribe under the direction and presence of Emre Garcia MD. Emre Garcia MD: I personally performed the services recorded by the scribe in my presence. I confirm the scribe's documentation has been reviewed by me to accurately and completely record my work,treatment, procedures, and medical decision making. 06/10/2016 17:51 No flowsheet data found. documented in this encounter Plan of Treatment Not on filedocumented as of this encounter Visit Diagnoses Diagnosis Dental abscess - Primary Periapical abscess without sinus documented in this encounter Administered Medications Inactive Administered Medications - up to 3 most recent administrations Medication Order MAR Action Action Date Dose Rate Site clindamycin (CLEOCIN) 150 mg cap Given 06/10/2016 16:06 EST 1 Pa ckage STARTER PACK 1 Package, oral, NOW X1, 1 dose, On Fri06/10/16 at 1530, STAT clindamycin (CLEOCIN) IVPB 900 mg Given 06/10/2016 14:52 EST 900 mg 900 mg, intravenous, Administer over 30 Minutes, NOW X1, 1 dose, On Fri06/10/16 at 1400, STAT HYDROmorphone (DILAUDID) injection 0.5 m g Given 06/10/2016 14:52 EST 0.5 mg 0.5 mg, intravenous, NOW X1, 1 dose, On Fri06/10/16 at 1400, STAT ketOROLAC (TORADOL) injection 15 mg Given 06/10/2016 14:52 EST 15 mg 15 mg, intravenous, NOW X1, 1 dose, On Fri06/10/16 at 1400, STAT Oxycodone w APAP?? 5- 325 mg Tab STARTER Given 06/10/2016 16:06 EST 1 Package PACK 1 Package, oral, NOW X1, 1 dose, On Fri06/10/16 at 1530, STAT sodium chloride 0.9 % BOLUS 1,000 mL New Bag 06/10/2016 14:52 EST 1,000 mL 1,000 mL, intravenous, NOW X1, 1 dose, On Fri06/10/16 at 1400, STAT documented in this encounter Active and Recently Administered Medications Times are shown in EST. Scheduled Medication Order 06/08/2016 06/09/2016 06/10/2016 clindamycin (CLEOCIN) 150 mg cap STARTER PACK (COMPLETED) 1606 (Given - Provider: Gerard Goodman RN) 1 Package, oral, NOW X1, 1 dose, Fri06/10/16 at 1530, STAT clindamycin (CLEOCIN) IVPB 900 mg (COMPLETED) 1452 (Given - Provider: Satinder Palma, INES) 900 mg, intravenous, Administer over 30 Minutes, NOW X1, 1 dose, Fri06/10/16 at 1400, STAT HYDROmorphone (DILAUDID) injection 0.5 mg (COMPLETED) 1452 (Given - Provider: Satinder Palma RN) 0.5 mg, intravenous, NOW X1, 1 dose, Fri06/10/16 at 1400, STAT ketOROLAC (TORADOL) injection 15 mg (COMPLETED) 1452 (Given - Provider: Satinder Palma RN) 15 mg, intravenous, NOW X1, 1 dose, Fri06/10/16 at 1400, STAT Oxycodone w APAP?? 5- 325 mg Tab STARTER PACK (COMPLETED) 1606 (Given - Provider: Gerard Goodman RN) 1 Package, oral, NOW X1, 1 dose, Fri06/10/16 at 1530, STAT sodium chloride 0.9 % BOLUS 1,000 mL (COMPLETED) 1452 (New Bag - Provider: Satinder Palma RN) 1,000 mL, intravenous, NOW X1, 1 dose, Fri06/10/16 at 1400, STA T documented in this encounter Orders Nursing Count Last Ordered Date First Ordered Date NURSING COMMUNICATION 1 06/10/2016 documented in this encounter Care Teams Mangle Feeder Relationship Specialty Start Date End Date Indu Stacy MD PCP - General 04/20/15 06/28/21 [address] [place] [address] documented as of this encounter
--- OUTSIDE RECORDS SUMMARY | 2022-01-16 08:23 | XMS_ITS | Encounter Summary ---
:1990 Author Organization [facility] [place] [address] Care Team Providers Name Role Phone None Primary Care Provider Unavailable Encounter Details Date Type Department Care Team Description 04/30/2019 Office Visit Endocrinology at [facility] Noe Schuster Hypogonadism in male; [facility] MD Tramaine [place] [address] [place] [address] [place] [address] Social History Tobacco Use Types Packs/Day Years Used Date Current Every Day Smoker 1 Smokeless Tobacco: Never Used Chew Sex Assigned at Date Recorded Not on file documented as of this encounter Last Filed Vital Signs Vital Sign Reading Time Taken Comments Blood Pressure 117/77 04/30/2019 9:49 AM EST Pulse 54 04/30/2019 9:49 AM EST Temperature - - Respiratory Rate - - Oxygen Saturation - - Inhaled Oxygen Concentration - - Weight 64.9 kg (143 lb) 04/30/2019 9:49 AM EST Height 190.5 cm (6' 3) 04/30/2019 9:49 AM EST Body Mass Index 17.87 04/30/2019 9:49 AM EST documented in this encounter Patient Instructions Patient InstructionsCrNoe jean MD - 04/30/2019 10:00 AM EST On 06/02 get blood drawn for testosterone and hematocrit documented in this encounter Progress Notes Noe Asif MD - 04/30/2019 10:00 AM EST Mr. José Miguel Bae is an 29 y.o. male who presents for ongoing care of hypogonadism Interval history: Patient has a history of Klinefelter syndrome, confirmed by karyotype analysis in 2018, and started on testosterone therapy in summer 2018 He was taking a dose of testosterone cypionate 200mg q14 days, and his mother was doing IM injectioninto the buttocks due to the patient's fear of needles. Then about 2-3 weeks ago he began to experience severe redness, swelling and warmth at the injection site. He had a fever to 102F. His lower extremities swelled up and he began to have pain even in his lower extremities. He was seen in local ER, who felt his symptoms did note require antibiotics.The patient has not had testosterone in 3 weeks. His lower extremity pain has lingered but the redness/pain in the buttocks has resolved. He tells me that while on testosterone he felt his energy improved significantly, but the effects wore off significantly at the end of the 14 days. His fatigue has worsened off of testosterone He is meeting with a urologist in the near future to discuss further measures to control his chronicand severe testicular pain. His gave to a son about 4 weeks ago Patient Active Problem List Diagnosis ??? Hematuria ??? Testicular pain ??? Klinefelter's syndrome Overview Note: Confirmed XXY based on karyotype analysis in December 2018 ??? Bilateral testicular atrophy Current Outpatient Medications: ??? gabapentin (NEURONTIN) 300 [...] instructed., Disp: 13 each, Rfl: 1 ??? traMADol (ULTRAM) 50 mg Tablet, Take 50 mg by mouth every 6 hours as needed for Pain., Disp: , Rfl: ??? mirtazapine (REMERON) 15 mg Tablet, Take 15 mg by mouth nightly., Disp: , Rfl: ??? venlafaxine (EFFEXOR-XR) 75 mg Capsule, Sust. Release 24 hr, TAKE ONE CAPSULE BY MOUTH EVERY DAY, Disp: , Rfl: 1 has a past medical history of Bilateral testicular atrophy and DJD (degenerative joint disease). Physical Exam: Patient Vitals for the past 24 hrs: Pulse BP 04/30/19 0949 54 117/77 Wt & BMI By Encounter Date Office Visit from 04/30/2019 in Endocrinology at [facility] Office Visit from 2019 in Endocrinology at [facility] Weight 64.9 kg (143 lb) 1 04/30/2019 0949 68.5 kg (151 lb) 1 2019 1448 BMI 17.87 1 04/30/2019 0949 18.87 1 2019 1448 General: no acute distress, pleasant, sitting comfortably Face: not round or red Eyes: no lid lag; normal eye movements Nose: not enlarged Mouth: Mucous membranes moist Neck: no supraclavicular fat pads; trachea midline Respiratory: symmetrical chest expansion, breathing comfortably on room air Musculoskeletal: Moving all 4 extremities normally; normal male musculature, thin extremities and tall stature Skin: normal temperature/texture, no redness or swelling on the left buttocks at injection site, no LE edema Neurological: no tremors; normal gait Psychological: alert/oriented to person, place, time; normal affect; memory intact; normal judgement/insight Radiology Studies: Laboratory Data: Assessment / Plan: 1) 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 I did not find any evidence of an active infection on exam today. We discussed the risks versus benefits of continuing intramuscular testosterone injections. We discussed that transdermal formulations are not optimal given that he has a young child in his household and there would be a risk of transferring the testosterone to that child which could lead to severe medical problems for the child. Patient would like toretry testosterone injections intramuscularly, and prefers to do this at a lower dose but a more frequent interval to prevent the associated symptoms with a eulogio of levels just prior to the reinjection at day 14. He tells me that he has a fear of needles and would prefer to come to [facility] for the injection and is willing to drive here every week to have this done. He will bring his own testosterone supply from home. He did receive his first injection today. He will get his testosterone and hematocrit level checked when he is here at [facility] in about 4 weeks which would be a day 3 after his injection. Follow-up with me in 3 months I spent 25 minutes face to face with the patient, 20 of which was spent counseling about the issues described above Neo Asif MD Division Managerroofer applicator Endocrinology Section [facility] documented in this encounter Plan of Treatment Not on filedocumented as of this encounter Visit Diagnoses Diagnosis Hypogonadism in male Klinefelter's syndrome documented in this encounter Administered Medications Inactive Administered Medications - up to 3 most recent administrations Medication Order MAR Action Action Date Dose Rate Site testosterone cypionate Given 04/30/2019 11:21 AM 100 mg Right Gluteal (DepoTESTOSTERONE EST CYPIONATE) injection 100 mg 100 mg, Intramuscular, ONCE, 1 dose, On Fri04/30/19 at 1100, Routine documented in this encounter Care Teams Obgyn Nurse Relationship Specialty Start Date End Date None PCP - General 11/17/18 10/10/21 None documented as of this encounter
--- OUTSIDE RECORDS SUMMARY | 2022-01-16 08:23 | XMS_ITS | Encounter Summary ---
:1990 Author Organization [facility] [place] [address] Care Team Providers Name Role Phone None Primary Care Provider Unavailable Encounter Details Date Type Department Care Team Description 08/13/2021 Ancillary Procedure Radiology Library at [facility] MD [facility] [place] [address] [place] [address] [phone] (Wo rk) Social History Tobacco Use Types Packs/Day Years Used Date Current Every Day Smoker 1 Smokeless Tobacco: Never Used Chew Sex Assigned at Date Recorded Not on file documented as of this encounter Plan of Treatment Not on filedocumented as of this encounter Procedures Procedure Name Priority Date/Time Associated Diagnosis Comme nts FILM LIBRARY Routine 08/13/2021 3:34 PM Results f or this STORAGE ONLY CT EST procedure ar e in ABDOMEN AND PELVIS the resul ts section. documented in this encounter Results Film Library- Storage Only CT Abdomen & Pelvis (08/13/2021 3:34 PM EST) Specimen (Source) Anatomical Location Collection Method / Collectio n Time Received Time / Laterality Volume Narrative SOL - 08/13/2021 3:34 PM EST This exam is auto-finalizing. It's purpo se is for storage only. Barbara MALDONADO FILM LIBRARY ORDERABLES Performing Organization Address City/State/ZIP Code Phon e Number [place], [place] documented in this encounter Visit Diagnoses Not on filedocumented in this encounter Care Teams [employer] Pro Relationship Specialty Start Date End Date None PCP - General 11/17/18 10/10/21 None documented as of this encounter
--- OUTSIDE RECORDS SUMMARY | 2022-01-16 08:23 | XMS_ITS | Encounter Summary ---
:1990 Author Organization [facility] [place] [address] Care Team Providers Name Role Phone None Primary Care Provider Unavailable Reason for Visit Reason Onset Date Comments Follow-up 09/21/2019 Encounter Details Date Type Department Care Team Description 09/21/2019 Telephone Urology at [facility] Aguilar Bustos III, MD Follow-up [facility] [place] [address] [place] [id number] [phone] (Wo rk) Social History Tobacco Use Types Packs/Day Years Used Date Current Every Day Smoker 1 Smokeless Tobacco: Never Used Chew Sex Assigned at Date Recorded Not on file documented as of this encounter Miscellaneous Notes Telephone Encounter - Aguilar Bustos III, MD - 09/21/2019 9:27 AM EDT I spoke with Mr. Bae about rescheduling his 09/28 appt due to the COVID 19 emergency. He has agreed to reschedule. I thanked him for his understanding and told him one of our administrators would contact him re: his appt. documented in this encounter Plan of Treatment Not on filedocumented as of this encounter Visit Diagnoses Not on filedocumented in this encounter Care Teams Director Religious Education Relationship Specialty Start Date End Date None PCP - General 11/17/18 10/10/21 None documented as of this encounter
--- OUTSIDE RECORDS SUMMARY | 2022-01-16 08:23 | XMS_ITS | Encounter Summary ---
:1990 Author Organization [facility] [place] [address] Care Team Providers Name Role Phone None Primary Care Provider Unavailable Encounter Details Date Type Department Care Team Description 12/09/2018 Telephone Endocrinology at [facility] Valerie Medina, [place] [address] Social History Tobacco Use Types Packs/Day Years Used Date Current Every Day Smoker 1 Smokeless Tobacco: Never Used Chew Sex Assigned at Date Recorded Not on file documented as of this encounter Miscellaneous Notes Telephone Encounter - Valerie Quiroz, RN - 12/09/2018 9:14 AM EDT TRIAGE CALL Caller: patient Reason for Call: BRB in urine, BM, emesis Symptom Review: also consistent groin pain, some abdominal pain, constant watery diarrhea Onset: approx 2 weeks ago Duration: approx 2 weeks What makes it better: nothing What makes it worse: nothing Timing of symptoms: BRB with every void, in every BM (watery diarrhea that occurs with every void), and in emesis (usually vomiting in the AM and at times again later in the day, no more than 1-2 times/day). GI: Pos : Pos Select specific Decision Support Tool used: discussed with Dr Asif Disposition: Referred to other agency, advised pt to either contact his urologist or seek assistanceat urgent care or local ED. Plan of Care: Pt to be evaluated at his local ED Patient/responsible caregiver able to read back instructions/plan of care? yes Recommendations for worsening condition given to patient/responsible caregiver? N/A - going to ED Patient/responsible caregiver intends to comply with action/disposition? yes Follow up needed? no Pt and his father, Chun, calling with concerns that pt is experiencing bright red blood in urine, BMs and emesis. documented in this encounter Plan of Treatment Not on filedocumented as of this encounter Visit Diagnoses Not on filedocumented in this encounter Care Teams Cutlet Maker Pork Relationship Specialty Start Date End Date None PCP - General 11/17/18 10/10/21 None documented as of this encounter
--- OUTSIDE RECORDS SUMMARY | 2022-01-16 08:23 | XMS_ITS | Encounter Summary ---
:1990 [place] [address] Care Team Providers Name Role Phone None Primary Care Provider Unavailable Encounter Details Date Type Department Care Team Description 08/12/2019 Telephone Urology at [facility] Aguilar Bustos III, [place] [address] [place] [address] [phone] (Wo rk) Social History Tobacco Use Types Packs/Day Years Used Date Current Every Day Smoker 1 Smokeless Tobacco: Never Used Chew Sex Assigned at Date Recorded Not on file documented as of this encounter Miscellaneous Notes Telephone Encounter - Jurgen Thompson - 08/12/2019 2:25 PM EST LMOM - Dr. Bustos would like to see the patient in September 2019 (FUV). documented in this encounter Plan of Treatment Not on filedocumented as of this encounter Visit Diagnoses Not on filedocumented in this encounter Care Teams Director Digital Analytics Relationship Specialty Start Date End Date None PCP - General 11/17/18 10/10/21 None documented as of this encounter
--- OUTSIDE RECORDS SUMMARY | 2022-01-16 08:23 | XMS_ITS | Encounter Summary ---
:1990 Author Organization [facility] [place] [address] Care Team Providers Name Role Phone None Primary Care Provider Unavailable Reason for Visit Reason Onset Date Comments Prior Authorization 08/18/2019 [place] Encounter Details Date Type Department Care Team Description 08/18/2019 Telephone Endocrinology at [facility] Nia Funes Prior Authorization [facility] Melania leyva (Nastesto) [place] [address] Social History Tobacco Use Types Packs/Day Years Used Date Current Every Day Smoker 1 Smokeless Tobacco: Never Used Chew Sex Assigned at Date Recorded Not on file documented as of this encounter Miscellaneous Notes Telephone Encounter - Nia Steele - 08/18/2019 2:17 PM EST Medication Prior Authorization Yefri Medication name/dose/directions: Natesto 5.5mg/0.122g - 11 mg by Nasal route 3 times daily Rationale for request: Hypogonadism Health plan: [place] Medicaid ([facility]) Authorizing car sales representative name: Ruth Faxed to health plan on: 08/18/19 Health plan decision: Denied Quantity approved: Per state Medicaid policy, this product is not covered since the business law teacher does not participate in the Federal Drug Rebate program. Preferred testosterone replacement therapies include Androderm patches, Androgel 1% gel packets, Testosterone 1.62% gel packets and gel pumps Authorization number: [id number] Start date: End date: documented in this encounter Plan of Treatment Not on filedocumented as of this encounter Visit Diagnoses Not on filedocumented in this encounter Care Teams Lighting Engineer Relationship Specialty Start Date End Date None PCP - General 11/17/18 10/10/21 None documented as of this encounter
--- OUTSIDE RECORDS SUMMARY | 2022-01-16 08:23 | XMS_ITS | Encounter Summary ---
:1990 Author Organization [facility] [address] Care Team Providers Name Role Phone None Primary Care Provider Unavailable Encounter Details Date Type Department Care Team Description 11/30/2018 Telephone Endocrinology at [facility] Valerie Medina, [place] [address] Social History Tobacco Use Types Packs/Day Years Used Date Current Every Day Smoker 1 Smokeless Tobacco: Never Used Chew Sex Assigned at Date Recorded Not on file documented as of this encounter Miscellaneous Notes Telephone Encounter - Valerie Quiroz RN - 12/09/2018 9:09 AM EDT Spoke to Shandra in lab who pulled requisition and found it had been noted this lab only. From this she extrapolates that pt wanted only the testosterone lab drawn that day. Current karoyotype order still valid. Spoke to pt who states that the day he was at the lab, the board certified orthodontist saw scanned results from the other labs done at [facility] and therefore noted that only the testosterone order should be done. Apologized to pt for the lab order and advised that the karyotype order is still valid for him to complete at his convenience. Telephone Encounter - Noe Asif MD - 12/07/2018 3:18 PM EDT Called cytogenetics and they tell me that karyotype was ordered correctly, but never drawn when ordered on 11/13/18. Because they only process/mail out these tests, they are not sure why it wasn't drawn. As far as they know it should be drawn as usual by phlebotomy in lab Endo RNs, please contact phlebotomy lab to see if further information/orders are necessary to get karyotype drawn. Unfortunately patient lives far away and will need to return for blood draw. Thank you Telephone Encounter - Valerie Quiroz RN - 11/30/2018 4:31 PM EDT ----- Message from Noe Asif MD sent at 11/30/2018 4:21 PM EDT ----- Regarding: lab draw Manjula, This is the patient we discussed. I entered lab orders for karyotype (lab collect) but it was not drawn earlier this month. Please contact the lab to see if they tanya and sent out, and if not drawn whyand how we could proceed to have drawn at [facility]. Thanks very much! documented in this encounter Plan of Treatment Not on filedocumented as of this encounter Visit Diagnoses Not on filedocumented in this encounter Care Teams Senior Microstrategy Developer Relationship Specialty Start Date End Date None PCP - General 11/17/18 10/10/21 None documented as of this encounter
--- OUTSIDE RECORDS SUMMARY | 2022-01-16 08:23 | XMS_ITS | Encounter Summary ---
:1990 Author Organization [facility] [place] [address] Care Team Providers Name Role Phone None Primary Care Provider Unavailable Reason for Visit Reason Comments Hematuria Encounter Details Date Type Department Care Team Description 02/17/2019 Office Visit [place]rology [place] [facility] [place]ilar Bustos Lower urinary tract symptoms (LUTS); [facility] MD CANDACE Hematuria, unspecified type; Drive [facility] [place] [address] [place] [address] [phone] Social History Tobacco Use Types Packs/Day Years Used Date Current Every Day Smoker 1 Smokeless Tobacco: Never Used Chew Sex Assigned at Date Recorded Not on file documented as of this encounter Last Filed Vital Signs Vital Sign Reading Time Taken Comments Blood Pressure 114/79 02/17/2019 10:20 AM EDT Pulse 75 02/17/2019 10:20 AM EDT Temperature 36.6 ??C (97.9 ??F) 02/17/2019 10:20 AM EDT Respiratory Rate - - Oxygen Saturation - - Inhaled Oxygen Concentration - - Weight - - Height - - Body Mass Index - - documented in this encounter Patient Instructions Patient InstructionsPj Silverio RN - 02/17/2019 10:20 AM EDT Instructions following Cystoscopy Activity: As tolerated by your comfort level. Fluids: You should increase your water today. Avoid coffee, tea and cola. You do not need to exceed 64 ounces of water today. Urination: You will likely have a small amount of blood in your urine for the next several days. This is normal; however, if you are passing large amounts of blood clots or are unable to void please call our office at [phone] before 5PM or [phone] after hours. Please call if: * you have copious blood in your urine * fevers greater than 101.3 F * you are unable to void The number for questions is [phone] before 5 PM weekdays and [phone] after 5 PM and weekends. Follow-up: As per Dr Bustos documented in this encounter Progress Notes Aguilar Bustos III, MD - 02/17/2019 10:20 AM EDT See procedure note Findings; no obvious bladder path documented in this encounter Procedure Notes Aguilar Bustos III, MD - 02/17/2019 10:20 AM EDTAssociated Order(s): CYSTOSCOPY Pre-Procedure Diagnose(s): Hematuria, unspecified type Mr Bae is a 21-year-old gentleman returns for follow-up evaluation of intermittent gross hematuria. He states that since his last visit he has not been noticed blood in his a urinary. Procedure: Patient was taken to the [facility] [place] suite where he was appropriately identified. A consent form was signed. In the supine position he was prepped and draped in usual sterile fashion. A flexible cystoscope was inserted into the urethral meatus and passed without difficulty to the membrano us urethra. There is no evidence of a stricture disease. Close examination of the bladder revealed no evidence of dysplastic or inflammatory changes. Both ureteral orifices were identified. The scope was retroflexed and the bladder neck inspected. There is no evidence of a disease seen. At the end of the procedure the scope was removed without incident and the patient tolerated the procedure well. Assessment: 29-year-old gentleman with a history of gross intermittent hematuria. There is no obvious evidence of lower tract pathology documented in this encounter Plan of Treatment Not on filedocumented as of this encounter Procedures Procedure Name Priority Date/Time Associated Diagnosis Comme nts CYSTOSCOPY Routine 02/17/2019 10:20 AM Hematuria, unspecifie d Results for this EDT type procedure are i n the results section. documented in this encounter Results US Scrotum [...] number below. Electronically signed by: Laron chand [facility] ([phone]), at 3:24 PM ?Laron Reyez, Staff Physician Electronically Signed Final Report ?? 03:31 pm Narrative 06/02/2019 3:31 PM EST Scrotal ? (Signed Final 06/02/2019 03:31 pm) PATIENT INFO: ID #: ? [id number] ?: ??[birth year] (29 yrs) Name: ? DAJUAN Carlita BAE ? Visit Date: 06/02/2019 02:50 pm PERFORMED BY: Performed By: ? Seema Almanza RDMS Attending: ?Dereje ROMAN, Hyun Peterson Resident: ? Evelina ROMAN, William Carpio Referred By: ?AGUILAR BUSTOS III Location: ? [place] SERVICE(S) PROVIDED: ??[facility] - Scrotum and Contents with Limit ed ? 27900, 11519 ??Vascular evaluation - [id number] INDICATIONS: ??epididymal cyst COMPARISON: US scrotum, 07/11/2016 [...] 06/02/2019 03:31 pm) PATIENT INFO: ID #: [id number] : [birth year] (29 y rs) Name: DAJUAN BAE Visit Date: 2018 02:50 pm PERFORMED BY: Performed By: Seema Almanza RDMS Attending: Laron Reyez MD Resident: Laron Hoyt MD Referred By: AGUILAR BUSTOS III Location: [place] SERVICE(S) PROVIDED: [facility] - Scrotum and Contents with Limited 19103, 16820 Vascular evaluation - [id number] INDICATIONS: epididymal cyst COMPARISON: US scrotum, 07/11/2016 [...] questions regarding this report, please contact t jason number below. Electronically signed by: Laron chand, [facility] ([phone]), at 3:24 PM Laron Reyez, Staff Physician Electronically Signed Final Report 06/02 03:31 pm Aguilar Bustos III, MD IMG US GEN ORDERABLES Cystoscopy (02/17/2019 10:20 AM EDT) Narrative Aguilar Bustos III, MD - 02/17/2019 10: 20 AM EDT Aguilar Bustos III, MD ? 02/27/2019 12:05 PM Mr Bae is a 21-year-old gentleman ret urns for follow-up evaluation of intermittent gross hematur ia. ??He states that since his last visit he has not been noticed b lood in his a urinary. Procedure: Patient was taken to the [facility] cystoscopy [place] where he was appropriately identified. ??A consen t form was signed. ??In the supine position he was prepped and drape d in usual sterile fashion. ??A flexible cystoscope was ins erted into the urethral meatus and passed without difficulty to the membranous urethra. ?? There is no evidence of a stricture dise ase. ??Close examination of the bladder revealed no evidence of d ysplastic or inflammatory changes. ??Both ureteral orifices were i dentified. ??The scope was retroflexed and the bladder neck inspect ed. ??There is no evidence of a disease seen. ??At the end of the p rocedure the scope was removed without incident and the patient tolerated the procedure well. Assessment: 29-year-old gentleman with a history of gross intermittent hematuria. ??There is no ob vious evidence of lower tract pathology Aguilar Bustos III, MD PROCEDURE ORDERABLES documented in this encounter Visit Diagnoses Diagnosis Lower urinary tract symptoms (LUTS) Other symptoms involving urinary system Hematuria, unspecified type Epididymal cyst Other specified disorder of male genital organs Epididymal cyst Other specified disorder of male genital organs documented in this encounter Care Teams Naval Inspector Relationship Specialty Start Date End Date None PCP - General 11/17/18 10/10/21 None documented as of this encounter
--- OUTSIDE RECORDS SUMMARY | 2022-01-16 08:23 | XMS_ITS | Encounter Summary ---
:1990 Author Organization [facility] Address [facility] [place] [address] Care Team Providers Name Role Phone None Primary Care Provider Unavailable Reason for Visit Auth/Cert Specialty Diagnoses / Procedures Referred By Contact Refer red To Contact Diagnoses Orchalgia Procedures PRO REMOVAL TESTIS, SIMPLE ORCHIECTOMY, SIMPLE, W\WO PROSTHESIS; SIMPLE (WRVU 5.3) Referral ID Status Reason Start Date Expiration Date Visits Requ ested Visits Authorized [id number] 1 1 Encounter Details Date Type Department Care Team Description 01/24/2020 Hospital [facility] [place] [address] [place] [address] [phone] Social History Tobacco Use Types Packs/Day Years Used Date Current Every Day Smoker 1 Smokeless Tobacco: Never Used Chew Sex Assigned at Date Recorded Not on file documented as of this encounter Last Filed Vital Signs Vital Sign Reading Time Taken Comments Blood Pressure 109/73 01/24/2020 12:00 PM EDT Pulse 70 01/24/2020 10:44 AM EDT Temperature 36 ??C (96.8 ??F) 01/24/2020 10:44 AM EDT Respiratory Rate 18 01/24/2020 12:00 [...] Pt is ready for the OR. Ancef managing consultant clinical professor to OR Hung Marcelo MD documented in this encounter Miscellaneous Notes Op Note - Aguilar Bustos III, MD - 01/24/2020 11:20 AM EDT Operative Note Patient Name: José Miguel Bae : [id number] MR#: [id number] Case Date: 01/24/2020 Surgeon: Surgeon(s) and Role: [...] Note Patient Name: José Miguel Bae : [id number] MR#: [id number] Case Date: 01/24/2020 Surgeon: Surgeon(s) and Role: [...] 01/24/2020 AM EDT 10:13 AM EDT Narrative [facility] - 01/24/2020 10:13 AM EDT Specimen requisition ordered. ??Separate Pathology report to follow Aguilar Bustos III, MD PATHOLOGY/CYTOLOGY ORDERABLE S Performing Organization Address City/State/[place] [address] [facility] [address] Surgical Pathology Report (01/24/2020 10:12 AM EDT) Component Value Ref Test Analysis Performed At [facility] Range Method Time Signature Surgical [id number] ? Location: [facility]; [facility]; A [facility] Report The signing pathologist has (i) examined the relevant preparation(s) for the [facility] specimen(s) and (ii) rendered or confirmed the diagnosis(es) . HOSPITAL LABORATORY . 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 Spermatocele cyst. Unremarkable spermatic cord margin. Electronically signed by: ??Belle Sandoval MD Verified: ??01/30/2020 ?Pathologist Performed at: ??-[facility] Dept. of Pathology, [place], [place] SPECIMEN(S) SUBMITTED A - right testicle, [...] 0.4 cm, translucent. Parenchyma: Unremarkable. OTHER Sections/Processing: Desktop Manager sections in 4 cassettes as follows: ?A1: ??Desktop Manager of the spermatic cord margin ?A2: ??Entire epididymis cyst wall ?A3: ??Desktop Manager of the epididymis ?A4: ??Desktop Manager of the testis ??AJ Specimen (Source) Anatomical Collection Method Collection Time Re ceived Time Location / / Volume Laterality 01/24/2020 10:12 AM EDT Aguilar Bustos III, MD PATHOLOGY/CYTOLOGY ORDERABLE S Performing Organization Address City/State/[facility] [place] [address] documented in this encounter Visit Diagnoses Not on filedocumented in this encounter Administered Medications Inactive Administered Medications - up to 3 most recent administrations Medication Order MAR Action Action Date Dose Rate Site acetaminophen (Tylenol) tablet Given 01/24/2020 9:10 AM EDT 1,00 0 mg 1,000 mg 1,000 mg, Oral, ONCE, 1 dose, On Fri01/24/20 at 0930, Administer with SIP of H2O only., Day of Surgery (Day of Procedure), Routine fentaNYL 50 mcg/mL multi-dose injection 25-50 [...] 9:20 AM EDT 1,000 mLs 100 mL/hr documented in this encounter Active and Recently Administered Medications Times are shown in EDT. Scheduled Medication Order 01/22/2020 01/23/2020 01/24/2020 acetaminophen (Tylenol) tablet 1,000 mg (COMPLETED) 909 (Given - Provider: Josefa Ingram RN) 1,000 mg, Oral, ONCE, 1 dose, Fri 0 at 0930, Administer with SIP of H2O only., Day of Surgery (Day of Procedure), Routine ceFAZolin (Ancef) 2 g in dextrose 5% 100 mL infusion (COMPLETED) 09 (Given - Provider: Michel Saldana CRNA) 2 g, Intravenous, BROWN SOURER TO O.R., 1 dos e, Fri01/24/20 at [...] Routine documented in this encounter Care Teams Business Employment Specialist Relationship Specialty Start Date End Date None PCP - General 11/17/18 10/10/21 None documented as of this encounter
--- OUTSIDE RECORDS SUMMARY | 2022-01-16 08:23 | XMS_ITS | Encounter Summary ---
:1990 [place] [address] Care Team Providers Name Role Phone Unavailable Primary Care Provider Unavailable Reason for Visit Reason Onset Date Comments Results 11/03/2018 Encounter Details Date Type Department Care Team Description 11/03/2018 Telephone Endocrinology at [facility] C Noe Bowen MD [facility] [place] [address] [place] [address] [phone] (Wo rk) Social History Tobacco Use Types Packs/Day Years Used Date Current Every Day Smoker 1 Smokeless Tobacco: Never Used Chew Sex Assigned at Date Recorded Not on file documented as of this encounter Miscellaneous Notes Addendum Note - Noe Bowen MD - 11/13/2018 5:10 PM EDT Addended by: NOE BOWEN on: 11/13/2018 05:10 PM Modules accepted: Orders Addendum Note - Noe Bowen MD - 11/10/2018 5:39 PM EDT Addended by: NOE BOWEN on: 11/10/2018 05:39 PM Modules accepted: Orders Telephone Encounter - Noe Bowen MD - 11/03/2018 5:17 PM EDT 11/02/18 labs (830am) Hgb 13, HCT 38.4 (mildly low) Cr 0.93 Testosterone pending documented in this encounter Plan of Treatment Not on filedocumented as of this encounter Visit Diagnoses Not on filedocumented in this encounter
--- OUTSIDE RECORDS SUMMARY | 2022-01-16 08:23 | XMS_ITS | Encounter Summary ---
:1990 Author Organization [facility] Address [facility] [place] [address] Care Team Providers Name Role Phone None Primary Care Provider Unavailable Encounter Details Date Type Department Care Team Description 2019 Clinical Support Endocrinology at [facility] C Nurse, Hypogonadism in male [facility] [address] [address] Social History Tobacco Use Types Packs/Day Years Used Date Current Every Day Smoker 1 Smokeless Tobacco: Never Used Chew Sex Assigned at Date Recorded Not on file documented as of this encounter Progress Notes Hope Yi LPN - 2019 2:15 PM EDT Depotestosterone 200 mg administered IM in right outer gluteal per order. Site negative before, and after injection. ?? , patient, and Mom taught/reviewed proper storage, preparation, and administration of Depo-T. ?? Patient provided medication for appointment. documented in this encounter Plan of Treatment Not on filedocumented as of this encounter Visit Diagnoses Diagnosis Hypogonadism in male documented in this encounter Administered Medications Inactive Administered Medications - up to 3 most recent administrations Medication Order MAR Action Action Date Dose Rate Site testosterone cypionate Given 2019 2:10 PM 200 mg Right Gluteal (DepoTESTOSTERONE EDT CYPIONATE) injection 200 mg 200 mg, Intramuscular, ONCE, 1 dose, On 01/25/19 at 1400, Routine documented in this encounter Care Teams Hatchery Supervisor Relationship Specialty Start Date End Date None PCP - General 11/17/18 10/10/21 None documented as of this encounter
--- OUTSIDE RECORDS SUMMARY | 2022-01-16 08:23 | XMS_ITS | Encounter Summary ---
:1990 Author Organization [place] [address] Care Team Providers Name Role Phone None Primary Care Provider Unavailable Reason for Visit Auth/Cert Specialty Diagnoses / Procedures Referred By Contact Refer red To Contact Diagnoses Orchalgia Procedures PRO REMOVAL TESTIS, SIMPLE ORCHIECTOMY, SIMPLE, W\WO PROSTHESIS; SIMPLE (WRVU 5.3) Referral ID Status Reason Start Date Expiration Date Visits Requ ested Visits Authorized [id number] 1 1 Encounter Details Date Type Department Care Team Description 01/24/2020 Anesthesia Event Main Operating Room Vandana Ryan MD [facility] [place] [address] [facility] Fortino Jones MD [facility] [place] [address] [place] [address] Anesthesia Record Procedure Summary Procedure Name Responsible Anesthesia Start Anesthesia Stop Time Anesthesiologist Time ORCHIECTKusum HANNAH Guensley R, MD 01/24/20 0931 01/24/20 1 045 SIMPLE, W\WO PROSTHESIS; SIMPLE (WRVU 5.3) (Right Scrotum) Events Date Time Event Comment 01/24/2020 0905 0931 AN Verify 0931 Start 0931 An Start Data 0935 An Induction 0935 An Intubation 0944 Anesthesia Ready 1035 Extubation/LMA Out 1035 an stop data 1045 Recovery or ICU Handoff Patient care was transferred to the destination unit staff after review of the patient's medica l history, current anesthetic/surgi jaren status and plan, according to the Provider Handoff Checklist. 1045 Stop Name Total Midazolam 2 mg fentaNYL 50 mcg IV Lidocaine 100 mg Propofol 250 mg Rocuronium 50 mg Ondansetron 4 mg Dexamethasone 4 mg ceFAZolin (Ancef) 2 g in dextrose 5% 100 mL infusion 2 g Sugammadex 200 mg lactated ringers infusion 1,000 mL Agents Name O2 Air N2O Sevoflurane (et) Blood No blood administrations on file. Lines, Drains, and Airways Type Details Placement Removal Incision 01/24/20; 956; scrotum 01/24/20 0957 by Lilliana Wild RN PIV 01/24/20; 09; median 01/24/20 0918 by 01/24/20 1235 by Shayy, cubital vein (antecubital Josefa Ingram R N Matthew T, RN fossa), left; chzl-eip-ncxami catheter system; 20 gauge; Juan Jose RN; distraction, intradermal injection, tolerated well; 0; no longer indicated, catheter/device intact; 01/24/20; 1235 ETT ETT Type: Oral, Cuffed; ETT 01/24/20 0940 by Mark Anthony cedeno, 01/24/20 1035 by Size: 7 mm; Notes: Asleep, Michel Cifuentes, ANNE Sue on, Michel Cifuentes, Pre-O2, Stylette; Attempts: SPECIAL PROJECTS MANAGER 1; Laryngoscopy Grade: 1; ETT Placement Verified By: Auscultation, Capnometry, Visual; Secured at Teeth: 23 cm; Inserted by: kusum documented in this encounter Social History Tobacco Use Types Packs/Day Years Used Date Current Every Day Smoker 1 Smokeless Tobacco: Never Used Chew Sex Assigned at Date Recorded Not on file documented as of this encounter OR Notes Anesthesia Postprocedure Evaluation - Vandana Noe MD - 01/24/2020 10:46 AM EDT Department of Anesthesiology Post-procedure Note Patient: José Miguel Bae Procedure Summary Date: 01/24/20 Room / Location: [facility] OR [address] [place] [address] MAIN OR Anesthesia Start: 930 Anesthesia Stop: 1044 Procedure: ORCHIECTOMY, SIMPLE, W\WO PROSTHESIS; SIMPLE (WRVU 5.3) (Right Scrotum) Diagnosis: Pain in right testicle (Orchalgia) Surgeon: Aguilar Bustos III, MD Responsible Provider: Vandana Noe MD Anesthesia Type: general ASA Status: 2 All Anesthesia Providers: Anesthesiologist: Vandana Noe MD SPECIAL PROJECTS MANAGER: Michel Saldana CRNA Vitals Value Taken Time BP Temp Pulse Resp SpO2 Pain Level Patient Location: PACU/[facility] Level of Consciousness: Awake and Alert Pain Management: Satisfactory Analgesia PONV: None Cardiovascular Status: At Baseline and Hemodynamically Stable Respiratory Status: At Baseline, Stable Respiratory Status and Supplemental O2 (NC or FM) Postoperative Fluid Status: Intravascular EUvolemia Possible Anesthetic Complications: NONE apparent at time of evaluation Final Primary Anesthesia Type: General (The anesthetic type performed was the same as planned.) Comments: Vandana Noe MD Anesthesia Preprocedure Evaluation - Vandana Noe MD - 01/23/2020 9:32 AM EDT Images from the original note were not included. Pre-Anesthesia Evaluation for: José Miguel Bae a 29 y.o. male. Procedure(s): ORCHIECTOMY, SIMPLE, W\WO PROSTHESIS; SIMPLE (WRVU 5.3) Patient Active Problem List Diagnosis ??? Hematuria ??? Testicular pain ??? Klinefelter's syndrome Confirmed XXY based on karyotype analysis in December 2018, started on testosterone cypionate at that time given primary hypogonadism ??? Bilateral testicular atrophy Past Medical History: Diagnosis Date ??? Bilateral testicular atrophy ??? DJD (degenerative joint disease) ??? Klinefelter syndrome Past Surgical History: Procedure Laterality Date ??? INGUINAL HERNIA REPAIR Social History Tobacco Use ??? Smoking status: Current Every Day Smoker Packs/day: 1.00 ??? Smokeless tobacco: Never Used Substance Use Topics ??? Alcohol use: Not on file Social History Substance and Sexual Activity Drug Use Not on file Allergies Allergen Reactions ??? Amitriptyline Pt states he snaps. ??? Clonazepam Pt states he snaps. ??? Testosterone Cypionate Severe lower extremity pain/swelling Medications: MAR and/or home medications have been reviewed. Physical Exam: No data found. There is no height or weight on file to calculate BMI. Airway Assessment: Mallampati: I TM distance: >3 FB Neck ROM: full Cardiovascular Assessment: Rhythm: regular Rate: normal (-) murmur, friction rub and systolic click cardiovascular exam normal Pulmonary Assessment: breath sounds clear to auscultation (-) rhonchi and decreased breath sounds pulmonary exam normal Dental Assessment: Misc Assessment: Other exam findings: BMI 17 Anesthesia Plan: ASA 2 general, with a(n) intravenous induction 29yo M current daily smoker BMI 18 with Klinefelter syndrome and R testicular pain (gabepentin) presents for planned R simple orchiectomy. No prior anesthesia records NPO Adequate Plan: GA w/ ETT Standard ASA monitors Adequate IV access Region - Other Informed Consent: Anesthetic plan and risks discussed with patient. Use of blood products discussed with patient who consented to blood products. Plan discussed with SPECIAL PROJECTS MANAGER. PAT Clinic Note documented in this encounter Plan of Treatment Not on filedocumented as of this encounter Visit Diagnoses Not on filedocumented in this encounter Administered Medications Inactive Administered Medications - up to 3 most recent administrations Medication Order MAR Action Action Date Dose Rate Site ceFAZolin (Ancef) 2 g in dextrose 5% Given 01/24/2020 9:45 AM ED T 2 g 100 mL infusion 2 g, Intravenous, DIGITAL CAMERA TECHNICIAN TO O.R., 1 dose, On Fri01/24/20 at 0930, Administer over 30 Minutes, Indication for (Active or Suspected): Prophylaxis dexamethasone (Decadron) injection Given 01/24/2020 9:35 AM EDT 4 mg PRN, Starting on Fri01/24/20 at 0935, Until Fri01/24/20 at 1045, Anesthesia Intra-op, Routine fentaNYL 50 mcg/mL multi-dose injection Given 01/24/2020 9:45 AM EDT 25 mcg PRN, Starting on Fri01/24/20 at 0935, Until Fri01/24/20 at 1045, Anesthesia Intra-op, Routine Given 01/24/2020 9:35 AM EDT 25 mcg lactated ringers infusion New Bag 01/24/2020 9:31 AM EDT 1,000 mL, at 100 mL/hr, Intravenous, CONTINUOUS, Starting on Fri01/24/20 at 0930, Until Fri01/24/20 at 1214, Day of Surgery (Day of Procedure) New Bag 01/24/2020 9:20 AM EDT 1,000 mLs 100 mL/hr lidocaine (PF) (XYLOCAINE) 100 mg/5 mL (2 %) Given 03/2020 9:35 AM EDT 100 mg injection PRN, Starting on Fri01/24/20 at 0935, Until Fri01/24/20 at 1045, Anesthesia Intra-op, Routine midazolam (PF) (VERSED) multi-dose injec tion Given 01/24/2020 9:31 AM EDT 2 mg PRN, Starting on Fri01/24/20 at 0931, Until Fri01/24/20 at 1045, Anesthesia Intra-op, Routine ondansetron (ZOFRAN) injection Given 01/24/2020 10:18 AM EDT 4 mg PRN, Starting on Fri01/24/20 at 1018, Until Fri01/24/20 at 1045, Anesthesia Intra-op, Routine propofol (DIPRIVAN) 10 mg/mL bolus injection Given 03/2020 9:35 AM EDT 250 mg (Anesthesia) PRN, Starting on Fri01/24/20 at 0935, Until Fri01/24/20 at 1045, Anesthesia Intra-op rocuronium (ZEMURON) multi-dose injectio n Given 01/24/2020 9:35 AM EDT 50 mg PRN, Starting on Fri01/24/20 at 0935, Until Fri01/24/20 at 1045, Anesthesia Intra-op, Routine sugammadex (BRIDION) 100 mg/mL injection Given 01/24/2020 10:21 AM EDT 200 mg PRN, Starting on Fri01/24/20 at 1021, Until Fri01/24/20 at 1045, Anesthesia Intra-op, Routine documented in this encounter Care Teams Clay Carman Relationship Specialty Start Date End Date None PCP - General 11/17/18 10/10/21 None documented as of this encounter
--- OUTSIDE RECORDS SUMMARY | 2022-01-16 08:23 | XMS_ITS | Encounter Summary ---
:1990 [place] [address] Care Team Providers Name Role Phone None Primary Care Provider Unavailable Reason for Visit (Routine) - Canceled Specialty Diagnoses / Procedures Referred By Contact Refer red To Contact Diagnoses Klinefelter syndrome Noe Asif MD Procedures Chromosome Analysis, Congenital [facility] [place] [address] Referral ID Status Reason Start Date Expiration Date Visits V isits Requested Authorized [id number] Canceled 11/13/2018 11/13/2019 1 1 Encounter Details Date Type Department Care Team Description 12/24/2018 Laboratory Appointment Lab 3L Cuco Hypog onadism in male; [facility] [place] [address] Social History Tobacco Use Types Packs/Day Years Used Date Current Every Day Smoker 1 Smokeless Tobacco: Never Used Chew Sex Assigned at Date Recorded Not on file documented as of this encounter Plan of Treatment Not on filedocumented as of this encounter Procedures Procedure Name Priority Date/Time Associated Diagnosis Comme nts KARYOTYPING, Routine 12/24/2018 8:03 Results for this CONGENITAL BLOOD -[place] AM EDT proce dure are in the results section. [facility] TEST-[place] Routine 12/24/2018 8:03 Resul ts for this AM EDT procedure are i n the results section. HEMOGRAM Routine 12/24/2018 8:03 Hypogonadism in male Resu lts for this AM EDT procedure are i n the results section. TESTOSTERONE, TOTAL Routine 12/24/2018 8:03 Hypogonadism in ma le Results for this AND FREE AM EDT procedure are i n the results section. LUTEINIZING HORMONE Routine 12/24/2018 8:03 Hypogonadism in ma le Results for this AM EDT procedure are i n the results section. FOLLICLE STIMULATING Routine 12/24/2018 8:03 Hypogonadism in m elder Results for this HORMONE AM EDT procedure are i n the results section. COMPREHENSIVE Routine 12/24/2018 8:03 Hypogonadism in male Res ults for this METABOLIC PANEL AM EDT procedure ar e in (NON-FASTING) the results section. documented in this encounter Results [facility] Test[facility] (12/24/2018 8:03 AM EDT) [facility] Method Time Signature [facility]CO REVISED RESULT - 01/05/2019 03:39 PM JOANN Test ? Result ?Flag ??Unit ??RefValue [facility] Aneuploidy Detection, FISH LABORATORY ??Result Summary ? Abnorm al ??Interpretation ? SEE CO MMENTS ?REVISED RESULTS ?The result is abnormal and consistent with Klinefelter ?syndrome. ?Karyotype analysis was also abnormal and reported ?separately. A genetic consultation may be of benefit. ?This report was amended on 01/05/19 to correct the spec imen ?type. ? PREVIOUSLY REPORTED ------ ?The result is abnormal and consistent ?with Lu ?syndrome. ?FISH results should be evaluated in conjunction with ?karyotype analysis (pending and reported separately). A ?genetic consultation may be of benefit. ?Additional cytogenetic studies are reported separately . ?(Reported 12/30/2018 11:35) ??Result ? SE E COMMENTS ?Chromosome ? Result ?XXY ?abnormal ?13 ? normal ?18 ? normal ?21 ? normal ?NOMENCLATURE: ?nuc arun(DXZ1x2,DYZ3x1) ?Of 100 nuclei, 99 had 2 DXZ1 and 1 DYZ3 signal, 99 had 2 ?D18Z1 signals, 100 had 2 signals for 13q14.3 and 99 villa d 2 ?signals for 21q22. Metaphase cells confirmed an XXY se x ?chromosome complement. ??Reason for Referral ?Klinefel ter syndrome ??Specimen ? Blo od ?REVISED RESULTS ? PREVIOUSLY REPORTED ------ ?Bone Marrow (Reported 12/30/2018 11:35) ??Method ? SE E COMMENTS ?Locus and probes ? [Strategy; #Nuclei;Class] ? ----- ?XCEN(DXZ1),YCEN(DYZ3),18CEN(D18Z1) ?[COPY #;100;ASR] ?13q14([id number]),21q22([id number]) ?[CO PY#;100;LDT] ?Probe strategy includes: Copy#=region gain and loss. ??Disclaimer ? SEE COMMENTS ?Analyte Specific Reagent (ASR) and Laboratory Develope d ?Tests (LDT). This test was developed using an analyte ?specific reagent. Its performance characteristics were ?determined by [facility] in a manner consistent with CLIA ?requirements. This test has not been cleared or approv ed by ?the U.S. Food and Drug Administration. This FISH test does ?not rule out other chromosome anomalies (Fredy tadeo al., [place] ?Clin Proc 73:132-137, 1998). ??Released By ?Harris Encinas, Ph.D. ?Test Performed by: ?[facility] ?[address] [place] [address] Comment: Corrected on 01/05/19 16:39:06 EDT by Co ntributor_system, [place]. Please contact the lab or refer to previously-reported data. Specimen Anatomical Collection Method Collection Time Receive d Time (Source) Location / / Volume Laterality Blood specimen 12/24/2018 8:03 AM 019 8:18 (specimen) EDT AM EDT Noe Asif MD CHEMISTRY ORDERABLES Performing Organization Address City/State/ZIP Code Phon e Number [place] [phone] [facility] [address] Karyotyping, Congenital Blood (12/24/2018 8:03 AM EDT) Component Value Ref Test Analysis Performed At [facility] Range Method Time Signature Karyotyping, [facility] Congenital Test ? Result ?Flag ??Unit ??RefValue [facility] Blood [facility] Chromosomes, Congenital, Blood [facility] ??Result Summary ? Abnorm al LABORATORY ??Interpretation ? SEE CO MMENTS ?The result is abnormal. Each metaphase was XXY, consis tent ?with Klinefelter syndrome (Galicia et al., [facility] Med ?3:187-191, 2001; Levi et al., [facility] Med 5:460-468, ?2002). A genetic consultation may be of benefit. ??Result ? 47 ,XXY ??Reason for Referral ?Klinefel ter syndrome ??Specimen ? Blo od ??Method ?72 hour culture w/mitogens ??Banding Method ? SEE CO MMENTS ?Band Resolution: ?550-259 ? ----- ? Stain Name ?Cells Analyzed ?? Cells ? K aryograms ?Counted ? Prepared ? GTL ? 5 ?15 ?2 ? Total ? 5 ?15 ?2 ? ----- ?Grace to Stain Name: GTL=G-banding; QFQ=Q-banding; ?DAPI=DAPI-staining; CBL=C-banding; AGNOR=Silver-staini ng; ?NON=Non-banded ?The sum of Cells Analyzed and Cells Counted equals the ?total cells examined. ??Additional Information ? SEE COMMEN TS ?A portion of testing was performed at [facility] - ?[address] [employer] (CLIA # [id number]), [address] [place] [address]. ??Released By ?Harris Encinas, Ph.D. ?Test Performed by: ?[facility] ?[address] [place] [id number] Specimen Anatomical Collection Method Collection Time Receive d Time (Source) Location / / Volume Laterality Blood specimen HLX Blood 12/24/2018 8:03 AM 019 8:18 (specimen) Stimulated / EDT AM EDT Unknown Noe Asif MD CHEMISTRY ORDERABLES Performing Organization Address City/[facility]/[place] [address] (ABNORMAL) Follicle Stimulating Hormone (12/24/2018 8:03 AM EDT) P athologist Signature FSH 32.4 (H) 1.5 - 12.4 [facility] ml[facility]ML [facility] Comment: Reference Ranges: Females: Follicular: ? [...] Organization Address City/State/[place] [address] (ABNORMAL) Luteinizing Hormone (12/24/2018 8:03 AM EDT) P athologist Signature LH 20.9 (H) 1.7 - 8.6 [facility] DAVID mlU/ML [facility] Comment: Reference ranges: ?? Females ?? [...] Organization Address City/State/ZIP [place] [address] (ABNORMAL) Testosterone, total and free (12/24/2018 8:03 AM EDT) P athologist Signature Testo Total 170 (L) 250 - 1100 [facility] JOANN ng/dL [facility] Comment: For additional information, please refer to http://education.evOLED.[employer]/fa q/ [email or web address] (This link is being provided for informa tional/ educational purposes only.) This test was developed and its analytic al performance characteristics have been determined by [facility] [place], [place]. It has not been cleared or approved by the U.S. Food and Drug Administration. This assay has been elisabet dated pursuant to the CLIA regulations and is used for clinical purposes. Testo Free 12.8 (L) 35.0 - 155.0 pg/mL [facility] LAB[facility] Comment: This test was developed and its analytic al performance characteristics have been determined by [facility] [place], [place]. It has not been cleared or approved by the U.S. Food and Drug Administration. This assay has been elisabet dated pursuant to the CLIA regulations and is used for clinical purposes. Test Performed by [facility], [address] [place], [place] [address] Michel Simpson M.D., Ph.D., Director [facility] , [facility] [id number] Specimen Anatomical Collection Method Collection Time Receive d Time (Source) Location / / Volume Laterality Blood specimen 12/24/2018 8:03 AM 019 3:36 (specimen) EDT PM EDT Resulting Agency Comment Spec In Lab Noe Asif MD CHEMISTRY ORDERABLES Performing Organization Address City/State/ZIP [place] [address] Hemogram (12/24/2018 8:03 AM EDT) P athologist Signature WBC 5.9 4.0 - 9.5 [facility] [employer] x10(3)/[facility] LABORATORY RBC 4.60 4.58 - [facility] JOANN 5.54 [facility] x10(6)/[facility] LABORATORY Hemoglobin 13.9 13.7 - Max RumpusJOANN 16.5 gm/dL [facility] LABORATORY Hematocrit 41.1 40.5 - [facility] JOANN 48.5 % [facility] LABORATORY MCV 89.3 82.9 - [facility] JOANN 93.1 [facility] LABORATORY MCH 30.2 27.5 - Max RumpusJOANN 32.1 pg [facility] LABORATORY MCHC 33.8 32.0 - [facility] JOANN 35.7 gm/dL [facility] LABORATORY Platelets 242 145 - 357 [facility] x[facility] LABORATORY RDWSD 41.7 36.0 - Max RumpusJOANN 45.0 [facility] LABORATORY RDWCV 12.7 11.4 - [facility] JOANN 13.8 % [facility] LABORATORY MPV 9.2 7.6 - 12.9 [facility] [employer] [facility] LABORATORY nRBC % Auto 0.0 % [facility] LABORATORY nRBC Abs Auto 0.000 0.000 - PalmCK 0.000 [facility] x10(3)/[facility] LABORATORY Specimen Anatomical Collection Method Collection Time Receive d Time (Source) Location / / Volume Laterality Blood specimen 12/24/2018 8:03 AM 019 8:10 (specimen) EDT AM EDT Resulting Agency Comment Spec In Lab Noe Asif MD HEMATOLOGY ORDERABLES Performing Organization Address City/State/ZIP [place] [address] Comprehensive metabolic panel (non-fasting) (12/24/2018 8:03 AM EDT) athologist Signature Glucose Lvl 94 65 - 199 [facility] mg/dL [facility] LABORATORY Comment: Diabetes: >=200 mg/dL plus symp toms BUN 15 10 - 20 mg/dL [facility] LABORATORY Creatinine 0.85 0.80 - 1.50 mg/dL [facility] LABORATORY Sodium 142 135 - 145 mmol/L [facility] LABORATORY Potassium 4.3 3.5 - 5.0 mmol/L [facility] LAB[facility] Comment: Please note: ??Patients with WBC >100,00 0 may have falsely elevated Potassium levels. ??For accurate Potassium quantif ication in these patients send serum separator tube (gold top) for subsequent determinations. ??Contact the Clinical Chemistry Laboratory if there are any qu estions. Chloride 103 98 - 107 mmol/L [facility] LAB[facility] CO2 28 22 - 31 mmol/L [facility] Anion Gap 11 5 - 15 mmol/L [facility] LAB[facility]ATORY Calcium 10.0 8.5 - 10.5 mg/dL [facility] LABORATORY Total Protein 7.3 6.1 - 8.0 gm/dL [facility] LABORATORY Albumin 4.7 3.2 - 5.2 gm/dL [facility] LAB[facility] AST 31 0 - 39 unit/L [facility] ALT 30 0 - 55 unit/L [facility] Alk Phos 79 40 - 120 unit/L [facility] Total Bilirubin 0.4 0.2 - 1.3 mg/dL [facility] LABORATORY Estimated GFR 119 >=60 mL/min/1.73 m?? [facility] Comment: The eGFR was calculated using the CKD-EP I equation. As with all creatinine based estimates of kidney function, eGFR values calculated with the CKD-EPI equation are not accurate in patients wi th acute kidney failure, extremes of body mass or the acutely ill. [email or web address] eGFR 138 >=60 mL/min/1.73 m?? [facility] Comment: The eGFR was calculated using the CKD-EP I equation. As with all creatinine based estimates of kidney function, eGFR values calculated with the CKD-EPI equation are not accurate in patients wi th acute kidney failure, extremes of body mass or the acutely ill. [email or web address] Specimen Anatomical Collection Method Collection Time Receive d Time (Source) Location / / Volume Laterality Blood specimen 12/24/2018 8:03 AM 019 8:10 (specimen) EDT AM EDT Resulting Agency Comment Spec In Lab Noe Asif MD CHEMISTRY ORDERABLES Performing Organization Address City/State/ZIP [place] [address] documented in this encounter Visit Diagnoses Diagnosis Hypogonadism in male Klinefelter syndrome Klinefelter's syndrome documented in this encounter Care Teams Strategy Director Relationship Specialty Start Date End Date None PCP - General 11/17/18 10/10/21 None documented as of this encounter
--- OUTSIDE RECORDS SUMMARY | 2022-01-16 08:23 | XMS_ITS | Encounter Summary ---
:1990 [place] [address] Care Team Providers Name Role Phone None Primary Care Provider Unavailable Encounter Details Date Type Department Care Team Description 01/06/2020 Telephone Urology at [facility] Aguilar Bustos III, MD [facility] [place] [address] [place] [address] [phone] (Wo rk) Social History Tobacco Use Types Packs/Day Years Used Date Current Every Day Smoker 1 Smokeless Tobacco: Never Used Chew Sex Assigned at Date Recorded Not on file documented as of this encounter Miscellaneous Notes Telephone Encounter - Mary Segovia - 01/06/2020 11:06 AM EDT I left a message for the patient to return my call to schedule surgery [phone] Thank you Mary documented in this encounter Plan of Treatment Not on filedocumented as of this encounter Visit Diagnoses Not on filedocumented in this encounter Care Teams Programming Internship Relationship Specialty Start Date End Date None PCP - General 11/17/18 10/10/21 None documented as of this encounter
--- OUTSIDE RECORDS SUMMARY | 2022-01-16 08:23 | XMS_ITS | Encounter Summary ---
:1990 Author Organization [facility] [place] [address] Care Team Providers Name Role Phone None Primary Care Provider Unavailable Reason for Visit Reason Comments Testicular Pain Consultation (Routine) - Closed Specialty Diagnoses / Procedures Referred By Contact Refer red To Contact Urology Diagnoses Testicular pain Noe Asif MD [facility] [place] [place] [address] [place] [address] Fax: Referral ID Status Reason Start Date Expiration Date Visits V isits Requested Authorized [id number] Closed Consult, 12/23/2018 12/23/2019 1 1 Test & Treat Encounter Details Date Type Department Care Team Description 2019 Office Visit [place]rology [place] [facility] [place]ilar Bustos Lower urinary tract symptoms (LUTS); [facility] MD CANDACE [place]aturia, [place] [address] [place] [address] Social History Tobacco Use Types Packs/Day Years Used Date Current Every Day Smoker 1 Smokeless Tobacco: Never Used Chew Sex Assigned at Date Recorded Not on file documented as of this encounter Last Filed Vital Signs Vital Sign Reading Time Taken Comments Blood Pressure 125/86 2019 9:06 AM EDT Pulse 77 2019 9:06 AM EDT Temperature 36.8 ??C (98.2 ??F) 2019 9:06 AM EDT Respiratory Rate 15 2019 9:06 AM EDT Oxygen Saturation 99% 2019 9:06 AM EDT Inhaled Oxygen Concentration - - Weight - - Height - - Body Mass Index - - documented in this encounter Progress Notes Aguilar Bustos III, MD - 2019 9:20 AM EDT José Miguel Bae is a 29-year-old gentleman referred for evaluation of testicular pain. This gentleman has a long-standing lower urinary tract history specific for undescended testicle. His mother indicates that he had at least 2 or 3 other procedures to deliver the right testicle into the scrotum when hewas an and young child. He reports no significant sequela until approximately 2 years ago when he began experiencing testicular/scrotal pain. This was primarily centered on the right side. He was seen by Dr. Diallo in [facility] who suggested that the pain was related to a testicular cysts. He had a scrotal ultrasound which I demonstrated the presence of a number of small testicular and epididymal cysts. Patient and his girlfriend state that over the last year he has had 2 occasions where they have heard a discrete pop emanating from his scrotum. They assume that this is a related to a cyst or rupture. Following this he noticed some swelling in his scrotum and once again was told by his a urologist at this ways a bleeding from the ruptured cyst. Of note is that he has gone complained of intermittent gross hematuria over the last a year or 2. This is wine colored urine not associated with blood clots. His family assumes that this is related to his testicular cysts and perhaps his bleeding duodenal ulcer. He has most recently been evaluated by Dr. Asif in the endocrinology section. 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 Very recently he has a started on intramuscular testosterone injections. He states that his libido is good and that he is able to sustain e rections. He denies any of voiding symptoms. In 2017 he had a abdominal pelvic CT scan which, by report, demonstrated a normal kidneys. He has been treated with with the gabapentin and tramadol for his testicular pain. Family inquires about additional pain management. Medications, reviewed and include gabapentin tramadol Effexor as well as testosterone. Allergies: Amitriptyline Review of systems: Essentially noncontributory for this problem Physical examination: General: We will developed thin gentleman in no acute distress Abdomen: Soft, nontender; there is a small right groin scar representing a previous orchidopexy surgery Penis: Normal male phallus Scrotum: Testicles are descended but are markedly atrophic. The right is particularly atrophic theremay be a small cyst adjacent to testicular remnant. Urine analysis: Negative for hematuria Assessment: 21-year-old gentleman with scrotal/testicular pain predominantly right-sided. The sourceof this pain is is unclear but is almost certainly not related to a small cystic lesions. Consideration for orchiectomy on the right is a reasonable given the atrophic nature of his testicle and history of cryptorchidism. His history of a gross intermittent hematuria is of some concern. This gentleman is a smoker. He clearly requires a complete evaluation of his a urinary tract. We will call for the CT scan which was performed in 2017 for review. We will also have him scheduled for office-based cystoscopy. I have informed the family that I do not prescribe narcotics especially for a chronic orchialgia. This is something which will need to be addressed today with his primary care provider. (Unfortunately he does not have a provider at this time). Plan: Urine for urine analysis Return to clinic with a cystoscopy Call for outside imaging studies documented in this encounter Plan of Treatment Not on filedocumented as of this encounter Procedures Procedure Name Priority Date/Time Associated Comments Diagnosis _URINALYSIS WITH Routine 2019 9:53 AM Lower urinary trac t Results for this MICROSCOPIC EDT symptoms (LUTS) procedure ar e in the results section. documented in this encounter Results (ABNORMAL) _Urinalysis with microscopic (2019 9:53 AM EDT) [facility] Method Time Signature Glucose UA Negative Negative [facility] mg/dL [facility] Protein UA Negative Negative [facility] mg/dL [facility] Bilirubin UA Negative Negative [facility] mg/dL [facility] Comment: Clinical correlation required for positi ve Urine Bilirubin results as false positive may occur with some drugs and d rug related products. If a false positive is suspected a serum total bili mathur should be considered if clinically indicated. Urobilinogen UA Normal Normal mg/dL [facility] pH UA 6.0 5.0 - 8.0 [facility] Blood UA Negative Negative mg/dL [facility] Ketones UA 5 (A) Negative mg/dL [facility] Nitrite UA Negative Negative [facility] Leukocytes UA Negative Negative [facility] Appearance UA Clear Clear [facility] Spec [place] UA 1.020 1.002 - 1.030 [facility] Color UA Yellow Yellow [facility] RBC UA <1 0 - 3 /HPF [facility] WBC UA 2 0 - 3 /HPF [facility] Specimen Anatomical Collection Method Collection Time Receive d Time (Source) Location / / Volume Laterality Urine specimen 2019 9:53 AM 019 (specimen) EDT 11:31 AM EDT Resulting Agency Comment Spec In Lab Aguilar Bustos III, MD URINE ORDERABLES Performing Organization Address City/State/ZIP [place] [address] documented in this encounter Visit Diagnoses Diagnosis Lower urinary tract symptoms (LUTS) Other symptoms involving urinary system Hematuria, unspecified type documented in this encounter Care Teams Glass Carrier Relationship Specialty Start Date End Date None PCP - General 11/17/18 10/10/21 None documented as of this encounter
--- OUTSIDE RECORDS SUMMARY | 2022-01-16 08:23 | XMS_ITS | Encounter Summary ---
:1990 Author Organization [facility] [place] [address] Care Team Providers Name Role Phone Lawrence Wood DO Primary Care Provider Reason for Referral Consultation (Routine) - Authorized Specialty Diagnoses / Procedures Referred By Contact Refer red To Contact Gastroenterology Diagnoses Hepatitis C virus infection without hepatic coma, unspecified chronicity Lawrence Wood DO [facility] [address] [place] [address] [place] [phone] Phone: Fax: Referral ID Status Reason Start Expiration Visits Visits Date Date Requested Authorized [id number] Authorized Consult, 10/11/2021 10/11/2022 6 6 Test & Treat PCP Updated and/or Approved Encounter Details Date Type Department Care Team Description 10/11/2021 Transcribe Orders eDH Incoming Lawrence Wood Hepatiti s C virus Referrals DO Junior infection without [phone] [facility] hepatic coma , [place], [place] [address] Social History Tobacco Use Types Packs/Day Years Used Date Current Every Day Smoker 1 Smokeless Tobacco: Never Used Chew Sex Assigned at Date Recorded Not on file documented as of this encounter Plan of Treatment Scheduled Referrals Name Type Priority Associated Order Schedule Diagnoses Referral to Outpatient Routine Hepatitis C virus Ordered: Gastroenterology Referral infection without 2021 hepatic coma, unspecified chronicity documented as of this encounter Visit Diagnoses Diagnosis Hepatitis C virus infection without hepa tic coma, unspecified chronicity documented in this encounter Care Teams Tram Driver Relationship Specialty Start Date End Date Lawrence Wood DO PCP - General Family Medicine 10/11/[address] [place] [address] documented as of this encounter
--- OUTSIDE RECORDS SUMMARY | 2022-01-16 08:23 | XMS_ITS | Encounter Summary ---
:1990 Author Organization [facility] Address [address] [place] [address] Care Team Providers Name Role Phone Indu Stacy MD Primary Care Provider Unavailable Encounter Details Date Type Department Care Team Description 12/15/2017 Results Only [facility] Joshua Berrios, [address] [place] [address] [address] [place], [place] [id number] (Wo rk) Social History Tobacco Use Types [...] Procedure Name Priority Date/Time Associated Diagnosis Comme [facility] SURGICAL PATHOLOGY Routine 12/15/2017 16:12 Resul ts for this EDT procedure are i n the results section. documented in this encounter Results SURGICAL PATHOLOGY (12/15/2017 16:12 EDT) Pathology SURGICAL PATHOLOGY REPORT [facility] Report: Reports generated via electronic interface conta in original data; [facility] however they are lacking the format of the original re port. SERVICES Caution should be taken when reading/interpreting unfo rmatted reports. Name: ? DAJUAN BAE ? Accession #: ? [id number] ? : ? 1990 (Age: [age]) ??M ? Collect Date: ? 12/15/2017 ? Location: ? [facility] ? Receive Date: ? 8 ? Provider: JOSHUA BERRIOS MD Copy to: ELIO ARRIAGA INSULATION HELPER ? Final Pathologic Diagnosis: A. STOMACH, ANTRUM, BIOPSY: - Antral mucosa with erosive reactive gastropathy and intestinal metaplasia. See comment. - Marked reactive/ reparative change; Negative for def inite dysplasia. - Negative for Helicobacter pylori by immunostaining. B. GASTROESOPHAGEAL JUNCTION, BIOPSY: - Squamous and adjoining columnar mucosa with fe atures of reflux esophagitis. - Reactive/ reparative garcía e; negative for intestinal metaplasia or dysplasia. Comment: Erosive reactive gastropathy can be seen in context of NSAIDs use, bile reflux or alcohol amongst others. Case reviewed at the intradepartmental GI consensus conference. Deeper sections examined. ?? ANTIBODY(CLONE)(BLOCK):RESULT H. pylori (Rabbit Monoclonal (SP48), [place]) (A1): [place]. ? NOTE: ??One or more of the reagents used in imm unoperoxidase testing in this case may not have been cleared or approved by the U.S. Food and Drug Administration (FDA). ??The FDA has determined that such clearance or approval is not necessary. ??These tests are used for clinical purposes. ??They should not be regarded as investigational or for research. ??These r eagents' performance characteristics have been determined by the [facility]. ??The positive and negative controls worked ap propriately. ??If immunoperoxidase staining has been performed on alcoho l fixed cytology specimens, which has not bee n fully validated, the assays should be interpreted with caution and correlated with clinica l data. ??This laboratory is certified under the Clinical Laboratory Improvement Amendments o f 1988 (CLIA-88) as qualified to perform high complexity clinical laborato ry testing. ?? Document reviewed and electronically signed by: LANNY KING MD Report ??Date: 12/22/2017 12:20 By the signature above, the attending physician certif ies that he/she has personally conducted a gross and/or microscopic examin ation of the described specimens and rendered or confirmed the above diagnosi s. Specimen(s) Received: A. ??Antrum bx B. ??GE junction bx Clinical History: Melena, GERD; A. R/O H. pylori Gross Description: A. ?Received in formalin labelled with proper p atient identification (initials F, J) and 1. bx g astric antrum are two fragoso-pink tissues (0.3 x 0.2 x 0.1 cm and 0.4 x 0.3 x 0.2 cm). Submitted in toto in A 1. B. ?Received in formalin labelled with proper p atient identification (initials F, J) and 2. bx GE junction are two fragoso-white tissues (0.2 x 0.1 x 0.1 cm and 0.4 x 0.3 x 0.2 cm). Submitted in toto in B 1. MEENA Loomis (ASCP) 12/15/2017 5:33 PM End of Report Specimen Performing Organization Address City/State/ZIP Code Phon e Number [facility] [address] [place] [id number] SERVICES documented in this encounter Visit Diagnoses Not on filedocumented in this encounter Care Teams Assisted Living Housekeeper Relationship Specialty Start Date End Date Indu Stacy MD PCP - General 04/20/15 06/28/21 [address] [place] [address] documented as of this encounter
--- OUTSIDE RECORDS SUMMARY | 2022-01-16 08:23 | XMS_ITS | Encounter Summary ---
:1990 Author Organization [facility] [place] [address] Care Team Providers Name Role Phone None Primary Care Provider Unavailable Encounter Details Date Type Department Care Team Description 03/27/2021 Telephone Urology at [facility] Aguilar Bustos III, MD [facility] [place] [address] [place] [address] [phone] (Wo rk) Social History Tobacco Use Types Packs/Day Years Used Date Current Every Day Smoker 1 Smokeless Tobacco: Never Used Chew Sex Assigned at Date Recorded Not on file documented as of this encounter Miscellaneous Notes Telephone Encounter - Myranda Rios - 03/27/2021 3:55 PM EDT PHONE: [phone] Pt calls stating that he is in extreme pain, his scrotum is red, swollen, and sore to the touch. He had called endo and they instructed him to contact urology as well. 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 documented in this encounter Plan of Treatment Not on filedocumented as of this encounter Visit Diagnoses Not on filedocumented in this encounter Care Teams Pattern Illustrator Relationship Specialty Start Date End Date None PCP - General 11/17/18 10/10/21 None documented as of this encounter
--- OUTSIDE RECORDS SUMMARY | 2022-01-16 08:23 | XMS_ITS | Encounter Summary ---
:1990 [place] [address] Care Team Providers Name Role Phone Unavailable Primary Care Provider Unavailable Encounter Details Date Type Department Care Team Description 07/19/2016 Ancillary Procedure Radiology Library at Charles Bustos am [facility] [place] [address] [place] [address] [phone] (Wo rk) Social History Tobacco Use Types Packs/Day Years Used Date Never Assessed Sex Assigned at Date Recorded Not on file documented as of this encounter Plan of Treatment Not on filedocumented as of this encounter Procedures Procedure Name Priority Date/Time Associated Diagnosis Comme nts FILM LIBRARY Routine 07/19/2016 12:00 AM Results for this STORAGE ONLY CT EST procedure ar e in ABDOMEN AND PELVIS the resul ts section. documented in this encounter Results Film Library- Storage Only CT Abdomen & Pelvis (07/19/2016 12:00 AM EST) Specimen (Source) Anatomical Location Collection Method / Collectio n Time Received Time / Laterality Volume Narrative [facility] - 2019 1:44 PM EDT This exam is auto-finalizing. It's purpo se is for storage only. Aguilar Bustos III, MD IMG FILM LIBRARY ORDERABLES Performing Organization Address City/State/ZIP Code Phon e Number RAD [facility] [place], [place] documented in this encounter Visit Diagnoses Not on filedocumented in this encounter
--- NOTE | 2022-01-16 08:26 | ED.GENADUL_ITS ---
Discharge Plan Disposition Patient Disposition: HOME Condition: Stable Discharge Details Clinical Impression: Back pain Primary Care Provider: Lawrence Wood ED Provider: Naseem Rosales Home Meds and New Rx's Prescriptions: New cyclobenzaprine 10 mg tablet 10 mg PO TID PRNQty: 20 0RF Continued omeprazole 20 mg capsule,delayed release(DR/EC) 20 mg PO DAILY Qty: 90 0RF methadone 10 mg/mL concentrate 135 mg PO DAILY Discharge Instructions Instructions: Back Pain (ED) Additional Instructions: your mri did not show concerning findings at this time follow up with your primary care provider within a week if you feel more ill, have severe worsening pain or new pain such as abdominal pain return to the emergency department Medical Decision Making 31 yo male with hx of polysubstnace abuse, hepatitis c, who comes in with cc of back pain since yesterday. He states it [place], denies any trauma to the spine. He also noted a fever to 103 yesterday. HE localizes the pain to the upper lumbar and lower thoracic spine. He is tender to these areaas, no visible or palpable deformity, no saddle anesthesia, is able to walk and has good strength in his legs but subjective decrease in sensation to s oft touch of both of his feet. Given his hsitory and the fever concern for possible spinal epidural abscess, will obtain labs and mri. He has no abdominal tenderness or cva tenderness so doubt surgical pathology such as appendicitis or pyelo. pt stable, mri shows no abscess or significant abnormality. He feels well now and has no cva tenderness and denies urinary symptoms. Suspect djd as he has an area of degenerative disease in the lower lumbar spine. He has no focal motor and no loner has any deficits to sensation in the feet. Unclear cause for his fever yesterday but given reassuring mri and exam feel he is stable for d/c, return precautions given Differential Diagnosis Differential Diagnosis: epidural abscess, discitits, osteo HPI General Mode of arrival: ambulatory . Date/Time Provider Initiated Documentation: 01/16/22 08:06 . Limitations to Documentation: no limitations . Information obtained by: patient . History of Present Illness 31 year old M presents to the emergency department with the chief complaint of back pain, described as moderate, Quality is described as aching, and is localized to the back. Patient reports no radiation. Patient started experiencing this day(s) (1) and it has been constant. No relieving factors improve symptom(s), No exacerbating factors reported . Patient notes fever/chills. Patient did receive the following treatments prior to arrival, none Related Data Home Medications Medication Instructions Recorded Confirmed omeprazole 20 mg capsule,delayed 20 mg PO DAILY #90 caps 08/21/21 01/16/22 release methadone 10 mg/mL oral concentrate 135 mg PO DAILY 10/01/21 01/16/22 cyclobenzaprine 10 mg tablet 10 mg PO TID PRN #20 tabs 01/16/22 Previous Rx's Medication Instructions Recorded omeprazole 20 mg capsule,delayed 20 mg PO DAILY #90 caps 08/21/21 release cyclobenzaprine 10 mg tablet 10 mg PO TID PRN #20 tabs 01/16/22 Allergies Allergy/AdvReac Type Severity Reaction Status Date / Time amitriptyline Allergy rash/behavioral Verified 01/16/22 08:19 changes codeine Allergy Hives Verified 01/16/22 08:19 testosterone AdvReac Severe IM dosing Verified 01/16/22 08:19 severe swelling, using gel clonazepam AdvReac Mild irritablity Verified 01/16/22 08:19 /byrne General Stated Complaint: Nk/Back Pain DERRICK: 3 Review of Systems All systems reviewed & are unremarkable except as noted in HPI and below Eyes Eyes: Denies loss of vision ENT Ears, Nose, Mouth, and Throat: Denies change in voice Cardiovascular Cardiovascular: Denies chest pain and Denies dyspnea Respiratory Respiratory: Denies cough and Denies dyspnea Gastrointestinal Gastrointestinal: Denies abdominal pain, Denies nausea and Denies vomiting Genitourinary Genitourinary: Denies dysuria Musculoskeletal Musculoskeletal: Denies joint swelling Integumentary/Breasts Skin/Breast: Denies rash Neurologic Neurologic: Denies loss of vision PFSH All Active Problems (Updated 01/16/22 @ 12:49 by Naseem Rosales MD) Back pain (Acute) 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 With respect to his distal clavicle fracture he will use a sling for pain control and to warn others of his injury and discontinue its use over the next several weeks as his pain level improves he will be left with a bump but will have a well-functioning shoulder and will follow back to the office in 1 month's time. Right testicular pain (Acute 07/16/16) Medical History (Updated 01/16/22 @ 12:49 by Naseem Rosales MD) ADHD Anger Anxiety with depression Development disorder, language Erosive gastritis Esophagitis Frequent headaches Genetic disorder GERD (gastroesophageal reflux disease) History of drug use disorder history of opiate dependence Insomnia Low back pain Polysubstance abuse Surgical History EGD - MAC (12/15/17) S/P hernia repair Family History (Updated 08/30/21 @ 09:49 by Ashlee Amador) Mother Substance use disorder Asthma Depression Anxiety Father Substance use disorder Depression Other Essential hypertension Heart disease Social History (Updated 10/01/21 @ 11:30 by Meenakshi Renee LPN) Smoking/Tobacco Use Status: Current every day Tobacco Type: cigarettes Smoking packs per day: 1 Smoking cigarettes per day: 20.0 Tobacco: How many years used: 15 Quit status: considering quitting Smoking risk assessment performed?: Yes Alcohol Intake: current Alcohol Intake frequency: a few times a month Alcohol type: beer Details: pt stopped due to ulcers in February. Drug use: Daily Substance use type: marijuana Details: IV Drug user, and fentanyl - not used x 3 months Adopted: No Caregiver/Support person: No Foster care: No Household members: family and children Housing: house Number of Children: 2 Communication Needs: Language Barriers Do you need help understanding health information?: Often current occupation: Disabled Pets and animals: Yes Pets and animals: dog(s) Current gender identity: male What is your relationship status?: never How often do you talk on the phone with friends or family?: three or more times per week How often do you get together with friends or relatives?: once per week Do you belong to any clubs or organized social groups?: no Panel score (0-1 are the most socially isolated patients): 1 What type of physical activity do you participate in: walking Frequency: 3-4 times per week Special cristian needs: No Seatbelt use: never Helmet use: No Do you feel safe at home: Yes Do you feel safe in your relationship?: Yes Exam Const General: no acute distress Orientation: alert HENMT Head: normal to inspection Ears: external ears normal General nose exam: external nose normal Mouth: moist mucous membranes Eyes General: appearance normal, both eyes and all related structures Neck Neck: normal visual inspection Resp Effort & Inspection: normal respiratory effort and able to speak in complete sentences Cardio Rate: regular rate Back/Spine/Pelvis Back: no CVA tenderness Skin General skin exam: no rashes or lesions noted Neuro General: patient alert and patient oriented x3 Extrem General: normal to inspection Psych Mental Status: mental status grossly normal Course Vital Signs Vital signs: Vital Signs Temperature 37.8 C H 01/16/22 08:06 Pulse 89 01/16/22 08:06 Respiratory Rate 16 01/16/22 08:06 Blood Pressure 102/66 01/16/22 08:06 Pulse Oximetry 95 01/16/22 08:06 Temperature 37.8 C H 01/16/22 08:06 Temperature Source Temporal Artery Scan 01/16/22 08:06 Pulse 89 01/16/22 08:06 Respiratory Rate 16 01/16/22 08:06 Respiratory Effort Non-Labored 01/16/22 08:11 Blood Pressure 102/66 01/16/22 08:06 Blood Pressure Position Sitting 01/16/22 08:06 Pulse Oximetry 95 01/16/22 08:06 Oxygen Delivery Method Room Air 01/16/22 08:06 Oxygen Flow Rate 0 01/16/22 08:06 Pain Level 10 01/16/22 08:15 Lab/Test Results Lab/Test Results: 01/16/22 08:21 Blood Blood Culture - Pending 01/16/22 08:21 Blood Blood Culture - Pending
[2022-01-16 08:34] LABS: Lactate 0.7 mmol/L (0.6-1.4)
[2022-01-16 08:36] LABS: Abs Immature Grans 0.06 10^3/uL (0.0-0.06); HCT 34.9 % (40.0-50.0); HGB 12.1 g/dL (13.5-17.5); MCH 29.2 pg (27.0-33.0); MCHC 34.7 % (32.0-36.0); MCV 84 fL (80-95); MPV 9.1 fL (8.0-11.0); RBC 4.15 10^6/uL (4.36-5.78); RDW 13.4 % (11.8-14.1); RDW-SD 41.4 fL
[2022-01-16 08:38] LABS: ESR 30 mm/hr (0-15)
[2022-01-16 08:53] LABS: ALT 123 U/L (16-63); AST 80 U/L (15-37); Albumin 3.1 g/dL (3.4-5.0); Alkaline Phosphatase 329 U/L (46-116); Anion Gap 5.9 mmol/L (3-11); BUN 17 mg/dL (7-18); Bilirubin, Total 0.4 mg/dL (0.2-1.0); C-Reactive Protein 6.43 mg/dL (0.0-0.3); CO2 28.1 mmol/L (21.0-32.0); CREATININE 0.9 mg/dL (0.70-1.30); Calcium 9.1 mg/dL (8.5-10.1); Chloride 99 mmol/L (98-107); Glucose 120 mg/dL (74-106); Magnesium 1.8 mg/dL (1.8-2.4); Potassium 4.1 mmol/L (3.5-5.1); Sodium 133 mmol/L (136-145); Total Protein 7.5 g/dL (6.4-8.2)
[2022-01-16 08:58] LABS: Source Nasal/Nares
[2022-01-16] MEDS: Ketorolac 15 MG/ML VIAL IVP ×2 (09:08→12:31)
[2022-01-16] MEDS: Normal Saline 1,000 ML 1000 ML IV (09:08)
[2022-01-16 09:23] LABS: Absolute Lymphocyte Count 2.32 10^3/uL (1.2-3.4); Absolute Monocyte Count 0.43 10^3/uL (0.1-0.8); Absolute Neutrophil Count 5.85 10^3/uL (1.2-6.7); Atypical Lymphocytes % 4; Diff Comment Manual Differential; RBC Morphology Normal
[2022-01-16 09:51] LABS: COVID-19 PCR Negative (Negative)
[2022-01-16] MEDS: Normal Saline Flush 10 ML SYR IVP (11:48)
[2022-01-16 12:54] VITALS: BP 112/66; PULSE 63; TEMP 37; O2SAT 99
--- NOTE | 2022-01-16 13:11 | PDOC.ERCMPRO ---
- If Service Date Differs Date of service: 01/16/22 Time of Service: 13:11 Care Management Progress Note YSBIRT screen: positive for cannabis and nicotine. Pt reports minimal alcohhol use (AUDIT 3) and daily cannabis use (CIS 3) in the past year. Pt reports he previously used crack and opiates daily but is in recovery at this time. He is connected with recovery resources and attends meetings as a means of coping. Pt expresses a desire to address nicotine use and was provided with appropriate resources. Pt expresses cannabis use is a harm reduction strategy for him and helps keep him away from other substances. Pt was affirmed for his progress and encouraged to continue in recovery activities.
--- NOTE | 2022-01-17 01:16 | W.ED.FU ---
Date of service: 01/17/22 Time of Service: 01:17 Follow Up Plan: Blood cultures from recent visit grew gram-positive cocci. Attempted to contact patient at phone number [phone], left a voicemail at 1:15 AM with instructions to call back and/or return to the emergency department for further evaluation. 01: 21 patient called back, was informed of positive blood cultures, patient does endorse persistent subjective fevers and chills and sweats. Was instructed to return to the emergency department as soon as possible. Patient Dors is he will come to the emergency department for further evaluation later this morning.
== END 2022-01-16 13:15 | disposition home or self-care (01) ==
PROVIDERS: Emergency Provider Emergency Medicine; PCP Family Medicine
DX: M54.6 Pain in thoracic spine (principal); R50.9 Fever, unspecified; R78.81 Bacteremia; M54.50 Low back pain, unspecified; F17.210 Nicotine dependence, cigarettes, uncomplicated
CPT/HCPCS: 36415; 72158; 80053; 85652; 87040; 87077; 87635; 96361; 96374; 96375; 96376; 99284; 72157; 83605; 83735; 85025; 86140; 87186; J1885

== ENCOUNTER 2022-01-17 11:04 | Inpatient (IN) | payer MEDICAID, SELFPAY ==
[2022-01-17 11:08] VITALS: BP 110/72; PULSE 87; RESP 18; TEMP 36.8; O2SAT 100
--- NOTE | 2022-01-17 11:15 | DI.RAD_ITS ---
Exam(s) XR CHEST 2V PA LATERAL EXAM: XR CHEST 2V PA LATERAL CLINICAL HISTORY: Bacteremia TECHNIQUE: 2D digital imaging was performed. COMPARISON: CT CT CHEST PE CTA from 03/17/2021 FINDINGS: MEDIASTINUM: Normal. HEART: Normal. PULMONARY VASCULATURE: Normal. LUNGS: Clear. PLEURAL SPACE: No pleural effusion or pneumothorax. BONE:Unremarkable for age. IMPRESSION: No acute abnormality. DATA REPOSITORY: RADIATION DOSE DELIVERED:
--- NOTE | 2022-01-17 11:19 | ED.GENADUL_ITS ---
Discharge Plan Disposition Patient Disposition: [facility] INPATIENT Condition: Stable Discharge Details Chief Complaint: GenMedical Clinical Impression: Bacteremia, Back pain, Cellulitis of groin, right Primary Care Provider: Lawrence Wood ED Provider: Carroll Arguelles Home Meds and New Rx's Prescriptions: No Action omeprazole 20 mg capsule,delayed release(DR/EC) 20 mg PO DAILY Qty: 90 0RF methadone 10 mg/mL concentrate 135 mg PO DAILY cyclobenzaprine 10 mg tablet 10 mg PO TID PRNQty: 20 0RF Medical Decision Making 31-year-old gentleman presents for positive blood cultures after being evaluated in the ER yesterday for back pain, he does have a history of IV drug use, MRI of lumbar thoracic spine unremarkable yesterday. Plan is to initiate a septic work-up. Given his bacteremia and what appears to be right groin cellulitis, will initiate IV cefepime and vancomycin. Patient reports fever, chills, body aches. Clinically he appears well, nontoxic, nonseptic White blood cell count of 8.21 ESR of 27 lactate of 0.8, CRP of 5.62. Urinalysis unremarkable for infection, positive for methadone, cocaine, THC. Case discussed with Dr. Keating who is agreeable for an observation a dmission. Repeat blood cultures today are pending. This documentation was generated using [employer] system, please disregard any oddities of phrase or misspellings. Medical Records Medical records reviewed: Yes I reviewed the patient's medical records. Imaging Data Radiologic Study: Attestation: I personally reviewed and interpreted this imaging study as follows: Imaging: X-Ray Radiologist's impression: Exam(s) XR CHEST 2V PA LATERAL EXAM: XR CHEST 2V PA LATERAL CLINICAL HISTORY: Bacteremia TECHNIQUE: 2D digital imaging was performed. COMPARISON: CT CT CHEST PE CTA from 03/17/2021 FINDINGS: MEDIASTINUM: Normal. HEART: Normal. PULMONARY VASCULATURE: Normal. LUNGS: Clear. PLEURAL SPACE: No pleural effusion or pneumothorax. BONE:Unremarkable for age. IMPRESSION: No acute abnormality. Lab Data Lab results reviewed: Yes I reviewed the patient's lab results. Labs: 01/17/22 11:45 Blood Blood Culture - Pending 01/17/22 11:24 Blood Blood Culture - Pending Laboratory Tests Range/Units 01/17/22 01/17/22 01/17/22 11:24 11:24 11:24 WBC (4.4-10.8) 10^3/uL RBC (4.36-5.78) 10^6/uL Hgb (13.5-17.5) g/dL Hct (40.0-50.0) % MCV (80-95) fL MCH (27.0-33.0) pg MCHC (32.0-36.0) % RDW (11.8-14.1) % Plt Count (130-400) 10^3/uL MPV (8.0-11.0) fL Immature Gran % Neutrophils % Lymphocytes % Atypical Lymphs % Monocytes % Eosinophils % Basophils % Nucleated RBC % (0.0-0.3) % Absolute Neutrophils (1.2-6.7) 10^3/uL Absolute Lymphocytes (1.2-3.4) 10^3/uL Absolute Monocytes (0.1-0.8) 10^3/uL Absolute Eosinophils (0.0-0.7) 10^3/uL Absolute Basophils (0.0-0.2) 10^3/uL RBC Morphology ESR (0-15) mm/hr 27 H VBG Lactate (0.6-1.4) mmol/L 0.8 Sodium (136-145) mmol/L 135 L Potassium (3.5-5.1) mmol/L 4.0 Chloride (98-107) mmol/L 102 Carbon Dioxide (21.0-32.0) mmol/L 27.9 Anion Gap (3-11) mmol/L 5.1 BUN (7-18) mg/dL 16 Creatinine (0.70-1.30) mg/dL 0.9 Estimated GFR/1.73 m2 (mL/min/1.73m2) >= 60.00 Glucose (74-106) mg/dL 119 H Calcium (8.5-10.1) mg/dL 8.6 Total Bilirubin (0.2-1.0) mg/dL 0.4 AST (15-37) U/L 39 H ALT (16-63) U/L 80 H Alkaline Phosphatase (46-116) U/L 262 H C-Reactive Protein (0.0-0.3) mg/dL 5.62 H Total Protein (6.4-8.2) g/dL 7.0 Albumin (3.4-5.0) g/dL 2.7 L Urine Color (Yellow) Urine Clarity (Clear) Urine pH (5-8) Ur Specific [place] (1.005-1.025) Urine Protein (Negative) mg/dL Urine Ketones (Negative) mg/dL Urine Blood (Negative) Urine Nitrite (Negative) Urine Bilirubin (Negative) Urine Urobilinogen (Up TO 0.2) EU/dL Ur Leukocyte Esterase (Negative) Urine Glucose (Negative) mg/dL Urine Opiates Screen (Negative) Urine Methadone Screen (Negative) Ur Barbiturates Screen (Negative) Ur Tricyclics Screen (Negative) Ur Amphetamines Screen (Negative) U Benzodiazepines Scrn (Negative) Urine Cocaine Screen (Negative) Ur THC Screen (Negative) COVID-19 Source SARS-CoV-2 (PCR) (Negative) Add-On Test Request Range/Units 01/17/22 01/17/22 01/17/22 11:24 11:55 11:55 WBC (4.4-10.8) 10^3/uL 8.21 RBC (4.36-5.78) 10^6/uL 3.77 L Hgb (13.5-17.5) g/dL 11.0 L Hct (40.0-50.0) % 32.5 L MCV (80-95) fL 86 MCH (27.0-33.0) pg 29.2 MCHC (32.0-36.0) % 33.8 RDW (11.8-14.1) % 13.8 Plt Count (130-400) 10^3/uL 233 MPV (8.0-11.0) fL 9.1 Immature Gran % See Differential Neutrophils % 63.0 Lymphocytes % 20.0 Atypical Lymphs % 5 Monocytes % 8.0 Eosinophils % 4.0 Basophils % 0.0 Nucleated RBC % (0.0-0.3) % 0.0 Absolute Neutrophils (1.2-6.7) 10^3/uL 5.17 Absolute Lymphocytes (1.2-3.4) 10^3/uL 2.05 Absolute Monocytes (0.1-0.8) 10^3/uL 0.66 Absolute Eosinophils (0.0-0.7) 10^3/uL 0.33 Absolute Basophils (0.0-0.2) 10^3/uL 0.00 RBC Morphology Normal ESR (0-15) mm/hr VBG Lactate (0.6-1.4) mmol/L Sodium (136-145) mmol/L Potassium (3.5-5.1) mmol/L Chloride (98-107) mmol/L Carbon Dioxide (21.0-32.0) mmol/L Anion Gap (3-11) mmol/L BUN (7-18) mg/dL Creatinine (0.70-1.30) mg/dL Estimated GFR/1.73 m2 (mL/min/1.73m2) Glucose (74-106) mg/dL Calcium (8.5-10.1) mg/dL Total Bilirubin (0.2-1.0) mg/dL AST (15-37) U/L ALT (16-63) U/L Alkaline Phosphatase (46-116) U/L C-Reactive Protein (0.0-0.3) mg/dL Total Protein (6.4-8.2) g/dL Albumin (3.4-5.0) g/dL Urine Color (Yellow) Yellow Urine Clarity (Clear) Clear Urine pH (5-8) 7.5 Ur Specific [place] (1.005-1.025) 1.025 Urine Protein (Negative) mg/dL Negative Urine Ketones (Negative) mg/dL Negative Urine Blood (Negative) Negative Urine Nitrite (Negative) Negative Urine Bilirubin (Negative) Negative Urine Urobilinogen (Up TO 0.2) EU/dL 0.2 Ur Leukocyte Esterase (Negative) Negative Urine Glucose (Negative) mg/dL Negative Urine Opiates Screen (Negative) Negative Urine Methadone Screen (Negative) Positive A Ur Barbiturates Screen (Negative) Negative Ur Tricyclics Screen (Negative) Negative Ur Amphetamines Screen (Negative) Negative U Benzodiazepines Scrn (Negative) Negative Urine Cocaine Screen (Negative) Positive A Ur THC Screen (Negative) Positive A COVID-19 Source SARS-CoV-2 (PCR) (Negative) Add-On Test Request Range/Units 01/17/22 01/17/22 12:00 Unknown WBC (4.4-10.8) 10^3/uL RBC (4.36-5.78) 10^6/uL Hgb (13.5-17.5) g/dL Hct (40.0-50.0) % MCV (80-95) fL MCH (27.0-33.0) pg MCHC (32.0-36.0) % RDW (11.8-14.1) % Plt Count (130-400) 10^3/uL MPV (8.0-11.0) fL Immature Gran % Neutrophils % Lymphocytes % Atypical Lymphs % Monocytes % Eosinophils % Basophils % Nucleated RBC % (0.0-0.3) % Absolute Neutrophils (1.2-6.7) 10^3/uL Absolute Lymphocytes (1.2-3.4) 10^3/uL Absolute Monocytes (0.1-0.8) 10^3/uL Absolute Eosinophils (0.0-0.7) 10^3/uL Absolute Basophils (0.0-0.2) 10^3/uL RBC Morphology ESR (0-15) mm/hr VBG Lactate (0.6-1.4) mmol/L Sodium (136-145) mmol/L Potassium (3.5-5.1) mmol/L Chloride (98-107) mmol/L Carbon Dioxide (21.0-32.0) mmol/L Anion Gap (3-11) mmol/L BUN (7-18) mg/dL Creatinine (0.70-1.30) mg/dL Estimated GFR/1.73 m2 (mL/min/1.73m2) Glucose (74-106) mg/dL Calcium (8.5-10.1) mg/dL Total Bilirubin (0.2-1.0) mg/dL AST (15-37) U/L ALT (16-63) U/L Alkaline Phosphatase (46-116) U/L C-Reactive Protein (0.0-0.3) mg/dL Total Protein (6.4-8.2) g/dL Albumin (3.4-5.0) g/dL Urine Color (Yellow) Urine Clarity (Clear) Urine pH (5-8) Ur Specific [place] (1.005-1.025) Urine Protein (Negative) mg/dL Urine Ketones (Negative) mg/dL Urine Blood (Negative) Urine Nitrite (Negative) Urine Bilirubin (Negative) Urine Urobilinogen (Up TO 0.2) EU/dL Ur Leukocyte Esterase (Negative) Urine Glucose (Negative) mg/dL Urine Opiates Screen (Negative) Urine Methadone Screen (Negative) Ur Barbiturates Screen (Negative) Ur Tricyclics Screen (Negative) Ur Amphetamines Screen (Negative) U Benzodiazepines Scrn (Negative) Urine Cocaine Screen (Negative) Ur THC Screen (Negative) COVID-19 Source Nasal/Nares SARS-CoV-2 (PCR) (Negative) Negative Add-On Test Request DONE HPI General Mode of arrival: ambulatory . Date/Time Provider Initiated Documentation: 01/17/22 11:05 . Limitations to Documentation: no limitations . Information obtained by: patient . HPI Narrative: This is a 31-year-old gentleman, current smoker, history of IV heroin use, clean for the past 7 months, presenting to the ER for evaluation of positive blood cultures from his visit yesterday, gram positive cocci. Patient reported being seen in the ER yesterday for back pain, atraumatic, negative MRI. Was called overnight with positive blood cultures and told to come back to the ER. Patient reports subjective fevers ongoing, T-max a couple days ago of 103, chills, back pain is improving today. He states that he forgot to mention that he has a larg e rash in his right groin that has been present for a week or so and worsening. He reports body aches and fever. He denies any visual changes, neck pain, chest pain, shortness of breath, abdominal pain, nausea, vomiting, dysuria, hematuria and the pain in his penis or testicles, diarrhea, skin rash elsewhere on his body Related Data Home Medications Medication Instructions Recorded Confirmed omeprazole 20 mg capsule,delayed 20 mg PO DAILY #90 caps 08/21/21 01/16/22 release methadone 10 mg/mL oral concentrate 135 mg PO DAILY 10/01/21 01/16/22 cyclobenzaprine 10 mg tablet 10 mg PO TID PRN #20 tabs 01/16/22 Previous Rx's Medication Instructions Recorded omeprazole 20 mg capsule,delayed 20 mg PO DAILY #90 caps 08/21/21 release cyclobenzaprine 10 mg tablet 10 mg PO TID PRN #20 tabs 01/16/22 Allergies Allergy/AdvReac Type Severity Reaction Status Date / Time amitriptyline Allergy rash/behavioral Verified 01/16/22 08:19 changes codeine Allergy Hives Verified 01/16/22 08:19 testosterone AdvReac Severe IM dosing Verified 01/16/22 08:19 severe swelling, using gel clonazepam AdvReac Mild irritablity Verified 01/16/22 08:19 /[place] General Stated Complaint: GenMedical DERRICK: 3 Review of Systems Constitutional Constitutional: Reports chills, Reports fatigue, Reports fever(s), Reports headache(s) and Denies weakness Eyes Eyes: Denies change in vision ENT Ears, Nose, Mouth, and Throat: Reports headache(s) and Denies neck pain Cardiovascular Cardiovascular: Denies chest pain and Denies dyspnea Respiratory Respiratory: Denies cough and Denies dyspnea Gastrointestinal Gastrointestinal: Denies abdominal pain, Denies nausea and Denies vomiting Genitourinary Genitourinary: Denies dysuria Musculoskeletal Musculoskeletal: Reports back pain, Reports myalgias, Denies neck pain, Denies numbness and Denies tingling Integumentary/Breasts Skin/Breast: Reports erythema and Reports rash Neurologic Neurologic: Reports headache(s), Denies numbness, Denies tingling and Denies weakness Endocrine Endocrine: Reports fatigue Hematologic/Lymphatic Hematologic/Lymphatic: Denies easy bleeding and Denies easy bruising PFSH All Active Problems (Updated 01/17/22 @ 13:17 by MEENA Hays) Back pain (Acute) Bacteremia (Acute) Back pain (Acute) Cellulitis of groin, right (Acute) 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 Family history of coronary artery disease (Chronic) Father- [place] at age 42 Tobacco use disorder (Chronic) GERD (gastroesophageal reflux disease) (Chronic) Hepatitis C (Chronic) Acute viral syndrome (Acute) Diarrhea (Acute) Abnormal transaminases (Acute) Testicular atrophy (Chronic) Bilateral varicoceles (Chronic 07/16/16) Clavicle fracture (Acute) The patient is instructed that he can discontinue his [place] splint at this time as he is 12 days out from injury with no chance of this displacing unless he was to injure it again. With respect to his distal clavicle fracture he will use a sling for pain control and to warn others of his injury and discontinue its use over the next several weeks as his pain level improves he will be left with a bump but will have a well-functioning shoul shante and will follow back to the office in 1 month's time. Right testicular pain (Acute 07/16/16) Medical History ADHD Anger Anxiety with depression Development disorder, language Erosive gastritis Esophagitis Frequent headaches Genetic disorder GERD (gastroesophageal reflux disease) History of drug use disorder history of opiate dependence Insomnia Low back pain Polysubstance abuse Surgical History EGD - MAC (12/15/17) S/P hernia repair Family History Mother Substance use disorder Asthma Depression Anxiety Father Substance use disorder Depression Other Essential hypertension Heart disease Social History Smoking/Tobacco Use Status: Current every day Tobacco Type: cigarettes Smoking packs per day: 1 Smoking cigarettes per day: 20.0 Tobacco: How many years used: 15 Quit status: considering quitting Smoking risk assessment performed?: Yes Alcohol Intake: current Alcohol Intake frequency: a few times a month Alcohol type: beer Details: pt stopped due to ulcers in February. Drug use: Daily Substance use type: marijuana Details: IV Drug user, and fentanyl - not used x 3 months Adopted: No Caregiver/Support person: No Foster care: No Household members: family and children Housing: house Number of Children: 2 Communication Needs: Language Barriers Do you need help understanding health information?: Often current occupation: Disabled Pets and animals: Yes Pets and animals: dog(s) Current gender identity: male What is your relationship status?: never How often do you talk on the phone with friends or family?: three or more times per week How often do you get together with friends or relatives?: once per week Do you belong to any clubs or organized social groups?: no Panel score (0-1 are the most socially isolated patients): 1 What type of physical activity do you participate in: walking Frequency: 3-4 times per week Special cristian needs: No Seatbelt use: never Helmet use: No Do you feel safe at home: Yes Do you feel safe in your relationship?: Yes Exam Const General: cooperative, healthy appearing, comfortable and no acute distress Orientation: alert and awake HENMT Head: normal to inspection, normocephalic and atraumatic Face and sinus: normal facial exam Mouth: moist mucous membranes Eyes General: appearance normal, both eyes and all related structures Conjunctivae: conjunctivae normal Neck Neck: normal visual inspection, full ROM, no meningeal signs, trachea midline and supple Resp Effort & Inspection: normal respiratory effort and able to speak in complete sentences Auscultation: clear to auscultation bilaterally Cardio Rate: regular rate Rhythm: regular rhythm GI Inspection: normal to inspection Palpation: soft, not firm, no guarding, no pulsatile masses and nontender Male General Exam: Yes erythema Penis: normal penis Meatus: meatus normal Scrotum: scrotum normal Testes: normal Male genitals images: 1. Erythema, warmth. Skin is intact. There is mild lymphadenopathy. Perineum is unremarkable. Back/Spine/Pelvis Back: no CVA tenderness and back tenderness Back/spine/pelvis image: 1. Diffuse mild discomfort. There is no midline point tenderness, erythema, spasm or step-off Skin General skin exam: erythema Neuro General: patient alert, patient awake, patient oriented x3, moves all extremities and no focal motor deficits Cognition: normal cognition Speech: speech normal Gait: normal gait Sensory Exam: no sensory deficits noted Extrem General: normal to inspection, full ROM, capillary refill normal, no pedal edema and no calf tenderness Psych Appearance: grossly normal Mental Status: mental status grossly normal Course Vital Signs Vital signs: Vital Signs Temperature 36.8 C 01/17/22 11:08 Pulse 87 01/17/22 11:08 Respiratory Rate 18 01/17/22 11:08 Blood Pressure 110/72 01/17/22 11:08 Pulse Oximetry 100 01/17/22 11:08 Temperature 36.8 C 01/17/22 11:08 Temperature Source Oral 01/17/22 11:08 Pulse 87 01/17/22 11:08 Respiratory Rate 18 01/17/22 11:08 Blood Pressure 110/72 01/17/22 11:08 Pulse Oximetry 100 01/17/22 11:08 Oxygen Delivery Method Room Air 01/17/22 11:08 Oxygen Flow Rate 0 01/17/22 11:08 Pain Level 8 01/17/22 11:08 Comment 01/17/22 11:08
[2022-01-17 11:27] VITALS: RESP 18
[2022-01-17 11:32] LABS: Lactate 0.8 mmol/L (0.6-1.4)
[2022-01-17 11:33] LABS: Abs Immature Grans 0.07 10^3/uL (0.0-0.06); HCT 32.5 % (40.0-50.0); MCH 29.2 pg (27.0-33.0); MCHC 33.8 % (32.0-36.0); MCV 86 fL (80-95); MPV 9.1 fL (8.0-11.0); Platelet Count 233 10^3/uL (130-400); RBC 3.77 10^6/uL (4.36-5.78); RDW 13.8 % (11.8-14.1); RDW-SD 43.5 fL; WBC 8.21 10^3/uL (4.4-10.8)
[2022-01-17 11:36] LABS: ESR 27 mm/hr (0-15)
[2022-01-17 11:50] LABS: ALT 80 U/L (16-63); AST 39 U/L (15-37); Albumin 2.7 g/dL (3.4-5.0); Alkaline Phosphatase 262 U/L (46-116); Anion Gap 5.1 mmol/L (3-11); BUN 16 mg/dL (7-18); Bilirubin, Total 0.4 mg/dL (0.2-1.0); C-Reactive Protein 5.62 mg/dL (0.0-0.3); CO2 27.9 mmol/L (21.0-32.0); CREATININE 0.9 mg/dL (0.70-1.30); Calcium 8.6 mg/dL (8.5-10.1); Chloride 102 mmol/L (98-107); Glucose 119 mg/dL (74-106); Sodium 135 mmol/L (136-145)
[2022-01-17] MEDS: CEFEPIME 2 GM in Normal Saline 100 ML IVPB (11:58)
[2022-01-17] MEDS: Normal Saline 1,000 ML 1000 ML IV (11:59)
[2022-01-17 12:03] LABS: Absolute Eosinophil Count 0.33 10^3/uL (0.0-0.7); Absolute Lymphocyte Count 2.05 10^3/uL (1.2-3.4); Absolute Monocyte Count 0.66 10^3/uL (0.1-0.8); Absolute Neutrophil Count 5.17 10^3/uL (1.2-6.7); Atypical Lymphocytes % 5; Diff Comment Diff Reviewed; RBC Morphology Normal
[2022-01-17 12:03] LABS: Source Nasal/Nares
[2022-01-17 12:08] LABS: Bilirubin Negative (Negative); Blood Negative (Negative); Clarity Clear (Clear); Glucose Negative (Negative); Ketones Negative (Negative); Leukocyte Esterase Negative (Negative); Nitrite Negative (Negative); Specific Gravity 1.025 (1.005-1.025); Urobilinogen 0.2 EU/dL (Up TO 0.2); pH 7.5 (5-8)
[2022-01-17 12:22] LABS: *AMPHETAMINES SCREEN URINE Negative (Negative); *BARBITURATES SCREEN URINE Negative (Negative); *BENZODIAZEPINES SCREEN URINE Negative (Negative); Cannabinoids THC Positive (Negative); Cocaine Screen,Urine Positive (Negative); METHADONE URINE SCREEN Positive (Negative); OPIATES URINE SCREEN Negative (Negative)
[2022-01-17 12:23] LABS: Tricyclic Antidepressants Negative (Negative)
[2022-01-17] MEDS: VANCOMYCIN/WATER (PEG) 1.5 GM/300 ML BAG IVPB (12:36)
[2022-01-17 12:59] VITALS: BP 102/69; PULSE 67; RESP 18; TEMP 36.8; O2SAT 97
[2022-01-17 13:01] LABS: Lab Add On Test DONE
[2022-01-17 13:06] LABS: COVID-19 PCR Negative (Negative)
[2022-01-17] MEDS: Acetaminophen 500 MG TAB (13:28)
[2022-01-17 13:30] LABS: Procalcitonin 0.2 ng/mL
[2022-01-17 14:09] VITALS: BP 94/57; PULSE 58; RESP 18; TEMP 36.3; O2SAT 98
--- NOTE | 2022-01-17 15:51 | HPE_ITS ---
Date of service: 01/17/22 Time of Service: 15:52 Assessment and Plan Assessment and plan (1) Bacteremia: Status: Acute Assessment and plan: given that his CRP, ESR and procalcitonin are all elevated and he has hx of heroin abuse; I am suspicious that he has GPC bacteremia from injection although he denies any use in 7 months. However his drug screen is also positive for cocaine while he states that his only recreational drug use is marijiuana. Repeat blood cultures were drawn while in the ER before Cefepime and Vancomcyin were given. As he is growing GPC, I see no need for both Cefepime and Vancomycin therefore I have continued his Vancomycin while we await identification and sensitivities. I will get MRSA screen and Strep screen. (2) Hepatitis C: Status: Chronic Assessment and plan: he reports hx of HCV but has not been treated. He is followed by [facility] and reports going there for periodic labs. I will request records from [facility] (3) History of drug use disorder: Assessment and plan: currently in methadone treatment program. However his UDS was positive for cocaine as well as THC and methadone. The latter two were expected but cocaine was not expected. (4) Tobacco use disorder: Status: Chronic Assessment and plan: will give him nicotine replacement. he must abide by hospital no smoking policy. History of Present Illness History of Present Illness Chief Complaint: positive blood cultures Narrative: 31 yr old male smoker, hx of opioid dependence (on methadone therapy), previous alcohol abuse, previous heroin abuse (reportedly abstinent x 7 months), HCV (not on currnet treatment but followed at [facility]), GERD, DJD of spine who came to the ED on 01/16/22 with acute back pain developed [place]. No trauma. He also states that he had fever and rigors the day prior to presentation to the ED. No cough, dyspnea, abdominal pain or dysuria. He was e valuated in the ED w/ routine labs including CBC, ESRCMP, CRP, nasal PCR for COVID-19. COVID PCR was negative, normal WBC, CMP remarkable for chronic transaminitis (probably d/t HCV), CRP and ESR were elevated. MRI of his lumbar and thoracic spine was performed and only showed mild DJD of L5-S1. He was dc home on [facility]. He did have blood cultures taken. He was called back by the ER today d/t 2/ bottles positive for gram positive cocci (one set of aerobic and anaerobic cultures from 01/16 was positive). He currently denies any fever and chills although he had this the day prior to presenting to the ED. He denies any use of any injectable drugs for past 7 months. He does report a rash over his right groin that began as a small red spot and now has more confluent macular erythema. He denies any URI symptoms nor any urinay symptoms. The only ill family member is his son who had a URI about 2 weeks ago. 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 Family history of coronary artery disease (Chronic) Father- [place] at age 42 Tobacco use disorder (Chronic) GERD (gastroesophageal reflux disease) (Chronic) Hepatitis C (Chronic) Acute viral syndrome (Acute) Diarrhea (Acute) Abnormal transaminases (Acute) Testicular atrophy (Chronic) Bilateral varicoceles (Chronic 07/16/16) Clavicle fracture (Acute) The patient is instructed that he can discontinue his [place] splint at this time as he is 12 days out from injury with no chance of this displacing unless he was to injure it again. With respect to his distal clavicle fracture he will use a sling for pain control and to warn others of his injury and discontinue its use over the next several weeks as his pain level improves he will be left with a bump but will have a well-functioning shoulder and will follow back to the office in 1 month's time. Right testicular pain (Acute 07/16/16) Medical History ADHD Anger Anxiety with depression Development disorder, language Erosive gastritis Esophagitis Frequent headaches Genetic disorder GERD (gastroesophageal reflux disease) History of drug use disorder history of opiate dependence Insomnia Low back pain Polysubstance abuse Surgical History (Updated 01/17/22 @ 21:08 by Carroll Keating MD) EGD - MAC (12/15/17) S/P hernia repair S/P orchiectomy Family History Mother Substance use disorder Asthma Depression Anxiety Father Substance use disorder Depression Other Essential hypertension Heart disease Social History Smoking/Tobacco Use Status: Current every day Tobacco Type: cigarettes Smoking packs per day: 1 Smoking cigarettes per day: 20.0 Tobacco: How many years used: 15 Quit status: considering quitting Smoking risk assessment performed?: Yes Alcohol Intake: current Alcohol Intake frequency: a few times a month Alcohol type: beer Details: pt stopped due to ulcers in February. Drug use: Daily Substance use type: marijuana Details: IV Drug user, and fentanyl - not used x 3 months Adopted: No Caregiver/Support person: No Foster care: No Household members: family and children Housing: house Number of Children: 2 Communication Needs: Language Barriers Do you need help understanding health information?: Often current occupation: Disabled Pets and animals: Yes Pets and animals: dog(s) Current gender identity: male What is your relationship status?: never How often do you talk on the phone with friends or family?: three or more times per week How often do you get together with friends or relatives?: once per week Do you belong to any clubs or organized social groups?: no Panel score (0-1 are the most socially isolated patients): 1 What type of physical activity do you participate in: walking Frequency: 3-4 times per week Special cristian needs: No Seatbelt use: never Helmet use: No Do you feel safe at home: Yes Do you feel safe in your relationship?: Yes Meds Allergies and Home Medications Allergies Allergy/AdvReac Type Severity Reaction Status Date / Time amitriptyline Allergy rash/behavioral Verified 01/16/22 08:19 changes codeine Allergy Hives Verified 01/16/22 08:19 testosterone AdvReac Severe IM dosing Verified 01/16/22 08:19 severe swelling, using gel clonazepam AdvReac Mild irritablity Verified 01/16/22 08:19 /byrne Home Medications Medication Instructions Recorded Confirmed Type omeprazole 20 mg capsule,delayed 20 mg PO DAILY #90 caps 08/21/21 01/17/22 Rx release methadone 10 mg/mL oral concentrate 135 mg PO DAILY 10/01/21 01/17/22 History cyclobenzaprine 10 mg tablet 10 mg PO TID PRN #20 tabs 01/16/22 01/17/22 Rx Exam Narrative Exam Narrative: Aesthenic build young red headed male who smells of smoke (suspected of smoking in his room), he is alert and oriented but appears to be slow to answer questions and eyes are blood shot HEENT: blood shot eyes; no icterus, no conjunctival hemorrhages, fundi appear normal; no Lucio spots. Teeth in poor repair; edentulous on jaw w/ multiple missing teeth in lower jaw w/ dental caries in the incisors and canines No exudate in oropharynx Lungs: clear to auscultation Heart: RRR; no murmur, rub or gallops Abdomen: normal bowel sounds, no organomegaly; mild tenderness in right and left groin; skin over right groin w/ diffuse macular erythema (pink), smaller macular rash over left groin; no palpable lymphadenopathy Legs: with couple of abrasions over dorsum of feet and both tibia but no open s ores/ulcers; normal pedal pulses; no petechial hemorrhages Neuro: grossly intact motor and sensory and CN Results Labs Result diagrams: 01/17/22 11:24 01/17/22 11:24 Labs: Laboratory Results - last 24 hr 01/17/22 01/17/22 01/17/22 11:24 11:24 11:24 WBC RBC Hgb Hct MCV MCH MCHC RDW Plt Count MPV Immature Gran % Neutrophils % Lymphocytes % Atypical Lymphs % Monocytes % Eosinophils % Basophils % Nucleated RBC % Absolute Neutrophils Absolute Lymphocytes Absolute Monocytes Absolute Eosinophils Absolute Basophils RBC Morphology ESR 27 H VBG Lactate 0.8 Sodium 135 L Potassium 4.0 Chloride 102 Carbon Dioxide 27.9 Anion Gap 5.1 BUN 16 Creatinine 0.9 Estimated GFR/1.73 m2 >= 60.00 Glucose 119 H Calcium 8.6 Total Bilirubin 0.4 AST 39 H ALT 80 H Alkaline Phosphatase 262 H C-Reactive Protein 5.62 H Total Protein 7.0 Albumin 2.7 L Procalcitonin Urine Color Urine Clarity Urine pH Ur Specific Gurley Urine Protein Urine Ketones Urine Blood Urine Nitrite Urine Bilirubin Urine Urobilinogen Ur Leukocyte Esterase Urine Glucose Urine Opiates Screen Urine Methadone Screen Ur Barbiturates Screen Ur Tricyclics Screen Ur Amphetamines Screen U Benzodiazepines Scrn Urine Cocaine Screen Ur THC Screen COVID-19 Source SARS-CoV-2 (PCR) Add-On Test Request 01/17/22 01/17/22 01/17/22 11:24 11:29 11:55 WBC 8.21 RBC 3.77 L Hgb 11.0 L Hct 32.5 L MCV 86 MCH 29.2 MCHC 33.8 RDW 13.8 Plt Count 233 MPV 9.1 Immature Gran % See Differential Neutrophils % 63.0 Lymphocytes % 20.0 Atypical Lymphs % 5 Monocytes % 8.0 Eosinophils % 4.0 Basophils % 0.0 Nucleated RBC % 0.0 Absolute Neutrophils 5.17 Absolute Lymphocytes 2.05 Absolute Monocytes 0.66 Absolute Eosinophils 0.33 Absolute Basophils 0.00 RBC Morphology Normal ESR VBG Lactate Sodium Potassium Chloride Carbon Dioxide Anion Gap BUN Creatinine Estimated GFR/1.73 m2 Glucose Calcium Total Bilirubin AST ALT Alkaline Phosphatase C-Reactive Protein Total Protein Albumin Procalcitonin 0.2 Urine Color Urine Clarity Urine pH Ur Specific Gurley Urine Protein Urine Ketones Urine Blood Urine Nitrite Urine Bilirubin Urine Urobilinogen Ur Leukocyte Esterase Urine Glucose Urine Opiates Screen Negative Urine Methadone Screen Positive A Ur Barbiturates Screen Negative Ur Tricyclics Screen Negative Ur Amphetamines Screen Negative U Benzodiazepines Scrn Negative Urine Cocaine Screen Positive A Ur THC Screen Positive A COVID-19 Source SARS-CoV-2 (PCR) Add-On Test Request 01/17/22 01/17/22 01/17/22 11:55 12:00 Unknown WBC RBC Hgb Hct MCV MCH MCHC RDW Plt Count MPV Immature Gran % Neutrophils % Lymphocytes % Atypical Lymphs % Monocytes % Eosinophils % Basophils % Nucleated RBC % Absolute Neutrophils Absolute Lymphocytes Absolute Monocytes Absolute Eosinophils Absolute Basophils RBC Morphology ESR VBG Lactate Sodium Potassium Chloride Carbon Dioxide Anion Gap BUN Creatinine Estimated GFR/1.73 m2 Glucose Calcium Total Bilirubin AST ALT Alkaline Phosphatase C-Reactive Protein Total Protein Albumin Procalcitonin Urine Color Yellow Urine Clarity Clear Urine pH 7.5 Ur Specific Gurley 1.025 Urine Protein Negative Urine Ketones Negative Urine Blood Negative Urine Nitrite Negative Urine Bilirubin Negative Urine Urobilinogen 0.2 Ur Leukocyte Esterase Negative Urine Glucose Negative Urine Opiates Screen Urine Methadone Screen Ur Barbiturates Screen Ur Tricyclics Screen Ur Amphetamines Screen U Benzodiazepines Scrn Urine Cocaine Screen Ur THC Screen COVID-19 Source Nasal/Nares SARS-CoV-2 (PCR) Negative Add-On Test Request DONE Last Vital Signs Temp 36.3 C L 01/17/22 14:09 Pulse 58 L 01/17/22 14:09 Resp 18 01/17/22 14:09 BP 94/57 L 01/17/22 14:09 Pulse Ox 98 01/17/22 14:09
--- NOTE | 2022-01-17 18:20 | NUR.NOTE ---
Nursing Note: Nurse noted cigarette hanging out of patient's pocket during admission assessment, nurse told patient he is not allowed to smoke in the hospital. When nurse was coming out of the room next door, pt was walking down the hallway towards the elevator. Nurse asked patient where he was going and pt started cursing saying he doesn't want someone up his ass. When nurse went in room to check on patient, nurse smelled cigarette smoke. Pt told doctor he smokes a pack of day but refused a nicotine patch when offered.
[2022-01-17] MEDS: VANCOMYCIN/WATER (PEG) 1.5 GM/300 ML BAG IV (20:00)
[2022-01-17] MEDS: Acetaminophen 325 MG TAB PO (20:43)
[2022-01-17] MEDS: Cyclobenzaprine 10 MG TAB PO (20:43)
--- NOTE | 2022-01-17 23:23 | NUR.NOTE ---
Nursing Note: This marine underwriter was notified via the primary nurse about the strong smell of smoke in the patient's bathroom. The patient had a cigarette sticking out of pants pocket which was visible to the nurse. Nurse Amirah reported to this marine underwriter that the no smoking hospital policy was discussed with the patient. This marine underwriter contacted via the [phone] extension and spoke on speaker phone with Radha. Radha called back with instructions from to contact the warehouse worker and to reiterate the hospital no smoking policy. Joi, the nurse ticket sales supervisor, was notified and she was going to review the hospital policy before coming to the floor. At shift change the primary nurse Amirah was discussing the event with Joi.
[2022-01-18 00:04] VITALS: BP 101/67; PULSE 76; RESP 16; TEMP 37.4; O2SAT 95
--- NOTE | 2022-01-18 00:09 | NUR.NOTE ---
Nursing Note: Pt refused PRN Nicotine Patch.
[2022-01-18] MEDS: VANCOMYCIN/WATER (PEG) 1.5 GM/300 ML BAG IV (04:00)
[2022-01-18 07:14] LABS: HCT 34.5 % (40.0-50.0); HGB 11.6 g/dL (13.5-17.5); MCH 29.1 pg (27.0-33.0); MCHC 33.6 % (32.0-36.0); MCV 87 fL (80-95); MPV 9.5 fL (8.0-11.0); RBC 3.99 10^6/uL (4.36-5.78); RDW 14.1 % (11.8-14.1); RDW-SD 45.4 fL; WBC 8.04 10^3/uL (4.4-10.8)
[2022-01-18 07:42] LABS: Absolute Basophil Count 0.16 10^3/uL (0.0-0.2); Absolute Eosinophil Count 0.24 10^3/uL (0.0-0.7); Absolute Lymphocyte Count 2.97 10^3/uL (1.2-3.4); Absolute Neutrophil Count 4.26 10^3/uL (1.2-6.7); Atypical Lymphocytes % 7; Diff Comment Manual Differential; Platelet Count 262 10^3/uL (130-400); RBC Morphology Normal
[2022-01-18 07:49] LABS: ALT 60 U/L (16-63); AST 27 U/L (15-37); Albumin 2.5 g/dL (3.4-5.0); Alkaline Phosphatase 227 U/L (46-116); Anion Gap 5.7 mmol/L (3-11); BUN 11 mg/dL (7-18); Bilirubin, Total 0.4 mg/dL (0.2-1.0); CO2 28.3 mmol/L (21.0-32.0); CREATININE 0.8 mg/dL (0.70-1.30); Calcium 8.5 mg/dL (8.5-10.1); Chloride 104 mmol/L (98-107); Glucose 94 mg/dL (74-106); Potassium 4.2 mmol/L (3.5-5.1); Sodium 138 mmol/L (136-145); Total Protein 6.8 g/dL (6.4-8.2)
[2022-01-18 07:54] VITALS: BP 98/66; PULSE 63; RESP 18; TEMP 36.4; O2SAT 96
[2022-01-18] MEDS: Methadone Liquid 10 MG/ML 135 MG PO (08:19)
[2022-01-18] MEDS: Omeprazole 20 MG CAPCR PO (08:19)
--- NOTE | 2022-01-18 10:16 | INITIAL_ITS ---
- If Service Date Differs Date of service: 01/18/22 Time of Service: 10:16 Care Management Initial Assess REASON FOR HOSPITALIZATION:: Bacteremia PAST MEDICAL HISTORY/PAST SURGICAL HISTORY:: 31 yr old male smoker, hx of opioid dependence (on methadone therapy), previous alcohol abuse, previous heroin abuse (reportedly abstinent x 7 months), HCV (not on currnet treatment but followed at [facility]), GERD, DJD of spine who came to the ED on 01/16/22 with acute back pain developed after [place] his [place]. He was evaluated in the ED w/ routine labs including CBC, ESRCMP, CRP, nasal PCR for COVID-19. COVID PCR was negative, normal WBC, CMP remarkable for chronic transaminitis (probably d/t HCV), CRP and ESR were elevated. MRI of his lumbar and thoracic spine was performed and only showed mild DJD of L5-S1. He was dc home on flexeril. He did have blood cultures taken. He was called back by the ER today d/t 2/ bottles positive for gram positive cocci (one set of aerobic and anaerobic cultures from 01/16 was positive). He currently denies any fever and chills although he had this the day prior to presenting to the ED. He denies any use of any injectable drugs for past 7 months. PREVIOUS FUNCTIONAL STATUS/SOCIAL/FAMILY SUPPORTS:: Resides on [place] farm in [place], independent at baseline in community, struggles with SOPHIA and multiple medical issues. CURRENT FUNCTIONAL STATUS:: Dogulas is on precautions, he remains inpatient and is hoping to discharge as soon as possible. ADVANCE DIRECTIVES:: None on file. Has patient been provided with info about the portal/API?: Yes Did the patient sign up for the portal?: No CODE STATUS:: Full Code INSURANCE COVERAGE / FINANCIAL ISSUES:: Medicaid CURRENT HOME/COMMUNITY SERVICES/EQUIPMENT:: BAART: Methadone maintenance PRIMARY CARE PHYSICIAN:: Lawrence Wood POTENTIAL DISCHARGE NEEDS:: Review discharge instructions, discuss Ask Me Three. PATIENT/FAMILY EDUCATION NEEDS:: Review discharge instructions, discuss Ask Me Three. ANTICIPATED BARRIERS TO DISCHARGE:: None identified. TRANSPORTATION:: Via private vehicle with his mother. PLAN:: José Miguel continues to be evaluated for bactermia, he remains on IV Vancomycin while awaiting identification and sensitivities. CM continues to follow.
[2022-01-18 11:19] LABS: Vancomycin, Trough 22.2 ug/mL (10.0-20.0)
--- NOTE | 2022-01-18 13:17 | W.PM.PROGNOT ---
Date of Service Date of service: 01/18/22 Time of Service: 13:18 Assessment and Plan Assessment and plan (1) Bacteremia: Status: Acute Assessment and plan: Gram-positive bacteremia. Repeat blood cultures from yesterday afternoon are pending. MRSA screening is pending. Throat culture for strep screening is pending. Continue vancomycin with adjustment in dosing and timing. Vancomycin trough was high at 22.2. Pharmacist is adjusted his vancomycin to 1.25 g every 8 hours from previous dose of 1.5 g every 8 hours. Professional time spent interviewing and examining patient, discussion of goals of care with hospital team (care management, nursing and consulting professionals) was 20 minutes. (2) Hepatitis C: Status: Chronic Assessment and plan: he reports hx of HCV but has not been treated. He is followed by [facility] and reports going there for periodic labs. I will request records from [facility] (3) History of drug use disorder: Assessment and plan: currently in methadone treatment program. However his UDS was positive for cocaine as well as THC and methadone. The latter two were expected but cocaine was not expected. (4) Tobacco use disorder: Status: Chronic Assessment and plan: Begin Nicotrol inhaler. Patient was readvised on the no smoking policy not only within the hospital but also on hospital grounds. Subjective Subjective Interval history since last seen: Patient's only concern is how soon he can leave the hospital. He wanted to know if he could go outside to get some fresh air in reality he is seeking to go outside to smoke. I told him its against hospital policy to smoke anywhere on hospital grounds that he could not leave the hospital to do so. I offered an Nicotrol inhaler and he is willing to give that a try he does not like the nicotine patches. He is indicated that his birthday is [birth year] and he has no intention of staying in the hospital beyond his birthday. I explained to him that he has gram-positive bacteremia and could possibly have endocarditis. Unfortunately we cannot get an echocardiogram today. His repeat blood cultures are still pending his MRSA is still pending. I told him that once we know what organism and sensitivity is growing in his bloodstream we could potentially arrange outpatient antibiotics. He would need a minimum of 2 weeks and probably 6 weeks if there is evidence of endocarditis. Certainly if its Staphylococcus aureus he will need 6 weeks antibiotics regardless of whether he has a vegetation size echocardiogram. He did not seem to be very happy with my response but I told him this is the best I can tell him until we have more information. Exam Narrative Exam Narrative: Asthenic appearing redheaded white male who is sitting up in bed. He seemed disinterested in my explanation of his current condition and current work-up. Lungs are clear to auscultation Heart is regular no audible murmur rub or gallop Abdomen soft nontender nondistended. He has macular erythematous rash appears to have resolved. Objective Last Vital Signs Temp 36.4 C L 01/18/22 07:54 Pulse 63 01/18/22 07:54 Resp 18 01/18/22 07:54 BP 98/66 L 01/18/22 07:54 Pulse Ox 96 01/18/22 07:54 Laboratory Results - last 24 hr 01/17/22 01/18/22 01/18/22 11:29 06:45 06:45 WBC 8.04 RBC 3.99 L Hgb 11.6 L Hct 34.5 L MCV 87 MCH 29.1 MCHC 33.6 RDW 14.1 Plt Count 262 MPV 9.5 Immature Gran % See Differential Neutrophils % 53.0 Lymphocytes % 30.0 Atypical Lymphs % 7 Monocytes % 5.0 Eosinophils % 3.0 Basophils % 2.0 Nucleated RBC % 0.0 Absolute Neutrophils 4.26 Absolute Lymphocytes 2.97 Absolute Monocytes 0.40 Absolute Eosinophils 0.24 Absolute Basophils 0.16 RBC Morphology Normal Sodium 138 Potassium 4.2 Chloride 104 Carbon Dioxide 28.3 Anion Gap 5.7 BUN 11 Creatinine 0.8 Estimated GFR/1.73 m2 >= 60.00 Glucose 94 Calcium 8.5 Total Bilirubin 0.4 AST 27 ALT 60 Alkaline Phosphatase 227 H Total Protein 6.8 Albumin 2.5 L Procalcitonin 0.2 Vancomycin Trough 01/18/22 10:54 WBC RBC Hgb Hct MCV MCH MCHC RDW Plt Count MPV Immature Gran % Neutrophils % Lymphocytes % Atypical Lymphs % Monocytes % Eosinophils % Basophils % Nucleated RBC % Absolute Neutrophils Absolute Lymphocytes Absolute Monocytes Absolute Eosinophils Absolute Basophils RBC Morphology Sodium Potassium Chloride Carbon Dioxide Anion Gap BUN Creatinine Estimated GFR/1.73 m2 Glucose Calcium Total Bilirubin AST ALT Alkaline Phosphatase Total Protein Albumin Procalcitonin Vancomycin Trough 22.2 H*
[2022-01-18] MEDS: VANCOMYCIN/WATER (PEG) 1.25 GM/250 ML BAG IV ×2 (14:18→21:58)
[2022-01-18 15:12] VITALS: BP 96/60; PULSE 54; RESP 18; TEMP 35.6; O2SAT 97
[2022-01-18] MEDS: Cyclobenzaprine 10 MG TAB PO (21:58)
[2022-01-18 22:06] VITALS: BP 94/62; PULSE 64; RESP 16; TEMP 37.2; O2SAT 100
[2022-01-19] MEDS: VANCOMYCIN/WATER (PEG) 1.25 GM/250 ML BAG IV ×3 (04:58→20:29)
[2022-01-19] MEDS: Cyclobenzaprine 10 MG TAB PO ×2 (07:31→20:29)
[2022-01-19] MEDS: Omeprazole 20 MG CAPCR PO (07:31)
[2022-01-19] MEDS: Acetaminophen 325 MG TAB PO (07:31)
[2022-01-19 07:39] VITALS: BP 100/62; PULSE 59; RESP 16; TEMP 36; O2SAT 96
[2022-01-19] MEDS: Methadone Liquid 10 MG/ML 135 MG PO (07:40)
[2022-01-19 08:56] LABS: HCT 36.1 % (40.0-50.0); HGB 12.1 g/dL (13.5-17.5); MCH 28.9 pg (27.0-33.0); MCHC 33.5 % (32.0-36.0); MCV 86 fL (80-95); MPV 9.3 fL (8.0-11.0); Platelet Count 411 10^3/uL (130-400); RBC 4.19 10^6/uL (4.36-5.78); RDW 13.9 % (11.8-14.1); RDW-SD 43.6 fL; WBC 6.64 10^3/uL (4.4-10.8)
[2022-01-19] MEDS: Normal Saline Flush 10 ML SYR (14:36)
[2022-01-19 15:41] VITALS: BP 95/58; PULSE 58; RESP 18; TEMP 35.7; O2SAT 96
--- NOTE | 2022-01-19 17:06 | W.PM.PROGNOT ---
Date of Service Date of service: 01/19/22 Time of Service: 17:06 Assessment and Plan Assessment and plan (1) Bacteremia: Status: Acute Assessment and plan: follow up w/ micro tomorrow regarding Staph species from cultures from 01/16, recheck inflammatory markers in the morning. Possible discharge home tomorrow w/ follow up echocardiogram next week. Subjective Subjective Interval history since last seen: Patient denies any symptoms. No fevers. He wants to leave the hospital. I explained to him and his mother that I am awaiting final identification of the Staph species on his original blood culture which grew two different Staph species. Fortunately his repeat blood cultures from 01/17 showed no growth and his other two bottles from 01/16 also showed no growth. His MRSA screen was also negative. I would like him to stay until Friday to get his echocardiogram but if his cultures from 01/16 prove to be contaminant, then I would be willing to discharge him and have him get follow up echocardiogram on Friday. Objective Last Vital Signs Temp 35.7 C L 01/19/22 15:41 Pulse 58 L 01/19/22 15:41 Resp 18 01/19/22 15:41 BP 95/58 L 01/19/22 15:41 Pulse Ox 96 01/19/22 15:41 Laboratory Results - last 24 hr 01/19/22 01/19/22 08:47 13:35 WBC 6.64 RBC 4.19 L Hgb 12.1 L Hct 36.1 L MCV 86 MCH 28.9 MCHC 33.5 RDW 13.9 Plt Count 411 H D MPV 9.3 Vancomycin Trough 19.0
[2022-01-19] MEDS: Normal Saline Flush 10 ML SYR IVP (20:29)
[2022-01-19 23:00] VITALS: BP 101/62; PULSE 52; RESP 18; TEMP 35.8; O2SAT 98
[2022-01-20] MEDS: Normal Saline Flush 10 ML SYR IVP ×2 (05:06→07:46)
[2022-01-20] MEDS: VANCOMYCIN/WATER (PEG) 1.25 GM/250 ML BAG IV (05:07)
[2022-01-20] MEDS: Methadone Liquid 10 MG/ML 135 MG PO (07:46)
[2022-01-20] MEDS: Omeprazole 20 MG CAPCR PO (07:46)
[2022-01-20 07:59] VITALS: BP 95/60; PULSE 60; RESP 16; TEMP 37.1; O2SAT 99
--- NOTE | 2022-01-20 09:35 | W.PM.DS.N ---
Date of service: 01/20/22 Time of Service: 09:35 DS: Diagnosis Discharge Diagnosis (1) Bacteremia: Status: Resolved Discharge Plan Disposition Patient Disposition: HOME Condition: Good Discharge Details Reason For Visit: Bacteremia Admit Date/Time: 01/18/22 11:33 Admit Provider: Carroll Keating Attending Provider: Carroll Keating Primary Care Provider: Lawrence Wood Hospital Course Hospital Course: 31-year-old male with a history of heroin abuse currently abstinent for the last several months recently seen in the emergency department for low back pain had an MRI scan of his spine that showed DJD. Because of a recent history of 1 day history of fever and chills he had blood cultures obtained in the emergency department on 01/16/2022 1 set of cultures came back positive and the other set came back negative. This grew gram-positive cocci and therefore he was called back into the hospital for parenteral antibiotics. He was put on vancomycin. MRSA swab his nose was obtained and was negative for MRSA. Subsequent blood cultures obtained before starting vancomycin were drawn on 01/17/2022 and also came back no growth. Final identification of his first set of cultures grew 2 different species of staph including staph hominis as well as staph epidermis. It was felt that this was a contaminant and not truly bacteremia. Patient never spiked a fever never had a leukocytosis and has his repeat culture from 01/17/2022 were no growth in one of the sets of aerobic and anaerobic cultures from 01/16/2022 also showed no growth is felt that this was a false positive finding. He was discharged home with no further antibiotic treatment. Patient is cautioned on signs and symptoms to watch for signs of systemic infection such as fever chills or rigors. Home Meds and New Rx's Prescriptions: Continued omeprazole 20 mg capsule,delayed release(DR/EC) 20 mg PO DAILY Qty: 90 0RF methadone 10 mg/mL concentrate 135 mg PO DAILY cyclobenzaprine 10 mg tablet 10 mg PO TID PRNQty: 20 0RF Discharge Instructions Instructions: Bacteremia (DC) Stand Alone Forms: Nursing Discharge Form Referrals: Lawrence Wood DO [Primary Care Provider] - (call the office on Friday for follow up in the next week) Activity:: Activity as Tolerated Equipment/Supplies:: No Equipment Needed Diet:: Normal Diet Discharge Orders Discharge Orders: Discharge Order (Routine); Ordered 01/20/22 Ordered By: Carroll Keating Discharge Data Discharge Date/Time-TO BE ENTERED AT DEPARTURE: 01/20/22 10:12 DS: Summary Time Spent with Patient providing and/or coordinating discharge services: Less than 30 minutes Status at Discharge Functional status at discharge: independent ambulation Overall status at discharge: patient is back to baseline Mental Status: mental status grossly normal Speech and Movement: speech and movement normal Mood: congruent mood Affect: normal affect Exam Psych Mental Status: mental status grossly normal Speech and Movement: speech and movement normal Mood: congruent mood Affect: normal affect DS: Data Vitals/I&O Vitals and I&O: Vital Signs Temperature 37.1 C 01/20/22 07:59 Temperature Source Tympanic 01/20/22 07:59 Pulse 60 01/20/22 07:59 Pulse Rhythm Regular 01/19/22 19:50 Respiratory Rate 16 01/20/22 07:59 Respiratory Effort 01/19/22 19:50 Respiratory Depth Normal 01/19/22 19:50 Respiratory Pattern Normal 01/19/22 19:50 Blood Pressure 95/60 L 01/20/22 07:59 Pulse Oximetry 99 01/20/22 07:59 Oxygen Delivery Method Room Air 01/20/22 07:59 Oxygen Flow Rate 0 01/20/22 07:59 Pain Level 0 01/19/22 23:00 Comment 01/20/22 07:59 Intake & Output 01/19/22 01/19/22 01/20/22 11:59 23:59 11:59 Intake Total 730 / 2350 1620 / 2350 250 / 250 Balance 730 / 2350 1620 / 2350 250 / 250 Weight 71.5 kg 72.2 kg Intake: IV 250 / 750 500 / 750 250 / 250 Oral 480 / 1600 1120 / 1600 Other: Urine Appearance Clear Clear Comment per patient he voided in the toilet Voiding Methods Toilet Toilet Data Completed and Pending Labs on day of discharge: Labs from last 24 hours 01/19/22 13:35 Vancomycin Trough 19.0 Preliminary micro results at discharge 01/17/22 11:45 Blood Culture - Preliminary Blood NO GROWTH 48 HOURS 01/17/22 11:24 Blood Culture - Preliminary Blood NO GROWTH 48 HOURS PFSH All Active Problems (Updated 01/21/22 @ 00:09 by ALEX JONES) Back pain (Acute) 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 Family history of coronary artery disease (Chronic) Father- [place] at age 42 Tobacco use disorder (Chronic) GERD (gastroesophageal reflux disease) (Chronic) Hepatitis C (Chronic) Acute viral syndrome (Acute) Diarrhea (Acute) Abnormal transaminases (Acute) Testicular atrophy (Chronic) Bilateral varicoceles (Chronic 07/16/16) Clavicle fracture (Acute) The patient is instructed that he can discontinue his [place] splint at this time as he is 12 days out from injury with no chance of this displacing unless he was to injure it again. With respect to his distal clavicle fracture he will use a sling for pain control and to warn others of his injury and discontinue its use over the next several weeks as his pain level improves he will be left with a bump but will have a well-functioning shoulder and will follow back to the office in 1 month's time. Right testicular pain (Acute 07/16/16) Medical History (Updated 01/21/22 @ 00:09 by ALEX JONES) ADHD Anger Anxiety with depression Development disorder, language Erosive gastritis Esophagitis Frequent headaches Genetic disorder GERD (gastroesophageal reflux disease) History of drug use disorder history of opiate dependence Insomnia Low back pain Polysubstance abuse Surgical History (Updated 01/17/22 @ 21:08 by Carroll Keating MD) EGD - MAC (12/15/17) S/P hernia repair S/P orchiectomy Family History Mother Substance use disorder Asthma Depression Anxiety Father Substance use disorder Depression Other Essential hypertension Heart disease Social History Smoking/Tobacco Use Status: Current every day Tobacco Type: cigarettes Smoking packs per day: 1 Smoking cigarettes per day: 20.0 Tobacco: How many years used: 15 Quit status: considering quitting Smoking risk assessment performed?: Yes Alcohol Intake: current Alcohol Intake frequency: a few times a month Alcohol type: beer Details: pt stopped due to ulcers in February. Drug use: Daily Substance use type: marijuana Details: IV Drug user, and fentanyl - not used x 3 months Adopted: No Caregiver/Support person: No Foster care: No Household members: family and children Housing: house Number of Children: 2 Communication Needs: Language Barriers Do you need help understanding health information?: Often current occupation: Disabled Pets and animals: Yes Pets and animals: dog(s) Current gender identity: male What is your relationship status?: never How often do you talk on the phone with friends or family?: three or more times per week How often do you get together with friends or relatives?: once per week Do you belong to any clubs or organized social groups?: no Panel score (0-1 are the most socially isolated patients): 1 What type of physical activity do you participate in: walking Frequency: 3-4 times per week Special cristian needs: No Seatbelt use: never Helmet use: No Do you feel safe at home: Yes Do you feel safe in your relationship?: Yes
--- NOTE | 2022-01-20 10:10 | PDOC.CMDIS ---
- If Service Date Differs Date of service: 01/20/22 Time of Service: 10:10 LACE Index Scoring Tool - Questions: Length of Stay (in days): 2 Acuity (Admit via E.D.?): Yes E.D. Visits: 4 - Answers: Total Score: 9 Risk of Readmission: Low Risk Care Management Discharge Reason for Hospitalization: Bacteremia Discharge Plan: José Miguel is medically cleared for discharge and prefers to wait outside for his ride. He will transport via private vehicle with family. Recommend PCP follow up appointment in the next week, pt will call Friday to schedule. CM provided pt with a last dose Letter for BAART. Patient/Family Education Needs: Review discharge instructions, limitations, medications and plan to follow up with communty providers. ask me three.
[2022-01-20 15:29] LABS: Streptococcus Pneumoniae Ag, U Negative (Negative)
== END 2022-01-20 10:12 | disposition home or self-care (01) | DRG 603 ==
LOC: ER 13:17 → MS 14:32
PROVIDERS: Admitting Provider Internal Medicine; Emergency Provider Physician Assistant; PCP Family Medicine; Visit Provider Internal Medicine
DX: L03.314 Cellulitis of groin (principal); F11.20 Opioid dependence, uncomplicated; F17.210 Nicotine dependence, cigarettes, uncomplicated; Q98.4 Klinefelter syndrome, unspecified; B18.2 Chronic viral hepatitis C; Z82.49 Family history of ischemic heart disease and other diseases of the circulatory system; K21.9 Gastro-esophageal reflux disease without esophagitis; R74.01 Elevation of levels of liver transaminase levels; F90.9 Attention-deficit hyperactivity disorder, unspecified type; R45.4 Irritability and anger; F41.8 Other specified anxiety disorders; G47.00 Insomnia, unspecified; F12.90 Cannabis use, unspecified, uncomplicated; M47.817 Spondylosis without myelopathy or radiculopathy, lumbosacral region
CPT/HCPCS: 36415; 80053; 80307; 84145; 85027; 85652; 87040; 87081; 87635; 96361; 96365; 96366; 96367; 99285; 71046; 80202; 81003; 83605; 85025; 86140; 87899; 99219; 99231; 99232; 99238

== ENCOUNTER 2022-02-07 08:36 | Emergency (ER) | payer MEDICAID, SELFPAY ==
[2022-02-07 08:41] VITALS: BP 129/81; PULSE 63; RESP 16; TEMP 36.7; O2SAT 97
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
--- NOTE | 2022-02-07 09:00 | DI.RAD_ITS ---
Exam(s) XR ANKLE LT COMPLETE EXAM: XR ANKLE LT COMPLETE CLINICAL HISTORY: Injury, R/O Fracture TECHNIQUE: COMPARISON: No exams were available for comparison FINDINGS: Three views were obtained. The ankle mortise is well maintained. There is no evidence of acute frac ture or dislocation. IMPRESSION: RADIATION DOSE DELIVERED: Total DLP
== END 2022-02-07 09:26 | disposition home or self-care (01) ==
PROVIDERS: Emergency Provider Registered Nurse Emergency; PCP Family Medicine
DX: S93.402A Sprain of unspecified ligament of left ankle, initial encounter (principal); F17.210 Nicotine dependence, cigarettes, uncomplicated; W50.1XXA Accidental kick by another person, initial encounter
CPT/HCPCS: 99283; 73610; 99282

== ENCOUNTER 2022-04-21 16:34 | Emergency (ER) | payer MEDICAID, SELFPAY ==
[2022-04-21 16:37] VITALS: BP 109/76; PULSE 67; RESP 16; TEMP 36.8; O2SAT 98
[2022-04-21] MEDS: Balanced Salt Solution 15 ML BTL (16:52)
[2022-04-21] MEDS: Fluorescein STRIPS 100/BOX 1 MG (16:52)
[2022-04-21] MEDS: Tetracaine 0.5% 4 ML BTL (16:52)
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
[2022-04-21] MEDS: Erythromycin Ophth Oint 3.5 GM TUBE OS (18:01)
== END 2022-04-21 18:20 | disposition home or self-care (01) ==
PROVIDERS: Emergency Provider Physician Assistant; PCP Family Medicine
DX: T15.02XA Foreign body in cornea, left eye, initial encounter (principal); X58.XXXA Exposure to other specified factors, initial encounter
CPT/HCPCS: 99283

== ENCOUNTER 2022-10-02 16:48 | Outpatient (CLI) | payer MEDICAID, SELFPAY ==
[2022-10-02 15:01] LABS: HCT 39.4 % (40.0-50.0); HGB 13.3 g/dL (13.5-17.5)
[2022-10-02 15:29] LABS: Calculated LDL 83 mg/dL (<100); Cholesterol 185 mg/dL (<200); HDL Cholesterol 46 mg/dL (40-60); Triglyceride 280 mg/dL (<150)
[2022-10-04 10:37] LABS: Hepatitis C Ab w Rflx HCV PCR Reactive (Negative)
[2022-10-04 13:44] LABS: HCV RNA Qualitative Undetected (Undetected)
[2022-10-07 18:53] LABS: Testosterone, Total 78 ng/dL (240-950)
== END 2022-10-02 16:49 | disposition home or self-care (01) ==
LOC: LBO 16:49
PROVIDERS: PCP Family Medicine; Visit Provider Internal Medicine
DX: Z13.220 Encounter for screening for lipoid disorders (principal); B19.20 Unspecified viral hepatitis C without hepatic coma
CPT/HCPCS: 36415; 80061; 84403; 86803; 87522; 85014; 85018

== ENCOUNTER 2022-10-31 09:10 | Outpatient (CLI) | payer MEDICAID, SELFPAY ==
--- NOTE | 2022-10-31 09:00 | RT.EKG_ITS ---
APPROVED REPORT Exam: Resting ECG Reason for Exam: High Risk Medication Patient Location: O HR:66 bpm ECG Measurements Heart Rate 66 AXIS TN 166 P 41 QRSd 89 QRS 82 QT 420 T 40 QTc 441 Conclusion Sinus rhythm...normal P axis, V-rate 50- 99 RSR' in V1 or V2, probably normal variant...small R' only Normal Electrocardiogram
== END 2022-10-31 09:11 | disposition home or self-care (01) ==
PROVIDERS: PCP Family Medicine; Visit Provider Physician Assistant
DX: Z79.899 Other long term (current) drug therapy (principal)
CPT/HCPCS: 93005; 93010

== ENCOUNTER 2022-12-03 21:44 | Outpatient (REF) | payer MEDICAID, SELFPAY | END 2022-12-03 21:45 | disposition home or self-care (01) | LOC: LBN 21:44 | PROVIDERS: PCP Family Medicine; Visit Provider Nurse Practitioner Family | DX: L08.9 Local infection of the skin and subcutaneous tissue, unspecified (principal) | CPT/HCPCS: 87077; 87070; 87186; 87205 ==

== ENCOUNTER 2022-12-24 19:50 | Emergency (ER) | payer MEDICAID, SELFPAY ==
[2022-12-24 19:55] VITALS: BP 130/78; PULSE 67; RESP 20; TEMP 36.8; O2SAT 98
--- NOTE | 2022-12-24 20:15 | DI.RAD_ITS ---
Exam(s) XR ANKLE RT COMPLETE EXAM: XR ANKLE RT COMPLETE CLINICAL HISTORY: pain s/p kicking toilet. TECHNIQUE: 2D digital imaging was performed. COMPARISON: CR XR ANKLE LT COMPLETE from 02/07/2022 FINDINGS: 3 views No evidence fracture nor widening of the ankle mortise. Talar dome unremarkable. No soft tissue swe lling evident. Bone density normal. No osseous lesions IMPRESSION: No acute osseous findings. DATA REPOSITORY: RADIATION DOSE DELIVERED:
--- NOTE | 2022-12-24 20:20 | ED.GENADUL_ITS ---
Discharge Plan Disposition Patient Disposition: Home Discharge Details Clinical Impression: Contusion of ankle, right Primary Care Provider: Lawrence Wood ED Provider: Naseem Rosales Home Meds and New Rx's Prescriptions: Continued omeprazole 20 mg capsule,delayed release(DR/EC) 20 mg PO DAILY Qty: 90 0RF sildenafil 50 mg tablet 50 mg PO DAILY PRN (Reason: sexual activity) Qty: 10 5RF Rx Instructions: 1/2 to 1 tab. administer 30 minutes to 4 hours before activity naproxen 500 mg tablet 500 mg PO BID PRN (Reason: pain) Qty: 60 3RF methadone 10 mg/mL concentrate 145 mg PO DAILY Discharge Instructions Instructions: Contusion in Adults (ED) Additional Instructions: If you still have pain in a week follow up with your primary care provider return to the emergency department if you have severe worsening pain, fevers or vision changes Medical Decision Making 32 yo male comes in with 2 complaints. HIs primary complaint is that he was playing with his kid today and accidentally hit his right lateral ankle on a toilet. Denies falling or other injuries. HE localizes the pain to the right ankle, has no visible or palpable deformities. HE has full rom but with pain over the lateral ankle. Normal sensation and pulses, no metatarsal pain and no pain in the tibia or knee. No hedache, neck pain, chest or abdomen pain. Suspect contusion but will xray the right ankle. HE also notes that he got stung on the right upper eyelid by a bee 2 days ago. NO discharge or vision changes or eye pain. His right upper eye lid is mildly swollen without erythema, no warmth, conjunctiva normal, perrl, eomi without pain. Suspect local reaction and no findings to suggest infectious component, advised will likely resolve and to have it evaluated if not better in a week and to return to the ED if eye pain or concerns for infection xray unremarkable on my read, vrad read pending but will place in walking boot as he doesn't want to wait for read, will call if they see a fracture, advised to f/u with pcp and return precautions given Differential Diagnosis Differential Diagnosis: contusion, sprain, fracture Imaging Data Radiologic Study: Attestation: I personally reviewed and interpreted this imaging study as follows: Imaging: X-Ray My impression: no acute findings HPI General Mode of arrival: ambulatory . Date/Time Provider Initiated Documentation: 12/24/22 20:10 . Limitations to Documentation: no limitations . Information obtained by: patient . History of Present Illness 32 year old M presents to the emergency department with the chief complaint of right ankle pain, described as moderate, Patient started experiencing this hour(s) (2) and it has been constant. No relieving factors improve symptom(s), No exace rbating factors reported . Patient did receive the following treatments prior to arrival, none Related Data Home Medications Medication Instructions Recorded Confirmed omeprazole 20 mg capsule,delayed 20 mg PO DAILY #90 caps 08/21/21 04/21/22 release methadone 10 mg/mL oral concentrate 145 mg PO DAILY 10/01/21 04/21/22 naproxen 500 mg tablet 500 mg PO BID PRN pain #60 tabs 04/22/22 sildenafil 50 mg tablet 50 mg PO DAILY PRN sexual activity 06/03/22 06/03/22 #10 tabs Previous Rx's Medication Instructions Recorded omeprazole 20 mg capsule,delayed 20 mg PO DAILY #90 caps 08/21/21 release naproxen 500 mg tablet 500 mg PO BID PRN pain #60 tabs 04/22/22 sildenafil 50 mg tablet 50 mg PO DAILY PRN sexual activity 06/03/22 #10 tabs Allergies Allergy/AdvReac Type Severity Reaction Status Date / Time amitriptyline Allergy rash/behavioral Verified 06/03/22 13:47 changes codeine Allergy Hives Verified 06/03/22 13:47 testosterone AdvReac Severe IM dosing Verified 06/03/22 13:47 severe swelling, using gel clonazepam AdvReac Mild irritablity Verified 06/03/22 13:47 /byrne General Stated Complaint: Orthopedic DERRICK: 4 Review of Systems All systems reviewed & are unremarkable except as noted in HPI and below Constitutional Constitutional: Denies chills, Denies fever(s) and Denies weakness Cardiovascular Cardiovascular: Denies chest pain and Denies dyspnea Respiratory Respiratory: Denies cough and Denies dyspnea Gastrointestinal Gastrointestinal: Denies abdominal pain, Denies nausea and Denies vomiting Musculoskeletal Musculoskeletal: Denies back pain and Denies numbness Integumentary/Breasts Skin/Breast: Denies rash Neurologic Neurologic: Denies numbness and Denies weakness Psychiatric Psychiatric: Denies depression PFSH All Active Problems (Updated 12/24/22 @ 21:06 by Naseem Rosales MD) Contusion of ankle, right (Acute) Klinefelter syndrome (Acute) 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 Family history of coronary artery disease (Chronic) Father- [place] at age 42 Tobacco use disorder (Chronic) GERD (gastroesophageal reflux disease) (Chronic) Hepatitis C (Chronic) Acute viral syndrome (Acute) Diarrhea (Acute) Abnormal transaminases (Acute) Testicular atrophy (Chronic) Bilateral varicoceles (Chronic 07/16/16) Clavicle fracture (Acute) The patient is instructed that he can discontinue his [place] splint at this time as he is 12 days out from injury with no chance of this displacing unless he was to injure it again. With respect to his distal clavicle fracture he will use a sling for pain control and to warn others of his injury and discontinue its use over the next several weeks as his pain level improves he will be left with a bump but will have a well-functioning shoulder and will follow back to the office in 1 month's time. Right testicular pain (Acute 07/16/16) Medical History ADHD Anger Anxiety with depression Development disorder, language Erosive gastritis Esophagitis Frequent headaches Genetic disorder GERD (gastroesophageal reflux disease) History of drug use disorder history of opiate dependence Insomnia Low back pain Polysubstance abuse Surgical History EGD - MAC (12/15/17) S/P hernia repair S/P orchiectomy Family History Mother Substance use disorder Asthma Depression Anxiety Father Substance use disorder Depression Other Essential hypertension Heart disease Social History (Updated 02/12/22 @ 13:22 by Joanna Spaulding RN, RN) Smoking/Tobacco Use Status: Current every day Tobacco Type: cigarettes Smoking packs per day: 1 Smoking cigarettes per day: 20.0 Tobacco: How many years used: 15 Quit status: considering quitting Smoking risk assessment performed?: Yes Alcohol Intake: current Alcohol Intake frequency: a few times a month Alcohol type: beer Details: pt stopped due to ulcers in February. Drug use: Daily Substance use type: marijuana Details: IV Drug user, and fentanyl - not used x 6 months Adopted: Yes Caregiver/Support person: No Foster care: No Household members: family and children Housing: house Number of Children: 2 Communication Needs: Language Barriers Do you need help understanding health information?: Often current occupation: Disabled Pets and animals: Yes Pets and animals: dog(s) Do you think of yourself as: bisexual Current gender identity: male What is your relationship status?: living with partner How often do you talk on the phone with friends or family?: three or more times per week How often do you get together with friends or relatives?: once per week Do you belong to any clubs or organized social groups?: no Panel score (0-1 are the most socially isolated patients): 2 What type of physical activity do you participate in: walking Duration: > 90 minutes/day Frequency: 5-6 times per week Special cristian needs: No Seatbelt use: never Helmet use: Yes Helmet use: sometimes Drive intox or ride w/intox class b driver: No Do you feel safe at home: Yes Do you feel safe in your relationship?: Yes Exam Const General: no acute distress Orientation: alert HENMT Head: normal to inspection Ears: external ears normal General nose exam: external nose normal Mouth: moist mucous membranes Eyes Eyelids: eyelids normal Conjunctivae: conjunctivae normal Sclera: sclerae normal Cornea: corneas normal Pupils: PERRL Neck Neck: normal visual inspection Resp Effort & Inspection: normal respiratory effort and able to speak in complete sentences Cardio Rate: regular rate Skin General skin exam: no rashes or lesions noted Neuro General: patient alert and patient oriented x3 Extrem General: normal to inspection and full ROM Psych Mental Status: mental status grossly normal Course Vital Signs Vital signs: Vital Signs Temperature 36.8 C 12/24/22 19:55 Pulse 67 12/24/22 19:55 Respiratory Rate 12/24/22 19:55 Blood Pressure 130/78 12/24/22 19:55 Pulse Oximetry 98 12/24/22 19:55 Temperature 36.8 C 12/24/22 19:55 Pulse 67 12/24/22 19:55 Respiratory Rate 12/24/22 19:55 Blood Pressure 130/78 12/24/22 19:55 Blood Pressure Position Sitting 12/24/22 19:55 Pulse Oximetry 98 12/24/22 19:55 Oxygen Delivery Method Room Air 12/24/22 19:55 Oxygen Flow Rate 0 12/24/22 19:55
[2022-12-24] MEDS: Acetaminophen 500 MG TAB 1000 MG PO (20:39)
--- NOTE | 2022-12-24 21:09 | DI.VRAD_ITS ---
PROCEDURE INFORMATION: Exam: XR Right Ankle Exam date and time: 12/24/2022 8:48 PM Age: 32 years old Clinical indication: Pain; Ankle; Right TECHNIQUE: Imaging protocol: Radiologic exam of the right ankle. Views: 3 or more views. COMPARISON: CR RIGHT ANKLE COMPLETE 02/08/2016 9:13 PM FINDINGS: Bones/joints: Normal. Soft tissues: Mild soft tissue swelling. IMPRESSION: 1. No acute findings. 2. No fracture or dislocation. Dictated and Authenticated by: Ant Mejia MD. Ordering:SERENITY Gusman MD
== END 2022-12-24 21:37 | disposition home or self-care (01) ==
PROVIDERS: Emergency Provider Emergency Medicine; PCP Family Medicine
DX: S90.01XA Contusion of right ankle, initial encounter (principal); T63.441A Toxic effect of venom of bees, accidental (unintentional), initial encounter; W22.8XXA Striking against or struck by other objects, initial encounter; Y93.83 Activity, rough housing and horseplay; Y92.012 Bathroom of single-family (private) house as the place of occurrence of the external cause; Y99.9 Unspecified external cause status
CPT/HCPCS: 99283; 73610

== ENCOUNTER 2023-05-24 19:19 | Emergency (ER) | payer MEDICAID, SELFPAY ==
[2023-05-24 19:23] VITALS: BP 123/81; PULSE 92; RESP 16; TEMP 35.8; O2SAT 99
--- NOTE | 2023-05-24 19:38 | W.ED.GENAD ---
Discharge Plan Disposition Patient Disposition: Home Condition: Stable Discharge Details Clinical Impression: Right knee sprain Primary Care Provider: Lawrence Wood ED Provider: Nichole Frazier Home Meds and New Rx's Prescriptions: No Action lidocaine 5 % ointment 1 applic topical TID PRN (Reason: pain) Qty: 50 0RF sildenafil 50 mg tablet 50 mg PO DAILY PRN (Reason: sexual activity) Qty: 10 5RF Rx Instructions: 1/2 to 1 tab. administer 30 minutes to 4 hours before activity eletriptan 20 mg tablet See Rx Instructions PO .COMPLEX Qty: 12 0RF Rx Instructions: take 1 tab at onset of headache; if no relief may repeat 1 tab after at least 2 hrs; max = 4 tabs/24 hr PO methadone 10 mg/mL concentrate 145 mg PO DAILY Discharge Instructions Instructions: Knee Sprain (ED) Additional Instructions: No acute obvious fracture noted on the x-rays. Please wear the knee brace as needed for comfort. Rest ice compression elevation. Please take Tylenol or Ibuprofen with food every 4-6 hours as needed for pain and swelling. If continued pain after 1 to 2 weeks of RICE procedures and icing few times a day for 20 minutes and the above measures please contact orthopedics or your primary care provider for further eval. Follow up with primary care provider in 3-5 days. Return to ED sooner if any worsening or concerns. Increase oral fluids. Referrals: Carroll Arguelles PA [[facility]] - Return if symptoms worsen Lawrence Wood DO [Primary Care Provider] - Return if symptoms worsen Discharge Data Discharge Date/Time-TO BE ENTERED AT DEPARTURE: 05/24/23 21:17 Medical Decision Making 33-year-old male presents to the ER with chief complaint of right knee pain and swelling which has been ongoing for the last 3 to 4 days. Patient has no known significant injury. He does do hunting a lot and may have twisted it. Did take ibuprofen 800 mg 2 hours ago and Tylenol 325. He is allergic to amitriptyline codeine testosterone clonazepam. He is coming off his methadone for the last 3 weeks. He has been applying topical lidocaine ointment. He does have a past medical history of anxiety depression ADHD insomnia, development disorder, polysubstance abuse, anger GERD. Surgical history includes orchiectomy and hernia repair. There is no obvious deformity, no obvious swelling or erythema. Negative anterior posterior drawer test. Distal CMS is intact. On exam he does have some medial joint tenderness. Three-view x-ray right knee ordered and ice pack. X-rays within normal limits, nothing acute. Hinged knee brace order placed. Will give contact information for orthopedics if pain continues after RICE procedures Tylenol ibuprofen at home, for further eval. Medical Records Medical records reviewed: Yes I reviewed the patient's medical records. Imaging Data Radiologic Study: Imaging: X-Ray Radiologist's impression: Exam: XR Right Knee Exam date and time: 05/24/2023 7:43 PM Age: 33 years old Clinical indication: Pain; Knee; Right; Patient HX: Swelling x 1 week TECHNIQUE: Imaging protocol: Radiologic exam of the right knee. Views: 3 views. COMPARISON: CR XR ANKLE RT COMPLETE 12/24/2022 8:48 PM FINDINGS: Bones/joints: Normal. Soft tissues: Normal. IMPRESSION: No acute findings. Thank you for allowing us to participate in the care of your patient. Dictated and Authenticated by: Estiven Hodge DO [facility] General Mode of arrival: ambulatory. Date/Time Provider Initiated Documentation: 05/24/23 19:27. Limitations to Documentation: no limitations. Information obtained by: patient, RN notes reviewed and old records reviewed. HPI Narrative: 33-year-old male presents to the ER with chief complaint of right knee pain and swelling which has been ongoing for the last 3 to 4 days. Patient has no known significant injury. He does do hunting a lot and may have twisted it. Did take ibuprofen 800 mg 2 hours ago and Tylenol 325. He is allergic to amitriptyline codeine testosterone clonazepam. He is coming off his methadone for the last 3 weeks. He has been applying topical lidocaine ointment. He does have a past medical history of anxiety depression ADHD insomnia, development disorder, polysubstance abuse, anger GERD. Surgical history includes orchiectomy and hernia repair. There is no obvious deformity, no obvious swelling or erythema. Negative anterior posterior drawer test. Distal CMS is intact. Related Data Home Medications Medication Instructions Recorded Confirmed methadone 10 mg/mL oral concentrate 145 mg PO DAILY 10/01/21 05/24/23 eletriptan 20 mg tablet See Rx Instructions PO .COMPLEX 03/28/23 05/24/23 #12 tabs lidocaine 5 % topical ointment 1 applic topical TID PRN pain #50 03/28/23 05/24/23 grams sildenafil 50 mg tablet 50 mg PO DAILY PRN sexual activity 03/28/23 05/24/23 #10 tabs Previous Rx's Medication Instructions Recorded eletriptan 20 mg tablet See Rx Instructions PO .COMPLEX 03/28/23 #12 tabs lidocaine 5 % topical ointment 1 applic topical TID PRN pain #50 03/28/23 grams sildenafil 50 mg tablet 50 mg PO DAILY PRN sexual activity 03/28/23 #10 tabs Allergies Allergy/AdvReac Type Severity Reaction Status Date / Time amitriptyline Allergy rash/behavioral Verified 05/24/23 19:28 changes codeine Allergy Hives Verified 05/24/23 19:28 testosterone AdvReac Severe IM dosing Verified 05/24/23 19:28 severe swelling, using gel clonazepam AdvReac Mild irritablity Verified 05/24/23 19:28 /byrne General Stated Complaint: Orthopedic DERRICK: 4 Review of Systems Musculoskeletal Musculoskeletal: Reports as per HPI, Denies deformity, Reports arthralgias, Denies joint swelling and Reports other PFSH All Active Problems (Updated 05/24/23 @ 20:52 by Nichole Frazier NP) Right knee sprain (Acute) Migraine (Chronic) Epidermolysis bullosa (Acute) Klinefelter syndrome (Acute) 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 Family history of coronary artery disease (Chronic) Father- [place] at age 42 Tobacco use disorder (Chronic) GERD (gastroesophageal reflux disease) (Chronic) Hepatitis C (Chronic) Acute viral syndrome (Acute) Diarrhea (Acute) Abnormal transaminases (Acute) Testicular atrophy (Chronic) Bilateral varicoceles (Chronic 07/16/16) Clavicle fracture (Acute) The patient is instructed that he can discontinue his [place] splint at this time as he is 12 days out from injury with no chance of this displacing unless he was to injure it again. With respect to his distal clavicle fracture he will use a sling for pain control and to warn others of his injury and discontinue its use over the next several weeks as his pain level improves he will be left with a bump but will have a well-functioning shoulder and will follow back to the office in 1 month's time. Right testicular pain (Acute 07/16/16) Medical History Anxiety with depression ADHD Insomnia Development disorder, language Genetic disorder Polysubstance abuse Low back pain Frequent headaches Esophagitis Anger Erosive gastritis GERD (gastroesophageal reflux disease) History of drug use disorder history of opiate dependence Surgical History S/P orchiectomy S/P hernia repair EGD - MAC (12/15/17) Family History Mother Substance use disorder Asthma Depression Anxiety Father Substance use disorder Depression Other Essential hypertension Heart disease Social History Smoking/Tobacco Use Status: Current every day Tobacco Type: cigarettes Smoking packs per day: 1 Smoking cigarettes per day: 20.0 Tobacco: How many years used: 15 Quit status: considering quitting Smoking risk assessment performed?: Yes Alcohol Intake: current Alcohol Intake frequency: a few times a month Alcohol type: beer Details: pt stopped due to ulcers in February. Drug use: Daily Substance use type: marijuana Details: IV Drug user, and fentanyl - not used x 6 months Adopted: Yes Caregiver/Support person: No Foster care: No Household members: family and children Housing: house Number of Children: 2 Communication Needs: Language Barriers Do you need help understanding health information?: Often current occupation: Disabled Pets and animals: Yes Pets and animals: dog(s) Do you think of yourself as: bisexual Current gender identity: male What is your relationship status?: living with partner How often do you talk on the phone with friends or family?: three or more times per week How often do you get together with friends or relatives?: once per week Do you belong to any clubs or organized social groups?: no Panel score (0-1 are the most socially isolated patients): 2 What type of physical activity do you participate in: walking Duration: > 90 minutes/day Frequency: 5-6 times per week Special cristian needs: No Seatbelt use: never Helmet use: Yes Helmet use: sometimes 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 Do you feel safe at home: Yes Do you feel safe in your relationship?: Yes Exam Extrem General: normal to inspection Right upper extremity: normal to inspection Left upper extremity: normal to inspection Right lower extremity: normal to inspection and knee Details: tenderness Location: of the medial joint line and of the lateral joint line and knee ligament exam normal; no ecchymosis, no crepitus, no deformity and no unusual warmth Course Vital Signs Vital signs: Vital Signs Temperature 35.8 C L 05/24/23 19:23 Pulse 92 H 05/24/23 19:23 Respiratory Rate 16 05/24/23 19:23 Blood Pressure 123/81 05/24/23 19:23 Pulse Oximetry 99 05/24/23 19:23 Temperature 35.8 C L 05/24/23 19:23 Temperature Source Temporal Artery Scan 05/24/23 19:23 Pulse 92 H 05/24/23 19:23 Respiratory Rate 16 05/24/23 19:23 Respiratory Effort Normal 05/24/23 19:26 Blood Pressure 123/81 05/24/23 19:23 Blood Pressure Position Sitting 05/24/23 19:23 Pulse Oximetry 99 05/24/23 19:23 Oxygen Delivery Method Room Air 05/24/23 19:23 Oxygen Flow Rate 0 05/24/23 19:23 Pain Level 10 05/24/23 19:23
--- NOTE | 2023-05-24 19:55 | DI.RAD_ITS ---
Exam(s) XR KNEE RT 3V AP,LAT,ASAD EXAM: XR KNEE RT 3V AP,LAT,ASAD CLINICAL HISTORY: Swelling x 1 week. TECHNIQUE: 2D digital imaging was performed. Three views. COMPARISON: No exams were available for comparison FINDINGS: BONES: No acute fracture is present. No bony destructive lesion is seen. JOINTS: The knee is normally aligned. No joint effusion is seen. SOFT TISSUE: Normal. IMPRESSION: Unremarkable radiographs of the right knee. DATA REPOSITORY: RADIATION DOSE DELIVERED:
--- NOTE | 2023-05-24 20:29 | DI.VRAD_ITS ---
PROCEDURE INFORMATION: Exam: XR Right Knee Exam date and time: 05/24/2023 7:43 PM Age: 33 years old Clinical indication: Pain; Knee; Right; Patient HX: Swelling x 1 week TECHNIQUE: Imaging protocol: Radiologic exam of the right knee. Views: 3 views. COMPARISON: CR XR ANKLE RT COMPLETE 12/24/2022 8:48 PM FINDINGS: Bones/joints: Normal. Soft tissues: Normal. IMPRESSION: No acute findings. Dictated and Authenticated by: Estiven Hodge MD. Ordering:NATHALIA Varela MD
== END 2023-05-24 21:17 | disposition home or self-care (01) ==
PROVIDERS: Emergency Provider Registered Nurse Emergency; PCP Family Medicine
DX: M25.561 Pain in right knee (principal); S83.91XA Sprain of unspecified site of right knee, initial encounter; F17.200 Nicotine dependence, unspecified, uncomplicated
CPT/HCPCS: 73562; 99283

== ENCOUNTER 2023-06-25 09:07 | Emergency (ER) | payer MEDICAID, SELFPAY ==
[2023-06-25 09:16] VITALS: BP 136/93; PULSE 72; RESP 16; TEMP 36.7; O2SAT 97
--- NOTE | 2023-06-25 09:25 | ED.GENADUL_ITS ---
HPI General Stated Complaint: DrugWithdr/MAT DERRICK: 4 Date/Time Provider Initiated Documentation: 06/25/23 09:25. HPI Narrative: 33 year-old male presents to ED today by POV/ambulating with a chief complaint of request for clearance for outpatient MAT treatment with [facility]- not entirely sure what he needs but was told to come here, with onset of opioid use disorder chronically. Quality described as mild nausea of withdrawal, last opiate use 4 days ago, no radiation to tremors, vomiting, fever, chest pain, shortness of breath. Severity is described as mild. Palliating factors include nothing specific attempted. Provoking factors include nothing specific. Patients' PCP is Dr. Ceballos, has prior substance abuse diagnoses. Patient not anticoagulated. Related Data Home Medications Medication Instructions Recorded Confirmed methadone 10 mg/mL oral concentrate 145 mg PO DAILY 10/01/21 06/24/23 eletriptan 20 mg tablet See Rx Instructions PO .COMPLEX 03/28/23 06/24/23 #12 tabs lidocaine 5 % topical ointment 1 applic topical TID PRN pain #50 03/28/23 06/24/23 grams sildenafil 50 mg tablet 50 mg PO DAILY PRN sexual activity 03/28/23 06/24/23 #10 tabs celecoxib 200 mg capsule 200 mg PO DAILY #60 caps 06/06/23 06/24/23 acetaminophen 325 mg tablet 650 mg PO ONCE PRN 06/24/23 06/24/23 ibuprofen 200 mg tablet 400 mg PO Q6H PRN 06/24/23 06/24/23 Previous Rx's Medication Instructions Recorded eletriptan 20 mg tablet See Rx Instructions PO .COMPLEX 03/28/23 #12 tabs lidocaine 5 % topical ointment 1 applic topical TID PRN pain #50 03/28/23 grams sildenafil 50 mg tablet 50 mg PO DAILY PRN sexual activity 03/28/23 #10 tabs celecoxib 200 mg capsule 200 mg PO DAILY #60 caps 06/06/23 Allergies Allergy/AdvReac Type Severity Reaction Status Date / Time amitriptyline Allergy rash/behavioral Verified 06/24/23 08:16 changes codeine Allergy Hives Verified 06/24/23 08:16 testosterone AdvReac Severe IM dosing Verified 06/24/23 08:16 severe swelling, using gel clonazepam AdvReac Mild irritablity Verified 06/24/23 08:16 /chavez Review of Systems All systems reviewed & are unremarkable except as noted in HPI and below PFSH All Active Problems (Updated 06/25/23 @ 10:24 by MEENA Mathew) Opioid use disorder (Acute) Internal derangement of right knee (Acute) Migraine (Chronic) Epidermolysis bullosa (Acute) Klinefelter syndrome (Acute) 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 Family history of coronary artery disease (Chronic) Father- [place] at age 42 Tobacco use disorder (Chronic) GERD (gastroesophageal reflux disease) (Chronic) Hepatitis C (Chronic) Acute viral syndrome (Acute) Diarrhea (Acute) Abnormal transaminases (Acute) Testicular atrophy (Chronic) Bilateral varicoceles (Chronic 07/16/16) Clavicle fracture (Acute) The patient is instructed that he can discontinue his [place] splint at this time as he is 12 days out from injury with no chance of this displacing unless he was to injure it again. With respect to his distal clavicle fracture he will use a sling for pain control and to warn others of his injury and discontinue its use over the next several weeks as his pain level improves he will be left with a bump but will have a well-functioning shoulder and will follow back to the office in 1 month's time. Right testicular pain (Acute 07/16/16) Medical History Anxiety with depression ADHD Insomnia Development disorder, language Genetic disorder Polysubstance abuse Low back pain Frequent headaches Esophagitis Anger Erosive gastritis GERD (gastroesophageal reflux disease) History of drug use disorder history of opiate dependence Surgical History S/P orchiectomy S/P hernia repair EGD - MAC (12/15/17) Family History Mother Substance use disorder Asthma Depression Anxiety Father Substance use disorder Depression Other Essential hypertension Heart disease Social History Smoking/Tobacco Use Status: Current every day Tobacco Type: cigarettes Smoking packs per day: 1 Smoking cigarettes per day: 20.0 Tobacco: How many years used: 15 Quit status: considering quitting Smoking risk assessment performed?: Yes Alcohol Intake: current Alcohol Intake frequency: a few times a month Alcohol type: beer Details: pt stopped due to ulcers in February. Drug use: Daily Substance use type: marijuana Details: IV Drug user, and fentanyl - not used x 6 months Adopted: Yes Caregiver/Support person: No Foster care: No Household members: family and children Housing: house Number of Children: 2 Communication Needs: Language Barriers Do you need help understanding health information?: Often current occupation: Disabled Pets and animals: Yes Pets and animals: dog(s) Do you think of yourself as: bisexual Current gender identity: male What is your relationship status?: living with partner How often do you talk on the phone with friends or family?: three or more times per week How often do you get together with friends or relatives?: once per week Do you belong to any clubs or organized social groups?: no Panel score (0-1 are the most socially isolated patients): 2 What type of physical activity do you participate in: walking Duration: > 90 minutes/day Frequency: 5-6 times per week Special cristian needs: No Seatbelt use: never Helmet use: Yes Helmet use: sometimes 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 SKIN: Warm, pink, dry, intact, without rashes/lesions/ulcerations. HEAD: Normocephalic, atraumatic, normal hair distribution for gender/age. EYES: Pupils PERRLA, EOMs intact without nystagmus, normal conjunctiva, no exudates on lids/lashes. ENT: Nares patent, no circumoral cyanosis, no facial swelling NECK: Supple, trachea midline, painless cervical ROM. LUNGS/CHEST: Non-labored respirations, normal A/P diameter, symmetrical expansion, no chest wall deformity HEART (CV/PV): No peripheral edema, no JVD. ABDOMEN: Soft, non-distended, no guarding. MSK: Normal ROM, no swelling/deformity to bilateral UEs or LEs, moving all extremities without weakness, no cyanosis, spine midline without tenderness, normal curvature. NEURO: Mental Status AAOx4 - alert to person, place, time, events No facial droop, no forehead involvement. Motor: No focal weakness - strength 5/5 in bilateral UEs and LEs, proximal and distal, symmetric. Sensory: sensation intact to light touch globally. Gait normal: patient ambulated without ataxia into ED room. PSYCH: dysthymic, cooperative, pleasant, appropriate speech Course Vital Signs Vital signs: Vital Signs Temperature 36.7 C 06/25/23 09:16 Pulse 72 06/25/23 09:16 Respiratory Rate 16 06/25/23 09:16 Blood Pressure 136/93 H 06/25/23 09:16 Pulse Oximetry 97 06/25/23 09:16 Temperature 36.7 C 06/25/23 09:16 Temperature Source Oral 06/25/23 09:16 Pulse 72 06/25/23 09:16 Respiratory Rate 16 06/25/23 09:16 Blood Pressure 136/93 H 06/25/23 09:16 Blood Pressure Position Sitting 06/25/23 09:16 Pulse Oximetry 97 06/25/23 09:16 Oxygen Delivery Method Room Air 06/25/23 09:16 Oxygen Flow Rate 0 06/25/23 09:16 Pain Level 10 06/25/23 09:16 Comment chronic knee pain takes tylenol and advil 06/25/23 09:16 Medical Decision Making This dictation utilizes [id number] dictation software and may contain unedited grammatical errors. 33 y/o M presents to ED today with a chief complaint of no medical complaint, states he was directed here by an outpatient MAT clinic called [facility] in [place], [place] for clearance to begin outpatient suboxone treatment. States he is not sure what they need. Endorses mild symptoms of withdrawal life nausea and just feeling sick. 4 days since last opiate use. I called this [facility] MAT group at , they have no physical address listed anywhere to inquire what they needed from the ER. They stated they needed their REM Referral form signed, and needed an official diagnosis of opiate abuse so they patient could begin treatment. The patient already has a diagnosis from his PCP of polysubstance abuse, history of drug abuse disorder, and has had suboxone treatment in the past. He has a PCP- Dr. Myrtyr. I informed [facility] that this was an inappropriate ER triage and there was no medical emergency, the layperson on the phone stated it was an emergency and that [place] Medicaid directs them to refer all patients to ERs for this. I informed this person of the legal responsibilities of the ER in an [facility] and acute true emergencies, provided our fax number and awaited fax for their form for >60 minutes. Patients' medical history: history of opioid use disorder. Family and social history: last opiate use 4 days ago, denies other substance abuse. Pertinent exam findings / vital signs include benign cardiopulmonary exam, tolerating PO intake, no acute complaints, nontoxic vitals. Differential / pathologies of concern include opiate withdrawal. Diagnostic studies of: -UDS, HIV Ag/Ab, Hep C Ab w/ reflex per request of MAT clinic. Interventions of: -none. ED Course/Assessment/Plan: Provided the patient with a diagnosis of opiate use disorder and filled out his form so he can pursue outpatient treatment with Sub[facility] with [facility]. Performed requested studies, discharged without results. Advised return criteria for any emergent concerns. Findings not consistent with acute severe withdrawal, inability to tolerate PO intake, intoxication. Disposition of Opiate Use Disorder. Patient verbalized understanding of the plan and return to ED criteria and engaged in shared decision making. Medical Records Medical records reviewed: Yes I reviewed the patient's medical records. Quality:SDOH Health Related Social Needs: No Data to Display Discharge Plan Disposition Patient Disposition: Home Discharge Details Clinical Impression: Opioid use disorder Primary Care Provider: Lawrence Wood ED Provider: Km Tesfaye Home Meds and New Rx's Prescriptions: Continued lidocaine 5 % ointment 1 applic topical TID PRN (Reason: pain) Qty: 50 0RF sildenafil 50 mg tablet 50 mg PO DAILY PRN (Reason: sexual activity) Qty: 10 5RF Rx Instructions: 1/2 to 1 tab. administer 30 minutes to 4 hours before activity eletriptan 20 mg tablet See Rx Instructions PO .COMPLEX Qty: 12 0RF Rx Instructions: take 1 tab at onset of headache; if no relief may repeat 1 tab after at least 2 hrs; max = 4 tabs/24 hr PO celecoxib 200 mg capsule 200 mg PO DAILY Qty: 60 0RF ibuprofen 200 mg tablet 400 mg PO Q6H PRN acetaminophen 325 mg tablet 650 mg PO ONCE PRN methadone 10 mg/mL concentrate 145 mg PO DAILY Hold Instructions: Home Medication placed on hold at Doctor's office Discharge Instructions Instructions: Opioid Use Disorder (ED) Additional Instructions: You were seen in the emergency department for your opioid use disorder, you state that your MAT program [facility] as directed you to the ER for clearance to start outpatient treatment, we have filled out the required forms and provided you with a diagnosis to begin outpatient treatment please follow-up with your medication assisted withdrawal treatment with Suboxone. Reach out to community resources for counseling and other auxiliary treatments for opioid use disorder besides Suboxone only, do not hesitate to return to the ER for any emergent concerns. Referrals: Lawrence Wood DO [Primary Care Provider] - Discharge Data Discharge Date/Time-TO BE ENTERED AT DEPARTURE: 06/25/23 11:40
[2023-06-25 12:04] LABS: *AMPHETAMINES SCREEN URINE Negative (Negative); *BARBITURATES SCREEN URINE Negative (Negative); *BENZODIAZEPINES SCREEN URINE Negative (Negative); Cannabinoids THC Positive (Negative); Cocaine Screen,Urine Negative (Negative); METHADONE URINE SCREEN Negative (Negative); OPIATES URINE SCREEN Negative (Negative)
[2023-06-25 12:07] LABS: Tricyclic Antidepressants Negative (Negative)
--- NOTE | 2023-06-25 13:56 | NUR.NOTE ---
[facility] [facility] faxed to us their release of information. It was emailed back to them with the UDS. Email: [email or web address], kalyani Plata. Nursing Note:
[2023-06-25 19:00] LABS: HIV-1/2 Ag & Ab Screen Negative (Negative)
[2023-06-25 19:26] LABS: Hepatitis C Ab w Rflx HCV PCR Reactive (Negative)
[2023-06-26 11:38] LABS: HCV RNA Qualitative Undetected (Undetected)
== END 2023-06-25 11:40 | disposition home or self-care (01) ==
PROVIDERS: Emergency Provider Physician Assistant; PCP Family Medicine
DX: F11.10 Opioid abuse, uncomplicated (principal); F17.210 Nicotine dependence, cigarettes, uncomplicated
CPT/HCPCS: 36415; 80307; 86803; 87389; 87522; 99283

== ENCOUNTER 2024-01-16 12:37 | Emergency (ER) | payer MEDICAID, SELFPAY ==
[2024-01-16 12:56] VITALS: BP 126/102; PULSE 66; RESP 15; TEMP 36.5; O2SAT 98
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
--- NOTE | 2024-01-16 14:16 | DI.RAD_ITS ---
Exam(s) XR ANKLE RT COMPLETE EXAM: XR ANKLE RT COMPLETE CLINICAL HISTORY: R ankle pain. TECHNIQUE: 2D digital imaging was performed. Three views. COMPARISON: CR,XR XR ANKLE RT COMPLETE from 12/24/2022 FINDINGS: BONES: No acute fracture is present. No bony destructive lesion is seen. JOINTS: The ankle mortise is normally aligned. SOFT TISSUE: Swelling around lateral malleolus. IMPRESSION: Soft tissue swelling. DATA REPOSITORY: RADIATION DOSE DELIVERED:
[2024-01-16 14:50] VITALS: BP 126/102; PULSE 66; RESP 15; TEMP 36.5; O2SAT 98
== END 2024-01-16 15:02 | disposition home or self-care (01) ==
PROVIDERS: Emergency Provider Physician Assistant; PCP Family Medicine
DX: S93.401A Sprain of unspecified ligament of right ankle, initial encounter (principal); F17.210 Nicotine dependence, cigarettes, uncomplicated; W20.8XXA Other cause of strike by thrown, projected or falling object, initial encounter; Y93.H3 Activity, building and construction; Y92.89 Other specified places as the place of occurrence of the external cause; Y99.0 Civilian activity done for income or pay
CPT/HCPCS: 99283; 73610

== ENCOUNTER 2024-03-02 21:59 | Emergency (ER) | payer MEDICAID, SELFPAY ==
[2024-03-02] VITALS (32 sets, daily range): BP systolic 94–110; BP diastolic 57–73; PULSE 77–100; RESP 7–30; TEMP 36.6; O2SAT 92–100
--- NOTE | 2024-03-02 21:45 | RT.EKG_ITS ---
APPROVED REPORT Exam: Resting ECG Reason for Exam: found unresponsive Patient Location: E HR:87 bpm ECG Measurements Heart Rate 87 AXIS VA 198 P 51 QRSd 93 QRS 88 QT 373 T 56 QTc 448 Conclusion Sinus rhythm...normal P axis, V-rate 60- 99 I have reviewed and interpreted ECG and agree with software generated interpretation.
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
[2024-03-02 22:19] LABS: BE (Venous) -6 mmol/L (-2-3); HCO3 (Venous) 24 mmol/L (23-28); O2 Sat (Venous) 77 %; TCO2 (Venous) 23 mmol/L (24-29); pO2 (Venous) 49 mmHg
[2024-03-02] MEDS: ACETAMINOPHEN 1,000 MG/100 ML BTL 400 MG IVPB (22:20)
[2024-03-02] MEDS: Ondansetron 4 MG/2 ML VIAL (22:21)
[2024-03-02] MEDS: Diclofenac 1% Gel 100 GM TUBE TP (22:21)
[2024-03-02] MEDS: Lactated Ringers 1,000 ML 1000 ML IV (22:21)
[2024-03-02 22:22] LABS: Abs Immature Grans 0.23 10^3/uL (0.0-0.06); HCT 35.8 % (40.0-50.0); HGB 11.8 g/dL (13.5-17.5); MCH 30.3 pg (27.0-33.0); MCV 92 fL (80-95); MPV 9.7 fL (8.0-11.0); Platelet Count 274 10^3/uL (130-400); RDW-SD 43.8 fL; WBC 10.15 10^3/uL (4.4-10.8); pH (Venous) 7.11 (7.31-7.41)
[2024-03-02 22:23] LABS: pCO2 (Venous) 73 mmHg (41-51)
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
[2024-03-02 22:41] LABS: Absolute Neutrophil Count 3.45 10^3/uL (1.2-6.7)
[2024-03-02 22:42] LABS: Diff Comment Manual Differential; RBC Morphology Normal
[2024-03-02 22:48] LABS: ALT 36 U/L (16-63); AST 48 U/L (15-37); Albumin 3.7 g/dL (3.4-5.0); Alkaline Phosphatase 90 U/L (46-116); Anion Gap 11.4 mmol/L (3-11); BUN 14 mg/dL (7-18); Bilirubin, Total 0.36 mg/dL (0.2-1.0); CO2 26.6 mmol/L (21.0-32.0); CREATININE 1.8 mg/dL (0.70-1.30); Calcium 8.9 mg/dL (8.5-10.1); Chloride 103 mmol/L (98-107); Estimated GFR 50.34 (mL/min/1.73m2); Glucose 373 mg/dL (74-106); Potassium 3.8 mmol/L (3.5-5.1); Sodium 141 mmol/L (136-145); TSH (W/Ref FT4) 3.08 uIU/mL (0.36-3.74); Troponin I 6 ng/L (<or=76)
[2024-03-02 22:49] LABS: ETHANOL BLOOD < 3.0 mg/dL (<10)
[2024-03-02] MEDS: Omnipaque 350 MG/ML 100 ML BTL IJ (23:00)
[2024-03-02] MEDS: Normal Saline - Diluent 50 ML VIAL IJ (23:01)
[2024-03-02] MEDS: Normal Saline Flush 10 ML SYR IVP (23:03)
[2024-03-03] VITALS (69 sets, daily range): BP systolic 107–113; BP diastolic 59–69; PULSE 59–86; RESP 7–23; O2SAT 84–100
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
[2024-03-03] MEDS: Insulin REGULAR-Human 100 UNITS/ML UNIT 12 UNITS SC (00:09)
[2024-03-03 00:13] LABS: BE (Venous) 0 mmol/L (-2-3); HCO3 (Venous) 28 mmol/L (23-28); O2 Sat (Venous) 65 %; TCO2 (Venous) 27 mmol/L (24-29); pH (Venous) 7.24 (7.31-7.41); pO2 (Venous) 35 mmHg
[2024-03-03 00:18] LABS: pCO2 (Venous) 65 mmHg (41-51)
[2024-03-03 00:21] LABS: *AMPHETAMINES SCREEN URINE Negative (Negative); *BARBITURATES SCREEN URINE Negative (Negative); *BENZODIAZEPINES SCREEN URINE Negative (Negative); Cannabinoids THC Positive (Negative); Cocaine Screen,Urine Positive (Negative); METHADONE URINE SCREEN Negative (Negative); OPIATES URINE SCREEN Negative (Negative)
[2024-03-03 00:22] LABS: Tricyclic Antidepressants Negative (Negative)
[2024-03-03 00:26] LABS: Bilirubin Negative (Negative); Blood Negative (Negative); Clarity Clear (Clear); Glucose 500 mg/dL (Negative); Ketones Negative (Negative); Leukocyte Esterase Negative (Negative); Nitrite Negative (Negative); Specific Gravity >= 1.030 (1.005-1.025); Urobilinogen 0.2 mg/dL (Up to 0.2)
[2024-03-03 00:29] LABS: Bacteria Rare HPF (Negative); C & S Indicated? No; Casts Negative LPF (Negative); Crystals Negative HPF (Negative); Epithelial Cells Rare HPF (Negative); Mucus Negative (Negative); RBC 0-2 HPF (0-2)
[2024-03-03 00:31] LABS: Hemoglobin A1C 5.2 % (<5.7)
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
--- NOTE | 2024-03-03 12:01 | W.ED.FU ---
Date of service: 03/03/24 Time of Service: 12:01 Follow Up Plan: radiology read today shows nonspecific fluid around gallbladder, recommend f/u u/s at some point. Attempted to call patient but no answer, message left to return call
== END 2024-03-03 02:10 | disposition left against medical advice (07) ==
PROVIDERS: Emergency Provider Student in an Organized Health Care Education/Training Program; PCP Family Medicine
DX: T40.414A Poisoning by fentanyl or fentanyl analogs, undetermined, initial encounter (principal); R73.9 Hyperglycemia, unspecified; J96.02 Acute respiratory failure with hypercapnia; R06.89 Other abnormalities of breathing; Q98.4 Klinefelter syndrome, unspecified; Z85.47 Personal history of malignant neoplasm of testis; Z53.29 Procedure and treatment not carried out because of patient's decision for other reasons
CPT/HCPCS: 74177; 80053; 80307; 82805; 93005; 96361; 96365; 99285; 70450; 71260; 72125; 73700; 80320; 81003; 81015; 83036; 84443; 84484; 85025; 93010; 94660; 99284; J0131; J1815; J2405; J3490

== ENCOUNTER 2024-03-12 10:57 | Outpatient (REF) | payer MEDICAID, SELFPAY ==
[2024-03-12 16:03] LABS: Hemoglobin A1C 5.1 % (<5.7)
== END 2024-03-12 10:58 | disposition home or self-care (01) ==
LOC: LBN 10:57
PROVIDERS: PCP Family Medicine; Visit Provider Emergency Medicine
DX: E11.9 Type 2 diabetes mellitus without complications (principal)
CPT/HCPCS: 83036

== ENCOUNTER 2024-04-15 12:54 | Outpatient (CLI) | payer MEDICAID, SELFPAY ==
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
== END 2024-04-15 13:14 ==
PROVIDERS: PCP Family Medicine; Visit Provider Nurse Practitioner Family
DX: R05.9 Cough, unspecified (principal)
CPT/HCPCS: 71046

== ENCOUNTER 2024-05-06 02:12 | Outpatient (CLI) | payer MEDICAID, SELFPAY ==
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
== END 2024-05-06 02:32 ==
LOC: DI 02:12
PROVIDERS: PCP Family Medicine; Visit Provider Family Medicine
DX: S83.8X1A Sprain of other specified parts of right knee, initial encounter; X58.XXXA Exposure to other specified factors, initial encounter
CPT/HCPCS: 73721; 70030